=== PATIENT | male | born 1970 | race Caucasian/White ===

== ENCOUNTER 2016-06-26 11:36 | Inpatient (IN) | payer MEDICARE, MEDICAID ==
--- NOTE | 2016-06-26 12:04 | ED Physician Chart ---
Skin/Abscess/FB HPI - General Chief complaint: Skin Rash/Abscess Stated complaint: CYST PAIN Time Seen by Provider: 06/26/16 11:50 Limitations: language barrier, other (profound intellectual disability) - History of Present Illness MD complaint: abscess/boil Onset (ago): unknown Tetanus Up to Date: unsure Location: chest Severity: moderate - Related Data Home Medications Medication Instructions Recorded Confirmed Acetaminophen [Tylenol] 650 mg PO Q6HR PRN 03/13/16 06/26/16 Bupropion HCl 75 mg PO DAILY 03/13/16 06/26/16 Clonazepam [Clonazepam*] 1 mg PO TID 03/13/16 06/26/16 Desmopressin Acetate [Ddavp] 0.1 mg PO DAILY 03/13/16 06/26/16 Divalproex Sodium [Depakote] 500 mg PO TID 03/13/16 06/26/16 Ferrous Sulfate [Iron] 325 mg PO BID 03/13/16 06/26/16 Guaifenesin/D-Methorphan Hb/PE 2 tsp PO QID PRN 03/13/16 06/26/16 [Tussin Cf Cough & Cold Syrup] Levothyroxine [Synthroid] 0.05 mg PO QDAC 03/13/16 06/26/16 Megestrol Acetate [Megace] 40 mg PO BID 03/13/16 06/26/16 Melatonin 6 mg PO HS 03/13/16 06/26/16 Menthol/Zinc Oxide [Calmoseptine 71 gm TP PRN PRN 03/13/16 06/26/16 Ointment] Metoclopramide HCl 5 mg PO BID 03/13/16 06/26/16 Ondansetron [Zofran Odt] 4 mg PO Q6H PRN 03/13/16 06/26/16 QUEtiapine Fumarate [SEROquel] 25 mg PO TID 03/13/16 06/26/16 QUEtiapine Fumarate [SEROquel] 50 mg PO TID 03/13/16 06/26/16 Trazodone HCl 100 mg PO HS 03/13/16 06/26/16 Zolpidem Tartrate 5 mg PO HS 03/13/16 06/26/16 Allergies Allergy/AdvReac Type Severity Reaction Status Date / Time No Known Allergies Allergy Verified 06/26/16 12:03 Past Medical History - Past Medical History Source: Old Records Reviewed, Nursing Notes Reviewed Medical history: Reports: GERD, Seizures, Thyroid Disease Psychiatric history: Reports: Anxiety, Schizophrenia (anglemons syndrome, autism ) Family Medical History - Family Member Mother History Unknown: Yes Physical Exam - General Limitations: language barrier, other (mental disability) - Head Head exam: normal inspection - Eye Eye exam: Present: normal appearance - Chest Chest inspection: Present: abscess (midline presternal soft tissue abscess) - Neurological Exam Neurological exam: Present: alert (smiles, attentive to name. uncooperative in allowing shirt to be removed, swings arms to prevent any attempt at intervention.) - Expanded Psychiatric Exam Expanded psych exam: Present: uncooperative, other - Skin Skin exam: Present: warm, dry - Expanded Skin Exam Type of lesion: Present: abscess Distribution: chest (3x6cm midline soft tissue abscess ant chest wall below xiphiod process)
--- NOTE | 2016-06-26 13:56 | General Progress Note ---
Subjective - Review of Systems Service Date: 06/26/16 Subjective: [id number] Objective - Physical Exam Vitals and I&O: Vital Signs Temp 97.9 F 06/26/16 12:05 Pulse 98 06/26/16 12:05 Resp 18 06/26/16 12:05 BP 105/57 06/26/16 12:05 Pulse Ox 94 06/26/16 12:05 Active Medications: Current Medications Piperacillin Sod/Tazobactam (Sod 4.5 gm/ Sodium Chloride) 100 mls @ 100 mls/hr IV Q8HR [facility] Stop: 08/25/16 20:59 Lidocaine/Epinephrine (Epinephrine /Lidocaine 2%) 10 ml INJ X1 ONE Stop: 06/26/16 12:12 Lorazepam (Ativan) 1 mg IM NOW STA PRN Reason: Protocol Stop: 06/26/16 12:08 Last Admin: 06/26/16 12:18 Dose: 1 mg Miscellaneous (Vancomycin Iv Per Pharmacy) 1 ea MC PRN [facility] Stop: 08/25/16 13:44 - Procedures Procedures: Procedures Procedure Code Date COLONOSCOPY 45.23 07/22/10 DIAGNOSTIC COLONOSCOPY 17920 07/22/10 EGD DIAGNOSTIC BRUSH WASH 62177 04/17/09 ESOPHAGOGASTRODUODENOSCOPY [EGD] W/CLOSED BIOPSY 45.16 03/05/09 OTHER ENDOSCOPY OF SM INTEST 45.13 04/17/09 Assessment/Plan - Problem List Patient Problems: All 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 Failure to thrive (Acute) [id number] History of pneumonia (Acute) Z87.01 Inadequate oral intake (Acute) R63.8 Leukocytosis (Acute) D72.829 Thyroid disorder (Acute) UTI (urinary tract infection) (Acute)
[2016-06-26 14:29] LABS: HEMOGLOBIN 10.7 gm/dL (13.2-17.3); MEAN CORPUSCULAR HEMOGLOBIN 24.9 pg (26.0-30.0); MEAN CORPUSCULAR HGB CONC 31.9 pg (28.0-36.0); MEAN PLATELET VOLUME 7.5 fl; RED BLOOD COUNT 4.29 Mil/cmm (4.30-5.70); RED CELL DISTRIBUTION WIDTH 20.5 % (11.5-20.0)
[2016-06-26 14:31] LABS: HEMATOCRIT 33.4 % (39.0-49.0); PLATELET COUNT 437 Th/cmm (150-400)
[2016-06-26 14:39] LABS: ALB/GLOB RATIO 0.8 (1.0-1.8); ALKALINE PHOSPHATASE 43 U/L (34-104); ANION GAP 9.3 (7.0-16.0); BILIRUBIN,TOTAL 0.2 mg/dL (0.3-1.0); BUN - UREA NITROGEN 21 mg/dL (7-25); BUN/CREATININE RATIO 19.1; CALCIUM SERUM 8.9 mg/dL (8.6-10.3); CARBON DIOXIDE 30.4 mEq/L (21.0-31.0); CHLORIDE 97 mEq/L (98-107); CREATININE - SERUM 1.1 mg/dL (0.7-1.3); GLUCOSE 79 mg/dL (70-105); POTASSIUM SERUM 4.7 mEq/L (3.5-5.1); SGOT 11 U/L (13-39); SGPT/ALT 5 U/L (7-52); SODIUM SERUM 132 mEq/L (136-145)
--- NOTE | 2016-06-26 14:57 | History & Physical ---
CHIEF COMPLAINT: The patient is a poor historian, unable to give any history. The patient was sent from correction for chest wall abscess. HISTORY OF PRESENT ILLNESS: The patient is a 45-year-old male with a past medical history of Angelman syndrome, schizophrenia, anxiety, GERD, seizures, thyroid disorder, cellulitis of right big toe, treated with antibiotic in the past, brought in from nursing facility for a large chest wall abscess with redness. On initial evaluation, the patient's temperature was 97.9 degrees Fahrenheit and labs are pending. PAST MEDICAL HISTORY: As mentioned above, Angelman syndrome, schizophrenia, mental retardation, GERD, seizure disorder, hypothyroidism and anxiety disorder. FAMILY HISTORY: Unknown. REVIEW OF SYSTEMS: Unable to obtain, but the patient has large chest wall abscess in front of the sternum. SOCIAL HISTORY: The patient lives in a nursing facility. PHYSICAL EXAMINATION: VITAL SIGNS: Shows temperature is 97.9, pulse 98, respirations 18, blood pressure 105/57. GENERAL: The patient is comfortable. Not in acute distress. HEENT: Head is normocephalic, atraumatic. Oral cavity moist, pink tongue. Eyes: No pallor, no icterus. PERRLA, EOMI. NECK: Supple, no JVD, no carotid bruit. Trachea in midline. CHEST: Bilateral breath sounds. No crackles, no wheezing. SKIN: The patient has large abscess in the middle of her chest anteriorly with redness. HEART: S1, S2 within normal limits. Regular rhythm. ABDOMEN: Soft, nontender, nondistended. Bowel sounds present. EXTREMITIES: No cyanosis, no clubbing, no edema. NEUROLOGIC: Alert, but mentally retarded. LABORATORY DATA: Labs are pending, not done yet. IMPRESSION: 1. Chest wall abscess. 2. Angelman syndrome. 3. Schizophrenia. 4. Mental retardation. 5. History of MRSA infection in the past. RECOMMENDATIONS AND PLAN: We will ask for surgical consultation. We will ask for Psychiatric consultation. Antibiotics, vancomycin and Zosyn, were started. Continue other medications from nursing facility. Discussed with the nurse, RN, and ER and get all the lab work done. JOB# [id number] [facility]
[2016-06-26 15:11] LABS: ANISOCYTOSIS 1+; BAND NEUTROPHILE 1 % (0-10); EOSINOPHIL 2 % (0-5); MICROCYTOSIS 1+; NEUTROPHILS 71 % (40-80); PLATELET MORPHOLOGY PLATELET CLUMPS SEEN (NORMAL); TOTAL CELLS COUNTED 100
[2016-06-26 15:12] LABS: PLATELET ESTIMATE ADEQUATE (NORMAL)
[2016-06-26] MEDS ORDERED: [UNRECOGNIZED DRUG - OTHER] PO PRN (21:41)
[2016-06-26] MEDS ORDERED: Menthol/Zinc Oxide Oint 113gm Tube TP PRN (21:41)
[2016-06-26] MEDS ORDERED: GUAIFENESIN PO PRN (21:41)
[2016-06-26] MEDS ORDERED: PHENYLEPHRINE PO PRN (21:41)
[2016-06-26] MEDS ORDERED: DEXTROMETHORPHAN PO PRN (21:41)
[2016-06-27 05:45] LABS: HEMOGLOBIN 11.5 gm/dL (13.2-17.3); MEAN CORPUSCULAR HEMOGLOBIN 24.8 pg (26.0-30.0); MEAN CORPUSCULAR HGB CONC 31.8 pg (28.0-36.0); MEAN PLATELET VOLUME 7.4 fl; PLATELET COUNT 478 Th/cmm (150-400); RED BLOOD COUNT 4.62 Mil/cmm (4.30-5.70); RED CELL DISTRIBUTION WIDTH 20.5 % (11.5-20.0); WHITE BLOOD COUNT 18.2 Th/cmm (4.8-10.8)
[2016-06-27 06:14] LABS: ALB/GLOB RATIO 0.8 (1.0-1.8); ALKALINE PHOSPHATASE 47 U/L (34-104); ANION GAP 7.1 (7.0-16.0); BILIRUBIN,TOTAL 0.2 mg/dL (0.3-1.0); BUN - UREA NITROGEN 21 mg/dL (7-25); BUN/CREATININE RATIO 19.1; CARBON DIOXIDE 28.6 mEq/L (21.0-31.0); CHLORIDE 98 mEq/L (98-107); CREATININE - SERUM 1.1 mg/dL (0.7-1.3); GLUCOSE 76 mg/dL (70-105); POTASSIUM SERUM 4.7 mEq/L (3.5-5.1); SGOT 14 U/L (13-39); SGPT/ALT 6 U/L (7-52); SODIUM SERUM 129 mEq/L (136-145)
[2016-06-27] MEDS: Levothyroxine 0.05 Mg Tab PO SCH (07:30)
[2016-06-27 07:53] LABS: EOSINOPHIL 3 % (0-5); MYELOCYTE 1 %; NEUTROPHILS 76 % (40-80); PLATELET ESTIMATE ADEQUATE (NORMAL); PLATELET MORPHOLOGY GIANT PLATELETS SEEN (NORMAL); TOTAL CELLS COUNTED 100
[2016-06-27 07:54] LABS: ANISOCYTOSIS 1+; MICROCYTOSIS 1+
[2016-06-27] MEDS: Ferrous Sulfate 325 MG TAB PO SCH ×2 (08:58→16:02)
[2016-06-27] MEDS ORDERED: Guaifenesin DM 10 ML UDC PO PRN (11:59)
--- NOTE | 2016-06-27 12:58 | General Progress Note ---
Subjective - Review of Systems Service Date: 06/27/16 Events since last encounter: large abscess on chest - duration? from SNF, unable to ascertain duration of abscess Plan: I and D of abscess unlder sedation in AM Objective - Results Result Diagrams: 06/27/16 05:25 06/27/16 05:25 Recent Labs: Laboratory Last Values WBC 18.2 Th/cmm (4.8-10.8) H 06/27/16 05:25 RBC 4.62 Mil/cmm (4.30-5.70) 06/27/16 05:25 Hgb 11.5 gm/dL (13.2-17.3) L 06/27/16 05:25 Hct 36.0 % (39.0-49.0) L 06/27/16 05:25 MCV 78.0 fl (80-99) L 06/27/16 05:25 MCH 24.8 pg (26.0-30.0) L 06/27/16 05:25 MCHC Differential 31.8 pg (28.0-36.0) 06/27/16 05:25 RDW 20.5 % (11.5-20.0) H 06/27/16 05:25 Plt Count 478 Th/cmm (150-400) H 06/27/16 05:25 MPV 7.4 fl 06/27/16 05:25 Band Neutrophils % 1 % (0-10) 06/26/16 14:13 Neutrophils (Manual) 76 % (40-80) 06/27/16 05:25 Lymphocytes 14 % (20-50) L 06/27/16 05:25 Monocytes 6 % (2-10) 06/27/16 05:25 Eosinophils 3 % (0-5) 06/27/16 05:25 Myelocytes 1 % 06/27/16 05:25 Nucleated RBCs 1.0 % (0-0) H 06/26/16 14:13 Platelet Estimate ADEQUATE (NORMAL) 06/27/16 05:25 Platelet Morphology GIANT PLATELETS SEEN (NORMAL) 06/27/16 05:25 Anisocytosis 1+ 06/27/16 05:25 Microcytosis 1+ 06/27/16 05:25 RBC Morph Micro Appear ABNORMAL (NORMAL) 06/27/16 05:25 ESR 17 mm/hr (0-20) 06/27/16 05:25 Sodium 129 mEq/L (136-145) L 06/27/16 05:25 Potassium 4.7 mEq/L (3.5-5.1) 06/27/16 05:25 Chloride 98 mEq/L (98-107) 06/27/16 05:25 Carbon Dioxide 28.6 mEq/L (21.0-31.0) 06/27/16 05:25 Anion Gap 7.1 (7.0-16.0) 06/27/16 05:25 BUN 21 mg/dL (7-25) 06/27/16 05:25 Creatinine 1.1 mg/dL (0.7-1.3) 06/27/16 05:25 Est GFR ( Amer) > 60.0 ml/min (>90) 06/27/16 05:25 Est GFR (Non-Af Amer) > 60.0 ml/min 06/27/16 05:25 BUN/Creatinine Ratio 19.1 06/27/16 05:25 Glucose 76 mg/dL (70-105) 06/27/16 05:25 Calcium 9.0 mg/dL (8.6-10.3) 06/27/16 05:25 Total Bilirubin 0.2 mg/dL (0.3-1.0) L 06/27/16 05:25 AST 14 U/L (13-39) 06/27/16 05:25 ALT 6 U/L (7-52) L 06/27/16 05:25 Alkaline Phosphatase 47 U/L (34-104) 06/27/16 05:25 Total Protein 7.5 gm/dL (6.0-8.3) 06/27/16 05:25 Albumin 3.3 gm/dL (4.2-5.5) L 06/27/16 05:25 Globulin 4.2 gm/dL 06/27/16 05:25 Albumin/Globulin Ratio 0.8 (1.0-1.8) L 06/27/16 05:25 - Physical Exam Vitals and I&O: Vital Signs Temp 97.2 F 06/27/16 12:00 Pulse 96 06/27/16 12:00 Resp 18 06/27/16 12:00 BP 119/65 06/27/16 12:00 Pulse Ox 92 06/27/16 12:00 Intake & Output 06/26/16 06/27/16 06/27/16 18:59 06:59 18:59 Intake Total 100 100 100 Balance 100 100 100 Weight (lbs) 65.317 kg Intake: Intake, IV Amount 100 100 Piperacillin Sodium/ 100 100 Tazobact 4.5 gm In Sodium Chloride 0.9% 100 ml @ 100 mls/hr IV Q8HR [facility] Rx #:[id number] Oral 100 Other: # Voids 1 Stool Characteristics Soft Soft Active Medications: Current Medications Acetaminophen (Tylenol) 650 mg PO Q6HR PRN PRN Reason: Pain (Mild) Stop: 08/25/16 21:35 Calamine/Phenol (Calmoseptine) 0 appl TP BID PRN PRN Reason: SKIN REDNESS Stop: 08/25/16 21:40 Desmopressin Acetate (Ddavp) 0.1 mg PO DAILY [facility] Stop: 08/26/16 08:59 Last Admin: 06/27/16 08:57 Dose: 0.1 mg Divalproex Sodium (Depakote Dr) 500 mg PO TID [facility] PRN Reason: Protocol Stop: 08/26/16 08:59 Ferrous Sulfate (Iron) 325 mg PO BID [facility] Stop: 08/26/16 08:59 Last Admin: 06/27/16 08:58 Dose: 325 mg Guaifenesin/Dextromethorphan (Robitussin Dm) 10 ml PO QID PRN PRN Reason: Cough Stop: 08/26/16 11:58 Piperacillin Sod/Tazobactam (Sod 4.5 gm/ Sodium Chloride) 100 mls @ 100 mls/hr IV Q8HR [facility] Stop: 08/25/16 20:59 Last Admin: 06/27/16 12:00 Dose: 100 mls/hr Vancomycin HCl 1 gm/ Sodium (Chloride) 250 mls @ 165 mls/hr IV Q12H [facility] Stop: 08/25/16 18:59 Last Admin: 06/26/16 19:41 Dose: 165 mls/hr Levothyroxine Sodium (Synthroid) 0.05 mg PO QDAC [facility] Stop: 08/26/16 07:29 Last Admin: 06/27/16 07:30 Dose: 0.05 mg Lorazepam (Ativan) 1 mg IVP Q4HR PRN; Protocol PRN Reason: Agitation Stop: 08/25/16 21:49 Last Admin: 06/27/16 06:32 Dose: 1 mg Megestrol Acetate (Megace) 40 mg PO BID [facility] PRN Reason: Protocol Stop: 08/26/16 08:59 Last Admin: 06/27/16 08:58 Dose: 40 mg Metoclopramide HCl (Reglan) 5 mg PO BID [facility] Stop: 08/26/16 08:59 Last Admin: 06/27/16 08:57 Dose: 5 mg Miscellaneous (Vancomycin Iv Per Pharmacy) 1 ea MC PRN [facility] Stop: 08/25/16 13:44 Miscellaneous (Bupropion Hcl [Bupropion Hcl]) 75 mg PO DAILY [facility] Stop: 08/26/16 08:59 Miscellaneous (Clonazepam [Clonazepam*]) 1 mg PO TID [facility] Stop: 08/26/16 08:59 Miscellaneous (Trazodone Hcl [Trazodone Hcl]) 100 mg PO HS [facility] Stop: 08/26/16 20:59 Ondansetron HCl (Zofran) 4 mg IV Q6H PRN PRN Reason: Nausea / Vomiting Stop: 08/25/16 21:48 Quetiapine Fumarate (Seroquel) 25 mg PO TID [facility] PRN Reason: Protocol Stop: 08/26/16 08:59 Quetiapine Fumarate (Seroquel) 50 mg PO TID [facility] PRN Reason: Protocol Stop: 08/26/16 08:59 Zolpidem Tartrate (Ambien) 5 mg PO HS [facility] Stop: 08/26/16 20:59 - Procedures Procedures: Procedures Procedure Code Date COLONOSCOPY 45.23 07/22/10 DIAGNOSTIC COLONOSCOPY 38510 07/22/10 EGD DIAGNOSTIC BRUSH WASH 43308 04/17/09 ESOPHAGOGASTRODUODENOSCOPY [EGD] W/CLOSED BIOPSY 45.16 03/05/09 OTHER ENDOSCOPY OF SM INTEST 45.13 04/17/09 Assessment/Plan - Problem List Patient Problems: All 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 Failure to thrive (Acute) [id number] History of pneumonia (Acute) Z87.01 Inadequate oral intake (Acute) R63.8 Leukocytosis (Acute) D72.829 Thyroid disorder (Acute) UTI (urinary tract infection) (Acute)
--- NOTE | 2016-06-27 17:49 | Admit Criteria Form ---
Admit Criteria Forms - Admit Criteria Diagnosis: HYPONATREMIA; HYPERNATREMIA; HYPOKALEMIA; HYPERKALEMIA; HYPOCALCEMIA; HYPERCALCEMIA Clinical Indications for Inpatient Care (Place 'X' for any and all applicable criteria): Ongoing inpatient care may be indicated for ANY ONE of the following [G](1)(2)(3 )(5): [X]I. Hyponatremia with ANY ONE of the following: [X]a) Sodium less than 130 mEq/L (mmol/L) (new) (6)(22) [ ]b) Sodium less than 135 mEq/L (mmol/L) with ANY ONE of the following: [ ]i) Severe medical etiology requiring inpatient management (eg, heart failure, hypovolemia) [ ]ii) Altered mental status [ ]iii) Seizures [ ]II. Hypernatremia with ANY ONE of the following: [ ]a) Sodium greater than 155 mEq/L (mmol/L) [ ]b) Sodium greater than 150 mEq/L (mmol/L) with ANY ONE of the following: [ ] i) Altered mental status [ ]ii) Seizures [ ]iii) Severe medical etiology (eg, hypovolemia, diabetes insipidus) [ ]iv) Severe weakness [ ]v) Severe medical etiology (eg, hemolysis, infection, drug overdose) [ ]III. Hypokalemia with ANY ONE of the following: [ ]a) Potassium less than 2.5 mEq/L (mmol/L) despite outpatient and emergency treatment [ ]b) Potassium less than 3.0 mEq/L (mmol/L) with ANY ONE of the following: [ ]i) Weakness [ ]ii) Cardiac abnormality (eg, arrhythmia, conduction disturbance) [ ]iii) Cardiac ischemia [ ]iv) Ileus [ ]v) Ongoing medical cause requiring inpatient management. ( e.g., acute renal wasting, SIADH) [ ]vi) Other severe symptoms [ ] IV. Hyperkalemia with ANY ONE of the following: [ ]a) Potassium greater than 6.5 mEq/L (mmol/L) [ ]b) Potassium greater than 5 mEq/L (mmol/L) with ANY ONE of the following: [ ]i) Severe ECG findings [H] [ ]ii) Acute worsening of renal failure (creatinine greater than 2.5 mg/dL (221 micromoles/L) or significant elevation for age and size) [ ] V. Hypocalcemia with ANY ONE of the following: [ ]a) Calcium less than 7 mg/dL (1.75 mmol/L) despite outpatient and emergency treatment(19) [ ]b) Calcium less than 8 mg/dL (2 mmol/L) with significant symptoms or findings; examples include: [ ]i) Cardiac abnormality (eg, arrhythmia or conduction disturbance) [ ]ii) Altered mental status [ ]iii) Seizures [ ]iv) Breathing difficulty [ ]v) Muscle spasms [ ]. Hypercalcemia with ANY ONE of the following: [ ]a) Calcium greater than 14 mg/dL (3.5 mmol/L) [ ]b) Calcium greater than 12 mg/dL (3 mmol/L) with ANY ONE of the following: [ ]i) Significant dehydration or hypovolemia as indicated by ANY ONE of the following(2): [ ]1. Clinically significant dehydration as indicated by ANY ONE of the following: [ ]A. Acute loss of weight from baseline (5% of body weight in adults, 9% in pediatric patients) [ ]B. Hemodynamic instability [ ]C. Acute renal failure [ ]D. Serum sodium greater than 150 mEq/L (mmol/L) [ ]2) Dehydration that is persistent indicated by ALL of the following: [ ]A. Oral rehydration therapy not tolerated or insufficient to adequately correct dehydration [ ]B. Appropriate intravenous treatment (eg, fluids ) does not readily correct dehydration ie, after 12 to 24 hours of treatment) [ ]ii) Significant symptoms or findings; examples include: [ ]1) Altered mental status [ ]2) Cardiac abnormality (eg, arrhythmia, conduction disturbance) [ ]3) Cardiac abnormality (eg, arrhythmia, conduction disturbance) The original [facility] content created by [employer] has been revised. The portions of the content which have been revised are identified through the use of italic text or in bold, and [facility] has neither reviewed nor approved the modified material. All other unmodified content is copyright [facility] [employer] Please see references footnoted in the original [facility] edition 2016 Admit Criteria Met?: Yes
--- NOTE | 2016-06-27 18:09 | Infectious Disease Prog Note ---
Infectious Disease Subjective - Review of Systems Service Date: 06/27/16 Subjective: No new changes, no fever. large swelling persists in the anterior chest wall. He was noted to have cough. Infectious Disease Objective - Results Result Diagrams: 06/27/16 05:25 06/27/16 05:25 Recent Labs: Laboratory Last Values WBC 18.2 Th/cmm (4.8-10.8) H 06/27/16 05:25 RBC 4.62 Mil/cmm (4.30-5.70) 06/27/16 05:25 Hgb 11.5 gm/dL (13.2-17.3) L 06/27/16 05:25 Hct 36.0 % (39.0-49.0) L 06/27/16 05:25 MCV 78.0 fl (80-99) L 06/27/16 05:25 MCH 24.8 pg (26.0-30.0) L 06/27/16 05:25 MCHC Differential 31.8 pg (28.0-36.0) 06/27/16 05:25 RDW 20.5 % (11.5-20.0) H 06/27/16 05:25 Plt Count 478 Th/cmm (150-400) H 06/27/16 05:25 MPV 7.4 fl 06/27/16 05:25 Band Neutrophils % 1 % (0-10) 06/26/16 14:13 Neutrophils (Manual) 76 % (40-80) 06/27/16 05:25 Lymphocytes 14 % (20-50) L 06/27/16 05:25 Monocytes 6 % (2-10) 06/27/16 05:25 Eosinophils 3 % (0-5) 06/27/16 05:25 Myelocytes 1 % 06/27/16 05:25 Nucleated RBCs 1.0 % (0-0) H 06/26/16 14:13 Platelet Estimate ADEQUATE (NORMAL) 06/27/16 05:25 Platelet Morphology GIANT PLATELETS SEEN (NORMAL) 06/27/16 05:25 Anisocytosis 1+ 06/27/16 05:25 Microcytosis 1+ 06/27/16 05:25 RBC Morph Micro Appear ABNORMAL (NORMAL) 06/27/16 05:25 ESR 17 mm/hr (0-20) 06/27/16 05:25 Sodium 129 mEq/L (136-145) L 06/27/16 05:25 Potassium 4.7 mEq/L (3.5-5.1) 06/27/16 05:25 Chloride 98 mEq/L (98-107) 06/27/16 05:25 Carbon Dioxide 28.6 mEq/L (21.0-31.0) 06/27/16 05:25 Anion Gap 7.1 (7.0-16.0) 06/27/16 05:25 BUN 21 mg/dL (7-25) 06/27/16 05:25 Creatinine 1.1 mg/dL (0.7-1.3) 06/27/16 05:25 Est GFR ( Amer) > 60.0 ml/min (>90) 06/27/16 05:25 Est GFR (Non-Af Amer) > 60.0 ml/min 06/27/16 05:25 BUN/Creatinine Ratio 19.1 06/27/16 05:25 Glucose 76 mg/dL (70-105) 06/27/16 05:25 Calcium 9.0 mg/dL (8.6-10.3) 06/27/16 05:25 Total Bilirubin 0.2 mg/dL (0.3-1.0) L 06/27/16 05:25 AST 14 U/L (13-39) 06/27/16 05:25 ALT 6 U/L (7-52) L 06/27/16 05:25 Alkaline Phosphatase 47 U/L (34-104) 06/27/16 05:25 Total Protein 7.5 gm/dL (6.0-8.3) 06/27/16 05:25 Albumin 3.3 gm/dL (4.2-5.5) L 06/27/16 05:25 Globulin 4.2 gm/dL 06/27/16 05:25 Albumin/Globulin Ratio 0.8 (1.0-1.8) L 06/27/16 05:25 - Physical Exam Vitals and I&O: Vital Signs Temp 96.8 F 06/27/16 16:00 Pulse 103 06/27/16 16:00 Resp 18 06/27/16 16:00 BP 130/68 06/27/16 16:00 Pulse Ox 92 06/27/16 16:00 Intake & Output 06/26/16 06/27/16 06/27/16 18:59 06:59 18:59 Intake Total 100 100 100 Balance 100 100 100 Weight (lbs) 65.317 kg Intake: Intake, IV Amount 100 100 Piperacillin Sodium/ 100 100 Tazobact 4.5 gm In Sodium Chloride 0.9% 100 ml @ 100 mls/hr IV Q8HR [facility] Rx #:[id number] Oral 100 Other: # Voids 1 Stool Characteristics Soft Soft Active Medications: Current Medications Acetaminophen (Tylenol) 650 mg PO Q6HR PRN PRN Reason: Pain (Mild) Stop: 08/25/16 21:35 Calamine/Phenol (Calmoseptine) 0 appl TP BID PRN PRN Reason: SKIN REDNESS Stop: 08/25/16 21:40 Desmopressin Acetate (Ddavp) 0.1 mg PO DAILY [facility] Stop: 08/26/16 08:59 Last Admin: 06/27/16 08:57 Dose: 0.1 mg Divalproex Sodium (Depakote Dr) 500 mg PO TID [facility] PRN Reason: Protocol Stop: 08/26/16 08:59 Ferrous Sulfate (Iron) 325 mg PO BID [facility] Stop: 08/26/16 08:59 Last Admin: 06/27/16 16:02 Dose: 325 mg Guaifenesin/Dextromethorphan (Robitussin Dm) 10 ml PO QID PRN PRN Reason: Cough Stop: 08/26/16 11:58 Piperacillin Sod/Tazobactam (Sod 4.5 gm/ Sodium Chloride) 100 mls @ 100 mls/hr IV Q8HR [facility] Stop: 08/25/16 20:59 Last Admin: 06/27/16 12:00 Dose: 100 mls/hr Vancomycin HCl 1 gm/ Sodium (Chloride) 250 mls @ 165 mls/hr IV Q12H [facility] Stop: 08/25/16 18:59 Last Admin: 06/26/16 19:41 Dose: 165 mls/hr Levothyroxine Sodium (Synthroid) 0.05 mg PO QDAC [facility] Stop: 08/26/16 07:29 Last Admin: 06/27/16 07:30 Dose: 0.05 mg Lorazepam (Ativan) 1 mg IVP Q4HR PRN; Protocol PRN Reason: Agitation Stop: 08/25/16 21:49 Last Admin: 06/27/16 06:32 Dose: 1 mg Megestrol Acetate (Megace) 40 mg PO BID [facility] PRN Reason: Protocol Stop: 08/26/16 08:59 Last Admin: 06/27/16 16:03 Dose: 40 mg Metoclopramide HCl (Reglan) 5 mg PO BID [facility] Stop: 08/26/16 08:59 Last Admin: 06/27/16 16:02 Dose: 5 mg Miscellaneous (Vancomycin Iv Per Pharmacy) 1 ea MC PRN [facility] Stop: 08/25/16 13:44 Miscellaneous (Bupropion Hcl [Bupropion Hcl]) 75 mg PO DAILY [facility] Stop: 08/26/16 08:59 Miscellaneous (Clonazepam [Clonazepam*]) 1 mg PO TID [facility] Stop: 08/26/16 08:59 Miscellaneous (Trazodone Hcl [Trazodone Hcl]) 100 mg PO HS [facility] Stop: 08/26/16 20:59 Ondansetron HCl (Zofran) 4 mg IV Q6H PRN PRN Reason: Nausea / Vomiting Stop: 08/25/16 21:48 Quetiapine Fumarate (Seroquel) 25 mg PO TID [facility] PRN Reason: Protocol Stop: 08/26/16 08:59 Quetiapine Fumarate (Seroquel) 50 mg PO TID [facility] PRN Reason: Protocol Stop: 08/26/16 08:59 Zolpidem Tartrate (Ambien) 5 mg PO HS [facility] Stop: 08/26/16 20:59 General: no acute distress, cachectic HEENT: atraumatic, normocephalic, PERRLA, EOMI, moist mucous membrane Neck: supple, no thyromegaly, no lymphadenopathy Cardiovascular: S1S2, regular Lungs: clear to auscultation bilaterally, clear to percussion, other (anteriorly , there is large red to brown large swelling.) Abdomen: soft, no tender, no distended Extremities: no cyanosis, no clubbing, no edema Neurological: awake, alert, oriented Skin: intact - Procedures Procedures: Procedures Procedure Code Date COLONOSCOPY 45.23 07/22/10 DIAGNOSTIC COLONOSCOPY 34453 07/22/10 EGD DIAGNOSTIC BRUSH WASH 82631 04/17/09 ESOPHAGOGASTRODUODENOSCOPY [EGD] W/CLOSED BIOPSY 45.16 03/05/09 OTHER ENDOSCOPY OF SM INTEST 45.13 04/17/09 Infectious Disease Assmt/Plan - Problem List Patient Problems: All 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 Failure to thrive (Acute) [id number] History of pneumonia (Acute) Z87.01 Inadequate oral intake (Acute) R63.8 Leukocytosis (Acute) D72.829 Thyroid disorder (Acute) UTI (urinary tract infection) (Acute) - Assessment Assessment: 1. large chest wall abscess. 2. Angelman syndrome. 3. Schizophrenia. 4. Mental retardation. 5. Cough. - Plan Plan: 3 phase bone scan and continue vanco IV and Zosyn. Swallow eval.
[2016-06-27] MEDS ORDERED: Non-Formulary Item 1 EA (Melatonin [Melatonin] 6 MG) PO SCH (21:00)
[2016-06-27] MEDS: Guaifenesin DM 10 ML UDC PO PRN (21:09)
[2016-06-28] MEDS: Azithromycin 500 MG in Sodium Chloride 0.9% 250 ML IV SCH ×2 (00:15→17:33)
[2016-06-28] MEDS: Levothyroxine 0.05 Mg Tab PO SCH (06:44)
[2016-06-28 07:14] LABS: HEMATOCRIT 32.6 % (39.0-49.0); HEMOGLOBIN 10.5 gm/dL (13.2-17.3); MEAN CELL VOLUME 77.6 fl (80-99); MEAN CORPUSCULAR HEMOGLOBIN 25.1 pg (26.0-30.0); MEAN CORPUSCULAR HGB CONC 32.4 pg (28.0-36.0); MEAN PLATELET VOLUME 7.4 fl; PLATELET COUNT 452 Th/cmm (150-400); RED CELL DISTRIBUTION WIDTH 20.8 % (11.5-20.0)
[2016-06-28 07:31] LABS: ALB/GLOB RATIO 0.8 (1.0-1.8); ALKALINE PHOSPHATASE 42 U/L (34-104); ANION GAP 3.4 (7.0-16.0); BILIRUBIN,TOTAL 0.3 mg/dL (0.3-1.0); BUN - UREA NITROGEN 17 mg/dL (7-25); CALCIUM SERUM 8.6 mg/dL (8.6-10.3); CARBON DIOXIDE 27.3 mEq/L (21.0-31.0); CHLORIDE 100 mEq/L (98-107); GLUCOSE 95 mg/dL (70-105); POTASSIUM SERUM 3.7 mEq/L (3.5-5.1); SGOT 13 U/L (13-39); SGPT/ALT 6 U/L (7-52); SODIUM SERUM 127 mEq/L (136-145)
[2016-06-28 07:38] LABS: INR 0.99 (0.5-1.4); PROTHROMBIN TIME (TEST) 9.8 SECONDS (9.5-11.5)
[2016-06-28 08:02] LABS: WHITE BLOOD COUNT 22.9 Th/cmm (4.8-10.8)
[2016-06-28] MEDS ORDERED: Midazolam 1mg/ml 2 ml vial IV ONE (08:07)
[2016-06-28] MEDS ORDERED: Meperidine 25 mg/mL 1mL Syr IVP PRN (08:31)
[2016-06-28] MEDS ORDERED: Lactated Ringer 1,000 ML IV SCH (08:45)
[2016-06-28 09:32] LABS: ANISOCYTOSIS 1+; BAND NEUTROPHILE 3 % (0-10); EOSINOPHIL 1 % (0-5); MICROCYTOSIS 1+; NEUTROPHILS 72 % (40-80); PLATELET ESTIMATE INCREASED PLATELETS (NORMAL); PLATELET MORPHOLOGY NORMAL (NORMAL); POLYCHROMASIA 1+; TOTAL CELLS COUNTED 100
[2016-06-28] MEDS: Ferrous Sulfate 325 MG TAB PO SCH ×2 (09:33→17:36)
--- NOTE | 2016-06-28 10:00 | Consultation ---
REFERRING PHYSICIAN: Dr. Jermaine Rivas. REASON FOR CONSULTATION: Abscess, chest wall. Thank you for referring this patient to me. HISTORY OF PRESENT ILLNESS: This is a 45-year-old male who is schizophrenic with seizures and anxiety disorder. The patient unable to give any information; whatsoever. Abscess duration is not known. LABORATORY STUDIES: Include WBC of 18,000, platelet count is normal. Chemistry is essentially normal. PHYSICAL EXAMINATION: There is a large abscess in the chest region in 2 areas, one on top of the other. These have draining sinuses. RECOMMENDATIONS: Incision and drainage of the abscess and depending on the nature, will do wide excision if needed. JOB# [id number]
--- NOTE | 2016-06-28 10:05 | Operative Report ---
PREOPERATIVE DIAGNOSES: 1. Abscesses (2), anterior chest wall. 2. Schizophrenia. POSTOPERATIVE DIAGNOSES: 1. Abscesses (2), anterior chest wall. 2. Schizophrenia. OPERATION DONE: Wide excision of infected sebaceous cyst. SURGEON: Houston Hensley M.D. ANESTHESIA: MAC. ANESTHESIOLOGIST: Estella Alegria M.D. ESTIMATED BLOOD LOSS: 2 mL. DETAILS OF PROCEDURE: The patient was given IV sedation. The chest abscesses were prepped with Betadine and draped in appropriate manner. Then, 1% lidocaine was used to infiltrate the 2 areas. A probe was then placed. The 2 sinuses were interconnected. This was incised across distance about 1 inch. Sebaceous wall was found and this was completely excised. Bleeders were coagulated. Cultures were taken. The wound was packed with iodoform gauze. The patient tolerated the procedure well. [facility]# [id number]
--- NOTE | 2016-06-28 11:20 | Diagnostic Imaging Report ---
Portable chest x-ray History: Cough Allowing for portable technique the heart size is normal. No focal pulmonary parenchymal processes. No hilar or mediastinal abnormalities. Impression: No acute abnormalities.
--- NOTE | 2016-06-28 12:55 | Infectious Disease Prog Note ---
Infectious Disease Subjective - Review of Systems Service Date: 06/28/16 Subjective: No new changes, no fever. I and D wound of the anterior chest wall. Infectious Disease Objective - Results Result Diagrams: 06/28/16 06:53 06/28/16 06:53 Recent Labs: Laboratory Last Values WBC 22.9 Th/cmm (4.8-10.8) H* D 06/28/16 06:53 RBC 4.20 Mil/cmm (4.30-5.70) L 06/28/16 06:53 Hgb 10.5 gm/dL (13.2-17.3) L 06/28/16 06:53 Hct 32.6 % (39.0-49.0) L 06/28/16 06:53 MCV 77.6 fl (80-99) L 06/28/16 06:53 MCH 25.1 pg (26.0-30.0) L 06/28/16 06:53 MCHC Differential 32.4 pg (28.0-36.0) 06/28/16 06:53 RDW 20.8 % (11.5-20.0) H 06/28/16 06:53 Plt Count 452 Th/cmm (150-400) H 06/28/16 06:53 MPV 7.4 fl 06/28/16 06:53 Band Neutrophils % 3 % (0-10) 06/28/16 06:53 Neutrophils (Manual) 72 % (40-80) 06/28/16 06:53 Lymphocytes 11 % (20-50) L 06/28/16 06:53 Monocytes 13 % (2-10) H 06/28/16 06:53 Eosinophils 1 % (0-5) 06/28/16 06:53 Myelocytes 1 % 06/27/16 05:25 Nucleated RBCs 1.0 % (0-0) H 06/26/16 14:13 Platelet Estimate INCREASED PLATELETS (NORMAL) 06/28/16 06:53 Platelet Morphology NORMAL (NORMAL) 06/28/16 06:53 Polychromasia 1+ 06/28/16 06:53 Anisocytosis 1+ 06/28/16 06:53 Microcytosis 1+ 06/28/16 06:53 RBC Morph Micro Appear ABNORMAL (NORMAL) 06/28/16 06:53 ESR 17 mm/hr (0-20) 06/27/16 05:25 PT 9.8 SECONDS (9.5-11.5) 06/28/16 06:53 INR 0.99 (0.5-1.4) 06/28/16 06:53 PTT (Actin FS) 29.2 SECONDS (26.0-38.0) 06/28/16 06:53 Sodium 127 mEq/L (136-145) L 06/28/16 06:53 Potassium 3.7 mEq/L (3.5-5.1) 06/28/16 06:53 Chloride 100 mEq/L (98-107) 06/28/16 06:53 Carbon Dioxide 27.3 mEq/L (21.0-31.0) 06/28/16 06:53 Anion Gap 3.4 (7.0-16.0) L 06/28/16 06:53 BUN 17 mg/dL (7-25) 06/28/16 06:53 Creatinine 1.0 mg/dL (0.7-1.3) 06/28/16 06:53 Est GFR ( Amer) > 60.0 ml/min (>90) 06/28/16 06:53 Est GFR (Non-Af Amer) > 60.0 ml/min 06/28/16 06:53 BUN/Creatinine Ratio 17.0 06/28/16 06:53 Glucose 95 mg/dL (70-105) 06/28/16 06:53 Calcium 8.6 mg/dL (8.6-10.3) 06/28/16 06:53 Total Bilirubin 0.3 mg/dL (0.3-1.0) 06/28/16 06:53 AST 13 U/L (13-39) 06/28/16 06:53 ALT 6 U/L (7-52) L 06/28/16 06:53 Alkaline Phosphatase 42 U/L (34-104) 06/28/16 06:53 Total Protein 7.3 gm/dL (6.0-8.3) 06/28/16 06:53 Albumin 3.3 gm/dL (4.2-5.5) L 06/28/16 06:53 Globulin 4.0 gm/dL 06/28/16 06:53 Albumin/Globulin Ratio 0.8 (1.0-1.8) L 06/28/16 06:53 - Physical Exam Vitals and I&O: Vital Signs Temp 98.3 F 06/28/16 08:00 Pulse 74 06/28/16 09:41 Resp 16 06/28/16 09:41 BP 114/77 06/28/16 08:00 Pulse Ox 92 06/28/16 09:41 Intake & Output 06/27/16 06/28/16 06/28/16 18:59 06:59 18:59 Intake Total 1999 410 Output Total 1 Balance 1998 410 Intake: Intake, IV Amount 200 350 Piperacillin Sodium/ 200 100 Tazobact 4.5 gm In Sodium Chloride 0.9% 100 ml @ 100 mls/hr IV Q8HR [facility] Rx #:[id number] Vancomycin HCl 1 gm In 250 Sodium Chloride 0.9% 250 ml @ 165 mls/hr IV Q12H [facility] Rx#:[id number] Oral 1800 60 Output: Stool 1 Other: # Voids 3 5 # Bowel Movements 1 5 Stool Characteristics Soft Soft Liquid Brown Active Medications: Current Medications Acetaminophen (Tylenol) 650 mg PO Q6HR PRN PRN Reason: Pain (Mild) Stop: 08/25/16 21:35 Bupropion HCl (Wellbutrin) 75 mg PO DAILY [facility] Stop: 08/27/16 08:59 Last Admin: 06/28/16 09:31 Dose: 75 mg Calamine/Phenol (Calmoseptine) 0 appl TP BID PRN PRN Reason: SKIN REDNESS Stop: 08/25/16 21:40 Clonazepam (Klonopin) 1 mg PO TID [facility] Stop: 08/26/16 08:59 Last Admin: 06/28/16 09:34 Dose: 1 mg Desmopressin Acetate (Ddavp) 0.1 mg PO DAILY [facility] Stop: 08/26/16 08:59 Last Admin: 06/28/16 09:33 Dose: 0.1 mg Divalproex Sodium (Depakote Dr) 500 mg PO TID [facility] PRN Reason: Protocol Stop: 08/26/16 08:59 Last Admin: 06/28/16 09:33 Dose: 500 mg Ferrous Sulfate (Iron) 325 mg PO BID [facility] Stop: 08/26/16 08:59 Last Admin: 06/28/16 09:33 Dose: 325 mg Guaifenesin/Dextromethorphan (Robitussin Dm) 10 ml PO Q4HR PRN PRN Reason: Cough Stop: 08/26/16 18:13 Last Admin: 06/27/16 21:09 Dose: 10 ml Piperacillin Sod/Tazobactam (Sod 4.5 gm/ Sodium Chloride) 100 mls @ 100 mls/hr IV Q8HR [facility] Stop: 08/25/16 20:59 Last Admin: 06/28/16 05:00 Dose: 100 mls/hr Azithromycin 500 mg/ Sodium (Chloride) 250 mls @ 250 mls/hr IV Q24HR [facility] Stop: 08/26/16 18:14 Last Admin: 06/28/16 00:15 Dose: 250 mls/hr Lactated Ringer's (Lactated Ringer) 1,000 mls @ 0 mls/hr IV .Q0M [facility] PRN Reason: TKO Stop: 06/28/16 15:00 Vancomycin HCl 1.25 gm/ Sodium (Chloride) 250 mls @ 165 mls/hr IV Q12H [facility] Stop: 08/27/16 18:59 Levothyroxine Sodium (Synthroid) 0.05 mg PO QDAC [facility] Stop: 08/26/16 07:29 Last Admin: 06/28/16 06:44 Dose: Not Given Lorazepam (Ativan) 1 mg IVP Q4HR PRN; Protocol PRN Reason: Agitation Stop: 08/25/16 21:49 Last Admin: 06/28/16 03:00 Dose: 1 mg Megestrol Acetate (Megace) 40 mg PO BID [facility] PRN Reason: Protocol Stop: 08/26/16 08:59 Last Admin: 06/28/16 09:34 Dose: 40 mg Meperidine HCl (Demerol) 12.5 mg IVP UD PRN PRN Reason: POST-OP PAIN Stop: 06/28/16 15:00 Metoclopramide HCl (Reglan) 5 mg PO BID [facility] Stop: 08/26/16 08:59 Last Admin: 06/28/16 09:32 Dose: 5 mg Miscellaneous (Vancomycin Iv Per Pharmacy) 1 ea [facility] PRN [facility] Stop: 08/25/16 13:44 Ondansetron HCl (Zofran) 4 mg IV Q6H PRN PRN Reason: Nausea / Vomiting Stop: 08/25/16 21:48 Ondansetron HCl (Zofran) 4 mg IV UD PRN PRN Reason: Nausea / Vomiting Stop: 06/28/16 15:00 Quetiapine Fumarate (Seroquel) 25 mg PO TID [facility] PRN Reason: Protocol Stop: 08/26/16 08:59 Last Admin: 06/28/16 09:34 Dose: 25 mg Quetiapine Fumarate (Seroquel) 50 mg PO TID [facility] PRN Reason: Protocol Stop: 08/26/16 08:59 Last Admin: 06/28/16 09:33 Dose: 50 mg Trazodone HCl (Desyrel) 100 mg PO HS [facility] Stop: 08/26/16 20:59 Zolpidem Tartrate (Ambien) 5 mg PO HS [facility] Stop: 08/26/16 20:59 Last Admin: 06/27/16 21:42 Dose: 5 mg General: no acute distress, well developed, well nourished HEENT: atraumatic, normocephalic, PERRLA, EOMI Neck: supple, no thyromegaly, no lymphadenopathy Cardiovascular: S1S2, regular Lungs: clear to auscultation bilaterally, clear to percussion Abdomen: soft, no tender, no distended Extremities: no cyanosis, no clubbing, no edema Neurological: awake, alert - Procedures Procedures: Procedures Procedure Code Date COLONOSCOPY 45.23 07/22/10 DIAGNOSTIC COLONOSCOPY 40932 07/22/10 EGD DIAGNOSTIC BRUSH WASH 36608 04/17/09 ESOPHAGOGASTRODUODENOSCOPY [EGD] W/CLOSED BIOPSY 45.16 03/05/09 EXC TR-EXT B9+CHILANGO 0.5 CM< 49817 06/26/16 EXCISION OF CHEST WALL, OPEN APPROACH [id number] 06/26/16 OTHER ENDOSCOPY OF SM INTEST 45.13 04/17/09 Infectious Disease Assmt/Plan - Problem List Patient Problems: All 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 large chest wall abscess. 2. Angelman syndrome. 3. Schizophrenia. 4. Mental retardation. 5. Cough. 6. s/p I and D. - Plan Plan: 3 phase bone scan and continue vanco IV and Zosyn. Swallow eval. Antibiotic according to the culture report.
--- NOTE | 2016-06-28 23:45 | Progress Notes ---
SUBJECTIVE: The patient was seen in his room lying in his bed. The patient is a poor historian. The patient currently has bilateral restraints for safety. OBJECTIVE. HEENT: Head is atraumatic, normocephalic. Eyes: Pupils equally round and reactive bilaterally. Conjunctivae are clear. NECK: Supple. No JVD. CARDIOVASCULAR: No murmurs, S1 and S2 heard. PULMONARY: Clear to auscultation. ABDOMEN: Soft, nontender, no guarding. MUSCULOSKELETAL: The patient is currently bedbound. SKIN: Surgical site is intact. No drainage noted. Intact dressing. ASSESSMENT: 1. Chest wall abscess, status post excision of infected sebaceous cyst. 2. Schizophrenia. 3. Mental retardation. 4. Seizure. 5. Anemia. 6. Hypothyroidism. 7. Anxiety. PLAN: We will keep the patient in Med/Surg floor. We will continue IV antibiotics per ID doctor. JOB# [id number]
[2016-06-29] MEDS: Guaifenesin DM 10 ML UDC PO PRN ×2 (00:45→20:23)
[2016-06-29 06:17] LABS: HEMATOCRIT 33.2 % (39.0-49.0); HEMOGLOBIN 10.7 gm/dL (13.2-17.3); MEAN CELL VOLUME 77.9 fl (80-99); MEAN CORPUSCULAR HGB CONC 32.1 pg (28.0-36.0); MEAN PLATELET VOLUME 7.1 fl; PLATELET COUNT 457 Th/cmm (150-400); RED BLOOD COUNT 4.26 Mil/cmm (4.30-5.70); RED CELL DISTRIBUTION WIDTH 20.6 % (11.5-20.0); WHITE BLOOD COUNT 19.3 Th/cmm (4.8-10.8)
[2016-06-29 06:33] LABS: ALB/GLOB RATIO 0.8 (1.0-1.8); ALKALINE PHOSPHATASE 42 U/L (34-104); ANION GAP 11.1 (7.0-16.0); BILIRUBIN,TOTAL 0.2 mg/dL (0.3-1.0); BUN - UREA NITROGEN 14 mg/dL (7-25); BUN/CREATININE RATIO 15.6; CALCIUM SERUM 8.7 mg/dL (8.6-10.3); CARBON DIOXIDE 26.4 mEq/L (21.0-31.0); CHLORIDE 96 mEq/L (98-107); CREATININE - SERUM 0.9 mg/dL (0.7-1.3); GLUCOSE 80 mg/dL (70-105); POTASSIUM SERUM 4.5 mEq/L (3.5-5.1); SGOT 15 U/L (13-39); SGPT/ALT 7 U/L (7-52); SODIUM SERUM 129 mEq/L (136-145)
[2016-06-29] MEDS: Levothyroxine 0.05 Mg Tab PO SCH (06:37)
[2016-06-29 06:58] LABS: BAND NEUTROPHILE 1 % (0-10); BASOPHIL 1 % (0-3); EOSINOPHIL 7 % (0-5); NEUTROPHILS 54 % (40-80); TOTAL CELLS COUNTED 100
[2016-06-29 06:59] LABS: ANISOCYTOSIS 1+; MICROCYTOSIS 1+; PLATELET ESTIMATE ADEQUATE (NORMAL); PLATELET MORPHOLOGY NORMAL (NORMAL)
[2016-06-29] MEDS: Ferrous Sulfate 325 MG TAB PO SCH ×2 (08:53→16:57)
--- NOTE | 2016-06-29 11:06 | Pathology Report ---
[id number] Collection date: 06/28/2016 Surgeon: Dr. Quiana Conrad Specimen Description: Infected sebaceous cyst, chest wall. Gross Description: Received in formalin are multiple fragments of hyperkeratotic skin and membranous tissue consistent with cyst lining, aggregating to 2.2 cm in greatest dimension. Sectioning shows areas of attached crumbly material. Totally submitted in two cassettes labeled A1 and A2. Microscopic Description: The histologic sections show hyperkeratotic stratified squamous epithelium with associated chronic inflammation consisting of mostly lymphocytes. Collections of degenerated hyperkeratotic debris is also appreciated. There is no evidence for atypia. Diagnosis: Benign epidermal inclusion cyst with associated chronic inflammation, consistent with infected sebaceous cyst (chest wall). [facility]# [id number] [facility]ENTER[facility]
--- NOTE | 2016-06-29 12:39 | General Progress Note ---
Subjective - Review of Systems Events since last encounter: POD #1 survey rodman to change dressings daily and repack with iodoform gauze Objective - Results Result Diagrams: 06/29/16 05:45 06/29/16 05:45 Recent Labs: Laboratory Last Values WBC 19.3 Th/cmm (4.8-10.8) H 06/29/16 05:45 RBC 4.26 Mil/cmm (4.30-5.70) L 06/29/16 05:45 Hgb 10.7 gm/dL (13.2-17.3) L 06/29/16 05:45 Hct 33.2 % (39.0-49.0) L 06/29/16 05:45 MCV 77.9 fl (80-99) L 06/29/16 05:45 MCH 25.0 pg (26.0-30.0) L 06/29/16 05:45 MCHC Differential 32.1 pg (28.0-36.0) 06/29/16 05:45 RDW 20.6 % (11.5-20.0) H 06/29/16 05:45 Plt Count 457 Th/cmm (150-400) H 06/29/16 05:45 MPV 7.1 fl 06/29/16 05:45 Band Neutrophils % 1 % (0-10) 06/29/16 05:45 Neutrophils (Manual) 54 % (40-80) 06/29/16 05:45 Lymphocytes 26 % (20-50) 06/29/16 05:45 Monocytes 11 % (2-10) H 06/29/16 05:45 Eosinophils 7 % (0-5) H 06/29/16 05:45 Basophils 1 % (0-3) 06/29/16 05:45 Myelocytes 1 % 06/27/16 05:25 Nucleated RBCs 1.0 % (0-0) H 06/26/16 14:13 Platelet Estimate ADEQUATE (NORMAL) 06/29/16 05:45 Platelet Morphology NORMAL (NORMAL) 06/29/16 05:45 Polychromasia 1+ 06/28/16 06:53 Anisocytosis 1+ 06/29/16 05:45 Microcytosis 1+ 06/29/16 05:45 RBC Morph Micro Appear ABNORMAL (NORMAL) 06/29/16 05:45 ESR 17 mm/hr (0-20) 06/27/16 05:25 PT 9.8 SECONDS (9.5-11.5) 06/28/16 06:53 INR 0.99 (0.5-1.4) 06/28/16 06:53 PTT (Actin FS) 29.2 SECONDS (26.0-38.0) 06/28/16 06:53 Sodium 129 mEq/L (136-145) L 06/29/16 05:45 Potassium 4.5 mEq/L (3.5-5.1) 06/29/16 05:45 Chloride 96 mEq/L (98-107) L 06/29/16 05:45 Carbon Dioxide 26.4 mEq/L (21.0-31.0) 06/29/16 05:45 Anion Gap 11.1 (7.0-16.0) 06/29/16 05:45 BUN 14 mg/dL (7-25) 06/29/16 05:45 Creatinine 0.9 mg/dL (0.7-1.3) 06/29/16 05:45 Est GFR ( Amer) > 60.0 ml/min (>90) 06/29/16 05:45 Est GFR (Non-Af Amer) > 60.0 ml/min 06/29/16 05:45 BUN/Creatinine Ratio 15.6 06/29/16 05:45 Glucose 80 mg/dL (70-105) 06/29/16 05:45 Calcium 8.7 mg/dL (8.6-10.3) 06/29/16 05:45 Total Bilirubin 0.2 mg/dL (0.3-1.0) L 06/29/16 05:45 AST 15 U/L (13-39) 06/29/16 05:45 ALT 7 U/L (7-52) 06/29/16 05:45 Alkaline Phosphatase 42 U/L (34-104) 06/29/16 05:45 Total Protein 7.3 gm/dL (6.0-8.3) 06/29/16 05:45 Albumin 3.3 gm/dL (4.2-5.5) L 06/29/16 05:45 Globulin 4.0 gm/dL 06/29/16 05:45 Albumin/Globulin Ratio 0.8 (1.0-1.8) L 06/29/16 05:45 - Physical Exam Vitals and I&O: Vital Signs Temp 98.3 F 06/29/16 12:00 Pulse 81 06/29/16 12:00 Resp 17 06/29/16 12:00 BP 113/63 06/29/16 12:00 Pulse Ox 93 06/29/16 12:00 Intake & Output 06/28/16 06/29/16 06/29/16 18:59 06:59 18:59 Intake Total 820 100 Balance 820 100 Intake: Intake, IV Amount 100 100 Piperacillin Sodium/ 100 100 Tazobact 4.5 gm In Sodium Chloride 0.9% 100 ml @ 100 mls/hr IV Q8HR [facility] Rx #:[id number] Oral 720 Other: # Voids 3 # Bowel Movements 0 Stool Characteristics Soft Soft Liquid Brown Active Medications: Current Medications Acetaminophen (Tylenol) 650 mg PO Q6HR PRN PRN Reason: Pain (Mild) Stop: 08/25/16 21:35 Bupropion HCl (Wellbutrin) 75 mg PO DAILY [facility] Stop: 08/27/16 08:59 Last Admin: 06/29/16 08:54 Dose: 75 mg Calamine/Phenol (Calmoseptine) 0 appl TP BID PRN PRN Reason: SKIN REDNESS Stop: 08/25/16 21:40 Clonazepam (Klonopin) 1 mg PO TID [facility] Stop: 08/26/16 08:59 Last Admin: 06/29/16 08:54 Dose: 1 mg Desmopressin Acetate (Ddavp) 0.1 mg PO DAILY [facility] Stop: 08/26/16 08:59 Last Admin: 06/29/16 08:54 Dose: 0.1 mg Divalproex Sodium (Depakote Dr) 500 mg PO TID [facility] PRN Reason: Protocol Stop: 08/26/16 08:59 Last Admin: 06/29/16 08:54 Dose: 500 mg Ferrous Sulfate (Iron) 325 mg PO BID [facility] Stop: 08/26/16 08:59 Last Admin: 06/29/16 08:53 Dose: 325 mg Guaifenesin/Dextromethorphan (Robitussin Dm) 10 ml PO Q4HR PRN PRN Reason: Cough Stop: 08/26/16 18:13 Last Admin: 06/29/16 00:45 Dose: 10 ml Piperacillin Sod/Tazobactam (Sod 4.5 gm/ Sodium Chloride) 100 mls @ 100 mls/hr IV Q8HR [facility] Stop: 08/25/16 20:59 Last Admin: 06/29/16 05:31 Dose: 100 mls/hr Azithromycin 500 mg/ Sodium (Chloride) 250 mls @ 250 mls/hr IV Q24HR [facility] Stop: 08/26/16 18:14 Last Admin: 06/28/16 17:33 Dose: 250 mls/hr Vancomycin HCl 1.25 gm/ Sodium (Chloride) 250 mls @ 165 mls/hr IV Q12H [facility] Stop: 08/28/16 08:59 Last Admin: 06/29/16 09:22 Dose: 165 mls/hr Levothyroxine Sodium (Synthroid) 0.05 mg PO QDAC [facility] Stop: 08/26/16 07:29 Last Admin: 06/29/16 06:37 Dose: 0.05 mg Lorazepam (Ativan) 1 mg IVP Q4HR PRN; Protocol PRN Reason: Agitation Stop: 08/25/16 21:49 Last Admin: 06/28/16 03:00 Dose: 1 mg Megestrol Acetate (Megace) 40 mg PO BID [facility] PRN Reason: Protocol Stop: 08/26/16 08:59 Last Admin: 06/29/16 08:53 Dose: 40 mg Metoclopramide HCl (Reglan) 5 mg PO BID [facility] Stop: 08/26/16 08:59 Last Admin: 06/29/16 08:54 Dose: 5 mg Miscellaneous (Vancomycin Iv Per Pharmacy) 1 ea [facility] PRN [facility] Stop: 08/25/16 13:44 Ondansetron HCl (Zofran) 4 mg IV Q6H PRN PRN Reason: Nausea / Vomiting Stop: 08/25/16 21:48 Quetiapine Fumarate (Seroquel) 25 mg PO TID [facility] PRN Reason: Protocol Stop: 08/26/16 08:59 Last Admin: 06/29/16 08:53 Dose: 25 mg Quetiapine Fumarate (Seroquel) 50 mg PO TID [facility] PRN Reason: Protocol Stop: 08/26/16 08:59 Last Admin: 06/29/16 08:53 Dose: 50 mg Trazodone HCl (Desyrel) 100 mg PO HS [facility] Stop: 08/26/16 20:59 Last Admin: 06/28/16 21:14 Dose: 100 mg Zolpidem Tartrate (Ambien) 5 mg PO HS [facility] Stop: 08/26/16 20:59 Last Admin: 06/28/16 21:14 Dose: 5 mg - Procedures Procedures: Procedures Procedure Code Date COLONOSCOPY 45.23 07/22/10 DIAGNOSTIC COLONOSCOPY 07016 07/22/10 EGD DIAGNOSTIC BRUSH WASH 08933 04/17/09 ESOPHAGOGASTRODUODENOSCOPY [EGD] W/CLOSED BIOPSY 45.16 03/05/09 EXC TR-EXT B9+CHILANGO 0.5 CM< 66728 06/26/16 EXCISION OF CHEST WALL, OPEN APPROACH [id number] 06/26/16 OTHER ENDOSCOPY OF SM INTEST 45.13 04/17/09 Assessment/Plan - Problem List Patient Problems: All 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
--- NOTE | 2016-06-29 13:30 | Infectious Disease Prog Note ---
Infectious Disease Subjective - Review of Systems Service Date: 06/29/16 Subjective: No new changes, no fever. I and D wound of the anterior chest wall yesterday. Infectious Disease Objective - Results Result Diagrams: 06/29/16 05:45 06/29/16 05:45 Recent Labs: Laboratory Last Values WBC 19.3 Th/cmm (4.8-10.8) H 06/29/16 05:45 RBC 4.26 Mil/cmm (4.30-5.70) L 06/29/16 05:45 Hgb 10.7 gm/dL (13.2-17.3) L 06/29/16 05:45 Hct 33.2 % (39.0-49.0) L 06/29/16 05:45 MCV 77.9 fl (80-99) L 06/29/16 05:45 MCH 25.0 pg (26.0-30.0) L 06/29/16 05:45 MCHC Differential 32.1 pg (28.0-36.0) 06/29/16 05:45 RDW 20.6 % (11.5-20.0) H 06/29/16 05:45 Plt Count 457 Th/cmm (150-400) H 06/29/16 05:45 MPV 7.1 fl 06/29/16 05:45 Band Neutrophils % 1 % (0-10) 06/29/16 05:45 Neutrophils (Manual) 54 % (40-80) 06/29/16 05:45 Lymphocytes 26 % (20-50) 06/29/16 05:45 Monocytes 11 % (2-10) H 06/29/16 05:45 Eosinophils 7 % (0-5) H 06/29/16 05:45 Basophils 1 % (0-3) 06/29/16 05:45 Myelocytes 1 % 06/27/16 05:25 Nucleated RBCs 1.0 % (0-0) H 06/26/16 14:13 Platelet Estimate ADEQUATE (NORMAL) 06/29/16 05:45 Platelet Morphology NORMAL (NORMAL) 06/29/16 05:45 Polychromasia 1+ 06/28/16 06:53 Anisocytosis 1+ 06/29/16 05:45 Microcytosis 1+ 06/29/16 05:45 RBC Morph Micro Appear ABNORMAL (NORMAL) 06/29/16 05:45 ESR 17 mm/hr (0-20) 06/27/16 05:25 PT 9.8 SECONDS (9.5-11.5) 06/28/16 06:53 INR 0.99 (0.5-1.4) 06/28/16 06:53 PTT (Actin FS) 29.2 SECONDS (26.0-38.0) 06/28/16 06:53 Sodium 129 mEq/L (136-145) L 06/29/16 05:45 Potassium 4.5 mEq/L (3.5-5.1) 06/29/16 05:45 Chloride 96 mEq/L (98-107) L 06/29/16 05:45 Carbon Dioxide 26.4 mEq/L (21.0-31.0) 06/29/16 05:45 Anion Gap 11.1 (7.0-16.0) 06/29/16 05:45 BUN 14 mg/dL (7-25) 06/29/16 05:45 Creatinine 0.9 mg/dL (0.7-1.3) 06/29/16 05:45 Est GFR ( Amer) > 60.0 ml/min (>90) 06/29/16 05:45 Est GFR (Non-Af Amer) > 60.0 ml/min 06/29/16 05:45 BUN/Creatinine Ratio 15.6 06/29/16 05:45 Glucose 80 mg/dL (70-105) 06/29/16 05:45 Calcium 8.7 mg/dL (8.6-10.3) 06/29/16 05:45 Total Bilirubin 0.2 mg/dL (0.3-1.0) L 06/29/16 05:45 AST 15 U/L (13-39) 06/29/16 05:45 ALT 7 U/L (7-52) 06/29/16 05:45 Alkaline Phosphatase 42 U/L (34-104) 06/29/16 05:45 Total Protein 7.3 gm/dL (6.0-8.3) 06/29/16 05:45 Albumin 3.3 gm/dL (4.2-5.5) L 06/29/16 05:45 Globulin 4.0 gm/dL 06/29/16 05:45 Albumin/Globulin Ratio 0.8 (1.0-1.8) L 06/29/16 05:45 - Physical Exam Vitals and I&O: Vital Signs Temp 98.3 F 06/29/16 12:00 Pulse 81 06/29/16 12:00 Resp 17 06/29/16 12:00 BP 113/63 06/29/16 12:00 Pulse Ox 93 06/29/16 12:00 Intake & Output 06/28/16 06/29/16 06/29/16 18:59 06:59 18:59 Intake Total 820 100 Balance 820 100 Intake: Intake, IV Amount 100 100 Piperacillin Sodium/ 100 100 Tazobact 4.5 gm In Sodium Chloride 0.9% 100 ml @ 100 mls/hr IV Q8HR [facility] Rx #:[id number] Oral 720 Other: # Voids 3 # Bowel Movements 0 Stool Characteristics Soft Soft Liquid Brown Active Medications: Current Medications Acetaminophen (Tylenol) 650 mg PO Q6HR PRN PRN Reason: Pain (Mild) Stop: 08/25/16 21:35 Bupropion HCl (Wellbutrin) 75 mg PO DAILY [facility] Stop: 08/27/16 08:59 Last Admin: 06/29/16 08:54 Dose: 75 mg Calamine/Phenol (Calmoseptine) 0 appl TP BID PRN PRN Reason: SKIN REDNESS Stop: 08/25/16 21:40 Clonazepam (Klonopin) 1 mg PO TID [facility] Stop: 08/26/16 08:59 Last Admin: 06/29/16 08:54 Dose: 1 mg Desmopressin Acetate (Ddavp) 0.1 mg PO DAILY [facility] Stop: 08/26/16 08:59 Last Admin: 06/29/16 08:54 Dose: 0.1 mg Divalproex Sodium (Depakote Dr) 500 mg PO TID [facility] PRN Reason: Protocol Stop: 08/26/16 08:59 Last Admin: 06/29/16 08:54 Dose: 500 mg Ferrous Sulfate (Iron) 325 mg PO BID [facility] Stop: 08/26/16 08:59 Last Admin: 06/29/16 08:53 Dose: 325 mg Guaifenesin/Dextromethorphan (Robitussin Dm) 10 ml PO Q4HR PRN PRN Reason: Cough Stop: 08/26/16 18:13 Last Admin: 06/29/16 00:45 Dose: 10 ml Piperacillin Sod/Tazobactam (Sod 4.5 gm/ Sodium Chloride) 100 mls @ 100 mls/hr IV Q8HR [facility] Stop: 08/25/16 20:59 Last Admin: 06/29/16 05:31 Dose: 100 mls/hr Azithromycin 500 mg/ Sodium (Chloride) 250 mls @ 250 mls/hr IV Q24HR [facility] Stop: 08/26/16 18:14 Last Admin: 06/28/16 17:33 Dose: 250 mls/hr Vancomycin HCl 1.25 gm/ Sodium (Chloride) 250 mls @ 165 mls/hr IV Q12H [facility] Stop: 08/28/16 08:59 Last Admin: 06/29/16 09:22 Dose: 165 mls/hr Levothyroxine Sodium (Synthroid) 0.05 mg PO QDAC [facility] Stop: 08/26/16 07:29 Last Admin: 06/29/16 06:37 Dose: 0.05 mg Lorazepam (Ativan) 1 mg IVP Q4HR PRN; Protocol PRN Reason: Agitation Stop: 08/25/16 21:49 Last Admin: 06/28/16 03:00 Dose: 1 mg Megestrol Acetate (Megace) 40 mg PO BID [facility] PRN Reason: Protocol Stop: 08/26/16 08:59 Last Admin: 06/29/16 08:53 Dose: 40 mg Metoclopramide HCl (Reglan) 5 mg PO BID [facility] Stop: 08/26/16 08:59 Last Admin: 06/29/16 08:54 Dose: 5 mg Miscellaneous (Vancomycin Iv Per Pharmacy) 1 ea [facility] PRN [facility] Stop: 08/25/16 13:44 Ondansetron HCl (Zofran) 4 mg IV Q6H PRN PRN Reason: Nausea / Vomiting Stop: 08/25/16 21:48 Quetiapine Fumarate (Seroquel) 25 mg PO TID [facility] PRN Reason: Protocol Stop: 08/26/16 08:59 Last Admin: 06/29/16 08:53 Dose: 25 mg Quetiapine Fumarate (Seroquel) 50 mg PO TID [facility] PRN Reason: Protocol Stop: 08/26/16 08:59 Last Admin: 06/29/16 08:53 Dose: 50 mg Trazodone HCl (Desyrel) 100 mg PO HS [facility] Stop: 08/26/16 20:59 Last Admin: 06/28/16 21:14 Dose: 100 mg Zolpidem Tartrate (Ambien) 5 mg PO HS [facility] Stop: 08/26/16 20:59 Last Admin: 06/28/16 21:14 Dose: 5 mg General: no acute distress, cachectic HEENT: atraumatic, normocephalic, PERRLA, EOMI Neck: supple, no thyromegaly Cardiovascular: S1S2, regular Lungs: clear to auscultation bilaterally, clear to percussion Abdomen: soft, no tender, no distended Extremities: no cyanosis, no clubbing, no edema Neurological: awake, alert Skin: other (large chest wall wound with surrounding erythema.) - Procedures Procedures: Procedures Procedure Code Date COLONOSCOPY 45.23 07/22/10 DIAGNOSTIC COLONOSCOPY 34893 07/22/10 EGD DIAGNOSTIC BRUSH WASH 98052 04/17/09 ESOPHAGOGASTRODUODENOSCOPY [EGD] W/CLOSED BIOPSY 45.16 03/05/09 EXC TR-EXT B9+CHILANGO 0.5 CM< 00149 06/26/16 EXCISION OF CHEST WALL, OPEN APPROACH [id number] 06/26/16 OTHER ENDOSCOPY OF SM INTEST 45.13 04/17/09 Infectious Disease Assmt/Plan - Problem List Patient Problems: All 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 large chest wall infected sebaceous cyst. 2. Angelman syndrome. 3. Schizophrenia. 4. Mental retardation. 5. Cough. 6. s/p I and D and removal of two cysts. - Plan Plan: 3 phase bone scan and continue vanco IV and Zosyn. chnage zosyn to Augmentin po on discharge along with vanco IV. dc plan and dc to [facility].
[2016-06-29] MEDS: Azithromycin 500 MG in Sodium Chloride 0.9% 250 ML IV SCH (17:45)
[2016-06-30] MEDS: Levothyroxine 0.05 Mg Tab PO SCH (07:30)
[2016-06-30] MEDS: Ferrous Sulfate 325 MG TAB PO SCH ×2 (08:40→16:19)
[2016-06-30 09:54] LABS: ALB/GLOB RATIO 0.8 (1.0-1.8); ALKALINE PHOSPHATASE 53 U/L (34-104); ANION GAP 7.9 (7.0-16.0); BILIRUBIN,TOTAL 0.2 mg/dL (0.3-1.0); BUN - UREA NITROGEN 10 mg/dL (7-25); BUN/CREATININE RATIO 11.1; CALCIUM SERUM 9.5 mg/dL (8.6-10.3); CARBON DIOXIDE 26.5 mEq/L (21.0-31.0); CHLORIDE 99 mEq/L (98-107); CREATININE - SERUM 0.9 mg/dL (0.7-1.3); GLUCOSE 104 mg/dL (70-105); POTASSIUM SERUM 3.4 mEq/L (3.5-5.1); SGOT 16 U/L (13-39); SGPT/ALT 9 U/L (7-52); SODIUM SERUM 130 mEq/L (136-145)
[2016-06-30 10:15] LABS: HEMOGLOBIN 11.9 gm/dL (13.2-17.3); MEAN CELL VOLUME 78.6 fl (80-99); MEAN CORPUSCULAR HEMOGLOBIN 25.3 pg (26.0-30.0); MEAN CORPUSCULAR HGB CONC 32.1 pg (28.0-36.0); MEAN PLATELET VOLUME 7.2 fl; PLATELET COUNT 470 Th/cmm (150-400); RED BLOOD COUNT 4.73 Mil/cmm (4.30-5.70); RED CELL DISTRIBUTION WIDTH 21.2 % (11.5-20.0); WHITE BLOOD COUNT 17.5 Th/cmm (4.8-10.8)
[2016-06-30 10:24] LABS: HEMATOCRIT 37.2 % (39.0-49.0)
[2016-06-30 11:00] LABS: BAND NEUTROPHILE 1 % (0-10); EOSINOPHIL 4 % (0-5); NEUTROPHILS 70 % (40-80); TOTAL CELLS COUNTED 100
[2016-06-30 11:01] LABS: ANISOCYTOSIS 1+; MICROCYTOSIS 1+; PLATELET ESTIMATE INCREASED PLATELETS (NORMAL); PLATELET MORPHOLOGY NORMAL (NORMAL)
--- NOTE | 2016-06-30 11:43 | Infectious Disease Prog Note ---
Infectious Disease Subjective - Review of Systems Service Date: 06/30/16 Subjective: No new changes, no fever. I and D wound of the anterior chest wall yesterday. Infectious Disease Objective - Results Result Diagrams: 06/30/16 09:15 06/30/16 09:15 Recent Labs: Laboratory Last Values WBC 17.5 Th/cmm (4.8-10.8) H 06/30/16 09:15 RBC 4.73 Mil/cmm (4.30-5.70) 06/30/16 09:15 Hgb 11.9 gm/dL (13.2-17.3) L 06/30/16 09:15 Hct 37.2 % (39.0-49.0) L D 06/30/16 09:15 MCV 78.6 fl (80-99) L 06/30/16 09:15 MCH 25.3 pg (26.0-30.0) L 06/30/16 09:15 MCHC Differential 32.1 pg (28.0-36.0) 06/30/16 09:15 RDW 21.2 % (11.5-20.0) H 06/30/16 09:15 Plt Count 470 Th/cmm (150-400) H 06/30/16 09:15 MPV 7.2 fl 06/30/16 09:15 Band Neutrophils % 1 % (0-10) 06/30/16 09:15 Neutrophils (Manual) 70 % (40-80) 06/30/16 09:15 Lymphocytes 9 % (20-50) L 06/30/16 09:15 Monocytes 16 % (2-10) H 06/30/16 09:15 Eosinophils 4 % (0-5) 06/30/16 09:15 Basophils 1 % (0-3) 06/29/16 05:45 Myelocytes 1 % 06/27/16 05:25 Nucleated RBCs 1.0 % (0-0) H 06/26/16 14:13 Platelet Estimate INCREASED PLATELETS (NORMAL) 06/30/16 09:15 Platelet Morphology NORMAL (NORMAL) 06/30/16 09:15 Polychromasia 1+ 06/28/16 06:53 Anisocytosis 1+ 06/30/16 09:15 Microcytosis 1+ 06/30/16 09:15 RBC Morph Micro Appear ABNORMAL (NORMAL) 06/30/16 09:15 ESR 17 mm/hr (0-20) 06/27/16 05:25 PT 9.8 SECONDS (9.5-11.5) 06/28/16 06:53 INR 0.99 (0.5-1.4) 06/28/16 06:53 PTT (Actin FS) 29.2 SECONDS (26.0-38.0) 06/28/16 06:53 Sodium 130 mEq/L (136-145) L 06/30/16 09:15 Potassium 3.4 mEq/L (3.5-5.1) L 06/30/16 09:15 Chloride 99 mEq/L (98-107) 06/30/16 09:15 Carbon Dioxide 26.5 mEq/L (21.0-31.0) 06/30/16 09:15 Anion Gap 7.9 (7.0-16.0) 06/30/16 09:15 BUN 10 mg/dL (7-25) 06/30/16 09:15 Creatinine 0.9 mg/dL (0.7-1.3) 06/30/16 09:15 Est GFR ( Amer) > 60.0 ml/min (>90) 06/30/16 09:15 Est GFR (Non-Af Amer) > 60.0 ml/min 06/30/16 09:15 BUN/Creatinine Ratio 11.1 06/30/16 09:15 Glucose 104 mg/dL (70-105) 06/30/16 09:15 Calcium 9.5 mg/dL (8.6-10.3) 06/30/16 09:15 Total Bilirubin 0.2 mg/dL (0.3-1.0) L 06/30/16 09:15 AST 16 U/L (13-39) 06/30/16 09:15 ALT 9 U/L (7-52) 06/30/16 09:15 Alkaline Phosphatase 53 U/L (34-104) 06/30/16 09:15 Total Protein 8.0 gm/dL (6.0-8.3) 06/30/16 09:15 Albumin 3.5 gm/dL (4.2-5.5) L 06/30/16 09:15 Globulin 4.5 gm/dL 06/30/16 09:15 Albumin/Globulin Ratio 0.8 (1.0-1.8) L 06/30/16 09:15 Vancomycin Trough 14.6 ug/mL (10-20) 06/30/16 09:15 - Physical Exam Vitals and I&O: Vital Signs Temp 98.5 F 06/30/16 10:00 Pulse 76 06/30/16 10:00 Resp 18 06/30/16 10:00 BP 127/63 06/30/16 10:00 Pulse Ox 96 06/30/16 08:00 Intake & Output 06/29/16 06/30/16 06/30/16 18:59 06:59 18:59 Intake Total 1430 100 Balance 1430 100 Intake: Intake, IV Amount 350 100 Piperacillin Sodium/ 100 100 Tazobact 4.5 gm In Sodium Chloride 0.9% 100 ml @ 100 mls/hr IV Q8HR [facility] Rx #:[id number] Vancomycin HCl 1.25 gm In 250 Sodium Chloride 0.9% 250 ml @ 165 mls/hr IV Q12H [facility] Rx#:[id number] Oral 1080 Other: # Voids 5 # Bowel Movements 2 Stool Characteristics Soft Soft Soft Liquid Liquid Brown Brown Active Medications: Current Medications Acetaminophen (Tylenol) 650 mg PO Q6HR PRN PRN Reason: Pain (Mild) Stop: 08/25/16 21:35 Bupropion HCl (Wellbutrin) 75 mg PO DAILY [facility] Stop: 08/27/16 08:59 Last Admin: 06/30/16 08:38 Dose: 75 mg Calamine/Phenol (Calmoseptine) 0 appl TP BID PRN PRN Reason: SKIN REDNESS Stop: 08/25/16 21:40 Last Admin: 06/30/16 08:40 Dose: 1 appl Clonazepam (Klonopin) 1 mg PO TID [facility] Stop: 08/26/16 08:59 Last Admin: 06/30/16 08:39 Dose: 1 mg Desmopressin Acetate (Ddavp) 0.1 mg PO DAILY [facility] Stop: 08/26/16 08:59 Last Admin: 06/30/16 08:39 Dose: 0.1 mg Divalproex Sodium (Depakote Dr) 500 mg PO TID [facility] PRN Reason: Protocol Stop: 08/26/16 08:59 Last Admin: 06/30/16 08:38 Dose: 500 mg Ferrous Sulfate (Iron) 325 mg PO BID [facility] Stop: 08/26/16 08:59 Last Admin: 06/30/16 08:40 Dose: 325 mg Guaifenesin/Dextromethorphan (Robitussin Dm) 10 ml PO Q4HR PRN PRN Reason: Cough Stop: 08/26/16 18:13 Last Admin: 06/29/16 20:23 Dose: 10 ml Piperacillin Sod/Tazobactam (Sod 4.5 gm/ Sodium Chloride) 100 mls @ 100 mls/hr IV Q8HR [facility] Stop: 08/25/16 20:59 Last Admin: 06/30/16 05:10 Dose: 100 mls/hr Azithromycin 500 mg/ Sodium (Chloride) 250 mls @ 250 mls/hr IV Q24HR [facility] Stop: 08/26/16 18:14 Last Admin: 06/29/16 17:45 Dose: 250 mls/hr Vancomycin HCl 1.25 gm/ Sodium (Chloride) 250 mls @ 165 mls/hr IV Q12H [facility] Stop: 08/28/16 08:59 Last Admin: 06/29/16 22:35 Dose: 165 mls/hr Levothyroxine Sodium (Synthroid) 0.05 mg PO QDAC [facility] Stop: 08/26/16 07:29 Last Admin: 06/30/16 07:30 Dose: 0.05 mg Lorazepam (Ativan) 1 mg IVP Q4HR PRN; Protocol PRN Reason: Agitation Stop: 08/25/16 21:49 Last Admin: 06/28/16 03:00 Dose: 1 mg Megestrol Acetate (Megace) 40 mg PO BID [facility] PRN Reason: Protocol Stop: 08/26/16 08:59 Last Admin: 06/30/16 08:40 Dose: 40 mg Metoclopramide HCl (Reglan) 5 mg PO BID [facility] Stop: 08/26/16 08:59 Last Admin: 06/30/16 08:40 Dose: 5 mg Miscellaneous (Vancomycin Iv Per Pharmacy) 1 ea MC PRN [facility] Stop: 08/25/16 13:44 Ondansetron HCl (Zofran) 4 mg IV Q6H PRN PRN Reason: Nausea / Vomiting Stop: 08/25/16 21:48 Quetiapine Fumarate (Seroquel) 25 mg PO TID [facility] PRN Reason: Protocol Stop: 08/26/16 08:59 Last Admin: 06/30/16 08:38 Dose: 25 mg Quetiapine Fumarate (Seroquel) 50 mg PO TID [facility] PRN Reason: Protocol Stop: 08/26/16 08:59 Last Admin: 06/30/16 08:37 Dose: 50 mg Trazodone HCl (Desyrel) 100 mg PO [facility] Stop: 08/26/16 20:59 Last Admin: 06/29/16 20:24 Dose: 100 mg Zolpidem Tartrate (Ambien) 5 mg PO [facility] Stop: 08/26/16 20:59 Last Admin: 06/29/16 20:24 Dose: 5 mg General: no acute distress, well developed, well nourished HEENT: atraumatic, normocephalic, PERRLA, EOMI, moist mucous membrane Neck: supple Cardiovascular: S1S2, regular Lungs: clear to auscultation bilaterally, clear to percussion Abdomen: soft, no tender, no distended Extremities: no cyanosis, no clubbing, no edema Neurological: awake, alert, oriented Skin: other (Large surgical open wound on the chest.) - Procedures Procedures: Procedures Procedure Code Date COLONOSCOPY 45.23 07/22/10 DIAGNOSTIC COLONOSCOPY 44704 07/22/10 EGD DIAGNOSTIC BRUSH WASH 25405 04/17/09 ESOPHAGOGASTRODUODENOSCOPY [EGD] W/CLOSED BIOPSY 45.16 03/05/09 EXC TR-EXT B9+CHILANGO 0.5 CM< 17561 06/26/16 EXCISION OF CHEST WALL, OPEN APPROACH [id number] 06/26/16 OTHER ENDOSCOPY OF SM INTEST 45.13 04/17/09 Infectious Disease Assmt/Plan - Problem List Patient Problems: All 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 large chest wall infected sebaceous cyst. 2. Angelman syndrome. 3. Schizophrenia. 4. Mental retardation. 5. Cough. 6. s/p I and D and removal of two infected cysts. - Plan Plan: 3 phase bone scan and continue vanco IV and Zosyn. chnage zosyn to Augmentin po on discharge along with vanco IV. dc plan and dc to SNF.
[2016-06-30] MEDS: Guaifenesin DM 10 ML UDC PO PRN (21:29)
[2016-07-01] MEDS: Levothyroxine 0.05 Mg Tab PO SCH (06:37)
[2016-07-01 06:54] LABS: HEMATOCRIT 34.7 % (39.0-49.0); HEMOGLOBIN 11.2 gm/dL (13.2-17.3); MEAN CORPUSCULAR HEMOGLOBIN 25.3 pg (26.0-30.0); MEAN CORPUSCULAR HGB CONC 32.4 pg (28.0-36.0); MEAN PLATELET VOLUME 7.3 fl; PLATELET COUNT 430 Th/cmm (150-400); RED BLOOD COUNT 4.44 Mil/cmm (4.30-5.70); RED CELL DISTRIBUTION WIDTH 20.9 % (11.5-20.0); WHITE BLOOD COUNT 15.5 Th/cmm (4.8-10.8)
[2016-07-01 07:05] LABS: ALB/GLOB RATIO 0.8 (1.0-1.8); ALKALINE PHOSPHATASE 49 U/L (34-104); ANION GAP 7.5 (7.0-16.0); BILIRUBIN,TOTAL 0.2 mg/dL (0.3-1.0); BUN - UREA NITROGEN 14 mg/dL (7-25); CALCIUM SERUM 9.5 mg/dL (8.6-10.3); CARBON DIOXIDE 27.7 mEq/L (21.0-31.0); CHLORIDE 102 mEq/L (98-107); GLUCOSE 81 mg/dL (70-105); POTASSIUM SERUM 4.2 mEq/L (3.5-5.1); SGOT 15 U/L (13-39); SGPT/ALT 11 U/L (7-52); SODIUM SERUM 133 mEq/L (136-145)
[2016-07-01] MEDS: Ferrous Sulfate 325 MG TAB PO SCH ×2 (08:25→17:54)
[2016-07-01 08:51] LABS: ANISOCYTOSIS 1+; BAND NEUTROPHILE 2 % (0-10); EOSINOPHIL 8 % (0-5); MICROCYTOSIS 1+; NEUTROPHILS 54 % (40-80); PLATELET ESTIMATE ADEQUATE (NORMAL); PLATELET MORPHOLOGY NORMAL (NORMAL); TOTAL CELLS COUNTED 100
--- NOTE | 2016-07-01 13:29 | Infectious Disease Prog Note ---
Infectious Disease Subjective - Review of Systems Service Date: 07/01/16 Subjective: No new changes, no fever. I and D wound of the anterior chest wall. Infectious Disease Objective - Results Result Diagrams: 07/01/16 06:15 07/01/16 06:15 Recent Labs: Laboratory Last Values WBC 15.5 Th/cmm (4.8-10.8) H 07/01/16 06:15 RBC 4.44 Mil/cmm (4.30-5.70) 07/01/16 06:15 Hgb 11.2 gm/dL (13.2-17.3) L 07/01/16 06:15 Hct 34.7 % (39.0-49.0) L 07/01/16 06:15 MCV 78.0 fl (80-99) L 07/01/16 06:15 MCH 25.3 pg (26.0-30.0) L 07/01/16 06:15 MCHC Differential 32.4 pg (28.0-36.0) 07/01/16 06:15 RDW 20.9 % (11.5-20.0) H 07/01/16 06:15 Plt Count 430 Th/cmm (150-400) H 07/01/16 06:15 MPV 7.3 fl 07/01/16 06:15 Band Neutrophils % 2 % (0-10) 07/01/16 06:15 Neutrophils (Manual) 54 % (40-80) 07/01/16 06:15 Lymphocytes 21 % (20-50) 07/01/16 06:15 Monocytes 15 % (2-10) H 07/01/16 06:15 Eosinophils 8 % (0-5) H 07/01/16 06:15 Basophils 1 % (0-3) 06/29/16 05:45 Myelocytes 1 % 06/27/16 05:25 Nucleated RBCs 1.0 % (0-0) H 06/26/16 14:13 Platelet Estimate ADEQUATE (NORMAL) 07/01/16 06:15 Platelet Morphology NORMAL (NORMAL) 07/01/16 06:15 Polychromasia 1+ 06/28/16 06:53 Anisocytosis 1+ 07/01/16 06:15 Microcytosis 1+ 07/01/16 06:15 RBC Morph Micro Appear ABNORMAL (NORMAL) 07/01/16 06:15 ESR 17 mm/hr (0-20) 06/27/16 05:25 PT 9.8 SECONDS (9.5-11.5) 06/28/16 06:53 INR 0.99 (0.5-1.4) 06/28/16 06:53 PTT (Actin FS) 29.2 SECONDS (26.0-38.0) 06/28/16 06:53 Sodium 133 mEq/L (136-145) L 07/01/16 06:15 Potassium 4.2 mEq/L (3.5-5.1) 07/01/16 06:15 Chloride 102 mEq/L (98-107) 07/01/16 06:15 Carbon Dioxide 27.7 mEq/L (21.0-31.0) 07/01/16 06:15 Anion Gap 7.5 (7.0-16.0) 07/01/16 06:15 BUN 14 mg/dL (7-25) 07/01/16 06:15 Creatinine 1.0 mg/dL (0.7-1.3) 07/01/16 06:15 Est GFR ( Amer) > 60.0 ml/min (>90) 07/01/16 06:15 Est GFR (Non-Af Amer) > 60.0 ml/min 07/01/16 06:15 BUN/Creatinine Ratio 14.0 07/01/16 06:15 Glucose 81 mg/dL (70-105) 07/01/16 06:15 Calcium 9.5 mg/dL (8.6-10.3) 07/01/16 06:15 Total Bilirubin 0.2 mg/dL (0.3-1.0) L 07/01/16 06:15 AST 15 U/L (13-39) 07/01/16 06:15 ALT 11 U/L (7-52) 07/01/16 06:15 Alkaline Phosphatase 49 U/L (34-104) 07/01/16 06:15 Total Protein 7.7 gm/dL (6.0-8.3) 07/01/16 06:15 Albumin 3.4 gm/dL (4.2-5.5) L 07/01/16 06:15 Globulin 4.3 gm/dL 07/01/16 06:15 Albumin/Globulin Ratio 0.8 (1.0-1.8) L 07/01/16 06:15 Vancomycin Trough 14.6 ug/mL (10-20) 06/30/16 09:15 - Physical Exam Vitals and I&O: Vital Signs Temp 97.3 F 07/01/16 12:00 Pulse 71 07/01/16 12:00 Resp 18 07/01/16 12:00 BP 106/58 07/01/16 12:00 Pulse Ox 86 07/01/16 12:00 Intake & Output 06/30/16 07/01/16 07/01/16 18:59 06:59 18:59 Intake Total 1850 450 Balance 1850 450 Intake: Intake, IV Amount 350 450 Piperacillin Sodium/ 100 200 Tazobact 4.5 gm In Sodium Chloride 0.9% 100 ml @ 100 mls/hr IV Q8HR [facility] Rx #:[id number] Vancomycin HCl 1.25 gm In 250 250 Sodium Chloride 0.9% 250 ml @ 165 mls/hr IV Q12H [facility] Rx#:[id number] Oral 1500 Other: # Voids 2 # Bowel Movements 1 Stool Characteristics Soft Soft Soft Liquid Liquid Brown Brown Active Medications: Current Medications Acetaminophen (Tylenol) 650 mg PO Q6HR PRN PRN Reason: Pain (Mild) Stop: 08/25/16 21:35 Bupropion HCl (Wellbutrin Sr) 75 mg PO DAILY [facility] Stop: 08/30/16 08:59 Last Admin: 07/01/16 08:49 Dose: 75 mg Calamine/Phenol (Calmoseptine) 0 appl TP BID PRN PRN Reason: SKIN REDNESS Stop: 08/25/16 21:40 Last Admin: 06/30/16 08:40 Dose: 1 appl Clonazepam (Klonopin) 1 mg PO TID [facility] Stop: 08/26/16 08:59 Last Admin: 07/01/16 13:03 Dose: 1 mg Desmopressin Acetate (Ddavp) 0.1 mg PO DAILY [facility] Stop: 08/26/16 08:59 Last Admin: 07/01/16 08:28 Dose: 0.1 mg Divalproex Sodium (Depakote Dr) 500 mg PO TID [facility] PRN Reason: Protocol Stop: 08/26/16 08:59 Last Admin: 07/01/16 13:03 Dose: 500 mg Ferrous Sulfate (Iron) 325 mg PO BID [facility] Stop: 08/26/16 08:59 Last Admin: 07/01/16 08:25 Dose: 325 mg Guaifenesin/Dextromethorphan (Robitussin Dm) 10 ml PO Q4HR PRN PRN Reason: Cough Stop: 08/26/16 18:13 Last Admin: 06/30/16 21:29 Dose: 10 ml Piperacillin Sod/Tazobactam (Sod 4.5 gm/ Sodium Chloride) 100 mls @ 100 mls/hr IV Q8HR [facility] Stop: 08/25/16 20:59 Last Admin: 07/01/16 13:12 Dose: 100 mls/hr Azithromycin 500 mg/ Sodium (Chloride) 250 mls @ 250 mls/hr IV Q24HR [facility] Stop: 08/26/16 18:14 Last Admin: 06/29/16 17:45 Dose: 250 mls/hr Vancomycin HCl 1.25 gm/ Sodium (Chloride) 250 mls @ 165 mls/hr IV Q12H [facility] Stop: 08/28/16 08:59 Last Admin: 07/01/16 08:52 Dose: 165 mls/hr Levothyroxine Sodium (Synthroid) 0.05 mg PO QDAC [facility] Stop: 08/26/16 07:29 Last Admin: 07/01/16 06:37 Dose: 0.05 mg Lorazepam (Ativan) 1 mg IVP Q4HR PRN; Protocol PRN Reason: Agitation Stop: 08/25/16 21:49 Last Admin: 06/28/16 03:00 Dose: 1 mg Megestrol Acetate (Megace) 40 mg PO BID [facility] PRN Reason: Protocol Stop: 08/26/16 08:59 Last Admin: 07/01/16 08:28 Dose: 40 mg Metoclopramide HCl (Reglan) 5 mg PO BID [facility] Stop: 08/26/16 08:59 Last Admin: 07/01/16 08:26 Dose: 5 mg Miscellaneous (Vancomycin Iv Per Pharmacy) 1 ea MC PRN [facility] Stop: 08/25/16 13:44 Ondansetron HCl (Zofran) 4 mg IV Q6H PRN PRN Reason: Nausea / Vomiting Stop: 08/25/16 21:48 Quetiapine Fumarate (Seroquel) 25 mg PO TID [facility] PRN Reason: Protocol Stop: 08/26/16 08:59 Last Admin: 07/01/16 08:29 Dose: 25 mg Quetiapine Fumarate (Seroquel) 50 mg PO TID [facility] PRN Reason: Protocol Stop: 08/26/16 08:59 Last Admin: 07/01/16 08:28 Dose: 50 mg Trazodone HCl (Desyrel) 100 mg PO [facility] Stop: 08/26/16 20:59 Last Admin: 06/30/16 21:10 Dose: 100 mg Zolpidem Tartrate (Ambien) 5 mg PO [facility] Stop: 08/26/16 20:59 Last Admin: 06/30/16 21:10 Dose: 5 mg General: no acute distress, well developed, well nourished HEENT: atraumatic, normocephalic, PERRLA, EOMI Neck: supple, no thyromegaly Cardiovascular: S1S2, regular Lungs: clear to auscultation bilaterally, clear to percussion Abdomen: soft, no tender, no distended Extremities: no cyanosis, no clubbing, no edema Neurological: awake, alert, other (involuntary movement of both upper extremities.) Skin: other (large open wound of the anterioir chest.) - Procedures Procedures: Procedures Procedure Code Date COLONOSCOPY 45.23 07/22/10 DIAGNOSTIC COLONOSCOPY 74266 07/22/10 EGD DIAGNOSTIC BRUSH WASH 47675 04/17/09 ESOPHAGOGASTRODUODENOSCOPY [EGD] W/CLOSED BIOPSY 45.16 03/05/09 EXC TR-EXT B9+CHILANGO 0.5 CM< 13851 06/26/16 EXCISION OF CHEST WALL, OPEN APPROACH [id number] 06/26/16 OTHER ENDOSCOPY OF SM INTEST 45.13 04/17/09 Infectious Disease Assmt/Plan - Problem List Patient Problems: All 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 large chest wall infected sebaceous cyst. 2. Angelman syndrome. 3. Schizophrenia. 4. Mental retardation. 5. Cough. 6. s/p I and D and removal of two infected cysts. - Plan Plan: 3 phase bone scan and continue vanco IV and Zosyn. change zosyn to Augmentin po on discharge along with vanco IV. dc plan and dc to SNF or contracted facility.
--- NOTE | 2016-07-02 02:34 | Progress Notes ---
SUBJECTIVE: The patient was seen in his room lying in the bed. The patient is a poor historian, currently has bilateral soft wrist restraints for safety. The patient is pending for transfer to assisted facility for continuity of antibiotic therapy. OBJECTIVE: HEAD: Atraumatic, normocephalic. EYES: Bilateral conjunctivae are clear. Pupils equally round and reactive. NECK: No JVD and supple bilaterally. CARDIOVASCULAR: S1 and S2 heard without murmur. PULMONARY: Clear to auscultation. ABDOMEN: No guarding, soft, nontender, positive bowel sounds. MUSCULOSKELETAL: The patient is bedbound. SKIN: Surgical site is intact. Dressing is intact. No drainage noted. ASSESSMENT: 1. Chest wall abscess, status post excision of infected sebaceous cyst. 2. Mental retardation. 3. Schizophrenia. 4. Seizure. 5. Anemia. 6. Anxiety. 7. Hypothyroidism. PLAN: We will keep the patient in the Med/Surg Floor for the meantime and we will follow up with the insurance onto which assisted facility the patient will be discharged. JOB# [id number]
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
== END 2016-07-01 18:30 | DRG 580 ==
LOC: ER 11:36 → MSI 13:47
PROVIDERS: ADMIT Internal Medicine; ATTEND Internal Medicine
PROC: 0WB80ZZ Excision of Chest Wall, Open Approach (ICD-10-PCS; principal; 2016-06-28)
DX: L02.213 Cutaneous abscess of chest wall (principal); Q93.5 Other deletions of part of a chromosome; N39.0 Urinary tract infection, site not specified; F20.9 Schizophrenia, unspecified; F79 Unspecified intellectual disabilities; K21.9 Gastro-esophageal reflux disease without esophagitis; G40.909 Epilepsy, unspecified, not intractable, without status epilepticus; E03.9 Hypothyroidism, unspecified; F41.9 Anxiety disorder, unspecified; R62.51 Failure to thrive (child); L72.3 Sebaceous cyst
CPT/HCPCS: 36415-UA; 71010-TC; 80053-TC; 80202-TC; 85007-TC; 85027-TC; 85610-TC; 85652-TC; 87070-90; 87075-90; 87205-90; 88304-TC; 93005; 94760; A4217; J0456; J2001; J2060; J2250; J2543; J2704; J3370; J7040; V2790; X6444; Z7610

== ENCOUNTER 2016-12-30 22:37 | Inpatient (IN) | payer MEDICARE, MEDICAID ==
[2016-12-30 23:35] LABS: % BASOPHILS 2.5 % (0.0-2.0); % EOSINOPHILS 6.8 % (0.0-5.0); % LYMPHOCYTES 21.6 % (20.0-50.0); % MONOCYTES 14.6 % (2.0-10.0); % NEUTROPHILS 54.5 % (40.0-80.0); HEMATOCRIT 37.3 % (39.0-49.0); HEMOGLOBIN 12.4 gm/dL (13.2-17.3); MEAN CELL VOLUME 84.5 fl (80-99); MEAN CORPUSCULAR HEMOGLOBIN 27.9 pg (26.0-30.0); MEAN CORPUSCULAR HGB CONC 33.1 pg (28.0-36.0); MEAN PLATELET VOLUME 6.9 fl; NEUTROPHILE ABSOLUTE 8.7 Th/cmm (1.8-8.0); PLATELET COUNT 295 Th/cmm (150-400); RED BLOOD COUNT 4.42 Mil/cmm (4.30-5.70); RED CELL DISTRIBUTION WIDTH 18.9 % (11.5-20.0)
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
[2016-12-30 23:38] LABS: WHITE BLOOD COUNT 16.1 Th/cmm (4.8-10.8)
[2016-12-30 23:48] LABS: ANION GAP 6.9 (7.0-16.0); BUN - UREA NITROGEN 16 mg/dL (7-25); BUN/CREATININE RATIO 17.8; CALCIUM SERUM 9.1 mg/dL (8.6-10.3); CARBON DIOXIDE 31.7 mEq/L (21.0-31.0); CHLORIDE 100 mEq/L (98-107); CREATININE - SERUM 0.9 mg/dL (0.7-1.3); GLUCOSE 87 mg/dL (70-105); POTASSIUM SERUM 3.6 mEq/L (3.5-5.1); SODIUM SERUM 135 mEq/L (136-145)
[2016-12-31 02:37] VITALS: BP 99/62
[2016-12-31] MEDS ORDERED: Diphenoxylate/Atropine 2.5mg Tab PO PRN (09:23)
[2016-12-31] MEDS: Sodium Chloride 0.9% 1,000 ML IV SCH (11:26)
[2016-12-31] MEDS: Lactulose 10 Gm/15 mL 30mL UDC PO SCH (13:20)
[2016-12-31] MEDS: Menthol/Zinc Oxide Oint 113gm Tube TP SCH (16:29)
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
[2016-12-31] MEDS: Triamcinolone Acetonide 0.1% Cream 15 gm TP SCH (21:19)
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
[2017-01-01] MEDS: Sodium Chloride 0.9% 1,000 ML IV SCH ×2 (03:14→13:43)
[2017-01-01 06:06] LABS: % EOSINOPHILS 0.1 % (0.0-5.0); % LYMPHOCYTES 10.5 % (20.0-50.0); % MONOCYTES 3.3 % (2.0-10.0); % NEUTROPHILS 86.1 % (40.0-80.0); HEMATOCRIT 37.6 % (39.0-49.0); HEMOGLOBIN 12.4 gm/dL (13.2-17.3); MEAN CELL VOLUME 85.1 fl (80-99); MEAN CORPUSCULAR HEMOGLOBIN 28.1 pg (26.0-30.0); MEAN PLATELET VOLUME 7.4 fl; NEUTROPHILE ABSOLUTE 13.8 Th/cmm (1.8-8.0); PLATELET COUNT 273 Th/cmm (150-400); RED BLOOD COUNT 4.42 Mil/cmm (4.30-5.70); RED CELL DISTRIBUTION WIDTH 19.1 % (11.5-20.0)
[2017-01-01 06:35] LABS: ALB/GLOB RATIO 1.1 (1.0-1.8); ALKALINE PHOSPHATASE 41 U/L (34-104); ANION GAP 6.2 (7.0-16.0); BILIRUBIN,TOTAL 0.2 mg/dL (0.3-1.0); BUN - UREA NITROGEN 16 mg/dL (7-25); BUN/CREATININE RATIO 22.9; CALCIUM SERUM 8.8 mg/dL (8.6-10.3); CARBON DIOXIDE 29.9 mEq/L (21.0-31.0); CHLORIDE 102 mEq/L (98-107); CREATININE - SERUM 0.7 mg/dL (0.7-1.3); GLUCOSE 139 mg/dL (70-105); POTASSIUM SERUM 4.1 mEq/L (3.5-5.1); SGOT 12 U/L (13-39); SGPT/ALT 8 U/L (7-52); SODIUM SERUM 134 mEq/L (136-145)
[2017-01-01] MEDS: Levothyroxine 0.05 Mg Tab PO SCH (06:35)
[2017-01-01] MEDS: cefTRIAXone 1 GM in Sodium Chloride 0.9% 50 ML IV SCH (07:08)
[2017-01-01] MEDS: Lactulose 10 Gm/15 mL 30mL UDC PO SCH (09:04)
[2017-01-01] MEDS: Menthol/Zinc Oxide Oint 113gm Tube TP SCH (09:14)
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
[2017-01-01] MEDS: Triamcinolone Acetonide 0.1% Cream 15 gm TP SCH (23:17)
--- NOTE | 2017-01-01 23:44 | Admit Criteria Form ---
Admit Criteria Forms - Admit Criteria Diagnosis: SKIN AND WOUND CARE Clinical Indications for Inpatient Care (Place 'X' for any and all applicable criteria): Ongoing inpatient care may be indicated for skin complications with 1 or more of the following [ ]I. Hemodynamic Instability((2)(8)(9)(28)(42)(43)(44) [ ]II. Dehydration that is severe or persistent [ ]III. Severe pain requiring acute inpatient management [ ]IV. Inpatient treatment needed as indicated by 1 or more of the following: Pressure ulcer closure procedures [ ] i. Skin grafting(45) [ ]ii. Opthalmic surgical procedure (eg amniotic membrane grafting) [ ]iii. Serial ocular examinations [ ]iv. Wound debridement [ ]v. Dressing change under general anesthesia [ ]vi. Diverting colostomy [ ]vii. Intravenous immunosuppressant therapy [X ]V. Significant burn as indicated by 1 or more of the following [ ]i. Full thickness burn greater than 10% of body surface area [ ]ii. Any burn greater than 15% of body surface area [ ]iii. Serious burn of hand, foot, genitals, face or joint [X ]iv. Burn accompanied by other significant medical problems or injuries (eg altered mental [ ]v. status, arrhythmia, inability to maintain oral hydration, significant wound) [ ]vi. Serious chemical burn [ ]vii. High voltage (e.g. 1000 volts or more) electrical burn [ ]viii. Circumferential burn [ ] . Skin infection requiring inpatient care as indicated by ALL of the following: [ ]a) Infection suspected as indicated by 1 or more of the following: [ ] i. Excessive drainage [ ]ii. Pus [ ]iii. Increased redness [ ]iv. Foul Odor [ ]v. Fever [ ]b) Clinically significant infection as indicated by 1 or more of the following: [ ]i. Vital signs abnormality [ ]ii. Persistantly high temperatures greater than 103.1 degrees F (39.5degrees C)(Oral) [ ]iii. Unexplained metabolic acidosis (eg lactic acidosis) [ ]iv. Evidence of end organ dysfunction (eg rising creatinine, myocardial ischemia, liver function tests) [ ]v. Hypoxemia [ ]vi. Tachypnea [ ]vii. Altered mental status [ ]viii. Dehydration that is severe or persistent Extended stay beyond goal length of stay for primary condition may be needed until ALL of the following are present(1)(2)(13)(21)(27): [ ]a) Hemodynamic instability [ ]b) Volume status acceptable [ ]c) Mental status at baseline [ ]d) Tissue necrosis absent or treatment plan manageable at lower level of care [ ]e) Fever absent or temperature as expected for disease process and acceptable for next level of care [ ]f) Hypoxemia present [ ]g) Tachypnea present [ ]h) Fistulas, tunneling, or underlying deep tissue infection absent or treated [ ]i) Purulence and tissue breakdown absent or improved [ ]j) Ulcer surgical repair absent or healing without complications [ ]k) Wound infection absent or manageable at lower level of care [ ]l) Comorbidities absent or manageable at lower level of care The original [facility] [employer] content created by [facility] has been revised. The portions of the content which have been revised are identified through the use of italic text or in bold, and [facility] has neither reviewed nor approved the modified material. All other unmodified content is copyright [facility]. Please see references footnoted in the original [facility] [employer] edition 2017 Admit Criteria Met?: Yes
[2017-01-02] MEDS: cefTRIAXone 1 GM in Sodium Chloride 0.9% 50 ML IV SCH (06:19)
[2017-01-02] MEDS: Sodium Chloride 0.9% 1,000 ML IV SCH ×2 (06:21→07:06)
[2017-01-02] MEDS: Levothyroxine 0.05 Mg Tab PO SCH (08:16)
[2017-01-02] MEDS: Lactulose 10 Gm/15 mL 30mL UDC PO SCH (08:21)
[2017-01-02] MEDS: Menthol/Zinc Oxide Oint 113gm Tube TP SCH (08:21)
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
[2017-01-02] MEDS: Triamcinolone Acetonide 0.1% Cream 15 gm TP SCH (21:48)
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
[2017-01-03] MEDS: Sodium Chloride 0.9% 1,000 ML IV SCH (02:58)
--- NOTE | 2017-01-03 04:23 | Progress Notes ---
DATE: 01/02/2017 Case was discussed with staff of the patient, reviewed records. The patient is nonverbal. He is in bed. He is not acting out in anyway dangerous. He is compliant with the medication with no side effects, no sedation, no nausea, no extrapyramidal symptoms. He needs to follow up with the psychiatrist upon discharge. Thank you very much for allowing me to participate in the care of this most interesting gentleman. JOB# [id number]
[2017-01-03] MEDS: cefTRIAXone 1 GM in Sodium Chloride 0.9% 50 ML IV SCH (06:23)
[2017-01-03] MEDS: Levothyroxine 0.05 Mg Tab PO SCH (06:36)
[2017-01-03] MEDS: Lactulose 10 Gm/15 mL 30mL UDC PO SCH (10:29)
[2017-01-03] MEDS: Clobetasol Propionate 0.05% Cream 45 gm Tube TP PRN ×2 (10:44→21:16)
[2017-01-03] MEDS: Menthol/Zinc Oxide Oint 113gm Tube TP SCH (10:44)
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
[2017-01-03] MEDS: Triamcinolone Acetonide 0.1% Cream 15 gm TP SCH (21:16)
--- NOTE | 2017-01-04 01:49 | Progress Notes ---
DATE: 01/03/2017 Case was discussed with staff of the patient. The patient continues to do the same. He is still nonverbal. He would always be nonverbal. He is developmentally disabled. He is sleeping better, eating better. No side effects with the medication, no sedation, no nausea, no extrapyramidal symptoms. I would recommend to continue his medication. Thank you very much for allowing me to participate in the care of this patient. [facility]# [id number]
[2017-01-04 06:53] LABS: HEMATOCRIT 37.8 % (39.0-49.0); HEMOGLOBIN 12.6 gm/dL (13.2-17.3); MEAN CELL VOLUME 84.1 fl (80-99); MEAN CORPUSCULAR HEMOGLOBIN 28.2 pg (26.0-30.0); MEAN CORPUSCULAR HGB CONC 33.5 pg (28.0-36.0); MEAN PLATELET VOLUME 6.7 fl; RED BLOOD COUNT 4.49 Mil/cmm (4.30-5.70); RED CELL DISTRIBUTION WIDTH 18.6 % (11.5-20.0)
[2017-01-04 07:01] LABS: PLATELET COUNT 381 Th/cmm (150-400); WHITE BLOOD COUNT 25.1 Th/cmm (4.8-10.8)
[2017-01-04] MEDS: cefTRIAXone 1 GM in Sodium Chloride 0.9% 50 ML IV SCH (07:02)
[2017-01-04 07:18] LABS: ALB/GLOB RATIO 1.1 (1.0-1.8); ALKALINE PHOSPHATASE 44 U/L (34-104); ANION GAP 7.2 (7.0-16.0); BILIRUBIN,TOTAL 0.2 mg/dL (0.3-1.0); BUN - UREA NITROGEN 17 mg/dL (7-25); BUN/CREATININE RATIO 24.3; CALCIUM SERUM 9.1 mg/dL (8.6-10.3); CARBON DIOXIDE 30.7 mEq/L (21.0-31.0); CHLORIDE 95 mEq/L (98-107); CREATININE - SERUM 0.7 mg/dL (0.7-1.3); GLUCOSE 97 mg/dL (70-105); POTASSIUM SERUM 3.9 mEq/L (3.5-5.1); SGOT 26 U/L (13-39); SGPT/ALT 39 U/L (7-52); SODIUM SERUM 129 mEq/L (136-145)
[2017-01-04 08:40] LABS: BAND NEUTROPHILE 3 % (0-10); NEUTROPHILS 64 % (40-80); PLATELET ESTIMATE ADEQUATE (NORMAL); PLATELET MORPHOLOGY NORMAL (NORMAL); TOTAL CELLS COUNTED 100
[2017-01-04] MEDS: Levothyroxine 0.05 Mg Tab PO SCH (08:46)
[2017-01-04] MEDS: Menthol/Zinc Oxide Oint 113gm Tube TP SCH (08:48)
[2017-01-04] MEDS: Sodium Chloride 0.9% 1,000 ML IV SCH (08:49)
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
[2017-01-04] MEDS: Lactulose 10 Gm/15 mL 30mL UDC PO SCH (16:52)
[2017-01-04] MEDS: Triamcinolone Acetonide 0.1% Cream 15 gm TP SCH (21:10)
--- NOTE | 2017-01-05 00:49 | Progress Notes ---
DATE: 01/04/2017 Case was discussed with staff of the patient, reviewed records. The patient continues to do the same. He is nonverbal. He has cerebral palsy. He is unpredictable, impulsive, needing redirection. He is sleeping. He is fed by staff. No side effects with the medication, no sedation, no nausea, no extrapyramidal symptoms. Thank you very much for allowing me to participate in the care of this most interesting gentleman. JOB# [id number]
[2017-01-05 06:29] LABS: HEMATOCRIT 35.8 % (39.0-49.0); HEMOGLOBIN 12.2 gm/dL (13.2-17.3); MEAN CELL VOLUME 83.8 fl (80-99); MEAN CORPUSCULAR HEMOGLOBIN 28.6 pg (26.0-30.0); MEAN CORPUSCULAR HGB CONC 34.1 pg (28.0-36.0); MEAN PLATELET VOLUME 6.5 fl; PLATELET COUNT 345 Th/cmm (150-400); RED BLOOD COUNT 4.27 Mil/cmm (4.30-5.70); RED CELL DISTRIBUTION WIDTH 18.3 % (11.5-20.0)
[2017-01-05] MEDS: cefTRIAXone 1 GM in Sodium Chloride 0.9% 50 ML IV SCH (06:45)
[2017-01-05] MEDS: Sodium Chloride 0.9% 1,000 ML IV SCH (06:46)
[2017-01-05 07:08] LABS: WHITE BLOOD COUNT 19.3 Th/cmm (4.8-10.8)
[2017-01-05 07:15] LABS: BAND NEUTROPHILE 4 % (0-10); EOSINOPHIL 3 % (0-5); NEUTROPHILS 46 % (40-80); PLATELET ESTIMATE ADEQUATE (NORMAL); PLATELET MORPHOLOGY GIANT PLATELETS SEEN (NORMAL); TOTAL CELLS COUNTED 100
[2017-01-05] MEDS: Lactulose 10 Gm/15 mL 30mL UDC PO SCH (09:57)
[2017-01-05] MEDS: Menthol/Zinc Oxide Oint 113gm Tube TP SCH (09:57)
[2017-01-05] MEDS: Levothyroxine 0.05 Mg Tab PO SCH (12:45)
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
--- NOTE | 2017-01-06 02:11 | Progress Notes ---
DATE: 01/05/2017 Case was discussed with staff of the patient, reviewed records. The patient has been having episodes where he is agitated. He is sleeping. He has cerebral palsy, nonverbal, unable to express himself. He has been compliant with the medication with no side effects of the Depakote 500 mg 3 times a day and Prozac 20 mg daily with no side effects. He is also on Seroquel 50 mg 3 times a day, trazodone. No side effects with the medication, no sedation, no nausea, no extrapyramidal symptoms. Thank you very much for allowing me to participate in care of this most interesting gentleman. JOB# [id number]
--- NOTE | 2017-01-11 04:51 | Discharge Summary ---
DATE OF DISCHARGE: 01/05/2017 HOSPITAL COURSE: The patient was admitted on 12/30/2016 and discharged on 01/05/2017. The patient was admitted because he was ____ sunburn and also had a high white count, found to have leukocytosis, ____ reaction, history of mental delay and rule out sepsis. The patient was admitted, also given IV antibiotics, steroids. The patient slowly improved and the patient was in a stable condition. On 01/05, the patient was discharged back to the board and care where I will be following the patient and ____ the patient was continued on antibiotics. JOB# [id number]
== END 2017-01-05 17:30 | disposition home or self-care (01) | DRG 871 ==
LOC: ER 22:37 → MSI 23:35
PROVIDERS: ADMIT Internal Medicine; ATTEND Internal Medicine
DX: A41.9 Sepsis, unspecified organism (principal); R53.2 Functional quadriplegia; F72 Severe intellectual disabilities; L03.211 Cellulitis of face; N39.0 Urinary tract infection, site not specified; L55.0 Sunburn of first degree; E03.9 Hypothyroidism, unspecified; F32.9 Major depressive disorder, single episode, unspecified; G40.909 Epilepsy, unspecified, not intractable, without status epilepticus; F29 Unspecified psychosis not due to a substance or known physiological condition; G80.9 Cerebral palsy, unspecified; D72.829 Elevated white blood cell count, unspecified; E86.0 Dehydration
CPT/HCPCS: 36415-UA; 80048-TC; 80053-TC; 85007-TC; 85025-TC; 85027-TC; 87086-90; J0696; J1580; J2060; J2930; J3370; J7030; Z7610

== ENCOUNTER 2017-03-16 11:40 | Inpatient (IN) | payer MEDICARE, MEDICAID ==
--- NOTE | 2017-03-16 11:49 | ED Physician Chart ---
ED Chief Complaint/HPI - Patient Information Date Seen:: 03/16/17 Time Seen:: 11:40 Chief Complaint:: Cough History of Present Illness:: onset x one day of cough, congestion, and fever; no report of trauma, H/As, neck pain, C/P, SOB, Abd. Pain, A/N/V/D/C, chills, or urinary s/s Allergies:: Allergies Allergy/AdvReac Type Severity Reaction Status Date / Time No Known Allergies Allergy Verified 10/04/16 12:06 Historian:: Patient, EMS Review:: Nurse's Note Reviewed, EMS run form Reviewed ED Review of Systems - Review of Systems General/Constitutional: Fever, Chills, No weight loss, No weakness, No diaphoresis, No edema, No loss of appetite Skin: No skin lesions, No rash, No bruising Head: No headache, No light-headedness Eyes: No loss of vision, No pain, No diplopia ENT: No earache, Nasal drainage, No sore throat, No tinnitus Neck: No neck pain, No swelling, No thyromegaly, No stiffness, No mass noted Cardio Vascular: No chest pain, No palpitations, No PND, No orthopnea, No edema Pulmonary: No SOB, Cough, No sputum, No wheezing GI: No nausea, No vomiting, No diarrhea, No pain, No melena, No hematochezia, No constipation, No hematemesis G/U: No dysuria, No frequency, No hematuria, No nacturia Musculoskeletal: No bone or joint pain, No back pain, No muscle pain Endocrine: No polyuria, No polydipsia Psychiatric: No prior psych history, No depression, No anxiety, No suicidal ideation, No homicidal ideation, No auditory hallucination, No visual hallucination Hematopoietic: No bruising, No lymphadenopathy Allergic/Immuno: No urticaria, No angioedema Neurological: No syncope, No focal symptoms, No weakness, No paresthesia, No headache, No seizure, No dizziness, No confusion, No vertigo ED Past Medical History - Past Medical History Past Medical History: Dementia, Other (Autism) Family History: HTN Social History: Non Smoker, No Alcohol, No Drug Use, Single, Care Facility Surgical History: None Psychiatricy History: Dementia Medication: Reviewed Family Medical History - Family Member Mother History Unknown: Yes Ethnicity: Unknown Living Status: Unknown ED Physical Exam - Physical Examination General/Constitutional: Awake, Well-developed, well-nourished, Alert, No distress, GCS 15, Non-toxic appearing, Ambulatory Head: Atraumatic Eyes: Lids, conjuctiva normal, PERRL, EOMI Skin: Nl inspection, No rash, No skin lesions, No ecchymosis, Well hydrated, No lymphadenopathy ENMT: External ears, nose nl, Nasal exam nl, Lips, teeth, gums nl Neck: Nontender, Full ROM w/o pain, No JVD, No nuchal rigidity, No bruit, No mass, No stridor Respiratory: Nl effort/Exclusion Other Respiratory comments:: Lungs: + Rales and Rhonchi Cardio Vascular: RRR, No murmur, gallop, rubs, NL S1 S2 GI: No tenderness/rebounding/guarding, No organomegaly, No hernia, Normal BS's, Nondistended, No mass/bruits, No McBurney tenderness : No CVA tenderness Extremities: No tenderness or effusion, Full ROM, normal strength in all extremities, No edema, Normal digits & nails Neuro/Psych: Alert/oriented, DTR's symmetric, Normal sensory exam, Normal motor strength, Judgement/insight normal, Mood normal, Normal gait, No focal deficits Misc: Normal back, No paraspinal tenderness ED Labs/Radiology/EKG Results - Lab Results Comments:: WBC: 24.2 - Radiology Results Comments:: CXR: + Infiltrate - EKG Interpretations EKG Time:: 11:57 Rate & Rhythm: 88; NSR Comments:: non-specific st-t changes ED Septic Shock - . Is Septic Shock (SBP<90, OR Lactate>4 mmol\L) present?: No ED Reassessment (Disposition) - Reassessment Reassessment Condition:: Improved - Diagnosis Diagnosis:: PNA; Sepsis; Leukocytosis; Fever; Cough/Congestion - Aftercare/Follow up Instructions Aftercare/Follow-Up Instructions:: Counseled pt regarding lab results/diagnosis & need follow up, Counseled pt & family regarding lab results/diagnosis & need follow up - Patient Disposition Discharge/Transfer:: Acute Care w/in this hosp Accepting Physician:: Dr. Nina Time Called:: 1245 Time Responded:: 12:45 Admitted to:: Med/Surg Spoke to:: Dr. Nina Admitting Medical Physician:: Dr. Nina Condition at Disposition:: Stable, Improved
[2017-03-16 12:22] LABS: HEMATOCRIT 35.7 % (41.0-60); HEMOGLOBIN 12.1 gm/dL (12-16); MEAN CELL VOLUME 85.1 fl (80-99); MEAN CORPUSCULAR HEMOGLOBIN 28.8 pg (26.0-30.0); MEAN CORPUSCULAR HGB CONC 33.8 pg (28.0-36.0); MEAN PLATELET VOLUME 6.6 fl; NEUTROPHILE ABSOLUTE 18.2 Th/cmm (1.8-8.0); PLATELET COUNT 374 Th/cmm (150-400)
[2017-03-16 12:27] LABS: WHITE BLOOD COUNT 24.2 Th/cmm (4.8-10.8)
[2017-03-16 12:38] LABS: INR 0.94 (0.5-1.4); PROTHROMBIN TIME (TEST) 9.8 SECONDS (9.5-11.5)
[2017-03-16] MEDS ORDERED: Levofloxacin 500mg/100mL 500 MG/100 ML BAG IV ONE ×2 (12:39→13:00)
[2017-03-16 12:42] LABS: BAND NEUTROPHILE 3 % (0-10); NEUTROPHILS 68 % (40-80); TOTAL CELLS COUNTED 100
[2017-03-16 12:43] LABS: EOSINOPHIL 2 % (0-5)
[2017-03-16 12:45] LABS: ALB/GLOB RATIO 1.1 (1.0-1.8); ALKALINE PHOSPHATASE 43 U/L (34-104); ANION GAP 6.8 (7.0-16.0); BILIRUBIN,TOTAL 0.2 mg/dL (0.3-1.0); BUN - UREA NITROGEN 13 mg/dL (7-25); BUN/CREATININE RATIO 16.3; CARBON DIOXIDE 33.3 mEq/L (21.0-31.0); CHLORIDE 93 mEq/L (98-107); CHOLESTEROL 145 mg/dL (<200); CREATININE - SERUM 0.8 mg/dL (0.7-1.3); GLUCOSE 77 mg/dL (70-105); POTASSIUM SERUM 4.1 mEq/L (3.5-5.1); SGOT 13 U/L (13-39); SGPT/ALT 9 U/L (7-52); SODIUM SERUM 129 mEq/L (136-145); TRIGLYCERIDES 77 mg/dL (<150)
--- NOTE | 2017-03-16 12:54 | Diagnostic Imaging Report ---
Portable chest x-ray HISTORY: Pain The overall heart size is normal. There is accentuation of the interstitial lung markings particularly within the upper lobes of the lungs (right greater than left). Little change dating back to September 18, 2016. This stability suggests a benign etiology. A follow-up CT scan of the chest with provide additional detail if needed. No hilar or mediastinal abnormalities. No evidence of pleural fluid. IMPRESSION: 1. Accentuation of the interstitial lung lung markings in the upper lobes (right greater than left). Changes appear chronic. The stability is consistent with a benign etiology. If needed, a CT scan would provide additional detail of the pulmonary parenchyma. 2. No other acute abnormalities.
[2017-03-16] MEDS ORDERED: Diphenoxylate/Atropine 2.5mg Tab PO PRN (18:23)
[2017-03-16] MEDS ORDERED: Clobetasol Propionate 0.05% Cream 45 gm Tube TP PRN (18:23)
[2017-03-16] MEDS ORDERED: D5-0.45NS 1,000 ML IV SCH (20:00)
[2017-03-17 06:13] LABS: HEMATOCRIT 37.3 % (41.0-60); HEMOGLOBIN 12.3 gm/dL (12-16); MEAN CELL VOLUME 86.1 fl (80-99); MEAN CORPUSCULAR HEMOGLOBIN 28.4 pg (26.0-30.0); MEAN PLATELET VOLUME 7.2 fl; PLATELET COUNT 375 Th/cmm (150-400); RED BLOOD COUNT 4.33 Mil/cmm (4.30-5.70); RED CELL DISTRIBUTION WIDTH 16.1 % (11.5-20.0)
[2017-03-17 06:26] LABS: ANION GAP 9.3 (7.0-16.0); BUN - UREA NITROGEN 16 mg/dL (7-25); CALCIUM SERUM 9.3 mg/dL (8.6-10.3); CARBON DIOXIDE 29.8 mEq/L (21.0-31.0); CHLORIDE 94 mEq/L (98-107); CREATININE - SERUM 0.8 mg/dL (0.7-1.3); GLUCOSE 72 mg/dL (70-105); POTASSIUM SERUM 4.1 mEq/L (3.5-5.1); SODIUM SERUM 129 mEq/L (136-145)
[2017-03-17 07:11] LABS: WHITE BLOOD COUNT 16.2 Th/cmm (4.8-10.8)
[2017-03-17 07:14] LABS: BAND NEUTROPHILE 3 % (0-10); EOSINOPHIL 3 % (0-5); NEUTROPHILS 67 % (40-80); TOTAL CELLS COUNTED 100
[2017-03-17] MEDS: Levothyroxine 0.05 Mg Tab PO SCH (08:31)
[2017-03-17] MEDS: Lactulose 10 Gm/15 mL 30mL UDC PO SCH (08:33)
[2017-03-17] MEDS: Menthol/Zinc Oxide Oint 113gm Tube TP SCH (14:10)
[2017-03-17] MEDS: Levofloxacin 500mg/100mL 500 MG/100 ML BAG IV SCH (14:56)
[2017-03-18] MEDS: Levothyroxine 0.05 Mg Tab PO SCH (06:47)
[2017-03-18] MEDS: Lactulose 10 Gm/15 mL 30mL UDC PO SCH (08:23)
[2017-03-18] MEDS: Menthol/Zinc Oxide Oint 113gm Tube TP SCH (09:00)
[2017-03-18 10:42] LABS: HEMATOCRIT 38.5 % (41.0-60); HEMOGLOBIN 12.6 gm/dL (12-16); MEAN CELL VOLUME 86.1 fl (80-99); MEAN CORPUSCULAR HEMOGLOBIN 28.2 pg (26.0-30.0); MEAN CORPUSCULAR HGB CONC 32.7 pg (28.0-36.0); MEAN PLATELET VOLUME 6.8 fl; NEUTROPHILE ABSOLUTE 7.5 Th/cmm (1.8-8.0); PLATELET COUNT 443 Th/cmm (150-400); RED BLOOD COUNT 4.47 Mil/cmm (4.30-5.70)
[2017-03-18 10:44] LABS: WHITE BLOOD COUNT 11.9 Th/cmm (4.8-10.8)
[2017-03-18] MEDS ORDERED: Sodium Chloride 0.9% 1,000 ML IV SCH (10:51)
[2017-03-18 11:03] LABS: TOTAL CELLS COUNTED 100
[2017-03-18 11:05] LABS: NEUTROPHILS 63 % (40-80)
[2017-03-18 11:06] LABS: EOSINOPHIL 5 % (0-5)
[2017-03-18 11:09] LABS: ANION GAP 11.6 (7.0-16.0); BUN - UREA NITROGEN 17 mg/dL (7-25); BUN/CREATININE RATIO 21.3; CALCIUM SERUM 9.2 mg/dL (8.6-10.3); CARBON DIOXIDE 28.7 mEq/L (21.0-31.0); CHLORIDE 90 mEq/L (98-107); CREATININE - SERUM 0.8 mg/dL (0.7-1.3); GLUCOSE 89 mg/dL (70-105); POTASSIUM SERUM 4.3 mEq/L (3.5-5.1); SODIUM SERUM 126 mEq/L (136-145)
[2017-03-18] MEDS: Levofloxacin 500mg/100mL 500 MG/100 ML BAG IV SCH (13:00)
[2017-03-18] MEDS ORDERED: Probiotic Screen MC PRN (15:39)
--- NOTE | 2017-03-18 17:22 | Consultation ---
Consult Note - Consult Note Service Date: 03/18/17 Referring Physician: Melissa Nina Consult Note: PHYSICIAN Consultation Note: Date of Admission: 03/16/17 Purpose of Consultation: Chief Complaint: Patient XANDER JOSUE was admitted to location Medical/Surgical Unit I with PNA. History of Present Illness: 46 yeal male was admitted for cough, congestion and fever, diagnosed to have pneumona. He was started on antibiotics and ID Cosnult was called for antibiotic management. Past Medical History: Anglemen's syndrome, mental retardation, Chest wall abscess drained. Allergies Allergy/AdvReac Type Severity Reaction Status Date / Time No Known Allergies Allergy Verified 10/04/16 12:06 Vital Signs Temp 97.8 F 03/18/17 17:06 Pulse 62 03/18/17 17:06 Resp 17 03/18/17 17:06 BP 105/60 03/18/17 17:06 Pulse Ox 99 03/18/17 17:06 Intake & Output 03/17/17 03/18/17 03/18/17 18:59 06:59 18:59 Intake Total 300 30 Balance 300 30 Weight (lbs) 58.967 kg 63.049 kg Intake: Intake, IV Amount 100 Levofloxacin 500mg/100mL 100 500 mg In 100 ml @ 100 mls/hr IV Q24HR [facility] Rx#: [id number] Oral 200 30 Other: # Voids 1 Stool Characteristics Soft Formed Laboratory Results - last 24 hr 03/18/17 03/18/17 10:30 10:30 WBC 11.9 H D RBC 4.47 Hgb 12.6 Hct 38.5 L MCV 86.1 MCH 28.2 MCHC Differential 32.7 RDW 16.0 Plt Count 443 H MPV 6.8 Neutrophils (Manual) 63 Lymphocytes 18 L Monocytes 14 H Eosinophils 5 Sodium 126 L Potassium 4.3 Chloride 90 L Carbon Dioxide 28.7 Anion Gap 11.6 BUN 17 Creatinine 0.8 Est GFR ( Amer) > 60.0 Est GFR (Non-Af Amer) > 60.0 BUN/Creatinine Ratio 21.3 Glucose 89 Calcium 9.2 Home Medication Medication Instructions Recorded Type Acetaminophen [Tylenol] 650 mg PO Q6H PRN tab 01/05/17 Rx Clobetasol Prop 0.05% Cream 1 appl TP BID PRN appl 01/05/17 Rx [Temovate 0.05% Cream*] Clotrimazole 1% Cream [Lotrimin 1% 1 appl TP DAILY PRN appl 01/05/17 Rx Cream] Desmopressin [Ddavp] 0.1 mg PO DAILY tab 01/05/17 Rx Diphenhydramine HCL [Benadryl] 25 mg PO Q6H PRN cap 01/05/17 Rx Diphenoxylate/Atropine [Lomotil] 1 tab PO Q6H PRN tab 01/05/[address] [Depakote DR] 500 mg PO TID tcp 01/05/17 Rx FLUoxetine HCL [Prozac*] 20 mg PO DAILY cap 01/05/17 Rx Lacosamide [Vimpat] 50 mg PO BID tab 01/05/17 Rx Lactulose [Cephulac] 10 gm PO DAILY udc 01/05/17 Rx Levetiracetam [Keppra] 1,500 mg PO BID tab 01/05/17 Rx Levothyroxine [Synthroid] 0.05 mg PO QDAC tab 01/05/17 Rx Menthol/Zinc Oxide [Calmoseptine] 1 appl TP DAILY appl 01/05/17 Rx Metoclopramide [Reglan] 5 mg PO BID tab 01/05/17 Rx Ondansetron [Zofran Odt] 4 mg PO Q4H PRN odt 01/05/17 Rx QUEtiapine Fumarate [SEROquel] 50 mg PO TID tab 01/05/17 Rx Triamcinolone Acet 0.1% Cream 1 appl TP HS appl 01/05/17 Rx [Kenalog 0.1%] buPROPion SR [Wellbutrin Sr] [address] 01/05/17 Rx clonazePAM [klonoPIN] 1 mg PO TID tab 01/05/17 Rx traZODone HCl [Desyrel*] 100 mg PO HS tab 01/05/17 Rx Current Medications Generic Name Dose Route Start Last Admin Trade Name Freq PRN Reason Stop Dose Admin Acetaminophen 650 mg 03/16/17 18:23 Tylenol PO 05/15/17 18:22 Q6H PRN Pain (Mild) Bupropion HCl 75 mg 03/17/17 09:00 03/18/17 08:26 Wellbutrin Sr PO 05/16/17 08:59 75 mg DAILY PRAVEENA Administration Protocol Calamine/Phenol 1 appl 03/17/17 09:00 03/18/17 09:00 Calmoseptine TP 05/16/17 08:59 1 appl DAILY PRAVEENA Administration Clobetasol Propionate 1 appl 03/16/17 18:23 03/17/17 14:11 Temovate 0.05% Cream TP 05/15/17 18:22 1 appl BID PRN Administration Rash Clonazepam 1 mg 03/16/17 21:00 03/18/17 14:31 Klonopin PO 05/15/17 20:59 1 mg TID PRAVEENA Administration Protocol Clotrimazole 1 appl 03/16/17 18:23 03/17/17 14:11 Lotrimin 1% Cream TP 05/15/17 18:22 1 appl DAILY PRN Administration Rash Desmopressin Acetate 0.1 mg 03/17/17 09:00 03/18/17 08:32 Ddavp PO 05/16/17 08:59 0.1 mg DAILY PRAVEENA Administration Diphenhydramine HCl 25 mg 03/16/17 18:23 Benadryl PO 05/15/17 18:22 Q6H PRN Allergy Symptoms Diphenoxylate HCl/Atropine 1 tab 03/16/17 18:23 Lomotil PO 05/15/17 18:22 Q6H PRN Diarrhea Divalproex Sodium 500 mg 03/16/17 21:00 03/18/17 14:[address] PO 05/15/17 20:59 500 mg TID PRAVEENA Administration Protocol Fluoxetine HCl 20 mg 03/17/17 09:00 03/18/17 09:00 Prozac PO 05/16/17 08:59 20 mg DAILY PRAVEENA Administration Protocol Levofloxacin 500 mg in 100 mls @ 100 mls/hr 03/17/17 13:00 03/18/17 13:00 Levaquin Pb IV 05/16/17 12:59 100 mls/hr Q24HR PRAVEENA Administration Sodium Chloride 1,000 mls @ 80 mls/hr 03/18/17 10:51 03/18/17 10:30 Nacl 0.9% IV 05/17/17 10:50 Not Given .[id number] PRAVEENA Influenza Virus Vaccine 0.5 ml 03/19/17 09:00 Fluarix IM 03/19/17 09:01 .ONCE ONE Lacosamide 50 mg 03/17/17 09:00 03/18/17 08:28 Vimpat PO 05/16/17 08:59 50 mg BID PRAVEENA Administration Lactobacillus Rhamnosus 1 each 03/19/17 09:00 Culturelle PO 05/18/17 08:59 DAILY PRAVEENA Lactulose 10 gm 03/17/17 09:00 03/18/17 08:23 Cephulac PO 05/16/17 08:59 10 gm DAILY PRAVEENA Administration Levetiracetam 1,500 mg 03/17/17 09:00 03/18/17 08:25 Keppra PO 05/16/17 08:59 1,500 mg BID PRAVEENA Administration Levothyroxine Sodium 0.05 mg 03/17/17 07:30 03/18/17 06:47 Synthroid PO 05/16/17 07:29 0.05 mg QDAC PRAVEENA Administration Metoclopramide HCl 5 mg 03/17/17 09:00 03/18/17 08:29 Reglan PO 05/16/17 08:59 5 mg BID PRAVEENA Administration Miscellaneous 1 ea 03/18/17 15:39 Probiotic Screen MC 05/17/17 15:38 PRN PRN PROTOCOL Mupirocin 1 appl 03/18/17 17:00 Bactroban Oint TP 03/25/17 16:59 BID PRAVEENA Ondansetron HCl 4 mg 03/16/17 18:23 Zofran Odt PO 05/15/17 18:22 Q4H PRN Nausea / Vomiting Quetiapine Fumarate 50 mg 03/16/17 21:00 03/18/17 14:32 Seroquel PO 05/15/17 20:59 50 mg TID PRAVEENA Administration Protocol Trazodone HCl 100 mg 03/16/17 21:00 03/17/17 21:42 Desyrel PO 05/15/17 20:59 100 mg HS PRAVEENA Administration Protocol Review of Systems: A 12 point ROS was reviewed with the pertinent positive and negatives noted in the HPI. Family History: Not available. Social History Smoking Status Smoker, status unknown Drug Use No Alcohol Use No Physical Exam: General: comfortable. No Acute Distress HEENT: Head: normocephalic, atraumatic on inspection.Oral cavity moist, pink tongue. Eyes: EOMI Bilaterally, PERRLA Bilaterally. Neck: Supple, no JVD. Cardio: +S1/S2 Auscultated, RRR, no murmurs/rubs/gallops noted Respiratory: Clear to Auscultate Bilaterally Abdominal: Soft, Nondistended, Nontender to palpation x 4 quadrants Genital/Urinary: WNL. Extremities: No Edema noted in the lower extremities Neurological: Alert and awake. Cranial Nerves II-XII intact bilaterally, Gait Steady, No Focal Deficits noted. Assessment: 1. Sepsis improved. 2. Pneumonia treated. 3. Angleman's syndrome. Plan: change antibiotics to po levaquin and clinda po for [address] Nina for involving mein taking care of this apatient. Signed, Jermaine Rivas M.D. [id number]
--- NOTE | 2017-03-18 21:16 | History & Physical ---
ADMIT DATE: 03/18/2017 CHIEF COMPLAINT: Cough. HISTORY OF PRESENT ILLNESS: This is a 46-year-old male with a 1-day history of cough, congestion, and fever. For further management, the patient is now admitted. PAST MEDICAL HISTORY: Dementia and autism. SOCIAL HISTORY: The patient is a detention resident. PAST SURGICAL HISTORY: Unknown. MEDICATIONS: Please see medication reconciliation. REVIEW OF SYSTEMS: Unable to obtain due to the patient's mental status. PHYSICAL EXAMINATION: GENERAL: The patient is well developed, well nourished, in no acute distress. VITAL SIGNS: Temperature 97.4, heart rate 80, blood pressure 120/65, respirations ____, O2 99%. HEENT: Head: Normocephalic, atraumatic. NECK: Supple. No mass. LUNGS: Clear bilaterally. HEART: Regular rhythm. ABDOMEN: Soft, nontender. LABORATORY RESULTS: WBC 11.9, H and H 12.6 and 38.5, platelet of 443. Sodium 126, potassium 4.3, chloride 90, BUN 17, creatinine 0.8. DIAGNOSTICS: The patient had a chest x-ray done and the impression is accentuation of the interstitial lung markings in the upper lobe ____ consistent with benign etiology. No other acute abnormalities. ASSESSMENT: Mild protein-calorie malnutrition, acute febrile illness, leukocytosis, pneumonia, hyponatremia. PLAN: The patient to be admitted to the med-surg unit. We will give the patient inhalation treatments, IV antibiotics, IV fluids for hydration. We will continue to follow this patient. [facility]# [id number]
[2017-03-19] MEDS: Levothyroxine 0.05 Mg Tab PO SCH (06:40)
[2017-03-19] MEDS ORDERED: Influenza Vaccine 0.5 mL Syr IM ONE (09:00)
[2017-03-19] MEDS ORDERED: Lactobacillus Rhamnosus 10 Billion CFU Capsule PO SCH (09:00)
[2017-03-19] MEDS: Lactulose 10 Gm/15 mL 30mL UDC PO SCH (09:52)
[2017-03-19] MEDS: Menthol/Zinc Oxide Oint 113gm Tube TP SCH (09:55)
--- NOTE | 2017-03-20 05:59 | Progress Notes ---
DATE: 03/19/2017 SUBJECTIVE: The patient was seen in his room, lying on the bed. The patient is a poor historian due to medical condition, otherwise the patient appears to be comfortable in no acute distress. OBJECTIVE: VITAL SIGNS: Temperature of 96.8, blood pressure 109/63, heart rate 78, respirations of 18, saturation of 98. HEENT: Head is atraumatic and normocephalic. Eyes, bilateral conjunctivae are clear. Bilateral pupils are equally round and reactive. NECK: Supple. No JVD. CARDIOVASCULAR: S1 and S2, without murmur. PULMONARY: Fine scattered rhonchi noted. GASTROINTESTINAL: Soft and nontender without guarding. Positive bowel sounds. MUSCULOSKELETAL: No clubbing, no cyanosis noted. ASSESSMENT: 1. Angelman syndrome. 2. Pneumonia. 3. Sepsis. 4. Hypothyroidism. 5. Seizure. PLAN: We will continue IV antibiotics and we will follow up with the ID doctor for antibiotic management. Treatment plans were discussed with the patient's nurse. Treatment plans were discussed with Dr. Nina. JOB# [id number]
--- NOTE | 2017-03-22 16:45 | Discharge Summary ---
DATE OF DISCHARGE: 03/19/2017 The patient came in with history of cough. The patient known to have history of multiple medical problems ____ malnutrition. The patient was found to have pneumonia and hyponatremia. The patient's hyponatremia was treated. The patient felt better. The patient was in stable condition on 03/19/2017, needed IV antibiotic per ID doctor. The patient was transferred to ____ where I will be following the patient for IV antibiotics ____. Condition at the time of discharge is stable. JOB# [id number]
== END 2017-03-19 10:50 | DRG 871 ==
LOC: ER 11:40 → MSI 13:10
PROVIDERS: ADMIT Internal Medicine; ATTEND Internal Medicine
DX: A41.9 Sepsis, unspecified organism (principal); J18.9 Pneumonia, unspecified organism; E44.1 Mild protein-calorie malnutrition; E87.1 Hypo-osmolality and hyponatremia; F03.90 Unspecified dementia, unspecified severity, without behavioral disturbance, psychotic disturbance, mood disturbance, and anxiety; E21.3 Hyperparathyroidism, unspecified; Z82.49 Family history of ischemic heart disease and other diseases of the circulatory system; Q93.5 Other deletions of part of a chromosome; Z68.21 Body mass index [BMI] 21.0-21.9, adult; Z79.899 Other long term (current) drug therapy
CPT/HCPCS: 36415-UA; 71010-TC; 80048-TC; 80053-TC; 80061-TC; 82550-TC; 83605; 83880-TC; 84484-TC; 85007-TC; 85027-TC; 85610-TC; 85730-TC; 93005; 94760; J1956; J7030; Z7610

== ENCOUNTER 2017-03-23 12:25 | Inpatient (IN) | payer MEDICARE, MEDICAID ==
[2017-03-23] MEDS ORDERED: Sodium Chloride 0.9% 1,000 ML IV ONE (12:55)
--- NOTE | 2017-03-23 13:02 | ED Physician Chart ---
ED Chief Complaint/HPI - Patient Information Date Seen:: 03/23/17 Time Seen:: 12:40 Chief Complaint:: N/V History of Present Illness:: onset x one day of report of AMS, ALOC, and N/V x 3; no report of trauma, H/As, neck pain, C/P, SOB, Abd. Pain, A/D/C, fever, chills, or urinary s/s Allergies:: Allergies Allergy/AdvReac Type Severity Reaction Status Date / Time No Known Allergies Allergy Verified 10/04/16 12:06 Vitals:: Vital Signs - 8 hr 03/23/17 12:36 Temp 99.3 F HR 109 RR 17 BP 111/79 O2 Sat % 92 Historian:: Patient, EMS Review:: Nurse's Note Reviewed, Old Chart Reviewed, EMS run form Reviewed, Transfer documents Reviewed ED Review of Systems - Review of Systems General/Constitutional: No fever, No chills, No weight loss, No weakness, No diaphoresis, No edema, No loss of appetite Skin: No skin lesions, No rash, No bruising Head: No headache, No light-headedness Eyes: No loss of vision, No pain, No diplopia ENT: No earache, No nasal drainage, No sore throat, No tinnitus Neck: No neck pain, No swelling, No thyromegaly, No stiffness, No mass noted Cardio Vascular: No chest pain, No palpitations, No PND, No orthopnea, No edema Pulmonary: No SOB, No cough, No sputum, No wheezing GI: Nausea, Vomiting, Diarrhea, No pain, No melena, No hematochezia, No constipation, No hematemesis G/U: No dysuria, No frequency, No hematuria Musculoskeletal: No bone or joint pain, No back pain, No muscle pain Endocrine: No polyuria, No polydipsia Psychiatric: Prior psych history, Depression, No anxiety, No suicidal ideation, No homicidal ideation, No auditory hallucination, No visual hallucination Hematopoietic: No bruising, No lymphadenopathy Allergic/Immuno: No urticaria, No angioedema Neurological: No syncope, No focal symptoms, No weakness, No paresthesia, No headache, No seizure, No dizziness, Confusion, No vertigo ED Past Medical History - Past Medical History Obtainable: Yes Past Medical History: HTN, PUD/GERD, Seizures, Thyroid disorder Family History: Diabetes Melitus, HTN Social History: Non Smoker, No Alcohol, No Drug Use, Single, Care Facility Surgical History: None Psychiatricy History: Depression Medication: Reviewed Family Medical History - Family Member Mother History Unknown: Yes Ethnicity: Unknown Living Status: Unknown ED Physical Exam - Physical Examination General/Constitutional: Awake, Well-developed, well-nourished, Alert, No distress, GCS 15, Non-toxic appearing, Ambulatory Head: Atraumatic Eyes: Lids, conjuctiva normal, PERRL, EOMI Skin: Nl inspection, No rash, No skin lesions, No ecchymosis, Well hydrated, No lymphadenopathy ENMT: External ears, nose nl, TM canals nl, Nasal exam nl, Lips, teeth, gums nl , Oropharynx nl, Tonsils nl Neck: Nontender, Full ROM w/o pain, No JVD, No nuchal rigidity, No bruit, No mass, No stridor Respiratory: Nl effort/Exclusion Other Respiratory comments:: Lungs: + Rales and Rhonchi Cardio Vascular: RRR, No murmur, gallop, rubs, NL S1 S2, Carotid/Femoral/Distal pulses equal bilaterally GI: No tenderness/rebounding/guarding, No organomegaly, No hernia, Normal BS's, Nondistended, No mass/bruits, No McBurney tenderness : No CVA tenderness Extremities: No tenderness or effusion, Full ROM, normal strength in all extremities, No edema, Normal digits & nails Neuro/Psych: Alert/oriented, DTR's symmetric, Normal sensory exam, Normal motor strength, Judgement/insight normal, Mood normal, Normal gait, No focal deficits Misc: Normal back, No paraspinal tenderness ED Labs/Radiology/EKG Results - Radiology Results Comments:: CXR: + RML Infiltrate ED Septic Shock - . Is Septic Shock (SBP<90, OR Lactate>4 mmol\L) present?: No - <6hrs of presentation: Vital Signs: Vital Signs - 8 hr 03/23/17 12:36 Temp 99.3 F HR 109 RR 17 BP 111/79 O2 Sat % 92 ED Reassessment (Disposition) - Reassessment Reassessment Condition:: Improved - Diagnosis Diagnosis:: Dx: PNA; Sepsis; Dehydration; Nausea/Vomiting; Gastritis - Aftercare/Follow up Instructions Aftercare/Follow-Up Instructions:: Counseled pt regarding lab results/diagnosis & need follow up, Counseled pt & family regarding lab results/diagnosis & need follow up - Patient Disposition Discharge/Transfer:: Acute Care w/in this hosp Accepting Physician:: Dr. Nina Time Called:: 1330 Time Responded:: 13:30 Admitted to:: Telemetry Spoke to:: Dr. Nina Admitting Medical Physician:: Dr. Nina Condition at Disposition:: Stable, Improved
[2017-03-23] MEDS ORDERED: Levofloxacin 500mg/100mL 500 MG/100 ML BAG IV ONE ×2 (13:31→13:51)
[2017-03-23 13:38] LABS: URINE COLOR YELLOW
[2017-03-23] MEDS ORDERED: Haloperidol Lactate 5 mg/mL 1mL Vial IVP ONE (13:38)
[2017-03-23 13:40] LABS: URINE BILIRUBIN SMALL (NEGATIVE); URINE GLUCOSE (UA) NEGATIVE (NEGATIVE); URINE KETONE 15 mg/dL (NEGATIVE)
[2017-03-23 13:41] LABS: URINE BLOOD MODERATE (NEGATIVE); URINE PH 5.5 (4.6 - 8.0); URINE PROTEIN NEGATIVE (NEGATIVE); URINE UROBILINOGEN 0.2 E.U./dL (0.2 - 1.0)
[2017-03-23] MEDS ORDERED: Haloperidol Lactate 5 mg/mL 1mL Vial ONE (13:41)
[2017-03-23 13:53] LABS: % BASOPHILS 2.6 % (0.0-2.0); % LYMPHOCYTES 15.2 % (20.0-50.0); % MONOCYTES 6.9 % (2.0-10.0); % NEUTROPHILS 75.3 % (40.0-80.0); HEMOGLOBIN 14.1 gm/dL (12-16); MEAN CELL VOLUME 84.6 fl (80-99); MEAN CORPUSCULAR HEMOGLOBIN 27.7 pg (26.0-30.0); MEAN CORPUSCULAR HGB CONC 32.7 pg (28.0-36.0); MEAN PLATELET VOLUME 6.9 fl; NEUTROPHILE ABSOLUTE 13.6 Th/cmm (1.8-8.0); RED CELL DISTRIBUTION WIDTH 16.1 % (11.5-20.0)
--- NOTE | 2017-03-23 13:54 | Diagnostic Imaging Report ---
CHEST X-RAY: AP view INDICATION: pain COMPARISON: 03/16/2017 FINDINGS: Increased interstitial lung markings likely due to chronic lung changes are noted. No focal consolidation or effusions. Heart size normal. Osseous structures are intact. IMPRESSION: Interstitial lung markings likely due to chronic lung changes. No focal consolidation identified.
[2017-03-23 14:06] LABS: ALB/GLOB RATIO 1.1 (1.0-1.8); ANION GAP 18.2 (7.0-16.0); BILIRUBIN,TOTAL 0.4 mg/dL (0.3-1.0); BUN/CREATININE RATIO 33.2; CALCIUM SERUM 10.2 mg/dL (8.6-10.3); CARBON DIOXIDE 23.6 mEq/L (21.0-31.0); CREATININE - SERUM 1.9 mg/dL (0.7-1.3); POTASSIUM SERUM 4.8 mEq/L (3.5-5.1)
[2017-03-23 14:07] LABS: AMYLASE SERUM 40 U/L (29-103); LIPASE 41 U/L (11-82)
[2017-03-23 14:22] LABS: INR 1.21 (0.5-1.4); PROTHROMBIN TIME (TEST) 12.7 SECONDS (9.5-11.5)
[2017-03-23 15:00] LABS: CREATINE KINASE MB 3.1 ng/mL (0.6-6.3)
[2017-03-23 15:11] LABS: HEMATOCRIT 43.2 % (41.0-60); WHITE BLOOD COUNT 18.2 Th/cmm (4.8-10.8)
[2017-03-23 15:12] LABS: PLATELET COUNT 574 Th/cmm (150-400)
[2017-03-23] MEDS ORDERED: Pneumococcal Vaccine 0.5 mL Vial IM ONE (20:09)
--- NOTE | 2017-03-23 20:47 | History & Physical ---
ADMIT DATE: 03/23/2017 HISTORY OF PRESENT ILLNESS: The patient is well known to me. The patient is known to have some mental challenge. The patient is altered. The patient apparently has been having nausea, vomiting, and not eating for the last several days. He was admitted. The patient was initially admitted a week ago for pneumonia and was transferred to post[facility] for further review. Unfortunately, they were not able to establish IV and the patient was brought back here because of his nausea, vomiting, and dehydration. PHYSICAL EXAMINATION: HEENT: Head is normocephalic. Pupils equal, reactive to light. NECK: Supple, nontender. LUNGS: Clear. The patient has bilateral rales CARDIOVASCULAR SYSTEM: S1, S2 heard. PSYCHIATRIC: The patient is very agitated. DIAGNOSTICS: Chest x-ray showed right middle lobe pneumonia. DIAGNOSES: 1. Persistent pneumonia. 2. Sepsis. 3. Dehydration. 4. Nausea, vomiting. 5. Gastritis. 6. Mental challenge and history of mental delay was made. PLAN: The patient is being admitted. I will give him IV antibiotics and IV fluids. I will have Dr. Jermaine Rivas to see the patient and I will follow the patient. JOB# [id number]
[2017-03-23] MEDS: Sodium Chloride 0.9% 1,000 ML IV SCH (21:00)
[2017-03-23] MEDS ORDERED: Piperacillin Sodium/Tazobact 3.375 gm Vial IV ONE (21:41)
[2017-03-23] MEDS ORDERED: Diphenoxylate/Atropine 2.5mg Tab PO PRN (22:36)
--- NOTE | 2017-03-23 23:51 | Consultation ---
Consult Note - Consult Note Service Date: 03/23/17 Referring Physician: Melissa Nina Consult Note: PHYSICIAN Consultation Note: Date of Admission: 03/23/17 Purpose of Consultation: Pnneumonia and leukocytosis. Chief Complaint: Patient XANDER JOSUE was admitted to location Medical/Surgical Unit I with SEPSIS, VOMITING, PNA. History of Present Illness: Patient is 46 year old male discharged on 03/19/2017 to SNF, however,he was brought to the ER for vomiting, and found to have leukocytosis, 18,000. NA was also on lower side, so he was admitted for further care. He was started on vanco IV and zosyn. ID consult was called for antibiotic management. Past Medical History: Angleman's syndrome. Allergies Allergy/AdvReac Type Severity Reaction Status Date / Time No Known Allergies Allergy Verified 10/04/16 12:06 Vital Signs Temp 99.0 F 03/23/17 20:09 Pulse 96 03/23/17 20:09 Resp 18 03/23/17 20:09 BP 103/69 03/23/17 20:09 Pulse Ox 92 03/23/17 20:09 Intake & Output 03/23/17 03/23/17 03/24/17 06:59 18:59 06:59 Weight (lbs) 63.503 kg Home Medication Medication Instructions Recorded Type Metoclopramide [Reglan] 5 mg PO BID tab 01/05/17 Rx Acetaminophen [Tylenol] 650 mg PO Q6H PRN tab 03/19/17 Rx Desmopressin [Ddavp] 0.1 mg PO DAILY tab 03/19/17 Rx Diphenoxylate/Atropine [Lomotil] 1 tab PO Q6H PRN tab 03/19/17 Rx Divalproex [Darrin RICK] 500 mg PO TID tcp 03/19/17 Rx FLUoxetine HCL [Prozac*] 20 mg PO DAILY cap 03/19/17 Rx Lacosamide [Vimpat] 50 mg PO BID tab 03/19/17 Rx Lactulose [Cephulac] 10 gm PO DAILY udc 03/19/17 Rx Levetiracetam [Keppra] 1,500 mg PO BID tab 03/19/17 Rx Levothyroxine [Synthroid] 0.05 mg PO QDAC tab 03/19/17 Rx Ondansetron [Zofran Odt] 4 mg PO Q4H PRN odt 03/19/17 Rx Azithromycin [Zithromax*] 500 mg PO DAILY 03/23/17 History Clindamycin HCl [Cleocin HCl] 150 mg PO TID 03/23/17 History Diphenhydramine HCL [Benadryl] 25 mg PO Q6H PRN 03/23/17 History Lactobacillus Acidophilus 1 each PO DAILY 03/23/17 History [Acidophilus] Levofloxacin [Levaquin] 500 mg PO DAILY 03/23/17 History Current Medications Generic Name Dose Route Start Last Admin Trade Name Freq PRN Reason Stop Dose Admin Acetaminophen 650 mg 03/23/17 22:36 Tylenol PO 05/22/17 22:35 Q6H PRN Pain (Mild) Azithromycin 500 mg 03/24/17 09:00 Zithromax PO 05/23/17 08:59 DAILY PRAVEENA Desmopressin Acetate 0.1 mg 03/24/17 09:00 Ddavp PO 05/23/17 08:59 DAILY PRAVEENA Diphenhydramine HCl 25 mg 03/23/17 22:36 Benadryl PO 05/22/17 22:35 Q6H PRN Itching Diphenoxylate HCl/Atropine 1 tab 03/23/17 22:36 Lomotil PO 05/22/17 22:35 Q6H PRN Diarrhea Divalproex Sodium 500 mg 03/24/17 09:[address] PO 05/23/17 08:59 TID PRAVEENA Protocol Fluoxetine HCl 20 mg 03/24/17 09:00 Prozac PO 05/23/17 08:59 DAILY PRAVEENA Protocol Piperacillin Sod/Tazobactam 50 mls @ 100 mls/hr 03/23/17 21:00 03/23/17 22:13 Sod 3.375 gm/ Sodium Chloride IV 05/22/17 20:59 100 mls/hr Q8HR PRAVEENA Administration Vancomycin HCl 1 gm/ Sodium 250 mls @ 165 mls/hr 03/23/17 20:00 03/23/17 22: 59 Chloride IV 05/22/17 19:59 165 mls/hr Q24H PRAVEENA Administration Sodium Chloride 1,000 mls @ 150 mls/hr 03/23/17 20:00 03/23/17 21:00 Nacl 0.9% IV 05/22/17 19:59 150 mls/hr .Q6H40M PRAVEENA Administration Lacosamide 50 mg 03/24/17 09:00 Vimpat PO 05/23/17 08:59 BID PRAVEENA Lactulose 10 gm 03/24/17 09:00 Cephulac PO 05/23/17 08:59 DAILY PRAVEENA Levetiracetam 1,500 mg 03/24/17 09:00 Keppra PO 05/23/17 08:59 BID PRAVEENA Levothyroxine Sodium 0.05 mg 03/24/17 07:30 Synthroid PO 05/23/17 07:29 QDAC PRAVEENA Lorazepam 1 mg 03/23/17 13:37 03/23/17 13:45 Ativan IVP 05/22/17 13:36 1 mg Q4HR PRN Administration Agitation Protocol Metoclopramide HCl 5 mg 03/24/17 09:00 Reglan PO 05/23/17 08:59 BID PRAVEENA Miscellaneous 1 ea 03/23/17 18:30 Vancomycin Iv Per Pharmacy MC 05/22/17 18:29 PRN PRN PROTOCOL Miscellaneous 1 each 03/24/17 09:00 Lactobacillus Acidophilus [Acidophilus] PO 05/23/17 08:59 DAILY [facility] Ondansetron HCl 4 mg 03/23/17 22:36 Zofran Odt PO 05/22/17 22:35 Q4H PRN Nausea / Vomiting Review of Systems: A 12 point ROS was reviewed with the pertinent positive and negatives noted in the HPI. Social History Smoking Status Never smoker Drug Use No Alcohol Use No Family Medical History Family Medical History Start: 03/23/17 14: 45 Freq: ONCE Status: Active Document 03/23/17 20:06 PTSAI (Rec: 03/23/17 20:06 [id number]) Family Medical History Mother History Unknown Yes Physical Exam: General: Comfortable, not in distress. HEENT: Head : normocephalic, atraumatic. Oral cavity moist pink tongue, eyes no pallor no icterus, PERRLA, EOMI. Neck: Supple, no JVD, no carotid bruit. Cardio: S1 and S2 WNL. Respiratory: Vesicular breath sounds, no crackles, no wheezing. Abdominal: Soft NT ND BS present. Genital/Urinary: Deferred. Extremities: NCCE. Neurological: Alert and awake. Assessment: 1. Leukocytosis, aspiration versus reactive. 2. RML pneumonia. 3. Angleman's syndrome. Plan: Continue vanco IV and Zosyn. sepsis w/u. Katerina, Jermaine Rivas M.D. 03/[id number]
[2017-03-24] MEDS ORDERED: Piperacillin Sodium/Tazobact 3.375 gm Vial IV ONE (04:48)
[2017-03-24 06:40] LABS: HEMOGLOBIN 12.3 gm/dL (12-16); MEAN CELL VOLUME 85.6 fl (80-99); MEAN CORPUSCULAR HEMOGLOBIN 28.1 pg (26.0-30.0); MEAN CORPUSCULAR HGB CONC 32.8 pg (28.0-36.0); MEAN PLATELET VOLUME 6.5 fl; NEUTROPHILE ABSOLUTE 8.9 Th/cmm (1.8-8.0); PLATELET COUNT 461 Th/cmm (150-400); RED BLOOD COUNT 4.37 Mil/cmm (4.30-5.70)
[2017-03-24 06:47] LABS: HEMATOCRIT 37.4 % (41.0-60)
[2017-03-24 06:59] LABS: ANION GAP 13.2 (7.0-16.0); BUN - UREA NITROGEN 48 mg/dL (7-25); BUN/CREATININE RATIO 36.9; CALCIUM SERUM 9.3 mg/dL (8.6-10.3); CHLORIDE 115 mEq/L (98-107); CREATININE - SERUM 1.3 mg/dL (0.7-1.3); GLUCOSE 90 mg/dL (70-105); MAGNESIUM 2.7 mg/dL (1.9-2.7); POTASSIUM SERUM 4.2 mEq/L (3.5-5.1); SODIUM SERUM 149 mEq/L (136-145)
[2017-03-24 08:06] LABS: TOTAL CELLS COUNTED 100
[2017-03-24 08:07] LABS: BAND NEUTROPHILE 2 % (0-10); NEUTROPHILS 60 % (40-80)
[2017-03-24] MEDS: Lactulose 10 Gm/15 mL 30mL UDC PO SCH (09:55)
[2017-03-24] MEDS: Lactobacillus Rhamnosus 10 Billion CFU Capsule PO SCH (09:55)
[2017-03-24] MEDS: Levothyroxine 0.05 Mg Tab PO SCH (10:03)
[2017-03-24 10:45] LABS: URINE BACTERIA FEW /hpf (NONE SEEN); URINE EPITHELIAL CELLS FEW /lpf (FEW); URINE FINE GRANULAR CAST 0-2 /lpf (NONE SEEN); URINE WBC 0-2 /hpf (0-5)
[2017-03-24 10:46] LABS: URINE AMORPHOUS SEDIMENT FEW URATES (NONE SEEN)
--- NOTE | 2017-03-24 11:12 | General Progress Note ---
Subjective - Review of Systems Events since last encounter: patient awake comfortable iv antibiotics Objective - Results Result Diagrams: 03/24/17 06:17 03/24/17 06:17 Recent Labs: Laboratory Last Values WBC 16.0 Th/cmm (4.8-10.8) H 03/24/17 06:17 RBC 4.37 Mil/cmm (4.30-5.70) 03/24/17 06:17 Hgb 12.3 gm/dL (12-16) 03/24/17 06:17 Hct 37.4 % (41.0-60) L D 03/24/17 06:17 MCV 85.6 fl (80-99) 03/24/17 06:17 MCH 28.1 pg (26.0-30.0) 03/24/17 06:17 MCHC Differential 32.8 pg (28.0-36.0) 03/24/17 06:17 RDW 16.0 % (11.5-20.0) 03/24/17 06:17 Plt Count 461 Th/cmm (150-400) H 03/24/17 06:17 MPV 6.5 fl 03/24/17 06:17 Neutrophils % [employer] 03/24/17 06:17 Band Neutrophils % 2 % (0-10) 03/24/17 06:17 Lymphocytes % [employer] 03/24/17 06:17 Monocytes % HYDR[employer] 03/24/17 06:17 Eosinophils % HYDR[employer]IC [employer] 03/24/17 06:17 Basophils % HY[employer] 03/24/17 06:17 Neutrophils (Manual) 60 % (40-80) 03/24/17 06:17 Lymphocytes 24 % (20-50) 03/24/17 06:17 Monocytes 14 % (2-10) H 03/24/17 06:17 PT 12.7 SECONDS (9.5-11.5) H 03/23/17 13:30 INR 1.21 (0.5-1.4) 03/23/17 13:30 PTT (Actin FS) 23.9 SECONDS (26.0-38.0) L 03/23/17 13:30 Sodium 149 mEq/L (136-145) H 03/24/17 06:17 Potassium 4.2 mEq/L (3.5-5.1) 03/24/17 06:17 Chloride 115 mEq/L (98-107) H 03/24/17 06:17 Carbon Dioxide 25.0 mEq/L (21.0-31.0) 03/24/17 06:17 Anion Gap 13.2 (7.0-16.0) 03/24/17 06:17 BUN 48 mg/dL (7-25) H 03/24/17 06:17 Creatinine 1.3 mg/dL (0.7-1.3) 03/24/17 06:17 Est GFR ( Amer) > 60.0 ml/min (>90) 03/24/17 06:17 Est GFR (Non-Af Amer) > 60.0 ml/min 03/24/17 06:17 BUN/Creatinine Ratio 36.9 03/24/17 06:17 Glucose 90 mg/dL (70-105) 03/24/17 06:17 Whole Bld Lactic Acid 1.99 mmol/L (0.60-1.99) 03/23/17 13:30 Calcium 9.3 mg/dL (8.6-10.3) 03/24/17 06:17 Magnesium 2.7 mg/dL (1.9-2.7) 03/24/17 06:17 Total Bilirubin 0.4 mg/dL (0.3-1.0) 03/23/17 13:30 AST 39 U/L (13-39) 03/23/17 13:30 ALT 28 U/L (7-52) 03/23/17 13:30 Alkaline Phosphatase 51 U/L (34-104) 03/23/17 13:30 Ammonia 85 umol/L (16-53) H 03/23/17 13:30 Creatine Kinase 275 U/L (30-223) H 03/23/17 13:30 CK-MB (CK-2) 3.1 ng/mL (0.6-6.3) 03/23/17 13:30 Troponin I 0.04 ng/mL (0.01-0.05) 03/23/17 13:30 Total Protein 8.5 gm/dL (6.0-8.3) H 03/23/17 13:30 Albumin 4.4 gm/dL (4.2-5.5) 03/23/17 13:30 Globulin 4.1 gm/dL 03/23/17 13:30 Albumin/Globulin Ratio 1.1 (1.0-1.8) 03/23/17 13:30 Amylase 40 U/L (29-103) 03/23/17 13:30 Lipase 41 U/L (11-82) 03/23/17 13:30 Urine Source MIDSTREAM 03/23/17 12:50 Urine Color YELLOW 03/23/17 12:50 Urine Clarity CLOUDY (CLEAR) 03/23/17 12:50 Urine pH 5.5 (4.6 - 8.0) 03/23/17 12:50 Ur Specific [place] > 1.030 (1.005-1.030) H 03/23/17 12:50 Urine Protein NEGATIVE mg/dL (NEGATIVE) 03/23/17 12:50 Urine Glucose (UA) NEGATIVE mg/dL (NEGATIVE) 03/23/17 12:50 Urine Ketones 15 mg/dL (NEGATIVE) H 03/23/17 12:50 Urine Blood MODERATE (NEGATIVE) H 03/23/17 12:50 Urine Nitrate NEGATIVE (NEGATIVE) 03/23/17 12:50 Urine Bilirubin SMALL (NEGATIVE) H 03/23/17 12:50 Urine Urobilinogen 0.2 E.U./dL (0.2 - 1.0) 03/23/17 12:50 Ur Leukocyte Esterase NEGATIVE (NEGATIVE) 03/23/17 12:50 Urine RBC 5-10 /hpf (0-5) H 03/23/17 12:50 Urine WBC 0-2 /hpf (0-5) 03/23/17 12:50 Ur Epithelial Cells FEW /lpf (FEW) 03/23/17 12:50 Amorphous Sediment FEW URATES (NONE SEEN) 03/23/17 12:50 Urine Bacteria FEW /hpf (NONE SEEN) 03/23/17 12:50 Fine Granular Casts 0-2 /lpf (NONE SEEN) H 03/23/17 12:50 Urine Mucus FEW /lpf (FEW) 03/23/17 12:50 - Physical Exam Vitals and I&O: Vital Signs Temp 98.6 F 03/24/17 04:00 Pulse 78 03/24/17 04:00 Resp 18 03/24/17 08:11 BP 102/74 03/24/17 04:00 Pulse Ox 95 03/24/17 04:00 Intake & Output 03/23/17 03/24/17 03/24/17 18:59 06:59 18:59 Intake Total 1300 Balance 1300 Weight (lbs) 63.503 kg 63.503 kg Intake: Intake, IV Amount 1100 Piperacillin Sodium/ 100 Tazobact 3.375 gm In Sodium Chloride 0.9% 50 ml @ 100 mls/hr IV Q8HR [facility] Rx#:[id number] Sodium Chloride 0.9% 1, 1000 000 ml @ 150 mls/hr IV . Q6H40M [facility] Rx#:[id number] Oral 200 Other: # Voids 2 # Bowel Movements 1 Active Medications: Current Medications Acetaminophen (Tylenol) 650 mg PO Q6H PRN PRN Reason: Pain (Mild) Stop: 05/22/17 22:35 Azithromycin (Zithromax) 500 mg PO DAILY [facility] Stop: 05/23/17 08:59 Last Admin: 03/24/17 09:52 Dose: 500 mg Desmopressin Acetate (Ddavp) 0.1 mg PO DAILY [facility] Stop: 05/23/17 08:59 Last Admin: 03/24/17 09:54 Dose: 0.1 mg Diphenhydramine HCl (Benadryl) 25 mg PO Q6H PRN PRN Reason: Itching Stop: 05/22/17 22:35 Last Admin: 03/24/17 05:11 Dose: 25 mg Diphenoxylate HCl/Atropine (Lomotil) 1 tab PO Q6H PRN PRN Reason: Diarrhea Stop: 05/22/17 22:35 Divalproex Sodium (Depakote Dr) 500 mg PO TID [facility] PRN Reason: Protocol Stop: 05/23/17 08:59 Fluoxetine HCl (Prozac) 20 mg PO DAILY [facility] PRN Reason: Protocol Stop: 05/23/17 08:59 Piperacillin Sod/Tazobactam (Sod 3.375 gm/ Sodium Chloride) 50 mls @ 100 mls/ hr IV Q8HR [facility] Stop: 05/22/17 20:59 Last Infusion: 03/24/17 05:54 Dose: Infused Sodium Chloride (Nacl 0.9%) 1,000 mls @ 150 mls/hr IV .Q6H40M [facility] Stop: 05/22/17 19:59 Last Infusion: 03/24/17 05:54 Dose: Infused Vancomycin HCl 1 gm/ Sodium (Chloride) 250 mls @ 165 mls/hr IV Q12H [facility] Stop: 05/23/17 08:59 Lacosamide (Vimpat) 50 mg PO BID [facility] Stop: 05/23/17 08:59 Last Admin: 03/24/17 09:52 Dose: 50 mg Lactobacillus Rhamnosus (Culturelle) 1 each PO DAILY [facility] Stop: 05/23/17 08:59 Last Admin: 03/24/17 09:55 Dose: 1 each Lactulose (Cephulac) 10 gm PO DAILY [facility] Stop: 05/23/17 08:59 Last Admin: 03/24/17 09:55 Dose: 10 gm Levetiracetam (Keppra) 1,500 mg PO BID [facility] Stop: 05/23/17 08:59 Last Admin: 03/24/17 09:52 Dose: 1,500 mg Levothyroxine Sodium (Synthroid) 0.05 mg PO QDAC [facility] Stop: 05/23/17 07:29 Last Admin: 03/24/17 10:03 Dose: 0.05 mg Lorazepam (Ativan) 1 mg IVP Q4HR PRN; Protocol PRN Reason: Agitation Stop: 05/22/17 13:36 Last Admin: 03/23/17 13:45 Dose: 1 mg Metoclopramide HCl (Reglan) 5 mg PO BID [facility] Stop: 05/23/17 08:59 Last Admin: 03/24/17 09:51 Dose: 5 mg Miscellaneous (Vancomycin Iv Per Pharmacy) 1 ea [facility] PRN PRN PRN Reason: PROTOCOL Stop: 05/22/17 18:29 Ondansetron HCl (Zofran Odt) 4 mg PO Q4H PRN PRN Reason: Nausea / Vomiting Stop: 05/22/17 22:35 General: No acute distress HEENT: Atraumatic Neck: Supple, Thyromegaly Cardiovascular: Regular rate, Normal S1 Lungs: Other (rhonchi) - Procedures Procedures: Procedures Procedure Code Date COLONOSCOPY 45.23 07/22/10 DIAGNOSTIC COLONOSCOPY 28595 07/22/10 EGD DIAGNOSTIC BRUSH WASH 45333 04/17/09 ESOPHAGOGASTRODUODENOSCOPY [EGD] W/CLOSED BIOPSY 45.16 03/05/09 EXC TR-EXT B9+CHILANGO 0.5 CM< 25159 06/26/16 EXCISION OF CHEST WALL, OPEN APPROACH [id number] 06/26/16 OTHER ENDOSCOPY OF SM INTEST 45.13 04/17/09 Assessment/Plan - Problem List Patient Problems: All Active Problems VOMITING WITH PERIPHERAL TREMORS (Acute) 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
[2017-03-24] MEDS: Sodium Chloride 0.9% 1,000 ML IV SCH (11:31)
--- NOTE | 2017-03-24 15:01 | Consultation ---
DATE OF CONSULTATION: 03/23/2017 RENAL CONSULTATION NOTE HISTORY OF PRESENT ILLNESS: A 46-year-old patient who is admitted through the emergency room, coming from an extended care facility with a previous history of few days of nausea and vomiting. Denies any fever, but the patient being unable to take adequate nutrition and not taking any fluids. In view of this, the patient was subsequently transferred to the hospital for evaluation. On coming from the correction, his blood pressure is 132/82, temperature is 97, pulse rate of 90, and respiratory rate of 16. PAST MEDICAL HISTORY: Hypertension, peptic ulcer disease, gastroesophageal reflux, and thyroid disorder. On ER evaluation ____ sepsis, dehydration, and pneumonia. Given IV fluids at the present time 150 mL of normal saline current, initially 100 mL. Antibiotic given, vancomycin and Zosyn and a dose of Levaquin was received from the emergency room. Labs studies are reviewed and showed white blood cell count 18,200, hemoglobin 14, and hematocrit 32. Glucose 100, sodium 147, potassium 4.8, chloride 110, CO2 23, BUN 63, and creatinine 1.9. Delta anion gap of 18.2, albumin is 4.1, and ammonia is 85. PHYSICAL EXAMINATION: VITAL SIGNS: Blood pressure current is 111/79, pulse rate 109, respiratory rate of 17, and temperature 99.3. GENERAL: He is lethargic. Difficult to examine ____. CHEST: Clear to auscultation. HEART: Regular sinus. ABDOMEN: Soft. EXTREMITIES: There is no edema dependent in presacral and extremities. IMPRESSION: 1. Dehydration. 2. Leukocytosis, ruling out sepsis. Pancultures were obtained, urine and blood. 3. Acidosis of unclear etiology. It is delta acidosis in this patient. It could happen in the phase of septicemia. PLAN: At this time, volume expansion. Encourage p.o. fluid intake in this patient. IV antibiotics given and continue vancomycin and Zosyn. We will follow this patient with ammonia blood levels and he has unclear etiology of ammonia elevation to 85 at this point. JOB# [id number]
--- NOTE | 2017-03-24 19:19 | General Progress Note ---
Subjective - Review of Systems Service Date: 03/24/17 Objective - Results Result Diagrams: 03/24/17 06:17 03/24/17 06:17 Recent Labs: Laboratory Last Values WBC 16.0 Th/cmm (4.8-10.8) H 03/24/17 06:17 RBC 4.37 Mil/cmm (4.30-5.70) 03/24/17 06:17 Hgb 12.3 gm/dL (12-16) 03/24/17 06:17 Hct 37.4 % (41.0-60) L D 03/24/17 06:17 MCV 85.6 fl (80-99) 03/24/17 06:17 MCH 28.1 pg (26.0-30.0) 03/24/17 06:17 MCHC Differential 32.8 pg (28.0-36.0) 03/24/17 06:17 RDW 16.0 % (11.5-20.0) 03/24/17 06:17 Plt Count 461 Th/cmm (150-400) H 03/24/17 06:17 MPV 6.5 fl 03/24/17 06:17 Neutrophils % EXECUTIVE COACH 03/24/17 06:17 Band Neutrophils % 2 % (0-10) 03/24/17 06:17 Lymphocytes % EXECUTIVE COACH 03/24/17 06:17 Monocytes % EXECUTIVE COACH 03/24/17 06:17 Eosinophils % EXECUTIVE COACH 03/24/17 06:17 Basophils % EXECUTIVE COACH 03/24/17 06:17 Neutrophils (Manual) 60 % (40-80) 03/24/17 06:17 Lymphocytes 24 % (20-50) 03/24/17 06:17 Monocytes 14 % (2-10) H 03/24/17 06:17 PT 12.7 SECONDS (9.5-11.5) H 03/23/17 13:30 INR 1.21 (0.5-1.4) 03/23/17 13:30 PTT (Actin FS) 23.9 SECONDS (26.0-38.0) L 03/23/17 13:30 Sodium 149 mEq/L (136-145) H 03/24/17 06:17 Potassium 4.2 mEq/L (3.5-5.1) 03/24/17 06:17 Chloride 115 mEq/L (98-107) H 03/24/17 06:17 Carbon Dioxide 25.0 mEq/L (21.0-31.0) 03/24/17 06:17 Anion Gap 13.2 (7.0-16.0) 03/24/17 06:17 BUN 48 mg/dL (7-25) H 03/24/17 06:17 Creatinine 1.3 mg/dL (0.7-1.3) 03/24/17 06:17 Est GFR ( Amer) > 60.0 ml/min (>90) 03/24/17 06:17 Est GFR (Non-Af Amer) > 60.0 ml/min 03/24/17 06:17 BUN/Creatinine Ratio 36.9 03/24/17 06:17 Glucose 90 mg/dL (70-105) 03/24/17 06:17 Whole Bld Lactic Acid 1.99 mmol/L (0.60-1.99) 03/23/17 13:30 Calcium 9.3 mg/dL (8.6-10.3) 03/24/17 06:17 Magnesium 2.7 mg/dL (1.9-2.7) 03/24/17 06:17 Total Bilirubin 0.4 mg/dL (0.3-1.0) 03/23/17 13:30 AST 39 U/L (13-39) 03/23/17 13:30 ALT 28 U/L (7-52) 03/23/17 13:30 Alkaline Phosphatase 51 U/L (34-104) 03/23/17 13:30 Ammonia 85 umol/L (16-53) H 03/23/17 13:30 Creatine Kinase 275 U/L (30-223) H 03/23/17 13:30 CK-MB (CK-2) 3.1 ng/mL (0.6-6.3) 03/23/17 13:30 Troponin I 0.04 ng/mL (0.01-0.05) 03/23/17 13:30 Total Protein 8.5 gm/dL (6.0-8.3) H 03/23/17 13:30 Albumin 4.4 gm/dL (4.2-5.5) 03/23/17 13:30 Globulin 4.1 gm/dL 03/23/17 13:30 Albumin/Globulin Ratio 1.1 (1.0-1.8) 03/23/17 13:30 Amylase 40 U/L (29-103) 03/23/17 13:30 Lipase 41 U/L (11-82) 03/23/17 13:30 Urine Source MIDSTREAM 03/23/17 12:50 Urine Color YELLOW 03/23/17 12:50 Urine Clarity CLOUDY (CLEAR) 03/23/17 12:50 Urine pH 5.5 (4.6 - 8.0) 03/23/17 12:50 Ur Specific [place] > 1.030 (1.005-1.030) H 03/23/17 12:50 Urine Protein NEGATIVE mg/dL (NEGATIVE) 03/23/17 12:50 Urine Glucose (UA) NEGATIVE mg/dL (NEGATIVE) 03/23/17 12:50 Urine Ketones 15 mg/dL (NEGATIVE) H 03/23/17 12:50 Urine Blood MODERATE (NEGATIVE) H 03/23/17 12:50 Urine Nitrate NEGATIVE (NEGATIVE) 03/23/17 12:50 Urine Bilirubin SMALL (NEGATIVE) H 03/23/17 12:50 Urine Urobilinogen 0.2 E.U./dL (0.2 - 1.0) 03/23/17 12:50 Ur Leukocyte Esterase NEGATIVE (NEGATIVE) 03/23/17 12:50 Urine RBC 5-10 /hpf (0-5) H 03/23/17 12:50 Urine WBC 0-2 /hpf (0-5) 03/23/17 12:50 Ur Epithelial Cells FEW /lpf (FEW) 03/23/17 12:50 Amorphous Sediment FEW URATES (NONE SEEN) 03/23/17 12:50 Urine Bacteria FEW /hpf (NONE SEEN) 03/23/17 12:50 Fine Granular Casts 0-2 /lpf (NONE SEEN) H 03/23/17 12:50 Urine Mucus FEW /lpf (FEW) 03/23/17 12:50 - Physical Exam Vitals and I&O: Vital Signs Temp 99.4 F 03/24/17 16:00 Pulse 90 03/24/17 16:00 Resp 18 03/24/17 16:00 BP 112/46 03/24/17 16:00 Pulse Ox 90 03/24/17 16:00 Intake & Output 03/24/17 03/24/17 03/25/17 06:59 18:59 06:59 Intake Total 1300 300 Balance 1300 300 Weight (lbs) 63.503 kg Intake: Intake, IV Amount 1100 300 Piperacillin Sodium/ 100 50 Tazobact 3.375 gm In Sodium Chloride 0.9% 50 ml @ 100 mls/hr IV Q8HR [facility] Rx#:[id number] Sodium Chloride 0.9% 1, 1000 000 ml @ 150 mls/hr IV . Q6H40M [facility] Rx#:[id number] Vancomycin HCl 1 gm In 250 Sodium Chloride 0.9% 250 ml @ 165 mls/hr IV Q12H [facility] Rx#:[id number] Oral 200 Other: # Voids 2 # Bowel Movements 1 Active Medications: Current Medications Acetaminophen (Tylenol) 650 mg PO Q6H PRN PRN Reason: Pain (Mild) Stop: 05/22/17 22:35 Last Admin: 03/24/17 12:44 Dose: 650 mg Azithromycin (Zithromax) 500 mg PO DAILY [facility] Stop: 05/23/17 08:59 Last Admin: 03/24/17 09:52 Dose: 500 mg Desmopressin Acetate (Ddavp) 0.1 mg PO DAILY [facility] Stop: 05/23/17 08:59 Last Admin: 03/24/17 09:54 Dose: 0.1 mg Diphenhydramine HCl (Benadryl) 25 mg PO Q6H PRN PRN Reason: Itching Stop: 05/22/17 22:35 Last Admin: 03/24/17 05:11 Dose: 25 mg Diphenoxylate HCl/Atropine (Lomotil) 1 tab PO Q6H PRN PRN Reason: Diarrhea Stop: 05/22/17 22:35 Divalproex Sodium (Depakote Dr) 500 mg PO TID [facility] PRN Reason: Protocol Stop: 05/23/17 08:59 Fluoxetine HCl (Prozac) 20 mg PO DAILY [facility] PRN Reason: Protocol Stop: 05/23/17 08:59 Piperacillin Sod/Tazobactam (Sod 3.375 gm/ Sodium Chloride) 50 mls @ 100 mls/ hr IV Q8HR [facility] Stop: 05/22/17 20:59 Last Infusion: 03/24/17 16:00 Dose: Infused Sodium Chloride (Nacl 0.9%) 1,000 mls @ 150 mls/hr IV .Q6H40M [facility] Stop: 05/22/17 19:59 Last Admin: 03/24/17 11:31 Dose: 150 mls/hr Vancomycin HCl 1 gm/ Sodium (Chloride) 250 mls @ 165 mls/hr IV Q12H [facility] Stop: 05/23/17 08:59 Last Infusion: 03/24/17 13:30 Dose: Infused Lacosamide (Vimpat) 50 mg PO BID [facility] Stop: 05/23/17 08:59 Last Admin: 03/24/17 17:09 Dose: 50 mg Lactobacillus Rhamnosus (Culturelle) 1 each PO DAILY [facility] Stop: 05/23/17 08:59 Last Admin: 03/24/17 09:55 Dose: 1 each Lactulose (Cephulac) 10 gm PO DAILY [facility] Stop: 05/23/17 08:59 Last Admin: 03/24/17 09:55 Dose: 10 gm Levetiracetam (Keppra) 1,500 mg PO BID [facility] Stop: 05/23/17 08:59 Last Admin: 03/24/17 17:08 Dose: 1,500 mg Levothyroxine Sodium (Synthroid) 0.05 mg PO QDAC [facility] Stop: 05/23/17 07:29 Last Admin: 03/24/17 10:03 Dose: 0.05 mg Lorazepam (Ativan) 1 mg IVP Q4HR PRN; Protocol PRN Reason: Agitation Stop: 05/22/17 13:36 Last Admin: 03/23/17 13:45 Dose: 1 mg Metoclopramide HCl (Reglan) 5 mg PO BID [facility] Stop: 05/23/17 08:59 Last Admin: 03/24/17 17:09 Dose: 5 mg Miscellaneous (Vancomycin Iv Per Pharmacy) 1 ea [facility] PRN PRN PRN Reason: PROTOCOL Stop: 05/22/17 18:29 Ondansetron HCl (Zofran Odt) 4 mg PO Q4H PRN PRN Reason: Nausea / Vomiting Stop: 05/22/17 22:35 General: No acute distress HEENT: Atraumatic Neck: Supple, Thyromegaly Cardiovascular: Regular rate, Normal S1 Lungs: Other (rhonchi) - Procedures Procedures: Procedures Procedure Code Date COLONOSCOPY 45.23 07/22/10 DIAGNOSTIC COLONOSCOPY 62508 07/22/10 EGD DIAGNOSTIC BRUSH WASH 47985 04/17/09 ESOPHAGOGASTRODUODENOSCOPY [EGD] W/CLOSED BIOPSY 45.16 03/05/09 EXC TR-EXT B9+CHILANGO 0.5 CM< 26914 06/26/16 EXCISION OF CHEST WALL, OPEN APPROACH [id number] 06/26/16 OTHER ENDOSCOPY OF SM INTEST 45.13 04/17/09 Assessment/Plan - Problem List Patient Problems: All Active Problems VOMITING WITH PERIPHERAL TREMORS (Acute) 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 Failure to thrive (Acute) [id number] History of pneumonia (Acute) Z87.01 Inadequate oral intake (Acute) R63.8 Leukocytosis (Acute) D72.829 Thyroid disorder (Acute) UTI (urinary tract infection) (Acute) Nutritional Asmnt/Malnutr-PDOC - Dietary Evaluation Malnutrition Findings (Please click <Entered> for more info): Nutritional Asmnt/Malnutrition Start: 03/24/17 14: 28 Text: Status: Active Freq: Document 03/24/17 14:28 LCHENG (Rec: 03/24/17 14:54 [email or web address]) Nutritional Asmnt/Malnutrition Patient General Information Nutritional Screening High Risk Diagnosis sepsis, vomiting, PNA, dehydration, gastritis Pertinent Medical Hx/Surgical Hx HTN, PUD/GERD, seizures, thyroid disorder, DM, depression Subjective Information Pt seen lying in bed, alert and very confused. Spoke to nurse, pt consumed 60% of breakfast this morning, prefer drinking than eating. Pt likes jello, pudding. Not able to perform physical exam at this time, pt appeared thin. Current Diet Order/ Nutrition Support pureed Pertinent Medications culturelly, reglan, vancomycin , peperacillin, Nacl IV Pertinent Labs 03/24 Na 149H, K 4.2, Cl 115H, BUN 48H, Cr 1.3, Glu 90, Ammonia 85H Nutritional Hx/Data Height 1.7 m Height (Calculated Centimeters) 170.2 Current Weight (lbs) 63.503 kg Weight (Calculated Kilograms) 63.5 Weight (Calculated Grams) 25794.9 [place] Body Weight 148 % [place] Body Weight 95 Body Mass Index (BMI) 21.9 Weight Status Approriate GI Symptoms GI Symptoms None Last BM 03/24 Difficult in: None Food Allergies No Skin Integrity/Comment: intact, dryness, small redness on bilateral knee Estimated Nutritional Goals BEE in Kcals: Using Current wt Calories/Kcals/Kg 30-35 Kcals Calculated 8240-4856 Protein: Using Current wt Protein g/k.2-1.5 Protein Calculated 76-95 Fluid: ml [id number] Nutritional Problem 1. Problem Problem increased nutrition needs ( calorie and protein) Etiology increased metabolic demand for sepsis Signs/Symptoms: dx of sepsis Malnutrition Alert Protein-Calorie Malnutrition N/A Is there a minimum of two criteria No selected? Query Text:Check all the applicable criteria. A minimum of two criteria are recommended for diagnosis of either severe or non-severe malnutrition. Intervention/Recommendation Comments 1. continue with current diet as ordered. 2. pt likes jello and pudding, notified gas usage meter clerk and updated diet profile 3. monitor PO intake, wt weekly, labs 4. F/U as high risk in 2-3 days, 03/26-03/27 Expected Outcomes/Goals Expected Outcomes/Goals 1. PO intake >50% to meet 100% of nutritional needs 2. wt stablity, labs to improve, no sign and symptoms of dehydration
[2017-03-24] MEDS: Sodium Chloride 0.45% 1,000 ML IV SCH (22:51)
--- NOTE | 2017-03-25 01:20 | Infectious Disease Prog Note ---
Infectious Disease Subjective - Review of Systems Service Date: 03/24/17 Subjective: No change. Infectious Disease Objective - Results Result Diagrams: 03/24/17 06:17 03/24/17 06:17 Recent Labs: Laboratory Last Values WBC 16.0 Th/cmm (4.8-10.8) H 03/24/17 06:17 RBC 4.37 Mil/cmm (4.30-5.70) 03/24/17 06:17 Hgb 12.3 gm/dL (12-16) 03/24/17 06:17 Hct 37.4 % (41.0-60) L D 03/24/17 06:17 MCV 85.6 fl (80-99) 03/24/17 06:17 MCH 28.1 pg (26.0-30.0) 03/24/17 06:17 MCHC Differential 32.8 pg (28.0-36.0) 03/24/17 06:17 RDW 16.0 % (11.5-20.0) 03/24/17 06:17 Plt Count 461 Th/cmm (150-400) H 03/24/17 06:17 MPV 6.5 fl 03/24/17 06:17 Neutrophils % CABLE DISPATCHER 03/24/17 06:17 Band Neutrophils % 2 % (0-10) 03/24/17 06:17 Lymphocytes % CABLE DISPATCHER 03/24/17 06:17 Monocytes % CABLE DISPATCHER 03/24/17 06:17 Eosinophils % CABLE DISPATCHER 03/24/17 06:17 Basophils % CABLE DISPATCHER 03/24/17 06:17 Neutrophils (Manual) 60 % (40-80) 03/24/17 06:17 Lymphocytes 24 % (20-50) 03/24/17 06:17 Monocytes 14 % (2-10) H 03/24/17 06:17 PT 12.7 SECONDS (9.5-11.5) H 03/23/17 13:30 INR 1.21 (0.5-1.4) 03/23/17 13:30 PTT (Actin FS) 23.9 SECONDS (26.0-38.0) L 03/23/17 13:30 Sodium 149 mEq/L (136-145) H 03/24/17 06:17 Potassium 4.2 mEq/L (3.5-5.1) 03/24/17 06:17 Chloride 115 mEq/L (98-107) H 03/24/17 06:17 Carbon Dioxide 25.0 mEq/L (21.0-31.0) 03/24/17 06:17 Anion Gap 13.2 (7.0-16.0) 03/24/17 06:17 BUN 48 mg/dL (7-25) H 03/24/17 06:17 Creatinine 1.3 mg/dL (0.7-1.3) 03/24/17 06:17 Est GFR ( Amer) > 60.0 ml/min (>90) 03/24/17 06:17 Est GFR (Non-Af Amer) > 60.0 ml/min 03/24/17 06:17 BUN/Creatinine Ratio 36.9 03/24/17 06:17 Glucose 90 mg/dL (70-105) 03/24/17 06:17 Whole Bld Lactic Acid 1.99 mmol/L (0.60-1.99) 03/23/17 13:30 Calcium 9.3 mg/dL (8.6-10.3) 03/24/17 06:17 Magnesium 2.7 mg/dL (1.9-2.7) 03/24/17 06:17 Total Bilirubin 0.4 mg/dL (0.3-1.0) 03/23/17 13:30 AST 39 U/L (13-39) 03/23/17 13:30 ALT 28 U/L (7-52) 03/23/17 13:30 Alkaline Phosphatase 51 U/L (34-104) 03/23/17 13:30 Ammonia 85 umol/L (16-53) H 03/23/17 13:30 Creatine Kinase 275 U/L (30-223) H 03/23/17 13:30 CK-MB (CK-2) 3.1 ng/mL (0.6-6.3) 03/23/17 13:30 Troponin I 0.04 ng/mL (0.01-0.05) 03/23/17 13:30 Total Protein 8.5 gm/dL (6.0-8.3) H 03/23/17 13:30 Albumin 4.4 gm/dL (4.2-5.5) 03/23/17 13:30 Globulin 4.1 gm/dL 03/23/17 13:30 Albumin/Globulin Ratio 1.1 (1.0-1.8) 03/23/17 13:30 Amylase 40 U/L (29-103) 03/23/17 13:30 Lipase 41 U/L (11-82) 03/23/17 13:30 Urine Source MIDSTREAM 03/23/17 12:50 Urine Color YELLOW 03/23/17 12:50 Urine Clarity CLOUDY (CLEAR) 03/23/17 12:50 Urine pH 5.5 (4.6 - 8.0) 03/23/17 12:50 Ur Specific [place] > 1.030 (1.005-1.030) H 03/23/17 12:50 Urine Protein NEGATIVE mg/dL (NEGATIVE) 03/23/17 12:50 Urine Glucose (UA) NEGATIVE mg/dL (NEGATIVE) 03/23/17 12:50 Urine Ketones 15 mg/dL (NEGATIVE) H 03/23/17 12:50 Urine Blood MODERATE (NEGATIVE) H 03/23/17 12:50 Urine Nitrate NEGATIVE (NEGATIVE) 03/23/17 12:50 Urine Bilirubin SMALL (NEGATIVE) H 03/23/17 12:50 Urine Urobilinogen 0.2 E.U./dL (0.2 - 1.0) 03/23/17 12:50 Ur Leukocyte Esterase NEGATIVE (NEGATIVE) 03/23/17 12:50 Urine RBC 5-10 /hpf (0-5) H 03/23/17 12:50 Urine WBC 0-2 /hpf (0-5) 03/23/17 12:50 Ur Epithelial Cells FEW /lpf (FEW) 03/23/17 12:50 Amorphous Sediment FEW URATES (NONE SEEN) 03/23/17 12:50 Urine Bacteria FEW /hpf (NONE SEEN) 03/23/17 12:50 Fine Granular Casts 0-2 /lpf (NONE SEEN) H 03/23/17 12:50 Urine Mucus FEW /lpf (FEW) 03/23/17 12:50 - Physical Exam Vitals and I&O: Vital Signs Temp 97.5 F 03/25/17 00:00 Pulse 99 03/25/17 00:00 Resp 18 03/25/17 00:00 BP 120/53 03/25/17 00:00 Pulse Ox 96 03/25/17 00:00 Intake & Output 03/24/17 03/24/17 03/25/17 06:59 18:59 06:59 Intake Total 1300 300 Balance 1300 300 Weight (lbs) 63.503 kg Intake: Intake, IV Amount 1100 300 Piperacillin Sodium/ 100 50 Tazobact 3.375 gm In Sodium Chloride 0.9% 50 ml @ 100 mls/hr IV Q8HR [facility] Rx#:[id number] Sodium Chloride 0.9% 1, 1000 000 ml @ 150 mls/hr IV . Q6H40M [facility] Rx#:[id number] Vancomycin HCl 1 gm In 250 Sodium Chloride 0.9% 250 ml @ 165 mls/hr IV Q12H [facility] Rx#:[id number] Oral 200 Other: # Voids 2 # Bowel Movements 1 Active Medications: Current Medications Acetaminophen (Tylenol) 650 mg PO Q6H PRN PRN Reason: Pain (Mild) Stop: 05/22/17 22:35 Last Admin: 03/24/17 12:44 Dose: 650 mg Azithromycin (Zithromax) 500 mg PO DAILY [facility] Stop: 05/23/17 08:59 Last Admin: 03/24/17 09:52 Dose: 500 mg Desmopressin Acetate (Ddavp) 0.1 mg PO DAILY [facility] Stop: 05/23/17 08:59 Last Admin: 03/24/17 09:54 Dose: 0.1 mg Diphenhydramine HCl (Benadryl) 25 mg PO Q6H PRN PRN Reason: Itching Stop: 05/22/17 22:35 Last Admin: 03/24/17 05:11 Dose: 25 mg Diphenoxylate HCl/Atropine (Lomotil) 1 tab PO Q6H PRN PRN Reason: Diarrhea Stop: 05/22/17 22:35 Divalproex Sodium (Depakote Dr) 500 mg PO TID [facility] PRN Reason: Protocol Stop: 05/23/17 08:59 Fluoxetine HCl (Prozac) 20 mg PO DAILY [facility] PRN Reason: Protocol Stop: 05/23/17 08:59 Piperacillin Sod/Tazobactam (Sod 3.375 gm/ Sodium Chloride) 50 mls @ 100 mls/ hr IV Q8HR [facility] Stop: 05/22/17 20:59 Last Admin: 03/24/17 20:17 Dose: 100 mls/hr Vancomycin HCl 1 gm/ Sodium (Chloride) 250 mls @ 165 mls/hr IV Q12H [facility] Stop: 05/23/17 08:59 Last Admin: 03/24/17 22:00 Dose: 165 mls/hr Sodium Chloride (Nacl 0.45%) 1,000 mls @ 150 mls/hr IV .Q6H40M [facility] Stop: 05/23/17 19:29 Last Admin: 03/24/17 22:51 Dose: 150 mls/hr Lacosamide (Vimpat) 50 mg PO BID [facility] Stop: 05/23/17 08:59 Last Admin: 03/24/17 17:09 Dose: 50 mg Lactobacillus Rhamnosus (Culturelle) 1 each PO DAILY [facility] Stop: 05/23/17 08:59 Last Admin: 03/24/17 09:55 Dose: 1 each Lactulose (Cephulac) 10 gm PO DAILY [facility] Stop: 05/23/17 08:59 Last Admin: 03/24/17 09:55 Dose: 10 gm Levetiracetam (Keppra) 1,500 mg PO BID [facility] Stop: 05/23/17 08:59 Last Admin: 03/24/17 17:08 Dose: 1,500 mg Levothyroxine Sodium (Synthroid) 0.05 mg PO QDAC [facility] Stop: 05/23/17 07:29 Last Admin: 03/24/17 10:03 Dose: 0.05 mg Lorazepam (Ativan) 1 mg IVP Q4HR PRN; Protocol PRN Reason: Agitation Stop: 05/22/17 13:36 Last Admin: 03/23/17 13:45 Dose: 1 mg Metoclopramide HCl (Reglan) 5 mg PO BID [facility] Stop: 05/23/17 08:59 Last Admin: 03/24/17 17:09 Dose: 5 mg Miscellaneous (Vancomycin Iv Per Pharmacy) 1 ea [facility] PRN PRN PRN Reason: PROTOCOL Stop: 05/22/17 18:29 Ondansetron HCl (Zofran Odt) 4 mg PO Q4H PRN PRN Reason: Nausea / Vomiting Stop: 05/22/17 22:35 General: no acute distress, cachectic HEENT: atraumatic, normocephalic, PERRLA, EOMI, moist mucous membrane Neck: supple, no thyromegaly, no lymphadenopathy Cardiovascular: S1S2, regular Lungs: clear to auscultation bilaterally, clear to percussion Abdomen: soft, no tender, no distended, no mass Extremities: no cyanosis, no clubbing, no edema Neurological: awake, alert Skin: intact - Procedures Procedures: Procedures Procedure Code Date COLONOSCOPY 45.23 07/22/10 DIAGNOSTIC COLONOSCOPY 52421 07/22/10 EGD DIAGNOSTIC BRUSH WASH 19441 04/17/09 ESOPHAGOGASTRODUODENOSCOPY [EGD] W/CLOSED BIOPSY 45.16 03/05/09 EXC TR-EXT B9+CHILANGO 0.5 CM< 34249 06/26/16 EXCISION OF CHEST WALL, OPEN APPROACH 1UN38MB 06/26/16 OTHER ENDOSCOPY OF SM INTEST 45.13 04/17/09 Infectious Disease Assmt/Plan - Problem List Patient Problems: All Active Problems VOMITING WITH PERIPHERAL TREMORS (Acute) 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 Leukocytosis, aspiration versus reactive. 2. RML pneumonia. 3. Angleman's syndrome. Plan: Continue vanco IV and Zosyn. sepsis w/u. Nutritional Asmnt/Malnutr-PDOC - Dietary Evaluation Malnutrition Findings (Please click <Entered> for more info): Nutritional Asmnt/Malnutrition Start: 03/24/17 14: 28 Text: Status: Active Freq: Document 03/24/17 14:28 LCHENG (Rec: 03/24/17 14:54 [facility] [email or web address]) Nutritional Asmnt/Malnutrition Patient General Information Nutritional Screening High Risk Diagnosis sepsis, vomiting, PNA, dehydration, gastritis Pertinent Medical Hx/Surgical Hx HTN, PUD/GERD, seizures, thyroid disorder, DM, depression Subjective Information Pt seen lying in bed, alert and very confused. Spoke to nurse, pt consumed 60% of breakfast this morning, prefer drinking than eating. Pt likes jello, pudding. Not able to perform physical exam at this time, pt appeared thin. Current Diet Order/ Nutrition Support pureed Pertinent Medications culturelly, reglan, vancomycin , peperacillin, Nacl IV Pertinent Labs 03/24 Na 149H, K 4.2, Cl 115H, BUN 48H, Cr 1.3, Glu 90, Ammonia 85H Nutritional Hx/Data Height 1.7 m Height (Calculated Centimeters) 170.2 Current Weight (lbs) 63.503 kg Weight (Calculated Kilograms) 63.5 Weight (Calculated Grams) 50502.9 [place] Body Weight 148 % [place] Body Weight 95 Body Mass Index (BMI) 21.9 Weight Status Approriate GI Symptoms GI Symptoms None Last BM 03/24 Difficult in: None Food Allergies No Skin Integrity/Comment: intact, dryness, small redness on bilateral knee Estimated Nutritional Goals BEE in Kcals: Using Current wt Calories/Kcals/Kg 30-35 Kcals Calculated 7536-4853 Protein: Using Current wt Protein g/k.2-1.5 Protein Calculated 76-95 Fluid: ml 1615-9072 Nutritional Problem 1. Problem Problem increased nutrition needs ( calorie and protein) Etiology increased metabolic demand for sepsis Signs/Symptoms: dx of sepsis Malnutrition Alert Protein-Calorie Malnutrition N/A Is there a minimum of two criteria No selected? Query Text:Check all the applicable criteria. A minimum of two criteria are recommended for diagnosis of either severe or non-severe malnutrition. Intervention/Recommendation Comments 1. continue with current diet as ordered. 2. pt likes jello and pudding, notified chief dietitian and updated diet profile 3. monitor PO intake, wt weekly, labs 4. F/U as high risk in 2-3 days, 03/26-03/27 Expected Outcomes/Goals Expected Outcomes/Goals 1. PO intake >50% to meet 100% of nutritional needs 2. wt stablity, labs to improve, no sign and symptoms of dehydration
[2017-03-25 06:26] LABS: BUN - UREA NITROGEN 32 mg/dL (7-25); CALCIUM SERUM 8.7 mg/dL (8.6-10.3); CARBON DIOXIDE 27.4 mEq/L (21.0-31.0); CHLORIDE 112 mEq/L (98-107); GLUCOSE 83 mg/dL (70-105); POTASSIUM SERUM 3.4 mEq/L (3.5-5.1); SODIUM SERUM 144 mEq/L (136-145)
[2017-03-25] MEDS: Lactulose 10 Gm/15 mL 30mL UDC PO SCH (10:31)
[2017-03-25] MEDS: Lactobacillus Rhamnosus 10 Billion CFU Capsule PO SCH (10:33)
[2017-03-25] MEDS: Levothyroxine 0.05 Mg Tab PO SCH (10:40)
--- NOTE | 2017-03-25 11:32 | Internal Medicine Prog Note ---
Internal Medicine Subjective - Subjective Service Date: 03/25/17 Patient seen and examined:: with staff Patient is:: awake, confused Per staff patient has:: tolerating meds Internal Medicine Objective - Results Result Diagrams: 03/24/17 06:17 03/25/17 04:47 Recent Labs: Laboratory Last Values WBC 16.0 Th/cmm (4.8-10.8) H 03/24/17 06:17 RBC 4.37 Mil/cmm (4.30-5.70) 03/24/17 06:17 Hgb 12.3 gm/dL (12-16) 03/24/17 06:17 Hct 37.4 % (41.0-60) L D 03/24/17 06:17 MCV 85.6 fl (80-99) 03/24/17 06:17 MCH 28.1 pg (26.0-30.0) 03/24/17 06:17 MCHC Differential 32.8 pg (28.0-36.0) 03/24/17 06:17 RDW 16.0 % (11.5-20.0) 03/24/17 06:17 Plt Count 461 Th/cmm (150-400) H 03/24/17 06:17 MPV 6.5 fl 03/24/17 06:17 Neutrophils % [employer] 03/24/17 06:17 Band Neutrophils % 2 % (0-10) 03/24/17 06:17 Lymphocytes % [employer] 03/24/17 06:17 Monocytes % [employer] 03/24/17 06:17 Eosinophils % [employer] 03/24/17 06:17 Basophils % [employer] 03/24/17 06:17 Neutrophils (Manual) 60 % (40-80) 03/24/17 06:17 Lymphocytes 24 % (20-50) 03/24/17 06:17 Monocytes 14 % (2-10) H 03/24/17 06:17 PT 12.7 SECONDS (9.5-11.5) H 03/23/17 13:30 INR 1.21 (0.5-1.4) 03/23/17 13:30 PTT (Actin FS) 23.9 SECONDS (26.0-38.0) L 03/23/17 13:30 Sodium 144 mEq/L (136-145) 03/25/17 04:47 Potassium 3.4 mEq/L (3.5-5.1) L 03/25/17 04:47 Chloride 112 mEq/L (98-107) H 03/25/17 04:47 Carbon Dioxide 27.4 mEq/L (21.0-31.0) 03/25/17 04:47 Anion Gap 8.0 (7.0-16.0) 03/25/17 04:47 BUN 32 mg/dL (7-25) H 03/25/17 04:47 Creatinine 1.0 mg/dL (0.7-1.3) 03/25/17 04:47 Est GFR ( Amer) > 60.0 ml/min (>90) 03/25/17 04:47 Est GFR (Non-Af Amer) > 60.0 ml/min 03/25/17 04:47 BUN/Creatinine Ratio 32.0 03/25/17 04:47 Glucose 83 mg/dL (70-105) 03/25/17 04:47 Whole Bld Lactic Acid 1.99 mmol/L (0.60-1.99) 03/23/17 13:30 Calcium 8.7 mg/dL (8.6-10.3) 03/25/17 04:47 Magnesium 2.7 mg/dL (1.9-2.7) 03/24/17 06:17 Total Bilirubin 0.4 mg/dL (0.3-1.0) 03/23/17 13:30 AST 39 U/L (13-39) 03/23/17 13:30 ALT 28 U/L (7-52) 03/23/17 13:30 Alkaline Phosphatase 51 U/L (34-104) 03/23/17 13:30 Ammonia 85 umol/L (16-53) H 03/23/17 13:30 Creatine Kinase 275 U/L (30-223) H 03/23/17 13:30 CK-MB (CK-2) 3.1 ng/mL (0.6-6.3) 03/23/17 13:30 Troponin I 0.04 ng/mL (0.01-0.05) 03/23/17 13:30 Total Protein 8.5 gm/dL (6.0-8.3) H 03/23/17 13:30 Albumin 4.4 gm/dL (4.2-5.5) 03/23/17 13:30 Globulin 4.1 gm/dL 03/23/17 13:30 Albumin/Globulin Ratio 1.1 (1.0-1.8) 03/23/17 13:30 Amylase 40 U/L (29-103) 03/23/17 13:30 Lipase 41 U/L (11-82) 03/23/17 13:30 Urine Source MIDSTREAM 03/23/17 12:50 Urine Color YELLOW 03/23/17 12:50 Urine Clarity CLOUDY (CLEAR) 03/23/17 12:50 Urine pH 5.5 (4.6 - 8.0) 03/23/17 12:50 Ur Specific [place] > 1.030 (1.005-1.030) H 03/23/17 12:50 Urine Protein NEGATIVE mg/dL (NEGATIVE) 03/23/17 12:50 Urine Glucose (UA) NEGATIVE mg/dL (NEGATIVE) 03/23/17 12:50 Urine Ketones 15 mg/dL (NEGATIVE) H 03/23/17 12:50 Urine Blood MODERATE (NEGATIVE) H 03/23/17 12:50 Urine Nitrate NEGATIVE (NEGATIVE) 03/23/17 12:50 Urine Bilirubin SMALL (NEGATIVE) H 03/23/17 12:50 Urine Urobilinogen 0.2 E.U./dL (0.2 - 1.0) 03/23/17 12:50 Ur Leukocyte Esterase NEGATIVE (NEGATIVE) 03/23/17 12:50 Urine RBC 5-10 /hpf (0-5) H 03/23/17 12:50 Urine WBC 0-2 /hpf (0-5) 03/23/17 12:50 Ur Epithelial Cells FEW /lpf (FEW) 03/23/17 12:50 Amorphous Sediment FEW URATES (NONE SEEN) 03/23/17 12:50 Urine Bacteria FEW /hpf (NONE SEEN) 03/23/17 12:50 Fine Granular Casts 0-2 /lpf (NONE SEEN) H 03/23/17 12:50 Urine Mucus FEW /lpf (FEW) 03/23/17 12:50 - Physical Exam Vitals and I&O: Vital Signs Temp 96.6 F 03/25/17 04:00 Pulse 58 03/25/17 04:00 Resp 19 03/25/17 04:00 BP 94/48 03/25/17 04:00 Pulse Ox 97 03/25/17 04:00 Intake & Output 03/24/17 03/25/17 03/25/17 18:59 06:59 18:59 Intake Total 300 350 Balance 300 350 Weight (lbs) 140 lb 12.8 oz Intake: Intake, IV Amount 300 350 Piperacillin Sodium/ 50 100 Tazobact 3.375 gm In Sodium Chloride 0.9% 50 ml @ 100 mls/hr IV Q8HR [facility] Rx#:[id number] Vancomycin HCl 1 gm In 250 250 Sodium Chloride 0.9% 250 ml @ 165 mls/hr IV Q12H [facility] Rx#:[id number] Other: # Voids 2 # Bowel Movements 0 Active Medications: Current Medications Acetaminophen (Tylenol) 650 mg PO Q6H PRN PRN Reason: Pain (Mild) Stop: 05/22/17 22:35 Last Admin: 03/24/17 12:44 Dose: 650 mg Azithromycin (Zithromax) 500 mg PO DAILY [facility] Stop: 05/23/17 08:59 Last Admin: 03/25/17 10:32 Dose: 500 mg Desmopressin Acetate (Ddavp) 0.1 mg PO DAILY [facility] Stop: 05/23/17 08:59 Last Admin: 03/25/17 10:39 Dose: 0.1 mg Diphenhydramine HCl (Benadryl) 25 mg PO Q6H PRN PRN Reason: Itching Stop: 05/22/17 22:35 Last Admin: 03/25/17 01:52 Dose: 25 mg Diphenoxylate HCl/Atropine (Lomotil) 1 tab PO Q6H PRN PRN Reason: Diarrhea Stop: 05/22/17 22:35 Divalproex Sodium (Depakote Dr) 500 mg PO TID [facility] PRN Reason: Protocol Stop: 05/23/17 08:59 Fluoxetine HCl (Prozac) 20 mg PO DAILY [facility] PRN Reason: Protocol Stop: 05/23/17 08:59 Piperacillin Sod/Tazobactam (Sod 3.375 gm/ Sodium Chloride) 50 mls @ 100 mls/ hr IV Q8HR [facility] Stop: 05/22/17 20:59 Last Infusion: 03/25/17 05:05 Dose: Infused Vancomycin HCl 1 gm/ Sodium (Chloride) 250 mls @ 165 mls/hr IV Q12H [facility] Stop: 05/23/17 08:59 Last Admin: 03/25/17 10:29 Dose: 165 mls/hr Sodium Chloride (Nacl 0.45%) 1,000 mls @ 150 mls/hr IV .Q6H40M [facility] Stop: 05/23/17 19:29 Last Admin: 03/24/17 22:51 Dose: 150 mls/hr Lacosamide (Vimpat) 50 mg PO BID [facility] Stop: 05/23/17 08:59 Last Admin: 03/25/17 10:31 Dose: 50 mg Lactobacillus Rhamnosus (Culturelle) 1 each PO DAILY [facility] Stop: 05/23/17 08:59 Last Admin: 03/25/17 10:33 Dose: 1 each Lactulose (Cephulac) 10 gm PO DAILY [facility] Stop: 05/23/17 08:59 Last Admin: 03/25/17 10:31 Dose: 10 gm Levetiracetam (Keppra) 1,500 mg PO BID [facility] Stop: 05/23/17 08:59 Last Admin: 03/25/17 10:31 Dose: 1,500 mg Levothyroxine Sodium (Synthroid) 0.05 mg PO QDAC [facility] Stop: 05/23/17 07:29 Last Admin: 03/25/17 10:40 Dose: 0.05 mg Lorazepam (Ativan) 1 mg IVP Q4HR PRN; Protocol PRN Reason: Agitation Stop: 05/22/17 13:36 Last Admin: 03/23/17 13:45 Dose: 1 mg Metoclopramide HCl (Reglan) 5 mg PO BID [facility] Stop: 05/23/17 08:59 Last Admin: 03/25/17 10:33 Dose: 5 mg Miscellaneous (Vancomycin Iv Per Pharmacy) 1 ea [facility] PRN PRN PRN Reason: PROTOCOL Stop: 05/22/17 18:29 Ondansetron HCl (Zofran Odt) 4 mg PO Q4H PRN PRN Reason: Nausea / Vomiting Stop: 05/22/17 22:35 General: weak, alert HEENT: NC/AT, PERRLA Neck: Supple Lungs: CTAB Cardiovascular: RRR, Normal S1, Normal S2, without murmur Abdomen: soft, non-tender, non-distended Extremities: excoriation Neurological: alert - Procedures Procedures: Procedures Procedure Code Date COLONOSCOPY 45.23 07/22/10 DIAGNOSTIC COLONOSCOPY 93502 07/22/10 EGD DIAGNOSTIC BRUSH WASH 00576 04/17/09 ESOPHAGOGASTRODUODENOSCOPY [EGD] W/CLOSED BIOPSY 45.16 03/05/09 EXC TR-EXT B9+CHILANGO 0.5 CM< 52110 06/26/16 EXCISION OF CHEST WALL, OPEN APPROACH [id number] 06/26/16 OTHER ENDOSCOPY OF SM INTEST 45.13 04/17/09 Internal Medicine Assmt/Plan - Assessment Assessment: VOMITING WITH PERIPHERAL TREMORS (Acute) 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 Failure to thrive (Acute) [id number] History of pneumonia (Acute) Z87.01 Inadequate oral intake (Acute) R63.8 Leukocytosis (Acute) D72.829 Thyroid disorder (Acute) UTI (urinary tract infection) (Acute) - Plan Plan: continue ivabx f/u labs monitor for fever continue current plan of care Nutritional Asmnt/Malnutr-PDOC - Dietary Evaluation Malnutrition Findings (Please click <Entered> for more info): Nutritional Asmnt/Malnutrition Start: 03/24/17 14: 28 Text: Status: Active Freq: Document 03/24/17 14:28 LCREINIERG (Rec: 03/24/17 14:54 [email or web address]) Nutritional Asmnt/Malnutrition Patient General Information Nutritional Screening High Risk Diagnosis sepsis, vomiting, PNA, dehydration, gastritis Pertinent Medical Hx/Surgical Hx HTN, PUD/GERD, seizures, thyroid disorder, DM, depression Subjective Information Pt seen lying in bed, alert and very confused. Spoke to nurse, pt consumed 60% of breakfast this morning, prefer drinking than eating. Pt likes jello, pudding. Not able to perform physical exam at this time, pt appeared thin. Current Diet Order/ Nutrition Support pureed Pertinent Medications culturelly, reglan, vancomycin , peperacillin, Nacl IV Pertinent Labs 03/24 Na 149H, K 4.2, Cl 115H, BUN 48H, Cr 1.3, Glu 90, Ammonia 85H Nutritional Hx/Data Height 5 ft 7 in Height (Calculated Centimeters) 170.2 Current Weight (lbs) 140 lb Weight (Calculated Kilograms) 63.5 Weight (Calculated Grams) 67111.9 [place] Body Weight 148 % [place] Body Weight 95 Body Mass Index (BMI) 21.9 Weight Status Approriate GI Symptoms GI Symptoms None Last BM 03/24 Difficult in: None Food Allergies No Skin Integrity/Comment: intact, dryness, small redness on bilateral knee Estimated Nutritional Goals BEE in Kcals: Using Current wt Calories/Kcals/Kg 30-35 Kcals Calculated 9980-7307 Protein: Using Current wt Protein g/k.2-1.5 Protein Calculated 76-95 Fluid: ml 0757-4386 Nutritional Problem 1. Problem Problem increased nutrition needs ( calorie and protein) Etiology increased metabolic demand for sepsis Signs/Symptoms: dx of sepsis Malnutrition Alert Protein-Calorie Malnutrition N/A Is there a minimum of two criteria No selected? Query Text:Check all the applicable criteria. A minimum of two criteria are recommended for diagnosis of either severe or non-severe malnutrition. Intervention/Recommendation Comments 1. continue with current diet as ordered. 2. pt likes jello and pudding, notified public health dietitian and updated diet profile 3. monitor PO intake, wt weekly, labs 4. F/U as high risk in 2-3 days, 03/26-03/27 Expected Outcomes/Goals Expected Outcomes/Goals 1. PO intake >50% to meet 100% of nutritional needs 2. wt stablity, labs to improve, no sign and symptoms of dehydration
--- NOTE | 2017-03-25 11:44 | Infectious Disease Prog Note ---
Infectious Disease Subjective - Review of Systems Service Date: 03/25/17 Subjective: No change. Infectious Disease Objective - Results Result Diagrams: 03/24/17 06:17 03/25/17 04:47 Recent Labs: Laboratory Last Values WBC 16.0 Th/cmm (4.8-10.8) H 03/24/17 06:17 RBC 4.37 Mil/cmm (4.30-5.70) 03/24/17 06:17 Hgb 12.3 gm/dL (12-16) 03/24/17 06:17 Hct 37.4 % (41.0-60) L D 03/24/17 06:17 MCV 85.6 fl (80-99) 03/24/17 06:17 MCH 28.1 pg (26.0-30.0) 03/24/17 06:17 MCHC Differential 32.8 pg (28.0-36.0) 03/24/17 06:17 RDW 16.0 % (11.5-20.0) 03/24/17 06:17 Plt Count 461 Th/cmm (150-400) H 03/24/17 06:17 MPV 6.5 fl 03/24/17 06:17 Neutrophils % CORD CUTTER 03/24/17 06:17 Band Neutrophils % 2 % (0-10) 03/24/17 06:17 Lymphocytes % CORD CUTTER 03/24/17 06:17 Monocytes % CORD CUTTER 03/24/17 06:17 Eosinophils % CORD CUTTER 03/24/17 06:17 Basophils % CORD CUTTER 03/24/17 06:17 Neutrophils (Manual) 60 % (40-80) 03/24/17 06:17 Lymphocytes 24 % (20-50) 03/24/17 06:17 Monocytes 14 % (2-10) H 03/24/17 06:17 PT 12.7 SECONDS (9.5-11.5) H 03/23/17 13:30 INR 1.21 (0.5-1.4) 03/23/17 13:30 PTT (Actin FS) 23.9 SECONDS (26.0-38.0) L 03/23/17 13:30 Sodium 144 mEq/L (136-145) 03/25/17 04:47 Potassium 3.4 mEq/L (3.5-5.1) L 03/25/17 04:47 Chloride 112 mEq/L (98-107) H 03/25/17 04:47 Carbon Dioxide 27.4 mEq/L (21.0-31.0) 03/25/17 04:47 Anion Gap 8.0 (7.0-16.0) 03/25/17 04:47 BUN 32 mg/dL (7-25) H 03/25/17 04:47 Creatinine 1.0 mg/dL (0.7-1.3) 03/25/17 04:47 Est GFR ( Amer) > 60.0 ml/min (>90) 03/25/17 04:47 Est GFR (Non-Af Amer) > 60.0 ml/min 03/25/17 04:47 BUN/Creatinine Ratio 32.0 03/25/17 04:47 Glucose 83 mg/dL (70-105) 03/25/17 04:47 Whole Bld Lactic Acid 1.99 mmol/L (0.60-1.99) 03/23/17 13:30 Calcium 8.7 mg/dL (8.6-10.3) 03/25/17 04:47 Magnesium 2.7 mg/dL (1.9-2.7) 03/24/17 06:17 Total Bilirubin 0.4 mg/dL (0.3-1.0) 03/23/17 13:30 AST 39 U/L (13-39) 03/23/17 13:30 ALT 28 U/L (7-52) 03/23/17 13:30 Alkaline Phosphatase 51 U/L (34-104) 03/23/17 13:30 Ammonia 85 umol/L (16-53) H 03/23/17 13:30 Creatine Kinase 275 U/L (30-223) H 03/23/17 13:30 CK-MB (CK-2) 3.1 ng/mL (0.6-6.3) 03/23/17 13:30 Troponin I 0.04 ng/mL (0.01-0.05) 03/23/17 13:30 Total Protein 8.5 gm/dL (6.0-8.3) H 03/23/17 13:30 Albumin 4.4 gm/dL (4.2-5.5) 03/23/17 13:30 Globulin 4.1 gm/dL 03/23/17 13:30 Albumin/Globulin Ratio 1.1 (1.0-1.8) 03/23/17 13:30 Amylase 40 U/L (29-103) 03/23/17 13:30 Lipase 41 U/L (11-82) 03/23/17 13:30 Urine Source MIDSTREAM 03/23/17 12:50 Urine Color YELLOW 03/23/17 12:50 Urine Clarity CLOUDY (CLEAR) 03/23/17 12:50 Urine pH 5.5 (4.6 - 8.0) 03/23/17 12:50 Ur Specific [place] > 1.030 (1.005-1.030) H 03/23/17 12:50 Urine Protein NEGATIVE mg/dL (NEGATIVE) 03/23/17 12:50 Urine Glucose (UA) NEGATIVE mg/dL (NEGATIVE) 03/23/17 12:50 Urine Ketones 15 mg/dL (NEGATIVE) H 03/23/17 12:50 Urine Blood MODERATE (NEGATIVE) H 03/23/17 12:50 Urine Nitrate NEGATIVE (NEGATIVE) 03/23/17 12:50 Urine Bilirubin SMALL (NEGATIVE) H 03/23/17 12:50 Urine Urobilinogen 0.2 E.U./dL (0.2 - 1.0) 03/23/17 12:50 Ur Leukocyte Esterase NEGATIVE (NEGATIVE) 03/23/17 12:50 Urine RBC 5-10 /hpf (0-5) H 03/23/17 12:50 Urine WBC 0-2 /hpf (0-5) 03/23/17 12:50 Ur Epithelial Cells FEW /lpf (FEW) 03/23/17 12:50 Amorphous Sediment FEW URATES (NONE SEEN) 03/23/17 12:50 Urine Bacteria FEW /hpf (NONE SEEN) 03/23/17 12:50 Fine Granular Casts 0-2 /lpf (NONE SEEN) H 03/23/17 12:50 Urine Mucus FEW /lpf (FEW) 03/23/17 12:50 - Physical Exam Vitals and I&O: Vital Signs Temp 96.6 F 03/25/17 04:00 Pulse 58 03/25/17 04:00 Resp 19 03/25/17 04:00 BP 94/48 03/25/17 04:00 Pulse Ox 97 03/25/17 04:00 Intake & Output 03/24/17 03/25/17 03/25/17 18:59 06:59 18:59 Intake Total 300 350 Balance 300 350 Weight (lbs) 63.866 kg Intake: Intake, IV Amount 300 350 Piperacillin Sodium/ 50 100 Tazobact 3.375 gm In Sodium Chloride 0.9% 50 ml @ 100 mls/hr IV Q8HR [facility] Rx#:[id number] Vancomycin HCl 1 gm In 250 250 Sodium Chloride 0.9% 250 ml @ 165 mls/hr IV Q12H [facility] Rx#:[id number] Other: # Voids 2 # Bowel Movements 0 Active Medications: Current Medications Acetaminophen (Tylenol) 650 mg PO Q6H PRN PRN Reason: Pain (Mild) Stop: 05/22/17 22:35 Last Admin: 03/24/17 12:44 Dose: 650 mg Azithromycin (Zithromax) 500 mg PO DAILY [facility] Stop: 05/23/17 08:59 Last Admin: 03/25/17 10:32 Dose: 500 mg Desmopressin Acetate (Ddavp) 0.1 mg PO DAILY [facility] Stop: 05/23/17 08:59 Last Admin: 03/25/17 10:39 Dose: 0.1 mg Diphenhydramine HCl (Benadryl) 25 mg PO Q6H PRN PRN Reason: Itching Stop: 05/22/17 22:35 Last Admin: 03/25/17 01:52 Dose: 25 mg Diphenoxylate HCl/Atropine (Lomotil) 1 tab PO Q6H PRN PRN Reason: Diarrhea Stop: 05/22/17 22:35 Divalproex Sodium (Depakote Dr) 500 mg PO TID [facility] PRN Reason: Protocol Stop: 05/23/17 08:59 Fluoxetine HCl (Prozac) 20 mg PO DAILY [facility] PRN Reason: Protocol Stop: 05/23/17 08:59 Piperacillin Sod/Tazobactam (Sod 3.375 gm/ Sodium Chloride) 50 mls @ 100 mls/ hr IV Q8HR [facility] Stop: 05/22/17 20:59 Last Infusion: 03/25/17 05:05 Dose: Infused Vancomycin HCl 1 gm/ Sodium (Chloride) 250 mls @ 165 mls/hr IV Q12H [facility] Stop: 05/23/17 08:59 Last Admin: 03/25/17 10:29 Dose: 165 mls/hr Sodium Chloride (Nacl 0.45%) 1,000 mls @ 150 mls/hr IV .Q6H40M [facility] Stop: 05/23/17 19:29 Last Admin: 03/24/17 22:51 Dose: 150 mls/hr Lacosamide (Vimpat) 50 mg PO BID [facility] Stop: 05/23/17 08:59 Last Admin: 03/25/17 10:31 Dose: 50 mg Lactobacillus Rhamnosus (Culturelle) 1 each PO DAILY [facility] Stop: 05/23/17 08:59 Last Admin: 03/25/17 10:33 Dose: 1 each Lactulose (Cephulac) 10 gm PO DAILY [facility] Stop: 05/23/17 08:59 Last Admin: 03/25/17 10:31 Dose: 10 gm Levetiracetam (Keppra) 1,500 mg PO BID [facility] Stop: 05/23/17 08:59 Last Admin: 03/25/17 10:31 Dose: 1,500 mg Levothyroxine Sodium (Synthroid) 0.05 mg PO QDAC [facility] Stop: 05/23/17 07:29 Last Admin: 03/25/17 10:40 Dose: 0.05 mg Lorazepam (Ativan) 1 mg IVP Q4HR PRN; Protocol PRN Reason: Agitation Stop: 05/22/17 13:36 Last Admin: 03/23/17 13:45 Dose: 1 mg Metoclopramide HCl (Reglan) 5 mg PO BID [facility] Stop: 05/23/17 08:59 Last Admin: 03/25/17 10:33 Dose: 5 mg Miscellaneous (Vancomycin Iv Per Pharmacy) 1 ea [facility] PRN PRN PRN Reason: PROTOCOL Stop: 05/22/17 18:29 Ondansetron HCl (Zofran Odt) 4 mg PO Q4H PRN PRN Reason: Nausea / Vomiting Stop: 05/22/17 22:35 General: no acute distress, well developed, well nourished HEENT: atraumatic, normocephalic, PERRLA, EOMI, moist mucous membrane Neck: supple, no thyromegaly, no lymphadenopathy, no rigid, no lines, no tracheostomy Cardiovascular: S1S2, regular Lungs: clear to auscultation bilaterally Abdomen: soft, no hepatomegaly, no bowel sounds Extremities: no cyanosis, no clubbing, no edema Neurological: awake, alert Skin: intact - Procedures Procedures: Procedures Procedure Code Date COLONOSCOPY 45.23 07/22/10 DIAGNOSTIC COLONOSCOPY 14477 07/22/10 EGD DIAGNOSTIC BRUSH WASH 40598 04/17/09 ESOPHAGOGASTRODUODENOSCOPY [EGD] W/CLOSED BIOPSY 45.16 03/05/09 EXC TR-EXT B9+CHILANGO 0.5 CM< 56792 06/26/16 EXCISION OF CHEST WALL, OPEN APPROACH [id number] 06/26/16 OTHER ENDOSCOPY OF SM INTEST 45.13 04/17/09 Infectious Disease Assmt/Plan - Problem List Patient Problems: All Active Problems VOMITING WITH PERIPHERAL TREMORS (Acute) 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 Leukocytosis, aspiration versus reactive. 2. RML pneumonia. 3. Angleman's syndrome. Plan: Continue vanco IV and Zosyn. sepsis w/u. Nutritional Asmnt/Malnutr-PDOC - Dietary Evaluation Malnutrition Findings (Please click <Entered> for more info): Nutritional Asmnt/Malnutrition Start: 03/24/17 14: 28 Text: Status: Active Freq: Document 03/24/17 14:28 LCHENG (Rec: 03/24/17 14:54 [email or web address]) Nutritional Asmnt/Malnutrition Patient General Information Nutritional Screening High Risk Diagnosis sepsis, vomiting, PNA, dehydration, gastritis Pertinent Medical Hx/Surgical Hx HTN, PUD/GERD, seizures, thyroid disorder, DM, depression Subjective Information Pt seen lying in bed, alert and very confused. Spoke to nurse, pt consumed 60% of breakfast this morning, prefer drinking than eating. Pt likes jello, pudding. Not able to perform physical exam at this time, pt appeared thin. Current Diet Order/ Nutrition Support pureed Pertinent Medications culturelly, reglan, vancomycin , peperacillin, Nacl IV Pertinent Labs 03/24 Na 149H, K 4.2, Cl 115H, BUN 48H, Cr 1.3, Glu 90, Ammonia 85H Nutritional Hx/Data Height 1.7 m Height (Calculated Centimeters) 170.2 Current Weight (lbs) 63.503 kg Weight (Calculated Kilograms) 63.5 Weight (Calculated Grams) 52219.9 [place] Body Weight 148 % [place] Body Weight 95 Body Mass Index (BMI) 21.9 Weight Status Approriate GI Symptoms GI Symptoms None Last BM 03/24 Difficult in: None Food Allergies No Skin Integrity/Comment: intact, dryness, small redness on bilateral knee Estimated Nutritional Goals BEE in Kcals: Using Current wt Calories/Kcals/Kg 30-35 Kcals Calculated 0215-4129 Protein: Using Current wt Protein g/k.2-1.5 Protein Calculated 76-95 Fluid: ml 3680-4342 Nutritional Problem 1. Problem Problem increased nutrition needs ( calorie and protein) Etiology increased metabolic demand for sepsis Signs/Symptoms: dx of sepsis Malnutrition Alert Protein-Calorie Malnutrition N/A Is there a minimum of two criteria No selected? Query Text:Check all the applicable criteria. A minimum of two criteria are recommended for diagnosis of either severe or non-severe malnutrition. Intervention/Recommendation Comments 1. continue with current diet as ordered. 2. pt likes jello and pudding, notified credit card clerk and updated diet profile 3. monitor PO intake, wt weekly, labs 4. F/U as high risk in 2-3 days, 03/26-03/27 Expected Outcomes/Goals Expected Outcomes/Goals 1. PO intake >50% to meet 100% of nutritional needs 2. wt stablity, labs to improve, no sign and symptoms of dehydration
[2017-03-25] MEDS: Sodium Chloride 0.45% 1,000 ML IV SCH (14:55)
[2017-03-25] MEDS ORDERED: Potassium Chloride 20 mEq ER Tab PO SCH (17:38)
--- NOTE | 2017-03-25 18:52 | General Progress Note ---
Subjective - Review of Systems Service Date: 03/25/17 (awake and confuse) Objective - Results Result Diagrams: 03/24/17 06:17 03/25/17 04:47 Recent Labs: Laboratory Last Values WBC 16.0 Th/cmm (4.8-10.8) H 03/24/17 06:17 RBC 4.37 Mil/cmm (4.30-5.70) 03/24/17 06:17 Hgb 12.3 gm/dL (12-16) 03/24/17 06:17 Hct 37.4 % (41.0-60) L D 03/24/17 06:17 MCV 85.6 fl (80-99) 03/24/17 06:17 MCH 28.1 pg (26.0-30.0) 03/24/17 06:17 MCHC Differential 32.8 pg (28.0-36.0) 03/24/17 06:17 RDW 16.0 % (11.5-20.0) 03/24/17 06:17 Plt Count 461 Th/cmm (150-400) H 03/24/17 06:17 MPV 6.5 fl 03/24/17 06:17 Neutrophils % FREIGHT REPRESENTATIVE 03/24/17 06:17 Band Neutrophils % 2 % (0-10) 03/24/17 06:17 Lymphocytes % FREIGHT REPRESENTATIVE 03/24/17 06:17 Monocytes % FREIGHT REPRESENTATIVE 03/24/17 06:17 Eosinophils % FREIGHT REPRESENTATIVE 03/24/17 06:17 Basophils % FREIGHT REPRESENTATIVE 03/24/17 06:17 Neutrophils (Manual) 60 % (40-80) 03/24/17 06:17 Lymphocytes 24 % (20-50) 03/24/17 06:17 Monocytes 14 % (2-10) H 03/24/17 06:17 PT 12.7 SECONDS (9.5-11.5) H 03/23/17 13:30 INR 1.21 (0.5-1.4) 03/23/17 13:30 PTT (Actin FS) 23.9 SECONDS (26.0-38.0) L 03/23/17 13:30 Sodium 144 mEq/L (136-145) 03/25/17 04:47 Potassium 3.4 mEq/L (3.5-5.1) L 03/25/17 04:47 Chloride 112 mEq/L (98-107) H 03/25/17 04:47 Carbon Dioxide 27.4 mEq/L (21.0-31.0) 03/25/17 04:47 Anion Gap 8.0 (7.0-16.0) 03/25/17 04:47 BUN 32 mg/dL (7-25) H 03/25/17 04:47 Creatinine 1.0 mg/dL (0.7-1.3) 03/25/17 04:47 Est GFR ( Amer) > 60.0 ml/min (>90) 03/25/17 04:47 Est GFR (Non-Af Amer) > 60.0 ml/min 03/25/17 04:47 BUN/Creatinine Ratio 32.0 03/25/17 04:47 Glucose 83 mg/dL (70-105) 03/25/17 04:47 Whole Bld Lactic Acid 1.99 mmol/L (0.60-1.99) 03/23/17 13:30 Calcium 8.7 mg/dL (8.6-10.3) 03/25/17 04:47 Magnesium 2.7 mg/dL (1.9-2.7) 03/24/17 06:17 Total Bilirubin 0.4 mg/dL (0.3-1.0) 03/23/17 13:30 AST 39 U/L (13-39) 03/23/17 13:30 ALT 28 U/L (7-52) 03/23/17 13:30 Alkaline Phosphatase 51 U/L (34-104) 03/23/17 13:30 Ammonia 85 umol/L (16-53) H 03/23/17 13:30 Creatine Kinase 275 U/L (30-223) H 03/23/17 13:30 CK-MB (CK-2) 3.1 ng/mL (0.6-6.3) 03/23/17 13:30 Troponin I 0.04 ng/mL (0.01-0.05) 03/23/17 13:30 Total Protein 8.5 gm/dL (6.0-8.3) H 03/23/17 13:30 Albumin 4.4 gm/dL (4.2-5.5) 03/23/17 13:30 Globulin 4.1 gm/dL 03/23/17 13:30 Albumin/Globulin Ratio 1.1 (1.0-1.8) 03/23/17 13:30 Amylase 40 U/L (29-103) 03/23/17 13:30 Lipase 41 U/L (11-82) 03/23/17 13:30 Urine Source MIDSTREAM 03/23/17 12:50 Urine Color YELLOW 03/23/17 12:50 Urine Clarity CLOUDY (CLEAR) 03/23/17 12:50 Urine pH 5.5 (4.6 - 8.0) 03/23/17 12:50 Ur Specific [place] > 1.030 (1.005-1.030) H 03/23/17 12:50 Urine Protein NEGATIVE mg/dL (NEGATIVE) 03/23/17 12:50 Urine Glucose (UA) NEGATIVE mg/dL (NEGATIVE) 03/23/17 12:50 Urine Ketones 15 mg/dL (NEGATIVE) H 03/23/17 12:50 Urine Blood MODERATE (NEGATIVE) H 03/23/17 12:50 Urine Nitrate NEGATIVE (NEGATIVE) 03/23/17 12:50 Urine Bilirubin SMALL (NEGATIVE) H 03/23/17 12:50 Urine Urobilinogen 0.2 E.U./dL (0.2 - 1.0) 03/23/17 12:50 Ur Leukocyte Esterase NEGATIVE (NEGATIVE) 03/23/17 12:50 Urine RBC 5-10 /hpf (0-5) H 03/23/17 12:50 Urine WBC 0-2 /hpf (0-5) 03/23/17 12:50 Ur Epithelial Cells FEW /lpf (FEW) 03/23/17 12:50 Amorphous Sediment FEW URATES (NONE SEEN) 03/23/17 12:50 Urine Bacteria FEW /hpf (NONE SEEN) 03/23/17 12:50 Fine Granular Casts 0-2 /lpf (NONE SEEN) H 03/23/17 12:50 Urine Mucus FEW /lpf (FEW) 03/23/17 12:50 - Physical Exam Vitals and I&O: Vital Signs Temp 97.2 F 03/25/17 16:02 Pulse 97 03/25/17 16:02 Resp 18 03/25/17 16:02 BP 123/75 03/25/17 16:02 Pulse Ox 100 03/25/17 12:00 Intake & Output 03/24/17 03/25/17 03/25/17 18:59 06:59 18:59 Intake Total 300 1350 250 Balance 300 1350 250 Weight (lbs) 63.866 kg Intake: Intake, IV Amount 300 1350 250 Piperacillin Sodium/ 50 100 Tazobact 3.375 gm In Sodium Chloride 0.9% 50 ml @ 100 mls/hr IV Q8HR [facility] Rx#:[id number] Sodium Chloride 0.45% 1, 1000 000 ml @ 150 mls/hr IV . Q6H40M [facility] Rx#:[id number] Vancomycin HCl 1 gm In 250 250 250 Sodium Chloride 0.9% 250 ml @ 165 mls/hr IV Q12H [facility] Rx#:[id number] Other: # Voids 2 # Bowel Movements 0 Stool Characteristics Soft Brown Active Medications: Current Medications Acetaminophen (Tylenol) 650 mg PO Q6H PRN PRN Reason: Pain (Mild) Stop: 05/22/17 22:35 Last Admin: 03/24/17 12:44 Dose: 650 mg Azithromycin (Zithromax) 500 mg PO DAILY [facility] Stop: 05/23/17 08:59 Last Admin: 03/25/17 10:32 Dose: 500 mg Desmopressin Acetate (Ddavp) 0.1 mg PO DAILY [facility] Stop: 05/23/17 08:59 Last Admin: 03/25/17 10:39 Dose: 0.1 mg Diphenhydramine HCl (Benadryl) 25 mg PO Q6H PRN PRN Reason: Itching Stop: 05/22/17 22:35 Last Admin: 03/25/17 01:52 Dose: 25 mg Diphenoxylate HCl/Atropine (Lomotil) 1 tab PO Q6H PRN PRN Reason: Diarrhea Stop: 05/22/17 22:35 Divalproex Sodium (Depakote Dr) 500 mg PO TID [facility] PRN Reason: Protocol Stop: 05/23/17 08:59 Fluoxetine HCl (Prozac) 20 mg PO DAILY [facility] PRN Reason: Protocol Stop: 05/23/17 08:59 Piperacillin Sod/Tazobactam (Sod 3.375 gm/ Sodium Chloride) 50 mls @ 100 mls/ hr IV Q8HR [facility] Stop: 05/22/17 20:59 Last Admin: 03/25/17 14:51 Dose: 50 mls/hr Vancomycin HCl 1 gm/ Sodium (Chloride) 250 mls @ 165 mls/hr IV Q12H [facility] Stop: 05/23/17 08:59 Last Infusion: 03/25/17 14:44 Dose: Infused Sodium Chloride (Nacl 0.45%) 1,000 mls @ 80 mls/hr IV .[id number] [facility] Stop: 05/24/17 17:47 Lacosamide (Vimpat) 50 mg PO BID [facility] Stop: 05/23/17 08:59 Last Admin: 03/25/17 16:41 Dose: 50 mg Lactobacillus Rhamnosus (Culturelle) 1 each PO DAILY [facility] Stop: 05/23/17 08:59 Last Admin: 03/25/17 10:33 Dose: 1 each Lactulose (Cephulac) 10 gm PO DAILY [facility] Stop: 05/23/17 08:59 Last Admin: 03/25/17 10:31 Dose: 10 gm Levetiracetam (Keppra) 1,500 mg PO BID [facility] Stop: 05/23/17 08:59 Last Admin: 03/25/17 16:41 Dose: 1,500 mg Levothyroxine Sodium (Synthroid) 0.05 mg PO QDAC [facility] Stop: 05/23/17 07:29 Last Admin: 03/25/17 10:40 Dose: 0.05 mg Lorazepam (Ativan) 1 mg IVP Q4HR PRN; Protocol PRN Reason: Agitation Stop: 05/22/17 13:36 Last Admin: 03/23/17 13:45 Dose: 1 mg Metoclopramide HCl (Reglan) 5 mg PO BID [facility] Stop: 05/23/17 08:59 Last Admin: 03/25/17 16:43 Dose: 5 mg Miscellaneous (Vancomycin Iv Per Pharmacy) 1 ea [facility] PRN PRN PRN Reason: PROTOCOL Stop: 05/22/17 18:29 Ondansetron HCl (Zofran Odt) 4 mg PO Q4H PRN PRN Reason: Nausea / Vomiting Stop: 05/22/17 22:35 General: No acute distress HEENT: Atraumatic Neck: Supple, Thyromegaly Cardiovascular: Regular rate, Normal S1 Lungs: Other (rhonchi) - Procedures Procedures: Procedures Procedure Code Date COLONOSCOPY 45.23 07/22/10 DIAGNOSTIC COLONOSCOPY 95998 07/22/10 EGD DIAGNOSTIC BRUSH WASH 81719 04/17/09 ESOPHAGOGASTRODUODENOSCOPY [EGD] W/CLOSED BIOPSY 45.16 03/05/09 EXC TR-EXT B9+CHILANGO 0.5 CM< 69128 06/26/16 EXCISION OF CHEST WALL, OPEN APPROACH [id number] 06/26/16 OTHER ENDOSCOPY OF SM INTEST 45.13 04/17/09 Assessment/Plan - Problem List Patient Problems: All Active Problems VOMITING WITH PERIPHERAL TREMORS (Acute) 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 Failure to thrive (Acute) [id number] History of pneumonia (Acute) Z87.01 Inadequate oral intake (Acute) R63.8 Leukocytosis (Acute) D72.829 Thyroid disorder (Acute) UTI (urinary tract infection) (Acute) - Plan Plan: agree with gradually decreasing iv give po kcl 40 meq recheck chem tomorrow Nutritional Asmnt/Malnutr-PDOC - Dietary Evaluation Malnutrition Findings (Please click <Entered> for more info): Nutritional Asmnt/Malnutrition Start: 03/24/17 14: 28 Text: Status: Active Freq: Document 03/24/17 14:28 LCHENG (Rec: 03/24/17 14:54 LCHENG [email or web address]) Nutritional Asmnt/Malnutrition Patient General Information Nutritional Screening High Risk Diagnosis sepsis, vomiting, PNA, dehydration, gastritis Pertinent Medical Hx/Surgical Hx HTN, PUD/GERD, seizures, thyroid disorder, DM, depression Subjective Information Pt seen lying in bed, alert and very confused. Spoke to nurse, pt consumed 60% of breakfast this morning, prefer drinking than eating. Pt likes jello, pudding. Not able to perform physical exam at this time, pt appeared thin. Current Diet Order/ Nutrition Support pureed Pertinent Medications culturelly, reglan, vancomycin , peperacillin, Nacl IV Pertinent Labs 03/24 Na 149H, K 4.2, Cl 115H, BUN 48H, Cr 1.3, Glu 90, Ammonia 85H Nutritional Hx/Data Height 1.7 m Height (Calculated Centimeters) 170.2 Current Weight (lbs) 63.503 kg Weight (Calculated Kilograms) 63.5 Weight (Calculated Grams) 05238.9 [place] Body Weight 148 % [place] Body Weight 95 Body Mass Index (BMI) 21.9 Weight Status Approriate GI Symptoms GI Symptoms None Last BM 03/24 Difficult in: None Food Allergies No Skin Integrity/Comment: intact, dryness, small redness on bilateral knee Estimated Nutritional Goals BEE in Kcals: Using Current wt Calories/Kcals/Kg 30-35 Kcals Calculated 0031-5563 Protein: Using Current wt Protein g/k.2-1.5 Protein Calculated 76-95 Fluid: ml 9845-0099 Nutritional Problem 1. Problem Problem increased nutrition needs ( calorie and protein) Etiology increased metabolic demand for sepsis Signs/Symptoms: dx of sepsis Malnutrition Alert Protein-Calorie Malnutrition N/A Is there a minimum of two criteria No selected? Query Text:Check all the applicable criteria. A minimum of two criteria are recommended for diagnosis of either severe or non-severe malnutrition. Intervention/Recommendation Comments 1. continue with current diet as ordered. 2. pt likes jello and pudding, notified dietary server and updated diet profile 3. monitor PO intake, wt weekly, labs 4. F/U as high risk in 2-3 days, 03/26-03/27 Expected Outcomes/Goals Expected Outcomes/Goals 1. PO intake >50% to meet 100% of nutritional needs 2. wt stablity, labs to improve, no sign and symptoms of dehydration
[2017-03-26 06:27] LABS: % BASOPHILS 0.8 % (0.0-2.0); % EOSINOPHILS 1.9 % (0.0-5.0); % MONOCYTES 13.1 % (2.0-10.0); % NEUTROPHILS 55.2 % (40.0-80.0); HEMATOCRIT 38.2 % (41.0-60); HEMOGLOBIN 12.4 gm/dL (12-16); MEAN CELL VOLUME 86.8 fl (80-99); MEAN CORPUSCULAR HEMOGLOBIN 28.2 pg (26.0-30.0); MEAN CORPUSCULAR HGB CONC 32.5 pg (28.0-36.0); NEUTROPHILE ABSOLUTE 8.5 Th/cmm (1.8-8.0); PLATELET COUNT 387 Th/cmm (150-400); RED CELL DISTRIBUTION WIDTH 16.3 % (11.5-20.0)
[2017-03-26 06:40] LABS: ANION GAP 7.6 (7.0-16.0); BUN - UREA NITROGEN 28 mg/dL (7-25); BUN/CREATININE RATIO 25.5; CALCIUM SERUM 9.1 mg/dL (8.6-10.3); CARBON DIOXIDE 29.5 mEq/L (21.0-31.0); CHLORIDE 112 mEq/L (98-107); CREATININE - SERUM 1.1 mg/dL (0.7-1.3); GLUCOSE 90 mg/dL (70-105); POTASSIUM SERUM 4.1 mEq/L (3.5-5.1); SODIUM SERUM 145 mEq/L (136-145)
[2017-03-26 06:49] LABS: WHITE BLOOD COUNT 15.3 Th/cmm (4.8-10.8)
[2017-03-26] MEDS: Levothyroxine 0.05 Mg Tab PO SCH (07:03)
[2017-03-26] MEDS: Lactulose 10 Gm/15 mL 30mL UDC PO SCH (09:18)
[2017-03-26] MEDS: Lactobacillus Rhamnosus 10 Billion CFU Capsule PO SCH (09:34)
--- NOTE | 2017-03-26 14:52 | General Progress Note ---
Subjective - Review of Systems Service Date: 03/26/17 Subjective: awake, essential tremors Objective - Results Result Diagrams: 03/26/17 05:55 03/26/17 05:55 Recent Labs: Laboratory Last Values WBC 15.3 Th/cmm (4.8-10.8) H 03/26/17 05:55 RBC 4.40 Mil/cmm (4.30-5.70) 03/26/17 05:55 Hgb 12.4 gm/dL (12-16) 03/26/17 05:55 Hct 38.2 % (41.0-60) L 03/26/17 05:55 MCV 86.8 fl (80-99) 03/26/17 05:55 MCH 28.2 pg (26.0-30.0) 03/26/17 05:55 MCHC Differential 32.5 pg (28.0-36.0) 03/26/17 05:55 RDW 16.3 % (11.5-20.0) 03/26/17 05:55 Plt Count 387 Th/cmm (150-400) 03/26/17 05:55 MPV 7.0 fl 03/26/17 05:55 Neutrophils % 55.2 % (40.0-80.0) 03/26/17 05:55 Band Neutrophils % 2 % (0-10) 03/24/17 06:17 Lymphocytes % 29.0 % (20.0-50.0) 03/26/17 05:55 Monocytes % 13.1 % (2.0-10.0) H 03/26/17 05:55 Eosinophils % 1.9 % (0.0-5.0) 03/26/17 05:55 Basophils % 0.8 % (0.0-2.0) 03/26/17 05:55 Neutrophils (Manual) 60 % (40-80) 03/24/17 06:17 Lymphocytes 24 % (20-50) 03/24/17 06:17 Monocytes 14 % (2-10) H 03/24/17 06:17 PT 12.7 SECONDS (9.5-11.5) H 03/23/17 13:30 INR 1.21 (0.5-1.4) 03/23/17 13:30 PTT (Actin FS) 23.9 SECONDS (26.0-38.0) L 03/23/17 13:30 Sodium 145 mEq/L (136-145) 03/26/17 05:55 Potassium 4.1 mEq/L (3.5-5.1) 03/26/17 05:55 Chloride 112 mEq/L (98-107) H 03/26/17 05:55 Carbon Dioxide 29.5 mEq/L (21.0-31.0) 03/26/17 05:55 Anion Gap 7.6 (7.0-16.0) 03/26/17 05:55 BUN 28 mg/dL (7-25) H 03/26/17 05:55 Creatinine 1.1 mg/dL (0.7-1.3) 03/26/17 05:55 Est GFR ( Amer) > 60.0 ml/min (>90) 03/26/17 05:55 Est GFR (Non-Af Amer) > 60.0 ml/min 03/26/17 05:55 BUN/Creatinine Ratio 25.5 03/26/17 05:55 Glucose 90 mg/dL (70-105) 03/26/17 05:55 Whole Bld Lactic Acid 1.99 mmol/L (0.60-1.99) 03/23/17 13:30 Calcium 9.1 mg/dL (8.6-10.3) 03/26/17 05:55 Magnesium 2.7 mg/dL (1.9-2.7) 03/24/17 06:17 Total Bilirubin 0.4 mg/dL (0.3-1.0) 03/23/17 13:30 AST 39 U/L (13-39) 03/23/17 13:30 ALT 28 U/L (7-52) 03/23/17 13:30 Alkaline Phosphatase 51 U/L (34-104) 03/23/17 13:30 Ammonia 85 umol/L (16-53) H 03/23/17 13:30 Creatine Kinase 275 U/L (30-223) H 03/23/17 13:30 CK-MB (CK-2) 3.1 ng/mL (0.6-6.3) 03/23/17 13:30 Troponin I 0.04 ng/mL (0.01-0.05) 03/23/17 13:30 Total Protein 8.5 gm/dL (6.0-8.3) H 03/23/17 13:30 Albumin 4.4 gm/dL (4.2-5.5) 03/23/17 13:30 Globulin 4.1 gm/dL 03/23/17 13:30 Albumin/Globulin Ratio 1.1 (1.0-1.8) 03/23/17 13:30 Amylase 40 U/L (29-103) 03/23/17 13:30 Lipase 41 U/L (11-82) 03/23/17 13:30 Urine Source MIDSTREAM 03/23/17 12:50 Urine Color YELLOW 03/23/17 12:50 Urine Clarity CLOUDY (CLEAR) 03/23/17 12:50 Urine pH 5.5 (4.6 - 8.0) 03/23/17 12:50 Ur Specific [place] > 1.030 (1.005-1.030) H 03/23/17 12:50 Urine Protein NEGATIVE mg/dL (NEGATIVE) 03/23/17 12:50 Urine Glucose (UA) NEGATIVE mg/dL (NEGATIVE) 03/23/17 12:50 Urine Ketones 15 mg/dL (NEGATIVE) H 03/23/17 12:50 Urine Blood MODERATE (NEGATIVE) H 03/23/17 12:50 Urine Nitrate NEGATIVE (NEGATIVE) 03/23/17 12:50 Urine Bilirubin SMALL (NEGATIVE) H 03/23/17 12:50 Urine Urobilinogen 0.2 E.U./dL (0.2 - 1.0) 03/23/17 12:50 Ur Leukocyte Esterase NEGATIVE (NEGATIVE) 03/23/17 12:50 Urine RBC 5-10 /hpf (0-5) H 03/23/17 12:50 Urine WBC 0-2 /hpf (0-5) 03/23/17 12:50 Ur Epithelial Cells FEW /lpf (FEW) 03/23/17 12:50 Amorphous Sediment FEW URATES (NONE SEEN) 03/23/17 12:50 Urine Bacteria FEW /hpf (NONE SEEN) 03/23/17 12:50 Fine Granular Casts 0-2 /lpf (NONE SEEN) H 03/23/17 12:50 Urine Mucus FEW /lpf (FEW) 03/23/17 12:50 Vancomycin Trough 16.3 ug/mL (10-20) 03/25/17 19:57 - Physical Exam Vitals and I&O: Vital Signs Temp 97.9 F 03/26/17 12:00 Pulse 72 03/26/17 12:00 Resp 18 03/26/17 12:00 BP 141/60 03/26/17 12:00 Pulse Ox 93 03/26/17 12:00 Intake & Output 03/25/17 03/26/17 03/26/17 18:59 06:59 18:59 Intake Total 300 100 800 Balance 300 100 800 Weight (lbs) 63.957 kg 64.864 kg Intake: Intake, IV Amount 300 100 250 Piperacillin Sodium/ 50 100 Tazobact 3.375 gm In Sodium Chloride 0.9% 50 ml @ 100 mls/hr IV Q8HR [facility] Rx#:[id number] Vancomycin HCl 1 gm In 250 250 Sodium Chloride 0.9% 250 ml @ 165 mls/hr IV Q12H [facility] Rx#:[id number] Oral 550 Other: # Voids 2 # Bowel Movements 2 Stool Characteristics Soft Soft Soft Brown Brown Brown Active Medications: Current Medications Acetaminophen (Tylenol) 650 mg PO Q6H PRN PRN Reason: Pain (Mild) Stop: 05/22/17 22:35 Last Admin: 03/24/17 12:44 Dose: 650 mg Azithromycin (Zithromax) 500 mg PO DAILY [facility] Stop: 05/23/17 08:59 Last Admin: 03/26/17 09:16 Dose: 500 mg Desmopressin Acetate (Ddavp) 0.1 mg PO DAILY [facility] Stop: 05/23/17 08:59 Last Admin: 03/26/17 09:17 Dose: 0.1 mg Diphenhydramine HCl (Benadryl) 25 mg PO Q6H PRN PRN Reason: Itching Stop: 05/22/17 22:35 Last Admin: 03/25/17 01:52 Dose: 25 mg Diphenoxylate HCl/Atropine (Lomotil) 1 tab PO Q6H PRN PRN Reason: Diarrhea Stop: 05/22/17 22:35 Divalproex Sodium (Depakote Dr) 500 mg PO TID [facility] PRN Reason: Protocol Stop: 05/23/17 08:59 Last Admin: 03/26/17 14:11 Dose: 500 mg Fluoxetine HCl (Prozac) 20 mg PO DAILY PRAVEENA PRN Reason: Protocol Stop: 05/23/17 08:59 Last Admin: 03/26/17 14:12 Dose: 20 mg Piperacillin Sod/Tazobactam (Sod 3.375 gm/ Sodium Chloride) 50 mls @ 100 mls/ hr IV Q8HR PRAVEENA Stop: 05/22/17 20:59 Last Admin: 03/26/17 12:42 Dose: 50 mls/hr Vancomycin HCl 1 gm/ Sodium (Chloride) 250 mls @ 165 mls/hr IV Q12H PRAVEENA Stop: 05/23/17 08:59 Last Admin: 03/26/17 09:16 Dose: 165 mls/hr Sodium Chloride (Nacl 0.45%) 1,000 mls @ 80 mls/hr IV .[id number] [facility] Stop: 05/24/17 17:47 Lacosamide (Vimpat) 50 mg PO BID PRAVEENA Stop: 05/23/17 08:59 Last Admin: 03/26/17 09:17 Dose: 50 mg Lactobacillus Rhamnosus (Culturelle) 1 each PO DAILY PRAVEENA Stop: 05/23/17 08:59 Last Admin: 03/26/17 09:34 Dose: 1 each Lactulose (Cephulac) 10 gm PO DAILY PRAVEENA Stop: 05/23/17 08:59 Last Admin: 03/26/17 09:18 Dose: 10 gm Levetiracetam (Keppra) 1,500 mg PO BID PRAVEENA Stop: 05/23/17 08:59 Last Admin: 03/26/17 09:17 Dose: 1,500 mg Levothyroxine Sodium (Synthroid) 0.05 mg PO QDAC PRAVEENA Stop: 05/23/17 07:29 Last Admin: 03/26/17 07:03 Dose: 0.05 mg Lorazepam (Ativan) 1 mg IVP Q4HR PRN; Protocol PRN Reason: Agitation Stop: 05/22/17 13:36 Last Admin: 03/25/17 23:47 Dose: 1 mg Metoclopramide HCl (Reglan) 5 mg PO BID [facility] Stop: 05/23/17 08:59 Last Admin: 03/26/17 09:16 Dose: 5 mg Miscellaneous (Vancomycin Iv Per Pharmacy) 1 ea MC PRN PRN PRN Reason: PROTOCOL Stop: 05/22/17 18:29 Ondansetron HCl (Zofran Odt) 4 mg PO Q4H PRN PRN Reason: Nausea / Vomiting Stop: 05/22/17 22:35 General: Alert (decreased BS), No acute distress HEENT: Atraumatic Neck: Supple, Thyromegaly Cardiovascular: Regular rate, Normal S1 Lungs: Other (rhonchi) Abdomen: Bowel sounds, Soft Extremities: no Edema Neurological: Sensation intact Skin: no Rash Psych/Mental Status: Mood NL - Procedures Procedures: Procedures Procedure Code Date COLONOSCOPY 45.23 07/22/10 DIAGNOSTIC COLONOSCOPY 21625 07/22/10 EGD DIAGNOSTIC BRUSH WASH 73070 04/17/09 ESOPHAGOGASTRODUODENOSCOPY [EGD] W/CLOSED BIOPSY 45.16 03/05/09 EXC TR-EXT B9+CHILANGO 0.5 CM< 26398 06/26/16 EXCISION OF CHEST WALL, OPEN APPROACH [id number] 06/26/16 OTHER ENDOSCOPY OF SM INTEST 45.13 04/17/09 Assessment/Plan - Problem List Patient Problems: All Active Problems VOMITING WITH PERIPHERAL TREMORS (Acute) 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 Failure to thrive (Acute) [id number] History of pneumonia (Acute) Z87.01 Inadequate oral intake (Acute) R63.8 Leukocytosis (Acute) D72.829 Thyroid disorder (Acute) UTI (urinary tract infection) (Acute) - Assessment Assessment: BETH prerenal azotemia Dehydration Sepsis 2nd RML HAP Gastritis Intellectual disability Functional quadriplegia - Plan Plan: Lab - Result Diagrams 03/26/17 05:55 03/26/17 05:55 Current Medications Acetaminophen (Tylenol) 650 mg PO Q6H PRN PRN Reason: Pain (Mild) Stop: 05/22/17 22:35 Last Admin: 03/24/17 12:44 Dose: 650 mg Azithromycin (Zithromax) 500 mg PO DAILY [facility] Stop: 05/23/17 08:59 Last Admin: 03/26/17 09:16 Dose: 500 mg Desmopressin Acetate (Ddavp) 0.1 mg PO DAILY PRAVEENA Stop: 05/23/17 08:59 Last Admin: 03/26/17 09:17 Dose: 0.1 mg Diphenhydramine HCl (Benadryl) 25 mg PO Q6H PRN PRN Reason: Itching Stop: 05/22/17 22:35 Last Admin: 03/25/17 01:52 Dose: 25 mg Diphenoxylate HCl/Atropine (Lomotil) 1 tab PO Q6H PRN PRN Reason: Diarrhea Stop: 05/22/17 22:35 Divalproex Sodium (Depakote Dr) 500 mg PO TID PRAVEENA PRN Reason: Protocol Stop: 05/23/17 08:59 Last Admin: 03/26/17 14:11 Dose: 500 mg Fluoxetine HCl (Prozac) 20 mg PO DAILY PRAVEENA PRN Reason: Protocol Stop: 05/23/17 08:59 Last Admin: 03/26/17 14:12 Dose: 20 mg Piperacillin Sod/Tazobactam (Sod 3.375 gm/ Sodium Chloride) 50 mls @ 100 mls/ hr IV Q8HR [facility] Stop: 05/22/17 20:59 Last Admin: 03/26/17 12:42 Dose: 50 mls/hr Vancomycin HCl 1 gm/ Sodium (Chloride) 250 mls @ 165 mls/hr IV Q12H [facility] Stop: 05/23/17 08:59 Last Admin: 03/26/17 09:16 Dose: 165 mls/hr Sodium Chloride (Nacl 0.45%) 1,000 mls @ 80 mls/hr IV .[id number] [facility] Stop: 05/24/17 17:47 Lacosamide (Vimpat) 50 mg PO BID [facility] Stop: 05/23/17 08:59 Last Admin: 03/26/17 09:17 Dose: 50 mg Lactobacillus Rhamnosus (Culturelle) 1 each PO DAILY PRAVEENA Stop: 05/23/17 08:59 Last Admin: 03/26/17 09:34 Dose: 1 each Lactulose (Cephulac) 10 gm PO DAILY [facility] Stop: 05/23/17 08:59 Last Admin: 03/26/17 09:18 Dose: 10 gm Levetiracetam (Keppra) 1,500 mg PO BID [facility] Stop: 05/23/17 08:59 Last Admin: 03/26/17 09:17 Dose: 1,500 mg Levothyroxine Sodium (Synthroid) 0.05 mg PO QDAC [facility] Stop: 05/23/17 07:29 Last Admin: 03/26/17 07:03 Dose: 0.05 mg Lorazepam (Ativan) 1 mg IVP Q4HR PRN; Protocol PRN Reason: Agitation Stop: 05/22/17 13:36 Last Admin: 03/25/17 23:47 Dose: 1 mg Metoclopramide HCl (Reglan) 5 mg PO BID PRAVEENA Stop: 05/23/17 08:59 Last Admin: 03/26/17 09:16 Dose: 5 mg Miscellaneous (Vancomycin Iv Per Pharmacy) 1 ea MC PRN PRN PRN Reason: PROTOCOL Stop: 05/22/17 18:29 Ondansetron HCl (Zofran Odt) 4 mg PO Q4H PRN PRN Reason: Nausea / Vomiting Stop: 05/22/17 22:35 Lab - Result Diagrams 03/26/17 05:55 03/26/17 05:55 Kidney fnc improving w/ hydration WBC still elevated @ 15.3 continue ABx Nutritional Asmnt/Malnutr-PDOC - Dietary Evaluation Malnutrition Findings (Please click <Entered> for more info): Nutritional Asmnt/Malnutrition Start: 03/24/17 14: 28 Text: Status: Active Freq: Document 03/24/17 14:28 LCHENG (Rec: 03/24/17 14:54 [email or web address]) Nutritional Asmnt/Malnutrition Patient General Information Nutritional Screening High Risk Diagnosis sepsis, vomiting, PNA, dehydration, gastritis Pertinent Medical Hx/Surgical Hx HTN, PUD/GERD, seizures, thyroid disorder, DM, depression Subjective Information Pt seen lying in bed, alert and very confused. Spoke to nurse, pt consumed 60% of breakfast this morning, prefer drinking than eating. Pt likes jello, pudding. Not able to perform physical exam at this time, pt appeared thin. Current Diet Order/ Nutrition Support pureed Pertinent Medications culturelly, reglan, vancomycin , peperacillin, Nacl IV Pertinent Labs 03/24 Na 149H, K 4.2, Cl 115H, BUN 48H, Cr 1.3, Glu 90, Ammonia 85H Nutritional Hx/Data Height 1.7 m Height (Calculated Centimeters) 170.2 Current Weight (lbs) 63.503 kg Weight (Calculated Kilograms) 63.5 Weight (Calculated Grams) 46533.9 [place] Body Weight 148 % [place] Body Weight 95 Body Mass Index (BMI) 21.9 Weight Status Approriate GI Symptoms GI Symptoms None Last BM 03/24 Difficult in: None Food Allergies No Skin Integrity/Comment: intact, dryness, small redness on bilateral knee Estimated Nutritional Goals BEE in Kcals: Using Current wt Calories/Kcals/Kg 30-35 Kcals Calculated 4790-5240 Protein: Using Current wt Protein g/k.2-1.5 Protein Calculated 76-95 Fluid: ml 3547-4553 Nutritional Problem 1. Problem Problem increased nutrition needs ( calorie and protein) Etiology increased metabolic demand for sepsis Signs/Symptoms: dx of sepsis Malnutrition Alert Protein-Calorie Malnutrition N/A Is there a minimum of two criteria No selected? Query Text:Check all the applicable criteria. A minimum of two criteria are recommended for diagnosis of either severe or non-severe malnutrition. Intervention/Recommendation Comments 1. continue with current diet as ordered. 2. pt likes jello and pudding, notified pediatric dietician and updated diet profile 3. monitor PO intake, wt weekly, labs 4. F/U as high risk in 2-3 days, 03/26-03/27 Expected Outcomes/Goals Expected Outcomes/Goals 1. PO intake >50% to meet 100% of nutritional needs 2. wt stablity, labs to improve, no sign and symptoms of dehydration
[2017-03-26] MEDS: Sodium Chloride 0.45% 1,000 ML IV SCH (14:58)
[2017-03-27] MEDS: Sodium Chloride 0.45% 1,000 ML IV SCH ×2 (05:13→22:53)
[2017-03-27 06:18] LABS: % BASOPHILS 0.4 % (0.0-2.0); % EOSINOPHILS 4.6 % (0.0-5.0); % LYMPHOCYTES 29.1 % (20.0-50.0); % MONOCYTES 7.7 % (2.0-10.0); % NEUTROPHILS 58.2 % (40.0-80.0); HEMATOCRIT 38.8 % (41.0-60); HEMOGLOBIN 12.7 gm/dL (12-16); MEAN CELL VOLUME 86.2 fl (80-99); MEAN CORPUSCULAR HEMOGLOBIN 28.3 pg (26.0-30.0); MEAN CORPUSCULAR HGB CONC 32.8 pg (28.0-36.0); MEAN PLATELET VOLUME 6.8 fl; NEUTROPHILE ABSOLUTE 8.3 Th/cmm (1.8-8.0); PLATELET COUNT 370 Th/cmm (150-400)
--- NOTE | 2017-03-27 06:33 | Progress Notes ---
DATE: 03/26/2017 SUBJECTIVE: The patient was seen in his room, lying in the bed. The patient is a poor historian due to medical condition, otherwise the patient appears to be comfortable in no acute distress. OBJECTIVE: VITAL SIGNS: Temperature 99.3, heart rate of 84, blood pressure 113/53, respiration of 19, 95% on room air. HEENT: Head is atraumatic and normocephalic. Eyes: Bilateral conjunctivae are clear. Bilateral pupils are equally round and reactive. NECK: Supple. No JVD. CARDIOVASCULAR: S1 and S2, without murmur. PULMONARY: Clear to auscultation. GASTROINTESTINAL: Soft and nontender without guarding. Positive bowel sounds. MUSCULOSKELETAL: No clubbing, no cyanosis noted. ASSESSMENT: 1. Pneumonia. 2. Dehydration. 3. Gastritis. 4. Angelman syndrome. 5. Urinary tract infection. PLAN: We will continue current patient's antibiotics. We will follow up with the environmental property assessor to monitor kidney functions. We will follow up with ID doctor for antibiotic management. We will continue 1:1 monitoring as needed. Treatment plan were discussed with the patient's nurse. Treatment plans were discussed with Dr. Nina. JOB# [id number]
[2017-03-27 06:37] LABS: ANION GAP 9.2 (7.0-16.0); BUN - UREA NITROGEN 26 mg/dL (7-25); BUN/CREATININE RATIO 28.9; CALCIUM SERUM 9.2 mg/dL (8.6-10.3); CARBON DIOXIDE 26.2 mEq/L (21.0-31.0); CHLORIDE 111 mEq/L (98-107); CREATININE - SERUM 0.9 mg/dL (0.7-1.3); GLUCOSE 91 mg/dL (70-105); POTASSIUM SERUM 4.4 mEq/L (3.5-5.1); SODIUM SERUM 142 mEq/L (136-145); WHITE BLOOD COUNT 14.4 Th/cmm (4.8-10.8)
[2017-03-27] MEDS: Levothyroxine 0.05 Mg Tab PO SCH (06:44)
--- NOTE | 2017-03-27 08:11 | General Progress Note ---
Subjective - Review of Systems Events since last encounter: no change no distress Objective - Results Result Diagrams: 03/27/17 06:06 03/27/17 06:06 Recent Labs: Laboratory Last Values WBC 14.4 Th/cmm (4.8-10.8) H 03/27/17 06:06 RBC 4.50 Mil/cmm (4.30-5.70) 03/27/17 06:06 Hgb 12.7 gm/dL (12-16) 03/27/17 06:06 Hct 38.8 % (41.0-60) L 03/27/17 06:06 MCV 86.2 fl (80-99) 03/27/17 06:06 MCH 28.3 pg (26.0-30.0) 03/27/17 06:06 MCHC Differential 32.8 pg (28.0-36.0) 03/27/17 06:06 RDW 16.0 % (11.5-20.0) 03/27/17 06:06 Plt Count 370 Th/cmm (150-400) 03/27/17 06:06 MPV 6.8 fl 03/27/17 06:06 Neutrophils % 58.2 % (40.0-80.0) 03/27/17 06:06 Band Neutrophils % 2 % (0-10) 03/24/17 06:17 Lymphocytes % 29.1 % (20.0-50.0) 03/27/17 06:06 Monocytes % 7.7 % (2.0-10.0) 03/27/17 06:06 Eosinophils % 4.6 % (0.0-5.0) 03/27/17 06:06 Basophils % 0.4 % (0.0-2.0) 03/27/17 06:06 Neutrophils (Manual) 60 % (40-80) 03/24/17 06:17 Lymphocytes 24 % (20-50) 03/24/17 06:17 Monocytes 14 % (2-10) H 03/24/17 06:17 PT 12.7 SECONDS (9.5-11.5) H 03/23/17 13:30 INR 1.21 (0.5-1.4) 03/23/17 13:30 PTT (Actin FS) 23.9 SECONDS (26.0-38.0) L 03/23/17 13:30 Sodium 142 mEq/L (136-145) 03/27/17 06:06 Potassium 4.4 mEq/L (3.5-5.1) 03/27/17 06:06 Chloride 111 mEq/L (98-107) H 03/27/17 06:06 Carbon Dioxide 26.2 mEq/L (21.0-31.0) 03/27/17 06:06 Anion Gap 9.2 (7.0-16.0) 03/27/17 06:06 BUN 26 mg/dL (7-25) H 03/27/17 06:06 Creatinine 0.9 mg/dL (0.7-1.3) 03/27/17 06:06 Est GFR ( Amer) > 60.0 ml/min (>90) 03/27/17 06:06 Est GFR (Non-Af Amer) > 60.0 ml/min 03/27/17 06:06 BUN/Creatinine Ratio 28.9 03/27/17 06:06 Glucose 91 mg/dL (70-105) 03/27/17 06:06 Whole Bld Lactic Acid 1.99 mmol/L (0.60-1.99) 03/23/17 13:30 Calcium 9.2 mg/dL (8.6-10.3) 03/27/17 06:06 Magnesium 2.7 mg/dL (1.9-2.7) 03/24/17 06:17 Total Bilirubin 0.4 mg/dL (0.3-1.0) 03/23/17 13:30 AST 39 U/L (13-39) 03/23/17 13:30 ALT 28 U/L (7-52) 03/23/17 13:30 Alkaline Phosphatase 51 U/L (34-104) 03/23/17 13:30 Ammonia 85 umol/L (16-53) H 03/23/17 13:30 Creatine Kinase 275 U/L (30-223) H 03/23/17 13:30 CK-MB (CK-2) 3.1 ng/mL (0.6-6.3) 03/23/17 13:30 Troponin I 0.04 ng/mL (0.01-0.05) 03/23/17 13:30 Total Protein 8.5 gm/dL (6.0-8.3) H 03/23/17 13:30 Albumin 4.4 gm/dL (4.2-5.5) 03/23/17 13:30 Globulin 4.1 gm/dL 03/23/17 13:30 Albumin/Globulin Ratio 1.1 (1.0-1.8) 03/23/17 13:30 Amylase 40 U/L (29-103) 03/23/17 13:30 Lipase 41 U/L (11-82) 03/23/17 13:30 Urine Source MIDSTREAM 03/23/17 12:50 Urine Color YELLOW 03/23/17 12:50 Urine Clarity CLOUDY (CLEAR) 03/23/17 12:50 Urine pH 5.5 (4.6 - 8.0) 03/23/17 12:50 Ur Specific [place] > 1.030 (1.005-1.030) H 03/23/17 12:50 Urine Protein NEGATIVE mg/dL (NEGATIVE) 03/23/17 12:50 Urine Glucose (UA) NEGATIVE mg/dL (NEGATIVE) 03/23/17 12:50 Urine Ketones 15 mg/dL (NEGATIVE) H 03/23/17 12:50 Urine Blood MODERATE (NEGATIVE) H 03/23/17 12:50 Urine Nitrate NEGATIVE (NEGATIVE) 03/23/17 12:50 Urine Bilirubin SMALL (NEGATIVE) H 03/23/17 12:50 Urine Urobilinogen 0.2 E.U./dL (0.2 - 1.0) 03/23/17 12:50 Ur Leukocyte Esterase NEGATIVE (NEGATIVE) 03/23/17 12:50 Urine RBC 5-10 /hpf (0-5) H 03/23/17 12:50 Urine WBC 0-2 /hpf (0-5) 03/23/17 12:50 Ur Epithelial Cells FEW /lpf (FEW) 03/23/17 12:50 Amorphous Sediment FEW URATES (NONE SEEN) 03/23/17 12:50 Urine Bacteria FEW /hpf (NONE SEEN) 03/23/17 12:50 Fine Granular Casts 0-2 /lpf (NONE SEEN) H 03/23/17 12:50 Urine Mucus FEW /lpf (FEW) 03/23/17 12:50 Vancomycin Trough 16.3 ug/mL (10-20) 03/25/17 19:57 - Physical Exam Vitals and I&O: Vital Signs Temp 98.0 F 03/27/17 04:00 Pulse 79 03/27/17 04:00 Resp 20 03/27/17 04:00 BP 127/56 03/27/17 04:00 Pulse Ox 96 03/27/17 04:00 Intake & Output 03/26/17 03/27/17 03/27/17 18:59 06:59 18:59 Intake Total 1580 1574.667 Balance 1580 1574.667 Weight (lbs) 64.864 kg 64.864 kg Intake: Intake, IV Amount 550 1424.667 Piperacillin Sodium/ 50 100 Tazobact 3.375 gm In Sodium Chloride 0.9% 50 ml @ 100 mls/hr IV Q8HR [facility] Rx#:[id number] Sodium Chloride 0.45% 1, 1074.667 000 ml @ 80 mls/hr IV . [id number] [facility] Rx#:[id number] Vancomycin HCl 1 gm In 500 250 Sodium Chloride 0.9% 250 ml @ 165 mls/hr IV Q12H [facility] Rx#:[id number] Oral 1030 150 Other: # Voids 3 2 # Bowel Movements 2 1 Stool Characteristics Soft Soft Brown Brown Active Medications: Current Medications Acetaminophen (Tylenol) 650 mg PO Q6H PRN PRN Reason: Pain (Mild) Stop: 05/22/17 22:35 Last Admin: 03/24/17 12:44 Dose: 650 mg Azithromycin (Zithromax) 500 mg PO DAILY [facility] Stop: 05/23/17 08:59 Last Admin: 03/26/17 09:16 Dose: 500 mg Desmopressin Acetate (Ddavp) 0.1 mg PO DAILY [facility] Stop: 05/23/17 08:59 Last Admin: 03/26/17 09:17 Dose: 0.1 mg Diphenhydramine HCl (Benadryl) 25 mg PO Q6H PRN PRN Reason: Itching Stop: 05/22/17 22:35 Last Admin: 03/25/17 01:52 Dose: 25 mg Diphenoxylate HCl/Atropine (Lomotil) 1 tab PO Q6H PRN PRN Reason: Diarrhea Stop: 05/22/17 22:35 Divalproex Sodium (Depakote Dr) 500 mg PO TID [facility] PRN Reason: Protocol Stop: 05/23/17 08:59 Last Admin: 03/26/17 21:22 Dose: 500 mg Fluoxetine HCl (Prozac) 20 mg PO DAILY [facility] PRN Reason: Protocol Stop: 05/23/17 08:59 Last Admin: 03/26/17 14:12 Dose: 20 mg Piperacillin Sod/Tazobactam (Sod 3.375 gm/ Sodium Chloride) 50 mls @ 100 mls/ hr IV Q8HR [facility] Stop: 05/22/17 20:59 Last Infusion: 03/27/17 06:10 Dose: Infused Vancomycin HCl 1 gm/ Sodium (Chloride) 250 mls @ 165 mls/hr IV Q12H [facility] Stop: 05/23/17 08:59 Last Infusion: 03/27/17 06:10 Dose: Infused Sodium Chloride (Nacl 0.45%) 1,000 mls @ 80 mls/hr IV .[id number] [facility] Stop: 05/24/17 17:47 Last Infusion: 03/27/17 06:09 Dose: 80 mls/hr Lacosamide (Vimpat) 50 mg PO BID [facility] Stop: 05/23/17 08:59 Last Admin: 03/26/17 16:06 Dose: 50 mg Lactobacillus Rhamnosus (Culturelle) 1 each PO DAILY [facility] Stop: 05/23/17 08:59 Last Admin: 03/26/17 09:34 Dose: 1 each Lactulose (Cephulac) 10 gm PO DAILY [facility] Stop: 05/23/17 08:59 Last Admin: 03/26/17 09:18 Dose: 10 gm Levetiracetam (Keppra) 1,500 mg PO BID [facility] Stop: 05/23/17 08:59 Last Admin: 03/26/17 16:06 Dose: 1,500 mg Levothyroxine Sodium (Synthroid) 0.05 mg PO QDAC [facility] Stop: 05/23/17 07:29 Last Admin: 03/27/17 06:44 Dose: 0.05 mg Lorazepam (Ativan) 1 mg IVP Q4HR PRN; Protocol PRN Reason: Agitation Stop: 05/22/17 13:36 Last Admin: 03/25/17 23:47 Dose: 1 mg Metoclopramide HCl (Reglan) 5 mg PO BID [facility] Stop: 05/23/17 08:59 Last Admin: 03/26/17 16:07 Dose: 5 mg Miscellaneous (Vancomycin Iv Per Pharmacy) 1 ea [facility] PRN PRN PRN Reason: PROTOCOL Stop: 05/22/17 18:29 Ondansetron HCl (Zofran Odt) 4 mg PO Q4H PRN PRN Reason: Nausea / Vomiting Stop: 05/22/17 22:35 General: Alert (decreased BS), No acute distress HEENT: Atraumatic Neck: Supple, Thyromegaly Cardiovascular: Regular rate, Normal S1 Lungs: Other (rhonchi) Abdomen: Bowel sounds, Soft Extremities: no Edema Neurological: Sensation intact Skin: no Rash Psych/Mental Status: Mood NL - Procedures Procedures: Procedures Procedure Code Date COLONOSCOPY 45.23 07/22/10 DIAGNOSTIC COLONOSCOPY 76705 07/22/10 EGD DIAGNOSTIC BRUSH WASH 28790 04/17/09 ESOPHAGOGASTRODUODENOSCOPY [EGD] W/CLOSED BIOPSY 45.16 03/05/09 EXC TR-EXT B9+CHILANGO 0.5 CM< 88487 06/26/16 EXCISION OF CHEST WALL, OPEN APPROACH [id number] 06/26/16 OTHER ENDOSCOPY OF SM INTEST 45.13 04/17/09 Assessment/Plan - Problem List Patient Problems: All Active Problems VOMITING WITH PERIPHERAL TREMORS (Acute) 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 Failure to thrive (Acute) [id number] History of pneumonia (Acute) Z87.01 Inadequate oral intake (Acute) R63.8 Leukocytosis (Acute) D72.829 Thyroid disorder (Acute) UTI (urinary tract infection) (Acute) - Plan Plan: [facility] Nutritional Asmnt/Malnutr-PDOC - Dietary Evaluation Malnutrition Findings (Please click <Entered> for more info): Nutritional Asmnt/Malnutrition Start: 03/24/17 14: 28 Text: Status: Active Freq: Document 03/24/17 14:28 SHAYNA (Rec: 03/24/17 14:54 [email or web address]) Nutritional Asmnt/Malnutrition Patient General Information Nutritional Screening High Risk Diagnosis sepsis, vomiting, PNA, dehydration, gastritis Pertinent Medical Hx/Surgical Hx HTN, PUD/GERD, seizures, thyroid disorder, DM, depression Subjective Information Pt seen lying in bed, alert and very confused. Spoke to nurse, pt consumed 60% of breakfast this morning, prefer drinking than eating. Pt likes jello, pudding. Not able to perform physical exam at this time, pt appeared thin. Current Diet Order/ Nutrition Support pureed Pertinent Medications culturelly, reglan, vancomycin , peperacillin, Nacl IV Pertinent Labs 03/24 Na 149H, K 4.2, Cl 115H, BUN 48H, Cr 1.3, Glu 90, Ammonia 85H Nutritional Hx/Data Height 1.7 m Height (Calculated Centimeters) 170.2 Current Weight (lbs) 63.503 kg Weight (Calculated Kilograms) 63.5 Weight (Calculated Grams) 47340.9 [place] Body Weight 148 % [place] Body Weight 95 Body Mass Index (BMI) 21.9 Weight Status Approriate GI Symptoms GI Symptoms None Last BM 03/24 Difficult in: None Food Allergies No Skin Integrity/Comment: intact, dryness, small redness on bilateral knee Estimated Nutritional Goals BEE in Kcals: Using Current wt Calories/Kcals/Kg 30-35 Kcals Calculated 7608-4316 Protein: Using Current wt Protein g/k.2-1.5 Protein Calculated 76-95 Fluid: ml 2433-1809 Nutritional Problem 1. Problem Problem increased nutrition needs ( calorie and protein) Etiology increased metabolic demand for sepsis Signs/Symptoms: dx of sepsis Malnutrition Alert Protein-Calorie Malnutrition N/A Is there a minimum of two criteria No selected? Query Text:Check all the applicable criteria. A minimum of two criteria are recommended for diagnosis of either severe or non-severe malnutrition. Intervention/Recommendation Comments 1. continue with current diet as ordered. 2. pt likes jello and pudding, notified diet attendant and updated diet profile 3. monitor PO intake, wt weekly, labs 4. F/U as high risk in 2-3 days, 03/26-03/27 Expected Outcomes/Goals Expected Outcomes/Goals 1. PO intake >50% to meet 100% of nutritional needs 2. wt stablity, labs to improve, no sign and symptoms of dehydration
[2017-03-27] MEDS: Lactobacillus Rhamnosus 10 Billion CFU Capsule PO SCH (09:15)
[2017-03-27] MEDS: Lactulose 10 Gm/15 mL 30mL UDC PO SCH (09:31)
--- NOTE | 2017-03-27 15:22 | Infectious Disease Prog Note ---
Infectious Disease Subjective - Review of Systems Service Date: 03/27/17 Subjective: No change. Infectious Disease Objective - Results Result Diagrams: 03/27/17 06:06 03/27/17 06:06 Recent Labs: Laboratory Last Values WBC 14.4 Th/cmm (4.8-10.8) H 03/27/17 06:06 RBC 4.50 Mil/cmm (4.30-5.70) 03/27/17 06:06 Hgb 12.7 gm/dL (12-16) 03/27/17 06:06 Hct 38.8 % (41.0-60) L 03/27/17 06:06 MCV 86.2 fl (80-99) 03/27/17 06:06 MCH 28.3 pg (26.0-30.0) 03/27/17 06:06 MCHC Differential 32.8 pg (28.0-36.0) 03/27/17 06:06 RDW 16.0 % (11.5-20.0) 03/27/17 06:06 Plt Count 370 Th/cmm (150-400) 03/27/17 06:06 MPV 6.8 fl 03/27/17 06:06 Neutrophils % 58.2 % (40.0-80.0) 03/27/17 06:06 Band Neutrophils % 2 % (0-10) 03/24/17 06:17 Lymphocytes % 29.1 % (20.0-50.0) 03/27/17 06:06 Monocytes % 7.7 % (2.0-10.0) 03/27/17 06:06 Eosinophils % 4.6 % (0.0-5.0) 03/27/17 06:06 Basophils % 0.4 % (0.0-2.0) 03/27/17 06:06 Neutrophils (Manual) 60 % (40-80) 03/24/17 06:17 Lymphocytes 24 % (20-50) 03/24/17 06:17 Monocytes 14 % (2-10) H 03/24/17 06:17 PT 12.7 SECONDS (9.5-11.5) H 03/23/17 13:30 INR 1.21 (0.5-1.4) 03/23/17 13:30 PTT (Actin FS) 23.9 SECONDS (26.0-38.0) L 03/23/17 13:30 Sodium 142 mEq/L (136-145) 03/27/17 06:06 Potassium 4.4 mEq/L (3.5-5.1) 03/27/17 06:06 Chloride 111 mEq/L (98-107) H 03/27/17 06:06 Carbon Dioxide 26.2 mEq/L (21.0-31.0) 03/27/17 06:06 Anion Gap 9.2 (7.0-16.0) 03/27/17 06:06 BUN 26 mg/dL (7-25) H 03/27/17 06:06 Creatinine 0.9 mg/dL (0.7-1.3) 03/27/17 06:06 Est GFR ( Amer) > 60.0 ml/min (>90) 03/27/17 06:06 Est GFR (Non-Af Amer) > 60.0 ml/min 03/27/17 06:06 BUN/Creatinine Ratio 28.9 03/27/17 06:06 Glucose 91 mg/dL (70-105) 03/27/17 06:06 POC Glucose 137 MG/DL (70 - 105) H 03/27/17 08:33 Whole Bld Lactic Acid 1.99 mmol/L (0.60-1.99) 03/23/17 13:30 Calcium 9.2 mg/dL (8.6-10.3) 03/27/17 06:06 Magnesium 2.7 mg/dL (1.9-2.7) 03/24/17 06:17 Total Bilirubin 0.4 mg/dL (0.3-1.0) 03/23/17 13:30 AST 39 U/L (13-39) 03/23/17 13:30 ALT 28 U/L (7-52) 03/23/17 13:30 Alkaline Phosphatase 51 U/L (34-104) 03/23/17 13:30 Ammonia 85 umol/L (16-53) H 03/23/17 13:30 Creatine Kinase 275 U/L (30-223) H 03/23/17 13:30 CK-MB (CK-2) 3.1 ng/mL (0.6-6.3) 03/23/17 13:30 Troponin I 0.04 ng/mL (0.01-0.05) 03/23/17 13:30 Total Protein 8.5 gm/dL (6.0-8.3) H 03/23/17 13:30 Albumin 4.4 gm/dL (4.2-5.5) 03/23/17 13:30 Globulin 4.1 gm/dL 03/23/17 13:30 Albumin/Globulin Ratio 1.1 (1.0-1.8) 03/23/17 13:30 Amylase 40 U/L (29-103) 03/23/17 13:30 Lipase 41 U/L (11-82) 03/23/17 13:30 Urine Source MIDSTREAM 03/23/17 12:50 Urine Color YELLOW 03/23/17 12:50 Urine Clarity CLOUDY (CLEAR) 03/23/17 12:50 Urine pH 5.5 (4.6 - 8.0) 03/23/17 12:50 Ur Specific [place] > 1.030 (1.005-1.030) H 03/23/17 12:50 Urine Protein NEGATIVE mg/dL (NEGATIVE) 03/23/17 12:50 Urine Glucose (UA) NEGATIVE mg/dL (NEGATIVE) 03/23/17 12:50 Urine Ketones 15 mg/dL (NEGATIVE) H 03/23/17 12:50 Urine Blood MODERATE (NEGATIVE) H 03/23/17 12:50 Urine Nitrate NEGATIVE (NEGATIVE) 03/23/17 12:50 Urine Bilirubin SMALL (NEGATIVE) H 03/23/17 12:50 Urine Urobilinogen 0.2 E.U./dL (0.2 - 1.0) 03/23/17 12:50 Ur Leukocyte Esterase NEGATIVE (NEGATIVE) 03/23/17 12:50 Urine RBC 5-10 /hpf (0-5) H 03/23/17 12:50 Urine WBC 0-2 /hpf (0-5) 03/23/17 12:50 Ur Epithelial Cells FEW /lpf (FEW) 03/23/17 12:50 Amorphous Sediment FEW URATES (NONE SEEN) 03/23/17 12:50 Urine Bacteria FEW /hpf (NONE SEEN) 03/23/17 12:50 Fine Granular Casts 0-2 /lpf (NONE SEEN) H 03/23/17 12:50 Urine Mucus FEW /lpf (FEW) 03/23/17 12:50 Vancomycin Trough 16.3 ug/mL (10-20) 03/25/17 19:57 - Physical Exam Vitals and I&O: Vital Signs Temp 97.9 F 03/27/17 12:00 Pulse 83 03/27/17 12:00 Resp 20 03/27/17 12:00 BP 119/67 03/27/17 12:00 Pulse Ox 100 03/27/17 12:00 Intake & Output 03/26/17 03/27/17 03/27/17 18:59 06:59 18:59 Intake Total 1580 1574.667 Balance 1580 1574.667 Weight (lbs) 64.864 kg 64.864 kg Intake: Intake, IV Amount 550 1424.667 Piperacillin Sodium/ 50 100 Tazobact 3.375 gm In Sodium Chloride 0.9% 50 ml @ 100 mls/hr IV Q8HR [facility] Rx#:[id number] Sodium Chloride 0.45% 1, 1074.667 000 ml @ 80 mls/hr IV . [id number] [facility] Rx#:[id number] Vancomycin HCl 1 gm In 500 250 Sodium Chloride 0.9% 250 ml @ 165 mls/hr IV Q12H [facility] Rx#:[id number] Oral 1030 150 Other: # Voids 3 2 # Bowel Movements 2 1 Stool Characteristics Soft Soft Soft Brown Brown Brown Active Medications: Current Medications Acetaminophen (Tylenol) 650 mg PO Q6H PRN PRN Reason: Pain (Mild) Stop: 05/22/17 22:35 Last Admin: 03/24/17 12:44 Dose: 650 mg Azithromycin (Zithromax) 500 mg PO DAILY [facility] Stop: 05/23/17 08:59 Last Admin: 03/27/17 09:16 Dose: 500 mg Desmopressin Acetate (Ddavp) 0.1 mg PO DAILY [facility] Stop: 05/23/17 08:59 Last Admin: 03/27/17 09:15 Dose: 0.1 mg Diphenhydramine HCl (Benadryl) 25 mg PO Q6H PRN PRN Reason: Itching Stop: 05/22/17 22:35 Last Admin: 03/25/17 01:52 Dose: 25 mg Diphenoxylate HCl/Atropine (Lomotil) 1 tab PO Q6H PRN PRN Reason: Diarrhea Stop: 05/22/17 22:35 Divalproex Sodium (Depakote Dr) 500 mg PO TID [facility] PRN Reason: Protocol Stop: 05/23/17 08:59 Last Admin: 03/27/17 13:01 Dose: 500 mg Fluoxetine HCl (Prozac) 20 mg PO DAILY [facility] PRN Reason: Protocol Stop: 05/23/17 08:59 Last Admin: 03/27/17 09:16 Dose: 20 mg Piperacillin Sod/Tazobactam (Sod 3.375 gm/ Sodium Chloride) 50 mls @ 100 mls/ hr IV Q8HR [facility] Stop: 05/22/17 20:59 Last Admin: 03/27/17 12:44 Dose: 100 mls/hr Vancomycin HCl 1 gm/ Sodium (Chloride) 250 mls @ 165 mls/hr IV Q12H [facility] Stop: 05/23/17 08:59 Last Admin: 03/27/17 09:16 Dose: 165 mls/hr Sodium Chloride (Nacl 0.45%) 1,000 mls @ 80 mls/hr IV .[id number] [facility] Stop: 05/24/17 17:47 Last Infusion: 03/27/17 06:09 Dose: 80 mls/hr Lacosamide (Vimpat) 50 mg PO BID [facility] Stop: 05/23/17 08:59 Last Admin: 03/27/17 09:15 Dose: 50 mg Lactobacillus Rhamnosus (Culturelle) 1 each PO DAILY [facility] Stop: 05/23/17 08:59 Last Admin: 03/27/17 09:15 Dose: 1 each Lactulose (Cephulac) 10 gm PO DAILY [facility] Stop: 05/23/17 08:59 Last Admin: 03/27/17 09:31 Dose: 10 gm Levetiracetam (Keppra) 1,500 mg PO BID [facility] Stop: 05/23/17 08:59 Last Admin: 03/27/17 09:15 Dose: 1,500 mg Levothyroxine Sodium (Synthroid) 0.05 mg PO QDAC [facility] Stop: 05/23/17 07:29 Last Admin: 03/27/17 06:44 Dose: 0.05 mg Lorazepam (Ativan) 1 mg IVP Q4HR PRN; Protocol PRN Reason: Agitation Stop: 05/22/17 13:36 Last Admin: 03/25/17 23:47 Dose: 1 mg Metoclopramide HCl (Reglan) 5 mg PO BID [facility] Stop: 05/23/17 08:59 Last Admin: 03/27/17 09:15 Dose: 5 mg Miscellaneous (Vancomycin Iv Per Pharmacy) 1 ea [facility] PRN PRN PRN Reason: PROTOCOL Stop: 05/22/17 18:29 Ondansetron HCl (Zofran Odt) 4 mg PO Q4H PRN PRN Reason: Nausea / Vomiting Stop: 05/22/17 22:35 General: no acute distress, well developed, well nourished HEENT: atraumatic, normocephalic Neck: supple, no thyromegaly Cardiovascular: S1S2, regular Lungs: clear to auscultation bilaterally, clear to percussion Abdomen: soft, no tender, no distended Extremities: no cyanosis, no clubbing Neurological: awake Skin: no intact, no rash - Procedures Procedures: Procedures Procedure Code Date COLONOSCOPY 45.23 07/22/10 DIAGNOSTIC COLONOSCOPY 75801 07/22/10 EGD DIAGNOSTIC BRUSH WASH 90724 04/17/09 ESOPHAGOGASTRODUODENOSCOPY [EGD] W/CLOSED BIOPSY 45.16 03/05/09 EXC TR-EXT B9+CHILANGO 0.5 CM< 20648 06/26/16 EXCISION OF CHEST WALL, OPEN APPROACH [id number] 06/26/16 OTHER ENDOSCOPY OF SM INTEST 45.13 04/17/09 Infectious Disease Assmt/Plan - Problem List Patient Problems: All Active Problems VOMITING WITH PERIPHERAL TREMORS (Acute) 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 Leukocytosis, aspiration versus reactive. 2. RML pneumonia. 3. Angleman's syndrome. Plan: Continue Zosyn. DC vanco. sepsis w/u. Nutritional Asmnt/Malnutr-PDOC - Dietary Evaluation Malnutrition Findings (Please click <Entered> for more info): Nutritional Asmnt/Malnutrition Start: 03/24/17 14: 28 Text: Status: Active Freq: Document 03/24/17 14:28 SHAYNA (Rec: 03/24/17 14:54 [email or web address]) Nutritional Asmnt/Malnutrition Patient General Information Nutritional Screening High Risk Diagnosis sepsis, vomiting, PNA, dehydration, gastritis Pertinent Medical Hx/Surgical Hx HTN, PUD/GERD, seizures, thyroid disorder, DM, depression Subjective Information Pt seen lying in bed, alert and very confused. Spoke to nurse, pt consumed 60% of breakfast this morning, prefer drinking than eating. Pt likes jello, pudding. Not able to perform physical exam at this time, pt appeared thin. Current Diet Order/ Nutrition Support pureed Pertinent Medications culturelly, reglan, vancomycin , peperacillin, Nacl IV Pertinent Labs 03/24 Na 149H, K 4.2, Cl 115H, BUN 48H, Cr 1.3, Glu 90, Ammonia 85H Nutritional Hx/Data Height 1.7 m Height (Calculated Centimeters) 170.2 Current Weight (lbs) 63.503 kg Weight (Calculated Kilograms) 63.5 Weight (Calculated Grams) 34132.9 [place] Body Weight 148 % [place] Body Weight 95 Body Mass Index (BMI) 21.9 Weight Status Approriate GI Symptoms GI Symptoms None Last BM 03/24 Difficult in: None Food Allergies No Skin Integrity/Comment: intact, dryness, small redness on bilateral knee Estimated Nutritional Goals BEE in Kcals: Using Current wt Calories/Kcals/Kg 30-35 Kcals Calculated 2836-8125 Protein: Using Current wt Protein g/k.2-1.5 Protein Calculated 76-95 Fluid: ml 4027-8612 Nutritional Problem 1. Problem Problem increased nutrition needs ( calorie and protein) Etiology increased metabolic demand for sepsis Signs/Symptoms: dx of sepsis Malnutrition Alert Protein-Calorie Malnutrition N/A Is there a minimum of two criteria No selected? Query Text:Check all the applicable criteria. A minimum of two criteria are recommended for diagnosis of either severe or non-severe malnutrition. Intervention/Recommendation Comments 1. continue with current diet as ordered. 2. pt likes jello and pudding, notified drum stock clerk and updated diet profile 3. monitor PO intake, wt weekly, labs 4. F/U as high risk in 2-3 days, 11/ Expected Outcomes/Goals Expected Outcomes/Goals 1. PO intake >50% to meet 100% of nutritional needs 2. wt stablity, labs to improve, no sign and symptoms of dehydration
[2017-03-28 05:57] LABS: % BASOPHILS 0.3 % (0.0-2.0); % EOSINOPHILS 4.9 % (0.0-5.0); % LYMPHOCYTES 25.4 % (20.0-50.0); % MONOCYTES 8.7 % (2.0-10.0); % NEUTROPHILS 60.7 % (40.0-80.0); HEMATOCRIT 37.6 % (41.0-60); HEMOGLOBIN 12.3 gm/dL (12-16); MEAN CELL VOLUME 86.7 fl (80-99); MEAN CORPUSCULAR HEMOGLOBIN 28.3 pg (26.0-30.0); MEAN CORPUSCULAR HGB CONC 32.6 pg (28.0-36.0); NEUTROPHILE ABSOLUTE 7.8 Th/cmm (1.8-8.0); PLATELET COUNT 355 Th/cmm (150-400); RED BLOOD COUNT 4.33 Mil/cmm (4.30-5.70); RED CELL DISTRIBUTION WIDTH 16.1 % (11.5-20.0); WHITE BLOOD COUNT 12.7 Th/cmm (4.8-10.8)
[2017-03-28 06:13] LABS: ANION GAP 5.9 (7.0-16.0); BUN - UREA NITROGEN 23 mg/dL (7-25); BUN/CREATININE RATIO 28.8; CHLORIDE 106 mEq/L (98-107); CREATININE - SERUM 0.8 mg/dL (0.7-1.3); GLUCOSE 85 mg/dL (70-105); POTASSIUM SERUM 3.9 mEq/L (3.5-5.1); SODIUM SERUM 137 mEq/L (136-145)
[2017-03-28] MEDS: Levothyroxine 0.05 Mg Tab PO SCH (07:38)
[2017-03-28] MEDS: Lactobacillus Rhamnosus 10 Billion CFU Capsule PO SCH (09:20)
[2017-03-28] MEDS: Lactulose 10 Gm/15 mL 30mL UDC PO SCH (09:20)
--- NOTE | 2017-03-28 12:39 | Infectious Disease Prog Note ---
Infectious Disease Subjective - Review of Systems Service Date: 03/28/17 Subjective: No change. Infectious Disease Objective - Results Result Diagrams: 03/28/17 05:23 03/28/17 05:23 Recent Labs: Laboratory Last Values WBC 12.7 Th/cmm (4.8-10.8) H 03/28/17 05:23 RBC 4.33 Mil/cmm (4.30-5.70) 03/28/17 05:23 Hgb 12.3 gm/dL (12-16) 03/28/17 05:23 Hct 37.6 % (41.0-60) L 03/28/17 05:23 MCV 86.7 fl (80-99) 03/28/17 05:23 MCH 28.3 pg (26.0-30.0) 03/28/17 05:23 MCHC Differential 32.6 pg (28.0-36.0) 03/28/17 05:23 RDW 16.1 % (11.5-20.0) 03/28/17 05:23 Plt Count 355 Th/cmm (150-400) 03/28/17 05:23 MPV 7.0 fl 03/28/17 05:23 Neutrophils % 60.7 % (40.0-80.0) 03/28/17 05:23 Band Neutrophils % 2 % (0-10) 03/24/17 06:17 Lymphocytes % 25.4 % (20.0-50.0) 03/28/17 05:23 Monocytes % 8.7 % (2.0-10.0) 03/28/17 05:23 Eosinophils % 4.9 % (0.0-5.0) 03/28/17 05:23 Basophils % 0.3 % (0.0-2.0) 03/28/17 05:23 Neutrophils (Manual) 60 % (40-80) 03/24/17 06:17 Lymphocytes 24 % (20-50) 03/24/17 06:17 Monocytes 14 % (2-10) H 03/24/17 06:17 PT 12.7 SECONDS (9.5-11.5) H 03/23/17 13:30 INR 1.21 (0.5-1.4) 03/23/17 13:30 PTT (Actin FS) 23.9 SECONDS (26.0-38.0) L 03/23/17 13:30 Sodium 137 mEq/L (136-145) 03/28/17 05:23 Potassium 3.9 mEq/L (3.5-5.1) 03/28/17 05:23 Chloride 106 mEq/L (98-107) 03/28/17 05:23 Carbon Dioxide 29.0 mEq/L (21.0-31.0) 03/28/17 05:23 Anion Gap 5.9 (7.0-16.0) L 03/28/17 05:23 BUN 23 mg/dL (7-25) 03/28/17 05:23 Creatinine 0.8 mg/dL (0.7-1.3) 03/28/17 05:23 Est GFR ( Amer) > 60.0 ml/min (>90) 03/28/17 05:23 Est GFR (Non-Af Amer) > 60.0 ml/min 03/28/17 05:23 BUN/Creatinine Ratio 28.8 03/28/17 05:23 Glucose 85 mg/dL (70-105) 03/28/17 05:23 POC Glucose 137 MG/DL (70 - 105) H 03/27/17 08:33 Whole Bld Lactic Acid 1.99 mmol/L (0.60-1.99) 03/23/17 13:30 Calcium 9.0 mg/dL (8.6-10.3) 03/28/17 05:23 Magnesium 2.7 mg/dL (1.9-2.7) 03/24/17 06:17 Total Bilirubin 0.4 mg/dL (0.3-1.0) 03/23/17 13:30 AST 39 U/L (13-39) 03/23/17 13:30 ALT 28 U/L (7-52) 03/23/17 13:30 Alkaline Phosphatase 51 U/L (34-104) 03/23/17 13:30 Ammonia 85 umol/L (16-53) H 03/23/17 13:30 Creatine Kinase 275 U/L (30-223) H 03/23/17 13:30 CK-MB (CK-2) 3.1 ng/mL (0.6-6.3) 03/23/17 13:30 Troponin I 0.04 ng/mL (0.01-0.05) 03/23/17 13:30 Total Protein 8.5 gm/dL (6.0-8.3) H 03/23/17 13:30 Albumin 4.4 gm/dL (4.2-5.5) 03/23/17 13:30 Globulin 4.1 gm/dL 03/23/17 13:30 Albumin/Globulin Ratio 1.1 (1.0-1.8) 03/23/17 13:30 Amylase 40 U/L (29-103) 03/23/17 13:30 Lipase 41 U/L (11-82) 03/23/17 13:30 Urine Source MIDSTREAM 03/23/17 12:50 Urine Color YELLOW 03/23/17 12:50 Urine Clarity CLOUDY (CLEAR) 03/23/17 12:50 Urine pH 5.5 (4.6 - 8.0) 03/23/17 12:50 Ur Specific [place] > 1.030 (1.005-1.030) H 03/23/17 12:50 Urine Protein NEGATIVE mg/dL (NEGATIVE) 03/23/17 12:50 Urine Glucose (UA) NEGATIVE mg/dL (NEGATIVE) 03/23/17 12:50 Urine Ketones 15 mg/dL (NEGATIVE) H 03/23/17 12:50 Urine Blood MODERATE (NEGATIVE) H 03/23/17 12:50 Urine Nitrate NEGATIVE (NEGATIVE) 03/23/17 12:50 Urine Bilirubin SMALL (NEGATIVE) H 03/23/17 12:50 Urine Urobilinogen 0.2 E.U./dL (0.2 - 1.0) 03/23/17 12:50 Ur Leukocyte Esterase NEGATIVE (NEGATIVE) 03/23/17 12:50 Urine RBC 5-10 /hpf (0-5) H 03/23/17 12:50 Urine WBC 0-2 /hpf (0-5) 03/23/17 12:50 Ur Epithelial Cells FEW /lpf (FEW) 03/23/17 12:50 Amorphous Sediment FEW URATES (NONE SEEN) 03/23/17 12:50 Urine Bacteria FEW /hpf (NONE SEEN) 03/23/17 12:50 Fine Granular Casts 0-2 /lpf (NONE SEEN) H 03/23/17 12:50 Urine Mucus FEW /lpf (FEW) 03/23/17 12:50 Vancomycin Trough 16.3 ug/mL (10-20) 03/25/17 19:57 - Physical Exam Vitals and I&O: Vital Signs Temp 98.1 F 03/28/17 11:54 Pulse 64 03/28/17 11:54 Resp 18 03/28/17 11:54 BP 115/67 03/28/17 11:54 Pulse Ox 95 03/28/17 11:54 Intake & Output 03/27/17 03/28/17 03/28/17 18:59 06:59 18:59 Intake Total 1525.333 150 Balance 1525.333 150 Weight (lbs) 64.864 kg Intake: Intake, IV Amount 925.333 150 Piperacillin Sodium/ 150 Tazobact 3.375 gm In Sodium Chloride 0.9% 50 ml @ 100 mls/hr IV Q8HR [facility] Rx#:[id number] Sodium Chloride 0.45% 1, 925.333 000 ml @ 80 mls/hr IV . [id number] [facility] Rx#:[id number] Oral 600 Other: # Voids 4 # Bowel Movements 3 Stool Characteristics Soft Soft Brown Brown Active Medications: Current Medications Acetaminophen (Tylenol) 650 mg PO Q6H PRN PRN Reason: Pain (Mild) Stop: 05/22/17 22:35 Last Admin: 03/24/17 12:44 Dose: 650 mg Desmopressin Acetate (Ddavp) 0.1 mg PO DAILY [facility] Stop: 05/23/17 08:59 Last Admin: 03/28/17 09:19 Dose: 0.1 mg Diphenhydramine HCl (Benadryl) 25 mg PO Q6H PRN PRN Reason: Itching Stop: 05/22/17 22:35 Last Admin: 03/25/17 01:52 Dose: 25 mg Diphenoxylate HCl/Atropine (Lomotil) 1 tab PO Q6H PRN PRN Reason: Diarrhea Stop: 05/22/17 22:35 Divalproex Sodium (Depakote Dr) 500 mg PO TID [facility] PRN Reason: Protocol Stop: 05/23/17 08:59 Last Admin: 03/28/17 09:19 Dose: 500 mg Fluoxetine HCl (Prozac) 20 mg PO DAILY [facility] PRN Reason: Protocol Stop: 05/23/17 08:59 Last Admin: 03/28/17 09:17 Dose: 20 mg Piperacillin Sod/Tazobactam (Sod 3.375 gm/ Sodium Chloride) 50 mls @ 100 mls/ hr IV Q8HR [facility] Stop: 05/22/17 20:59 Last Admin: 03/28/17 12:36 Dose: 100 mls/hr Sodium Chloride (Nacl 0.45%) 1,000 mls @ 80 mls/hr IV .[id number] [facility] Stop: 05/24/17 17:47 Last Admin: 03/27/17 22:53 Dose: 80 mls/hr Lacosamide (Vimpat) 50 mg PO BID [facility] Stop: 05/23/17 08:59 Last Admin: 03/28/17 09:18 Dose: 50 mg Lactobacillus Rhamnosus (Culturelle) 1 each PO DAILY [facility] Stop: 05/23/17 08:59 Last Admin: 03/28/17 09:20 Dose: 1 each Lactulose (Cephulac) 10 gm PO DAILY [facility] Stop: 05/23/17 08:59 Last Admin: 03/28/17 09:20 Dose: 10 gm Levetiracetam (Keppra) 1,500 mg PO BID [facility] Stop: 05/23/17 08:59 Last Admin: 03/28/17 09:18 Dose: 1,500 mg Levothyroxine Sodium (Synthroid) 0.05 mg PO QDAC [facility] Stop: 05/23/17 07:29 Last Admin: 03/28/17 07:38 Dose: 0.05 mg Lorazepam (Ativan) 1 mg IVP Q4HR PRN; Protocol PRN Reason: Agitation Stop: 05/22/17 13:36 Last Admin: 03/27/17 23:06 Dose: 1 mg Metoclopramide HCl (Reglan) 5 mg PO BID [facility] Stop: 05/23/17 08:59 Last Admin: 03/28/17 09:20 Dose: 5 mg Ondansetron HCl (Zofran Odt) 4 mg PO Q4H PRN PRN Reason: Nausea / Vomiting Stop: 05/22/17 22:35 General: no acute distress, well developed, well nourished HEENT: atraumatic, normocephalic, PERRLA, EOMI Neck: supple, no thyromegaly Cardiovascular: S1S2, regular Lungs: clear to auscultation bilaterally, clear to percussion Abdomen: soft, no tender, no distended Extremities: no cyanosis, no clubbing, no edema Neurological: awake, alert, oriented Skin: intact - Procedures Procedures: Procedures Procedure Code Date COLONOSCOPY 45.23 07/22/10 DIAGNOSTIC COLONOSCOPY 16948 07/22/10 EGD DIAGNOSTIC BRUSH WASH 20194 04/17/09 ESOPHAGOGASTRODUODENOSCOPY [EGD] W/CLOSED BIOPSY 45.16 03/05/09 EXC TR-EXT B9+CHILANGO 0.5 CM< 83930 06/26/16 EXCISION OF CHEST WALL, OPEN APPROACH [id number] 06/26/16 OTHER ENDOSCOPY OF SM INTEST 45.13 04/17/09 Infectious Disease Assmt/Plan - Problem List Patient Problems: All Active Problems VOMITING WITH PERIPHERAL TREMORS (Acute) 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 Leukocytosis, aspiration versus reactive. 2. RML pneumonia. 3. Angleman's syndrome. Plan: Continue Zosyn. may dc on augmentin po for 7 days. sepsis w/u. Nutritional Asmnt/Malnutr-PDOC - Dietary Evaluation Malnutrition Findings (Please click <Entered> for more info): Nutritional Asmnt/Malnutrition Start: 03/24/17 14: 28 Text: Status: Active Freq: Document 03/24/17 14:28 LCHENG (Rec: 03/24/17 14:54 HENG [email or web address]) Nutritional Asmnt/Malnutrition Patient General Information Nutritional Screening High Risk Diagnosis sepsis, vomiting, PNA, dehydration, gastritis Pertinent Medical Hx/Surgical Hx HTN, PUD/GERD, seizures, thyroid disorder, DM, depression Subjective Information Pt seen lying in bed, alert and very confused. Spoke to nurse, pt consumed 60% of breakfast this morning, prefer drinking than eating. Pt likes jello, pudding. Not able to perform physical exam at this time, pt appeared thin. Current Diet Order/ Nutrition Support pureed Pertinent Medications culturelly, reglan, vancomycin , peperacillin, Nacl IV Pertinent Labs 03/24 Na 149H, K 4.2, Cl 115H, BUN 48H, Cr 1.3, Glu 90, Ammonia 85H Nutritional Hx/Data Height 1.7 m Height (Calculated Centimeters) 170.2 Current Weight (lbs) 63.503 kg Weight (Calculated Kilograms) 63.5 Weight (Calculated Grams) 64412.9 [place] Body Weight 148 % [place] Body Weight 95 Body Mass Index (BMI) 21.9 Weight Status Approriate GI Symptoms GI Symptoms None Last BM 03/24 Difficult in: None Food Allergies No Skin Integrity/Comment: intact, dryness, small redness on bilateral knee Estimated Nutritional Goals BEE in Kcals: Using Current wt Calories/Kcals/Kg 30-35 Kcals Calculated 9950-7613 Protein: Using Current wt Protein g/k.2-1.5 Protein Calculated 76-95 Fluid: ml 4248-0308 Nutritional Problem 1. Problem Problem increased nutrition needs ( calorie and protein) Etiology increased metabolic demand for sepsis Signs/Symptoms: dx of sepsis Malnutrition Alert Protein-Calorie Malnutrition N/A Is there a minimum of two criteria No selected? Query Text:Check all the applicable criteria. A minimum of two criteria are recommended for diagnosis of either severe or non-severe malnutrition. Intervention/Recommendation Comments 1. continue with current diet as ordered. 2. pt likes jello and pudding, notified diet counselor and updated diet profile 3. monitor PO intake, wt weekly, labs 4. F/U as high risk in 2-3 days, 03/26-03/27 Expected Outcomes/Goals Expected Outcomes/Goals 1. PO intake >50% to meet 100% of nutritional needs 2. wt stablity, labs to improve, no sign and symptoms of dehydration
--- NOTE | 2017-03-28 14:54 | General Progress Note ---
Subjective - Review of Systems Events since last encounter: no change no fever Objective - Results Result Diagrams: 03/28/17 05:23 03/28/17 05:23 Recent Labs: Laboratory Last Values WBC 12.7 Th/cmm (4.8-10.8) H 03/28/17 05:23 RBC 4.33 Mil/cmm (4.30-5.70) 03/28/17 05:23 Hgb 12.3 gm/dL (12-16) 03/28/17 05:23 Hct 37.6 % (41.0-60) L 03/28/17 05:23 MCV 86.7 fl (80-99) 03/28/17 05:23 MCH 28.3 pg (26.0-30.0) 03/28/17 05:23 MCHC Differential 32.6 pg (28.0-36.0) 03/28/17 05:23 RDW 16.1 % (11.5-20.0) 03/28/17 05:23 Plt Count 355 Th/cmm (150-400) 03/28/17 05:23 MPV 7.0 fl 03/28/17 05:23 Neutrophils % 60.7 % (40.0-80.0) 03/28/17 05:23 Band Neutrophils % 2 % (0-10) 03/24/17 06:17 Lymphocytes % 25.4 % (20.0-50.0) 03/28/17 05:23 Monocytes % 8.7 % (2.0-10.0) 03/28/17 05:23 Eosinophils % 4.9 % (0.0-5.0) 03/28/17 05:23 Basophils % 0.3 % (0.0-2.0) 03/28/17 05:23 Neutrophils (Manual) 60 % (40-80) 03/24/17 06:17 Lymphocytes 24 % (20-50) 03/24/17 06:17 Monocytes 14 % (2-10) H 03/24/17 06:17 PT 12.7 SECONDS (9.5-11.5) H 03/23/17 13:30 INR 1.21 (0.5-1.4) 03/23/17 13:30 PTT (Actin FS) 23.9 SECONDS (26.0-38.0) L 03/23/17 13:30 Sodium 137 mEq/L (136-145) 03/28/17 05:23 Potassium 3.9 mEq/L (3.5-5.1) 03/28/17 05:23 Chloride 106 mEq/L (98-107) 03/28/17 05:23 Carbon Dioxide 29.0 mEq/L (21.0-31.0) 03/28/17 05:23 Anion Gap 5.9 (7.0-16.0) L 03/28/17 05:23 BUN 23 mg/dL (7-25) 03/28/17 05:23 Creatinine 0.8 mg/dL (0.7-1.3) 03/28/17 05:23 Est GFR ( Amer) > 60.0 ml/min (>90) 03/28/17 05:23 Est GFR (Non-Af Amer) > 60.0 ml/min 03/28/17 05:23 BUN/Creatinine Ratio 28.8 03/28/17 05:23 Glucose 85 mg/dL (70-105) 03/28/17 05:23 POC Glucose 137 MG/DL (70 - 105) H 03/27/17 08:33 Whole Bld Lactic Acid 1.99 mmol/L (0.60-1.99) 03/23/17 13:30 Calcium 9.0 mg/dL (8.6-10.3) 03/28/17 05:23 Magnesium 2.7 mg/dL (1.9-2.7) 03/24/17 06:17 Total Bilirubin 0.4 mg/dL (0.3-1.0) 03/23/17 13:30 AST 39 U/L (13-39) 03/23/17 13:30 ALT 28 U/L (7-52) 03/23/17 13:30 Alkaline Phosphatase 51 U/L (34-104) 03/23/17 13:30 Ammonia 85 umol/L (16-53) H 03/23/17 13:30 Creatine Kinase 275 U/L (30-223) H 03/23/17 13:30 CK-MB (CK-2) 3.1 ng/mL (0.6-6.3) 03/23/17 13:30 Troponin I 0.04 ng/mL (0.01-0.05) 03/23/17 13:30 Total Protein 8.5 gm/dL (6.0-8.3) H 03/23/17 13:30 Albumin 4.4 gm/dL (4.2-5.5) 03/23/17 13:30 Globulin 4.1 gm/dL 03/23/17 13:30 Albumin/Globulin Ratio 1.1 (1.0-1.8) 03/23/17 13:30 Amylase 40 U/L (29-103) 03/23/17 13:30 Lipase 41 U/L (11-82) 03/23/17 13:30 Urine Source MIDSTREAM 03/23/17 12:50 Urine Color YELLOW 03/23/17 12:50 Urine Clarity CLOUDY (CLEAR) 03/23/17 12:50 Urine pH 5.5 (4.6 - 8.0) 03/23/17 12:50 Ur Specific [place] > 1.030 (1.005-1.030) H 03/23/17 12:50 Urine Protein NEGATIVE mg/dL (NEGATIVE) 03/23/17 12:50 Urine Glucose (UA) NEGATIVE mg/dL (NEGATIVE) 03/23/17 12:50 Urine Ketones 15 mg/dL (NEGATIVE) H 03/23/17 12:50 Urine Blood MODERATE (NEGATIVE) H 03/23/17 12:50 Urine Nitrate NEGATIVE (NEGATIVE) 03/23/17 12:50 Urine Bilirubin SMALL (NEGATIVE) H 03/23/17 12:50 Urine Urobilinogen 0.2 E.U./dL (0.2 - 1.0) 03/23/17 12:50 Ur Leukocyte Esterase NEGATIVE (NEGATIVE) 03/23/17 12:50 Urine RBC 5-10 /hpf (0-5) H 03/23/17 12:50 Urine WBC 0-2 /hpf (0-5) 03/23/17 12:50 Ur Epithelial Cells FEW /lpf (FEW) 03/23/17 12:50 Amorphous Sediment FEW URATES (NONE SEEN) 03/23/17 12:50 Urine Bacteria FEW /hpf (NONE SEEN) 03/23/17 12:50 Fine Granular Casts 0-2 /lpf (NONE SEEN) H 03/23/17 12:50 Urine Mucus FEW /lpf (FEW) 03/23/17 12:50 Vancomycin Trough 16.3 ug/mL (-) 03/25/17 19:57 - Physical Exam Vitals and I&O: Vital Signs Temp 96.8 F 03/28/17 14:27 Pulse 94 03/28/17 14:27 Resp 18 03/28/17 14:27 BP 144/71 03/28/17 14:27 Pulse Ox 95 03/28/17 14:27 Intake & Output 03/27/17 03/28/17 03/28/17 18:59 06:59 18:59 Intake Total 1525.333 150 Balance 1525.333 150 Weight (lbs) 64.864 kg Intake: Intake, IV Amount 925.333 150 Piperacillin Sodium/ 150 Tazobact 3.375 gm In Sodium Chloride 0.9% 50 ml @ 100 mls/hr IV Q8HR [facility] Rx#:[id number] Sodium Chloride 0.45% 1, 925.333 000 ml @ 80 mls/hr IV . [id number] [facility] Rx#:[id number] Oral 600 Other: # Voids 4 # Bowel Movements 3 Stool Characteristics Soft Soft Brown Brown Active Medications: Current Medications Acetaminophen (Tylenol) 650 mg PO Q6H PRN PRN Reason: Pain (Mild) Stop: 05/22/17 22:35 Last Admin: 03/24/17 12:44 Dose: 650 mg Desmopressin Acetate (Ddavp) 0.1 mg PO DAILY [facility] Stop: 05/23/17 08:59 Last Admin: 03/28/17 09:19 Dose: 0.1 mg Diphenhydramine HCl (Benadryl) 25 mg PO Q6H PRN PRN Reason: Itching Stop: 05/22/17 22:35 Last Admin: 03/25/17 01:52 Dose: 25 mg Diphenoxylate HCl/Atropine (Lomotil) 1 tab PO Q6H PRN PRN Reason: Diarrhea Stop: 05/22/17 22:35 Divalproex Sodium (Depakote Dr) 500 mg PO TID [facility] PRN Reason: Protocol Stop: 05/23/17 08:59 Last Admin: 03/28/17 09:19 Dose: 500 mg Fluoxetine HCl (Prozac) 20 mg PO DAILY [facility] PRN Reason: Protocol Stop: 05/23/17 08:59 Last Admin: 03/28/17 09:17 Dose: 20 mg Piperacillin Sod/Tazobactam (Sod 3.375 gm/ Sodium Chloride) 50 mls @ 100 mls/ hr IV Q8HR [facility] Stop: 05/22/17 20:59 Last Admin: 03/28/17 12:36 Dose: 100 mls/hr Sodium Chloride (Nacl 0.45%) 1,000 mls @ 80 mls/hr IV .[id number] [facility] Stop: 05/24/17 17:47 Last Admin: 03/27/17 22:53 Dose: 80 mls/hr Lacosamide (Vimpat) 50 mg PO BID [facility] Stop: 05/23/17 08:59 Last Admin: 03/28/17 09:18 Dose: 50 mg Lactobacillus Rhamnosus (Culturelle) 1 each PO DAILY [facility] Stop: 05/23/17 08:59 Last Admin: 03/28/17 09:20 Dose: 1 each Lactulose (Cephulac) 10 gm PO DAILY [facility] Stop: 05/23/17 08:59 Last Admin: 03/28/17 09:20 Dose: 10 gm Levetiracetam (Keppra) 1,500 mg PO BID [facility] Stop: 05/23/17 08:59 Last Admin: 03/28/17 09:18 Dose: 1,500 mg Levothyroxine Sodium (Synthroid) 0.05 mg PO QDAC [facility] Stop: 05/23/17 07:29 Last Admin: 03/28/17 07:38 Dose: 0.05 mg Lorazepam (Ativan) 1 mg IVP Q4HR PRN; Protocol PRN Reason: Agitation Stop: 05/22/17 13:36 Last Admin: 03/27/17 23:06 Dose: 1 mg Metoclopramide HCl (Reglan) 5 mg PO BID [facility] Stop: 05/23/17 08:59 Last Admin: 03/28/17 09:20 Dose: 5 mg Ondansetron HCl (Zofran Odt) 4 mg PO Q4H PRN PRN Reason: Nausea / Vomiting Stop: 05/22/17 22:35 General: Alert (decreased BS), No acute distress HEENT: Atraumatic Neck: Supple, Thyromegaly Cardiovascular: Regular rate, Normal S1 Lungs: Other (rhonchi) Abdomen: Bowel sounds, Soft Extremities: no Edema Neurological: Sensation intact Skin: no Rash Psych/Mental Status: Mood NL - Procedures Procedures: Procedures Procedure Code Date COLONOSCOPY 45.23 07/22/10 DIAGNOSTIC COLONOSCOPY 81654 07/22/10 EGD DIAGNOSTIC BRUSH WASH 00049 04/17/09 ESOPHAGOGASTRODUODENOSCOPY [EGD] W/CLOSED BIOPSY 45.16 03/05/09 EXC TR-EXT B9+CHILANGO 0.5 CM< 70084 06/26/16 EXCISION OF CHEST WALL, OPEN APPROACH [id number] 06/26/16 OTHER ENDOSCOPY OF SM INTEST 45.13 04/17/09 Assessment/Plan - Problem List Patient Problems: All Active Problems VOMITING WITH PERIPHERAL TREMORS (Acute) 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 Failure to thrive (Acute) [id number] History of pneumonia (Acute) Z87.01 Inadequate oral intake (Acute) R63.8 Leukocytosis (Acute) D72.829 Thyroid disorder (Acute) UTI (urinary tract infection) (Acute) - Plan Plan: [facility] Nutritional Asmnt/Malnutr-PDOC - Dietary Evaluation Malnutrition Findings (Please click <Entered> for more info): Nutritional Asmnt/Malnutrition Start: 03/24/17 14: 28 Text: Status: Active Freq: Document 03/24/17 14:28 SHAYNA (Rec: 03/24/17 14:54 LCTAYLOR [email or web address]) Nutritional Asmnt/Malnutrition Patient General Information Nutritional Screening High Risk Diagnosis sepsis, vomiting, PNA, dehydration, gastritis Pertinent Medical Hx/Surgical Hx HTN, PUD/GERD, seizures, thyroid disorder, DM, depression Subjective Information Pt seen lying in bed, alert and very confused. Spoke to nurse, pt consumed 60% of breakfast this morning, prefer drinking than eating. Pt likes jello, pudding. Not able to perform physical exam at this time, pt appeared thin. Current Diet Order/ Nutrition Support pureed Pertinent Medications culturelly, reglan, vancomycin , peperacillin, Nacl IV Pertinent Labs 03/24 Na 149H, K 4.2, Cl 115H, BUN 48H, Cr 1.3, Glu 90, Ammonia 85H Nutritional Hx/Data Height 1.7 m Height (Calculated Centimeters) 170.2 Current Weight (lbs) 63.503 kg Weight (Calculated Kilograms) 63.5 Weight (Calculated Grams) 95050.9 [place] Body Weight 148 % [place] Body Weight 95 Body Mass Index (BMI) 21.9 Weight Status Approriate GI Symptoms GI Symptoms None Last BM 03/24 Difficult in: None Food Allergies No Skin Integrity/Comment: intact, dryness, small redness on bilateral knee Estimated Nutritional Goals BEE in Kcals: Using Current wt Calories/Kcals/Kg 30-35 Kcals Calculated 7407-6049 Protein: Using Current wt Protein g/k.2-1.5 Protein Calculated 76-95 Fluid: ml 8520-9090 Nutritional Problem 1. Problem Problem increased nutrition needs ( calorie and protein) Etiology increased metabolic demand for sepsis Signs/Symptoms: dx of sepsis Malnutrition Alert Protein-Calorie Malnutrition N/A Is there a minimum of two criteria No selected? Query Text:Check all the applicable criteria. A minimum of two criteria are recommended for diagnosis of either severe or non-severe malnutrition. Intervention/Recommendation Comments 1. continue with current diet as ordered. 2. pt likes jello and pudding, notified dietetic tech and updated diet profile 3. monitor PO intake, wt weekly, labs 4. F/U as high risk in 2-3 days, 03/26-03/27 Expected Outcomes/Goals Expected Outcomes/Goals 1. PO intake >50% to meet 100% of nutritional needs 2. wt stablity, labs to improve, no sign and symptoms of dehydration
--- NOTE | 2017-03-31 21:02 | Discharge Summary ---
DATE OF DISCHARGE: 03/28/2017 This patient was in the intermediate. The patient mentally challenged, was altered, came to the ER and was admitted for persistent altered level of consciousness, persistent pneumonia, sepsis, dehydration, prerenal azotemia and the patient was admitted, IV fluids was given, septic protocol was given. Dr. Jermaine Rivas saw the patient, the patient improved. The patient was in stable condition on 03/28/2017, the patient was discharged back to and [facility] where I will follow the patient. MEDICATIONS: See the reconciliation. ACTIVITY: As tolerated. DIET: Regular. JOB# [id number]
== END 2017-03-28 15:11 | disposition home or self-care (01) | DRG 871 ==
LOC: ER 12:25 → MSI 14:30
PROVIDERS: ADMIT Internal Medicine; ATTEND Internal Medicine
DX: A41.9 Sepsis, unspecified organism (principal); J18.1 Lobar pneumonia, unspecified organism; N17.9 Acute kidney failure, unspecified; R53.2 Functional quadriplegia; Q93.5 Other deletions of part of a chromosome; E86.0 Dehydration; N39.0 Urinary tract infection, site not specified; R56.9 Unspecified convulsions; K29.70 Gastritis, unspecified, without bleeding; I10 Essential (primary) hypertension; K21.9 Gastro-esophageal reflux disease without esophagitis; F32.9 Major depressive disorder, single episode, unspecified; K27.9 Peptic ulcer, site unspecified, unspecified as acute or chronic, without hemorrhage or perforation; R62.7 Adult failure to thrive; F79 Unspecified intellectual disabilities; Z83.3 Family history of diabetes mellitus; Z82.49 Family history of ischemic heart disease and other diseases of the circulatory system; Z79.899 Other long term (current) drug therapy
CPT/HCPCS: 36415-UA; 71010-TC; 80048-TC; 80053-TC; 80202-TC; 81001-TC; 82140-TC; 82150-TC; 82550-TC; 82553; 82948-90; 83605; 83690-TC; 83735-TC; 84484-TC; 85007-TC; 85025-TC; 85027-TC; 85610-TC; 85730-TC; 87086-90; 96375; J1200; J1630; J1956; J2060; J2543; J3370; J7030; Z7610

== ENCOUNTER 2017-04-02 12:18 | Inpatient (IN) | payer MEDICARE, MEDICAID ==
--- NOTE | 2017-04-02 12:46 | ED Physician Chart ---
ED Chief Complaint/HPI - Patient Information Date Seen:: 04/02/17 Time Seen:: 12:30 Chief Complaint:: Fever History of Present Illness:: onset x one day of fever, cough, and congestion withv N/V x 3; no report of H/As , neck pain, C/P, SOB, Abd. Pain, A/D/C, chills, or urinary s/s Allergies:: Allergies Allergy/AdvReac Type Severity Reaction Status Date / Time No Known Allergies Allergy Verified 10/04/16 12:06 Vitals:: Vital Signs - 8 hr 04/02/17 12:26 Temp 97.9 F HR 92 RR 16 BP 116/82 O2 Sat % 98 Historian:: EMS Review:: Old Chart Reviewed, EMS run form Reviewed, Transfer documents Reviewed ED Review of Systems - Review of Systems General/Constitutional: Fever, No chills, No weight loss, No weakness, No diaphoresis, No edema, No loss of appetite Skin: No skin lesions, No rash, No bruising Head: No headache, No light-headedness Eyes: No loss of vision, No pain, No diplopia ENT: No earache, No nasal drainage, No sore throat, No tinnitus Neck: No neck pain, No swelling, No thyromegaly, No stiffness, No mass noted Cardio Vascular: No chest pain, No palpitations, No PND, No orthopnea, No edema Pulmonary: No SOB, Cough, No sputum, No wheezing GI: No nausea, No vomiting, No diarrhea, No pain, No melena, No hematochezia, No constipation, No hematemesis G/U: No dysuria, No frequency, No hematuria, No nacturia Musculoskeletal: No bone or joint pain, No back pain, No muscle pain Endocrine: No polyuria, No polydipsia Psychiatric: No prior psych history, No depression, No anxiety, No suicidal ideation, No homicidal ideation, No auditory hallucination, No visual hallucination Hematopoietic: No bruising, No lymphadenopathy Allergic/Immuno: No urticaria, No angioedema Neurological: No syncope, No focal symptoms, No weakness, No paresthesia, No headache, No seizure, No dizziness, No confusion, No vertigo ED Past Medical History - Past Medical History Obtainable: Yes Past Medical History: Dementia Family History: HTN Social History: Non Smoker, No Alcohol, No Drug Use, Single, Care Facility Surgical History: None Psychiatricy History: Dementia Medication: Reviewed Family Medical History - Family Member Mother History Unknown: Yes Ethnicity: Unknown Living Status: Unknown ED Physical Exam - Physical Examination General/Constitutional: Awake, Well-developed, well-nourished, Alert, No distress, GCS 15, Non-toxic appearing, Ambulatory Head: Atraumatic Eyes: Lids, conjuctiva normal, PERRL, EOMI Skin: Nl inspection, No rash, No skin lesions, No ecchymosis, Well hydrated, No lymphadenopathy ENMT: External ears, nose nl, TM canals nl, Nasal exam nl, Lips, teeth, gums nl , Oropharynx nl, Tonsils nl Neck: Nontender, Full ROM w/o pain, No JVD, No nuchal rigidity, No bruit, No mass, No stridor Respiratory: Nl effort/Exclusion Other Respiratory comments:: Lungs: + Rales and Rhonchi Cardio Vascular: RRR, No murmur, gallop, rubs, NL S1 S2, Carotid/Femoral/Distal pulses equal bilaterally GI: No tenderness/rebounding/guarding, No organomegaly, No hernia, Normal BS's, Nondistended, No mass/bruits, No McBurney tenderness : No CVA tenderness Extremities: No tenderness or effusion, Full ROM, normal strength in all extremities, No edema, Normal digits & nails Neuro/Psych: Alert/oriented, DTR's symmetric, Normal sensory exam, Normal motor strength, Judgement/insight normal, Mood normal, Normal gait, No focal deficits Misc: Normal back, No paraspinal tenderness ED Labs/Radiology/EKG Results - Lab Results Comments:: U/A: + Pyuria - Radiology Results Comments:: CXR: + Infiltrate - EKG Interpretations EKG Time:: 12:56 Rate & Rhythm: 94; NSR Comments:: non-specific st-t changes ED Septic Shock - . Is Septic Shock (SBP<90, OR Lactate>4 mmol\L) present?: No - <6hrs of presentation: Vital Signs: Vital Signs - 8 hr 04/02/17 12:26 Temp 97.9 F HR 92 RR 16 BP 116/82 O2 Sat % 98 ED Reassessment (Disposition) - Reassessment Reassessment Condition:: Improved - Diagnosis Diagnosis:: Dx: PNA; Fever; Cough/Congestion; Sepsis; UTI; Urospesis - Aftercare/Follow up Instructions Aftercare/Follow-Up Instructions:: Counseled pt regarding lab results/diagnosis & need follow up, Counseled pt & family regarding lab results/diagnosis & need follow up - Patient Disposition Discharge/Transfer:: Acute Care w/in this hosp Accepting Physician:: Dr. Nina Time Called:: 1500 Time Responded:: 15:00 Admitted to:: Med/Surg Spoke to:: Dr. Nina Admitting Medical Physician:: Dr. Nina Condition at Disposition:: Stable, Improved
[2017-04-02 13:06] LABS: % BASOPHILS 0.8 % (0.0-2.0); % EOSINOPHILS 4.2 % (0.0-5.0); % LYMPHOCYTES 19.3 % (20.0-50.0); % MONOCYTES 13.6 % (2.0-10.0); % NEUTROPHILS 62.1 % (40.0-80.0); HEMOGLOBIN 13.7 gm/dL (12-16); MEAN CELL VOLUME 86.8 fl (80-99); MEAN CORPUSCULAR HEMOGLOBIN 28.4 pg (26.0-30.0); MEAN CORPUSCULAR HGB CONC 32.7 pg (28.0-36.0); MEAN PLATELET VOLUME 7.8 fl; NEUTROPHILE ABSOLUTE 6.2 Th/cmm (1.8-8.0); PLATELET COUNT 421 Th/cmm (150-400); RED BLOOD COUNT 4.81 Mil/cmm (4.30-5.70); RED CELL DISTRIBUTION WIDTH 16.8 % (11.5-20.0)
[2017-04-02 13:08] LABS: HEMATOCRIT 41.8 % (41.0-60); WHITE BLOOD COUNT 9.9 Th/cmm (4.8-10.8)
[2017-04-02 13:20] LABS: INR 0.95 (0.5-1.4); PROTHROMBIN TIME (TEST) 9.9 SECONDS (9.5-11.5)
[2017-04-02 13:23] LABS: ALKALINE PHOSPHATASE 54 U/L (34-104); ANION GAP 8.1 (7.0-16.0); BILIRUBIN,TOTAL 0.2 mg/dL (0.3-1.0); BUN - UREA NITROGEN 17 mg/dL (7-25); BUN/CREATININE RATIO 21.3; CALCIUM SERUM 9.7 mg/dL (8.6-10.3); CARBON DIOXIDE 32.6 mEq/L (21.0-31.0); CHLORIDE 99 mEq/L (98-107); CREATININE - SERUM 0.8 mg/dL (0.7-1.3); GLUCOSE 145 mg/dL (70-105); POTASSIUM SERUM 3.7 mEq/L (3.5-5.1); SGOT 22 U/L (13-39); SGPT/ALT 14 U/L (7-52); SODIUM SERUM 136 mEq/L (136-145)
[2017-04-02] MEDS ORDERED: Levofloxacin 500mg/100mL 500 MG/100 ML BAG IV ONE ×2 (13:23→14:04)
[2017-04-02 13:33] LABS: TROP I 0.01 ng/mL (0.01-0.05)
[2017-04-02 13:40] LABS: URINE BILIRUBIN NEGATIVE (NEGATIVE); URINE BLOOD LARGE (NEGATIVE); URINE GLUCOSE (UA) NEGATIVE (NEGATIVE); URINE KETONE TRACE mg/dL (NEGATIVE); URINE PROTEIN NEGATIVE (NEGATIVE); URINE UROBILINOGEN 0.2 E.U./dL (0.2 - 1.0)
[2017-04-02 13:48] LABS: URINE COLOR YELLOW
[2017-04-02 13:48] LABS: CREATINE KINASE MB 7.6 ng/mL (0.6-6.3)
[2017-04-02 13:49] LABS: URINE BACTERIA 2+ /hpf (NONE SEEN); URINE EPITHELIAL CELLS FEW /lpf (FEW); URINE RBC >100 /hpf (0-5)
[2017-04-02] MEDS ORDERED: Diphenoxylate/Atropine 2.5mg Tab PO PRN (17:41)
[2017-04-03 06:13] LABS: % BASOPHILS 0.2 % (0.0-2.0); % EOSINOPHILS 1.9 % (0.0-5.0); % LYMPHOCYTES 29.6 % (20.0-50.0); % MONOCYTES 13.5 % (2.0-10.0); % NEUTROPHILS 54.8 % (40.0-80.0); HEMATOCRIT 38.3 % (41.0-60); HEMOGLOBIN 12.3 gm/dL (12-16); MEAN CELL VOLUME 86.4 fl (80-99); MEAN CORPUSCULAR HEMOGLOBIN 27.7 pg (26.0-30.0); MEAN CORPUSCULAR HGB CONC 32.1 pg (28.0-36.0); MEAN PLATELET VOLUME 7.9 fl; NEUTROPHILE ABSOLUTE 4.3 Th/cmm (1.8-8.0); PLATELET COUNT 431 Th/cmm (150-400); RED BLOOD COUNT 4.43 Mil/cmm (4.30-5.70); RED CELL DISTRIBUTION WIDTH 16.3 % (11.5-20.0)
[2017-04-03 06:19] LABS: WHITE BLOOD COUNT 7.7 Th/cmm (4.8-10.8)
[2017-04-03 06:33] LABS: ANION GAP 8.6 (7.0-16.0); BUN - UREA NITROGEN 19 mg/dL (7-25); BUN/CREATININE RATIO 21.1; CALCIUM SERUM 9.6 mg/dL (8.6-10.3); CARBON DIOXIDE 34.3 mEq/L (21.0-31.0); CHLORIDE 101 mEq/L (98-107); CREATININE - SERUM 0.9 mg/dL (0.7-1.3); POTASSIUM SERUM 4.9 mEq/L (3.5-5.1); SODIUM SERUM 139 mEq/L (136-145)
[2017-04-03 06:41] LABS: GLUCOSE 85 mg/dL (70-105)
[2017-04-03] MEDS: Levothyroxine 0.05 Mg Tab PO SCH (06:46)
--- NOTE | 2017-04-03 08:54 | Diagnostic Imaging Report ---
CHEST X-RAY: AP view INDICATION: pain COMPARISON: 03/28/2017 FINDINGS: Mild chronic lung changes are seen with mild right apical pleural thickening. There is no focal consolidation or pleural effusions The heart is normal in size. The osseous structures demonstrate no acute abnormalities. There is mild spinal scoliosis. IMPRESSION: No focal airspace consolidation identified. Mild chronic interstitial lung changes are noted. Please correlate with patient's current findings.
[2017-04-03] MEDS ORDERED: MOMETASONE FUROATE 0.1% TP SCH (09:00)
[2017-04-03] MEDS ORDERED: Menthol/Zinc Oxide Oint 113gm Tube TP SCH (09:00)
[2017-04-03] MEDS ORDERED: Non-Formulary Item 1 EA (Lactobacillus Acidophilus [Acidophilus] 1 EACH) PO SCH (09:00)
[2017-04-03] MEDS ORDERED: BUPROPION HCL 75 MG PO SCH (09:00)
[2017-04-03] MEDS: Lactobacillus Rhamnosus 10 Billion CFU Capsule PO SCH (09:45)
[2017-04-03] MEDS: Lactulose 10 Gm/15 mL 30mL UDC PO SCH (09:48)
[2017-04-03] MEDS: Menthol/Zinc Oxide Oint 113gm Tube TP SCH ×2 (09:49→16:50)
[2017-04-03] MEDS: MOMETASONE FUROATE 0.1% TP SCH (09:50)
--- NOTE | 2017-04-03 10:59 | History and Physical ---
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 GI: Report: No Pertinent Hx, GI Bleed Psych: Report: Depression Musculoskeletal: Report: Weakness Rheumatologic: Report: No pertinent Hx Renal/: Report: No Pertinent Hx Endocrine: Report: Hypothyroidism - Past Surgical History Past Surgical History: No pertinent Hx Family Medical History - Family Member Mother History Unknown: Yes Ethnicity: Unknown Living Status: Unknown Hx Family Cancer: (ANUSHKA) Hx Family Coronary Artery Disease: (ANUSHKA) Hx Family Congestive Heart Failure: (ANUSHKA) Hx Family Hypertension: (ANUSHKA) Hx Family Stroke: (ANUSHKA) Hx Family Diabetes: (ANUSHKA) Hx Family Seizures: (ANUSHKA) Hx Family Dementia: (ANUSHKA) Hx Family AIDS: (ANUSHKA) Hx Family COPD: (ANUSHKA) Hx Family Hepatitis: (ANUSHKA) Hx Family Psychiatric Problems: (ANUSHKA) Hx Family Tuberculosis: (ANUSHKA) Other Medical History: per chart from [facility] and report from EMT who brought the patient in; PMH is 1) Angelman's Syndrome 2) Severe MRCP 3) OCD. No family Hx is obtainable. Social History Smoke: No Alcohol: None Drugs: None Lives: Senior Care Domestic Violence: Negative - Medications Home Medications: Home Medication Medication Instructions Recorded Type Metoclopramide [Reglan] 5 mg PO BID tab 01/05/17 Rx Acetaminophen [Tylenol] 650 mg PO Q6H PRN tab 03/19/17 Rx Desmopressin [Ddavp] 0.1 mg PO DAILY tab 03/19/17 Rx Diphenoxylate/Atropine [Lomotil] 1 tab PO Q6H PRN tab 03/19/[address] [Depakote DR] 500 mg PO TID tcp 03/19/17 Rx FLUoxetine HCL [Prozac*] 20 mg PO DAILY cap 03/19/17 Rx Lacosamide [Vimpat] 50 mg PO BID tab 03/19/17 Rx Lactulose [Cephulac] 10 gm PO DAILY udc 03/19/17 Rx Levetiracetam [Keppra] 1,500 mg PO BID tab 03/19/17 Rx Levothyroxine [Synthroid] 0.05 mg PO QDAC tab 03/19/17 Rx Ondansetron [Zofran Odt] 4 mg PO Q4H PRN odt 03/19/17 Rx Diphenhydramine HCL [Benadryl] 25 mg PO Q6H PRN 03/23/17 History Lactobacillus Acidophilus 1 each PO DAILY 03/23/17 History [Acidophilus] Amoxicillin/Potassium Clav 1 each PO BID 7 Days #14 tablet 03/28/17 Rx [Augmentin 875-125 Tablet] Bupropion HCl 75 mg PO DAILY 04/02/17 History Clonazepam [Clonazepam*] 1 mg PO TID 04/02/17 History Clotrimazole 1% Cream [Lotrimin 1% 1 appl TP BID 04/02/17 History Cream] Menthol/Zinc Oxide [Calmoseptine 113 gm TP BID 04/02/17 History Ointment] Mometasone Furoate 0.1% Cream 1 appl TP DAILY 04/02/17 History [Elocon 1%] QUEtiapine Fumarate [SEROquel] 25 mg PO TID 04/02/17 History Trazodone HCl 100 mg PO HS 04/02/17 History - Allergies Allergies/Adverse Reactions: Allergies Allergy/AdvReac Type Severity Reaction Status Date / Time No Known Allergies Allergy Verified 10/04/16 12:06 Review of Systems - Review of Systems Constitutional: Report: Weakness Eyes: Report: No Significant Cardiovascular: Report: Orthopnea Gastrointestinal: Report: No Significant Neurological: Report: Weakness, Confusion Physical Exam - Physical Exam Neck: Report: Within normal limits Cardiovascular Systems: Report: +s1/s2 noted Respiratory: Report: Breath Sounds are within normal limits, Wheezing, Crackles Abdomen: Report: Non-tender to palpation Back: Report: Inspection of back is within normal limits. Extremities: Report: Non-tender to palpation. Skin: Report: Color of skin is within normal limits Neuro/Psych: Report: Weakness or sensory loss noted. - Lab Results All Lab Results last 24 hours: Laboratory Results - last 24 hr 04/03/17 04/03/17 05:52 05:52 WBC 7.7 D RBC 4.43 Hgb 12.3 Hct 38.3 L MCV 86.4 MCH 27.7 MCHC Differential 32.1 RDW 16.3 Plt Count 431 H MPV 7.9 Neutrophils % 54.8 Lymphocytes % 29.6 Monocytes % 13.5 H Eosinophils % 1.9 Basophils % 0.2 Sodium 139 Potassium 4.9 Chloride 101 Carbon Dioxide 34.3 H Anion Gap 8.6 BUN 19 Creatinine 0.9 Est GFR ( Amer) > 60.0 Est GFR (Non-Af Amer) > 60.0 BUN/Creatinine Ratio 21.1 Glucose 85 D Calcium 9.6 - Assessment Assessment: pnumonia dementia h/o mental challenge - Plan Plan: iv antibiotics
[2017-04-03] MEDS ORDERED: Levofloxacin 500mg/100mL 500 MG/100 ML BAG IV SCH (14:00)
--- NOTE | 2017-04-03 16:57 | Consultation ---
Consult Note - Consult Note Service Date: 04/03/17 Referring Physician: Melissa Nina Consult Note: PHYSICIAN Consultation Note: Date of Admission: 04/02/17 Purpose of Consultation: UTi pneumonia. Chief Complaint: Patient XANDER JOSUE was admitted to [facility] with PNA,UTI, SEPSIS. History of Present Illness: 46 year old male admitted to the hospital for cough and congestion for 2 days. He is unable to give any appropriate history, On initial evaluation, he was afebrile and WBC Count was 9.900. ua showed hematuria and mild bacteriuria. Levaquin was started and ID consult was called for antibiotic management. Past Medical History: Angleman's syndrome. Allergies Allergy/AdvReac Type Severity Reaction Status Date / Time No Known Allergies Allergy Verified 10/04/16 12:06 Vital Signs Temp 98.1 F 04/03/17 12:00 Pulse 81 04/03/17 12:00 Resp 18 04/03/17 13:00 BP 104/62 04/03/17 12:00 Pulse Ox 92 04/03/17 12:00 Intake & Output 04/02/17 04/03/17 04/03/17 18:59 06:59 18:59 Intake Total 200 Balance 200 Weight (lbs) 64.864 kg 64.864 kg Intake: Oral 200 Other: # Voids 1 # Bowel Movements 0 Stool Characteristics Soft Laboratory Results - last 24 hr 04/03/17 04/03/17 05:52 05:52 WBC 7.7 D RBC 4.43 Hgb 12.3 Hct 38.3 L MCV 86.4 MCH 27.7 MCHC Differential 32.1 RDW 16.3 Plt Count 431 H MPV 7.9 Neutrophils % 54.8 Lymphocytes % 29.6 Monocytes % 13.5 H Eosinophils % 1.9 Basophils % 0.2 Sodium 139 Potassium 4.9 Chloride 101 Carbon Dioxide 34.3 H Anion Gap 8.6 BUN 19 Creatinine 0.9 Est GFR ( Amer) > 60.0 Est GFR (Non-Af Amer) > 60.0 BUN/Creatinine Ratio 21.1 Glucose 85 D Calcium 9.6 Home Medication Medication Instructions Recorded Type Metoclopramide [Reglan] 5 mg PO BID tab 01/05/17 Rx Acetaminophen [Tylenol] 650 mg PO Q6H PRN tab 03/19/17 Rx Desmopressin [Ddavp] 0.1 mg PO DAILY tab 03/19/17 Rx Diphenoxylate/Atropine [Lomotil] 1 tab PO Q6H PRN tab 03/19/17 Rx Divalproex [Darrin RICK] 500 mg PO TID tcp 03/19/17 Rx FLUoxetine HCL [Prozac*] 20 mg PO DAILY cap 03/19/17 Rx Lacosamide [Vimpat] 50 mg PO BID tab 03/19/17 Rx Lactulose [Cephulac] 10 gm PO DAILY udc 03/19/17 Rx Levetiracetam [Keppra] 1,500 mg PO BID tab 03/19/17 Rx Levothyroxine [Synthroid] 0.05 mg PO QDAC tab 03/19/17 Rx Ondansetron [Zofran Odt] 4 mg PO Q4H PRN odt 03/19/17 Rx Diphenhydramine HCL [Benadryl] 25 mg PO Q6H PRN 03/23/17 History Lactobacillus Acidophilus 1 each PO DAILY 03/23/17 History [Acidophilus] Amoxicillin/Potassium Clav 1 each PO BID 7 Days #14 tablet 03/28/17 Rx [Augmentin 875-125 Tablet] Bupropion HCl 75 mg PO DAILY 04/02/17 History Clonazepam [Clonazepam*] 1 mg PO TID 04/02/17 History Clotrimazole 1% Cream [Lotrimin 1% 1 appl TP BID 04/02/17 History Cream] Menthol/Zinc Oxide [Calmoseptine 113 gm TP BID 04/02/17 History Ointment] Mometasone Furoate 0.1% Cream 1 appl TP DAILY 04/02/17 History [Elocon 1%] QUEtiapine Fumarate [SEROquel] 25 mg PO TID 04/02/17 History Trazodone HCl 100 mg PO HS 04/02/17 History Current Medications Generic Name Dose Route Start Last Admin Trade Name Freq PRN Reason Stop Dose Admin Acetaminophen 650 mg 04/02/17 17:41 04/03/17 01:03 Tylenol PO 06/01/17 17:40 650 mg Q6H PRN Administration Pain (Mild) Bupropion HCl 75 mg 04/03/17 09:00 04/03/17 09:45 Wellbutrin Sr PO 06/02/17 08:59 75 mg DAILY PRAVEENA Administration Calamine/Phenol 113 appl 04/03/17 09:00 04/03/17 16:50 Calmoseptine TP 06/02/17 08:59 113 appl BID PRAVEENA Administration Clonazepam 1 mg 04/02/17 21:00 04/03/17 13:35 Klonopin PO 06/01/17 20:59 1 mg TID PRAVEENA Administration Clotrimazole 1 appl 04/03/17 09:00 04/03/17 16:50 Lotrimin 1% Cream TP 06/02/17 08:59 1 appl BID PRAVEENA Administration Desmopressin Acetate 0.1 mg 04/03/17 09:00 04/03/17 09:45 Ddavp PO 06/02/17 08:59 0.1 mg DAILY PRAVEENA Administration Diphenhydramine HCl 25 mg 04/02/17 17:41 04/03/17 01:03 Benadryl PO 06/01/17 17:40 25 mg Q6H PRN Administration Itching Diphenoxylate HCl/Atropine 1 tab 04/02/17 17:41 Lomotil PO 06/01/17 17:40 Q6H PRN Diarrhea Divalproex Sodium 500 mg 04/02/17 21:00 04/03/17 13:[address] PO 06/01/17 20:59 500 mg TID PRAVEENA Administration Protocol Fluoxetine HCl 20 mg 04/03/17 09:00 04/03/17 09:48 Prozac PO 06/02/17 08:59 Not Given DAILY PRAVEENA Protocol Levofloxacin 500 mg in 100 mls @ 100 mls/hr 04/03/17 14:00 04/03/17 14:55 Levaquin Pb IV 06/02/17 13:59 100 mls/hr Q24HR PRAVEENA Administration Lacosamide 50 mg 04/03/17 09:00 04/03/17 16:50 Vimpat PO 06/02/17 08:59 50 mg BID PRAVEENA Administration Lactobacillus Rhamnosus 1 each 04/03/17 09:00 04/03/17 09:45 Culturelle PO 06/02/17 08:59 1 each DAILY PRAVEENA Administration Lactulose 10 gm 04/03/17 09:00 04/03/17 09:48 Cephulac PO 06/02/17 08:59 10 gm DAILY PRAVEENA Administration Levetiracetam 1,500 mg 04/03/17 09:00 04/03/17 16:49 Keppra PO 06/02/17 08:59 1,500 mg BID PRAVEENA Administration Levothyroxine Sodium 0.05 mg 04/03/17 07:30 04/03/17 06:46 Synthroid PO 06/02/17 07:29 0.05 mg QDAC PRAVEENA Administration Metoclopramide HCl 5 mg 04/03/17 09:00 04/03/17 16:49 Reglan PO 06/02/17 08:59 5 mg BID PRAVEENA Administration Mometasone Furoate 1 appl 04/03/17 09:00 04/03/17 09:50 Elocon 1% TP 06/02/17 08:59 1 appl DAILY PRAVEENA Administration Ondansetron HCl 4 mg 04/03/17 03:16 Zofran Odt PO 06/02/17 03:15 Q4H PRN Nausea / Vomiting Quetiapine Fumarate 25 mg 04/03/17 09:00 04/03/17 13:35 Seroquel PO 06/02/17 08:59 25 mg TID PRAVEENA Administration Protocol Trazodone HCl 100 mg 04/03/17 21:00 Desyrel PO 06/02/17 20:59 HS PRAVEENA Review of Systems: A 12 point ROS was reviewed with the pertinent positive and negatives noted in the HPI. Social History Smoking Status Never smoker Drug Use No Alcohol Use No Family Medical History Family Medical History Start: 03/23/17 14: 45 Freq: ONCE Status: Active Document 03/23/17 20:06 PTSAI (Rec: 03/23/17 20:06 PTSAI [id number]) Family Medical History Mother History Unknown Yes Physical Exam: General: Comfortable, not in distress. HEENT: Head : normocephalic, atraumatic. Oral cavity moist pink tongue, eyes no pallor no icterus, PERRLA, EOMI. Neck: Supple, no JVD, no carotid bruit. Cardio: S1 and S2 WNL. Respiratory: Vesicular breath sounds, no crackles, no wheezing. Abdominal: Soft NT ND BS present. Genital/Urinary: Deferred. Extremities: NCCE. Neurological: Alert and awake. Assessment: 1. Cough bronchitis. 2. pneumonia treated in last admission, cxr negative. 3. Angleman's syndrome. Plan: Continue Levaquin, if no fever and WBc count is WNL. september dc levfelicityuin. sepsis w/u. Signed, Jermaine Rivas M.D. [id number]
[2017-04-04] MEDS: Levothyroxine 0.05 Mg Tab PO SCH (06:47)
[2017-04-04 08:24] LABS: HEMATOCRIT 37.6 % (41.0-60); HEMOGLOBIN 12.3 gm/dL (12-16); MEAN CELL VOLUME 86.9 fl (80-99); MEAN CORPUSCULAR HEMOGLOBIN 28.3 pg (26.0-30.0); MEAN CORPUSCULAR HGB CONC 32.6 pg (28.0-36.0); MEAN PLATELET VOLUME 7.5 fl; NEUTROPHILE ABSOLUTE 4.8 Th/cmm (1.8-8.0); PLATELET COUNT 418 Th/cmm (150-400); RED BLOOD COUNT 4.33 Mil/cmm (4.30-5.70); RED CELL DISTRIBUTION WIDTH 16.2 % (11.5-20.0)
[2017-04-04 08:27] LABS: WHITE BLOOD COUNT 10.8 Th/cmm (4.8-10.8)
[2017-04-04 08:52] LABS: ANION GAP 9.7 (7.0-16.0); BUN - UREA NITROGEN 24 mg/dL (7-25); CALCIUM SERUM 9.5 mg/dL (8.6-10.3); CARBON DIOXIDE 28.8 mEq/L (21.0-31.0); CHLORIDE 103 mEq/L (98-107); CREATININE - SERUM 0.8 mg/dL (0.7-1.3); GLUCOSE 84 mg/dL (70-105); POTASSIUM SERUM 4.5 mEq/L (3.5-5.1); SODIUM SERUM 137 mEq/L (136-145)
[2017-04-04] MEDS: Lactobacillus Rhamnosus 10 Billion CFU Capsule PO SCH (10:02)
[2017-04-04] MEDS: Lactulose 10 Gm/15 mL 30mL UDC PO SCH (10:04)
[2017-04-04] MEDS: Menthol/Zinc Oxide Oint 113gm Tube TP SCH ×2 (10:05→17:45)
[2017-04-04] MEDS: MOMETASONE FUROATE 0.1% TP SCH (10:36)
--- NOTE | 2017-04-04 12:26 | Infectious Disease Prog Note ---
Infectious Disease Subjective - Review of Systems Service Date: 04/04/17 Subjective: there is no fever. Infectious Disease Objective - Results Result Diagrams: 04/04/17 08:10 04/04/17 08:10 Recent Labs: Laboratory Last Values WBC 10.8 Th/cmm (4.8-10.8) D 04/04/17 08:10 RBC 4.33 Mil/cmm (4.30-5.70) 04/04/17 08:10 Hgb 12.3 gm/dL (12-16) 04/04/17 08:10 Hct 37.6 % (41.0-60) L 04/04/17 08:10 MCV 86.9 fl (80-99) 04/04/17 08:10 MCH 28.3 pg (26.0-30.0) 04/04/17 08:10 MCHC Differential 32.6 pg (28.0-36.0) 04/04/17 08:10 RDW 16.2 % (11.5-20.0) 04/04/17 08:10 Plt Count 418 Th/cmm (150-400) H 04/04/17 08:10 MPV 7.5 fl 04/04/17 08:10 Neutrophils % 54.8 % (40.0-80.0) 04/03/17 05:52 Lymphocytes % 29.6 % (20.0-50.0) 04/03/17 05:52 Monocytes % 13.5 % (2.0-10.0) H 04/03/17 05:52 Eosinophils % 1.9 % (0.0-5.0) 04/03/17 05:52 Basophils % 0.2 % (0.0-2.0) 04/03/17 05:52 PT 9.9 SECONDS (9.5-11.5) 04/02/17 12:57 INR 0.95 (0.5-1.4) 04/02/17 12:57 PTT (Actin FS) 27.6 SECONDS (26.0-38.0) 04/02/17 12:57 Sodium 137 mEq/L (136-145) 04/04/17 08:10 Potassium 4.5 mEq/L (3.5-5.1) 04/04/17 08:10 Chloride 103 mEq/L (98-107) 04/04/17 08:10 Carbon Dioxide 28.8 mEq/L (21.0-31.0) 04/04/17 08:10 Anion Gap 9.7 (7.0-16.0) 04/04/17 08:10 BUN 24 mg/dL (7-25) 04/04/17 08:10 Creatinine 0.8 mg/dL (0.7-1.3) 04/04/17 08:10 Est GFR ( Amer) > 60.0 ml/min (>90) 04/04/17 08:10 Est GFR (Non-Af Amer) > 60.0 ml/min 04/04/17 08:10 BUN/Creatinine Ratio 30.0 04/04/17 08:10 Glucose 84 mg/dL (70-105) 04/04/17 08:10 Whole Bld Lactic Acid 1.93 mmol/L (0.60-1.99) 04/02/17 12:57 Calcium 9.5 mg/dL (8.6-10.3) 04/04/17 08:10 Total Bilirubin 0.2 mg/dL (0.3-1.0) L 04/02/17 12:57 AST 22 U/L (13-39) 04/02/17 12:57 ALT 14 U/L (7-52) 04/02/17 12:57 Alkaline Phosphatase 54 U/L (34-104) 04/02/17 12:57 Creatine Kinase 244 U/L (30-223) H 04/02/17 12:57 CK-MB (CK-2) 7.6 ng/mL (0.6-6.3) H 04/02/17 12:57 Troponin I 0.01 ng/mL (0.01-0.05) 04/02/17 12:57 Total Protein 7.1 gm/dL (6.0-8.3) 04/02/17 12:57 Albumin 3.6 gm/dL (4.2-5.5) L 04/02/17 12:57 Globulin 3.5 gm/dL 04/02/17 12:57 Albumin/Globulin Ratio 1.0 (1.0-1.8) 04/02/17 12:57 Urine Source MIDSTREAM 04/02/17 13:37 Urine Color YELLOW 04/02/17 13:37 Urine Clarity HAZY (CLEAR) 04/02/17 13:37 Urine pH 6.0 (4.6 - 8.0) 04/02/17 13:37 Ur Specific Kathleen 1.025 (1.005-1.030) 04/02/17 13:37 Urine Protein NEGATIVE mg/dL (NEGATIVE) 04/02/17 13:37 Urine Glucose (UA) NEGATIVE mg/dL (NEGATIVE) 04/02/17 13:37 Urine Ketones TRACE mg/dL (NEGATIVE) 04/02/17 13:37 Urine Blood LARGE (NEGATIVE) H 04/02/17 13:37 Urine Nitrate NEGATIVE (NEGATIVE) 04/02/17 13:37 Urine Bilirubin NEGATIVE (NEGATIVE) 04/02/17 13:37 Urine Urobilinogen 0.2 E.U./dL (0.2 - 1.0) 04/02/17 13:37 Ur Leukocyte Esterase NEGATIVE (NEGATIVE) 04/02/17 13:37 Urine RBC >100 /hpf (0-5) H 04/02/17 13:37 Urine WBC 2-5 /hpf (0-5) H 04/02/17 13:37 Ur Epithelial Cells FEW /lpf (FEW) 04/02/17 13:37 Urine Bacteria 2+ /hpf (NONE SEEN) H 04/02/17 13:37 - Physical Exam Vitals and I&O: Vital Signs Temp 96.8 F 04/04/17 08:00 Pulse 76 04/04/17 08:00 Resp 17 04/04/17 10:28 BP 104/66 04/04/17 08:00 Pulse Ox 95 04/04/17 08:00 Intake & Output 04/03/17 04/04/17 04/04/17 18:59 06:59 18:59 Intake Total 480 300 Output Total 3 Balance 480 297 Weight (lbs) 64.864 kg 62.823 kg Intake: Intake, IV Amount 100 Levofloxacin 500mg/100mL 100 500 mg In 100 ml @ 100 mls/hr IV Q24HR [facility] Rx#: [id number] Oral 480 200 Output: Stool 3 Other: # Voids 4 # Bowel Movements 0 Active Medications: Current Medications Acetaminophen (Tylenol) 650 mg PO Q6H PRN PRN Reason: Pain (Mild) Stop: 06/01/17 17:40 Last Admin: 04/03/17 01:03 Dose: 650 mg Bupropion HCl (Wellbutrin Sr) 75 mg PO DAILY [facility] Stop: 06/02/17 08:59 Last Admin: 04/04/17 10:03 Dose: 75 mg Calamine/Phenol (Calmoseptine) 113 appl TP BID [facility] Stop: 06/02/17 08:59 Last Admin: 04/04/17 10:05 Dose: 113 appl Clonazepam (Klonopin) 1 mg PO TID PRAVEENA Stop: 06/01/17 20:59 Last Admin: 04/04/17 10:03 Dose: 1 mg Clotrimazole (Lotrimin 1% Cream) 1 appl TP BID [facility] Stop: 06/02/17 08:59 Last Admin: 04/03/17 16:50 Dose: 1 appl Desmopressin Acetate (Ddavp) 0.1 mg PO DAILY [facility] Stop: 06/02/17 08:59 Last Admin: 04/04/17 10:03 Dose: 0.1 mg Diphenhydramine HCl (Benadryl) 25 mg PO Q6H PRN PRN Reason: Itching Stop: 06/01/17 17:40 Last Admin: 04/03/17 01:03 Dose: 25 mg Diphenoxylate HCl/Atropine (Lomotil) 1 tab PO Q6H PRN PRN Reason: Diarrhea Stop: 06/01/17 17:40 Divalproex Sodium (Depakote Dr) 500 mg PO TID [facility] PRN Reason: Protocol Stop: 06/01/17 20:59 Last Admin: 04/04/17 10:04 Dose: 500 mg Fluoxetine HCl (Prozac) 20 mg PO DAILY [facility] PRN Reason: Protocol Stop: 06/02/17 08:59 Last Admin: 04/04/17 10:09 Dose: 20 mg Levofloxacin (Levaquin Pb) 500 mg in 100 mls @ 100 mls/hr IV Q24HR [facility] Stop: 06/02/17 13:59 Last Infusion: 04/03/17 20:07 Dose: Infused Lacosamide (Vimpat) 50 mg PO BID [facility] Stop: 06/02/17 08:59 Last Admin: 04/04/17 10:03 Dose: 50 mg Lactobacillus Rhamnosus (Culturelle) 1 each PO DAILY [facility] Stop: 06/02/17 08:59 Last Admin: 04/04/17 10:02 Dose: 1 each Lactulose (Cephulac) 10 gm PO DAILY PRAVEENA Stop: 06/02/17 08:59 Last Admin: 04/04/17 10:04 Dose: 10 gm Levetiracetam (Keppra) 1,500 mg PO BID PRAVEENA Stop: 06/02/17 08:59 Last Admin: 04/04/17 10:02 Dose: 1,500 mg Levothyroxine Sodium (Synthroid) 0.05 mg PO QDAC PRAVEENA Stop: 06/02/17 07:29 Last Admin: 04/04/17 06:47 Dose: 0.05 mg Metoclopramide HCl (Reglan) 5 mg PO BID PRAVEENA Stop: 06/02/17 08:59 Last Admin: 04/04/17 10:03 Dose: 5 mg Mometasone Furoate (Elocon 1%) 1 appl TP DAILY [facility] Stop: 06/02/17 08:59 Last Admin: 04/04/17 10:36 Dose: 1 appl Ondansetron HCl (Zofran Odt) 4 mg PO Q4H PRN PRN Reason: Nausea / Vomiting Stop: 06/02/17 03:15 Quetiapine Fumarate (Seroquel) 25 mg PO TID PRAVEENA PRN Reason: Protocol Stop: 06/02/17 08:59 Last Admin: 04/04/17 10:02 Dose: 25 mg Trazodone HCl (Desyrel) 100 mg PO HS [facility] Stop: 06/02/17 20:59 Last Admin: 04/03/17 21:28 Dose: 100 mg General: no acute distress, well developed, well nourished HEENT: atraumatic, normocephalic, PERRLA, EOMI, moist mucous membrane Neck: supple, no thyromegaly Cardiovascular: S1S2, regular Lungs: clear to auscultation bilaterally, clear to percussion Abdomen: soft, no tender, no distended Extremities: no cyanosis, no clubbing, no edema Neurological: awake, alert Skin: intact - Procedures Procedures: Procedures Procedure Code Date COLONOSCOPY 45.23 07/22/10 DIAGNOSTIC COLONOSCOPY 91885 07/22/10 EGD DIAGNOSTIC BRUSH WASH 64513 04/17/09 ESOPHAGOGASTRODUODENOSCOPY [EGD] W/CLOSED BIOPSY 45.16 03/05/09 EXC TR-EXT B9+CHILANGO 0.5 CM< 31870 06/26/16 EXCISION OF CHEST WALL, OPEN APPROACH [id number] 06/26/16 OTHER ENDOSCOPY OF SM INTEST 45.13 04/17/09 Infectious Disease Assmt/Plan - Problem List Patient Problems: All 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 Failure to thrive (Acute) [id number] History of pneumonia (Acute) Z87.01 Inadequate oral intake (Acute) R63.8 Leukocytosis (Acute) D72.829 Thyroid disorder (Acute) UTI (urinary tract infection) (Acute) VOMITING WITH PERIPHERAL TREMORS (Acute) - Assessment Assessment: 1. Cough bronchitis. 2. pneumonia treated in last admission, cxr negative. 3. Angleman's syndrome. - Plan Plan: Dc antibiotics.
--- NOTE | 2017-04-04 14:51 | General Progress Note ---
Subjective - Review of Systems Events since last encounter: no change no fever Objective - Results Result Diagrams: 04/04/17 08:10 04/04/17 08:10 Recent Labs: Laboratory Last Values WBC 10.8 Th/cmm (4.8-10.8) D 04/04/17 08:10 RBC 4.33 Mil/cmm (4.30-5.70) 04/04/17 08:10 Hgb 12.3 gm/dL (12-16) 04/04/17 08:10 Hct 37.6 % (41.0-60) L 04/04/17 08:10 MCV 86.9 fl (80-99) 04/04/17 08:10 MCH 28.3 pg (26.0-30.0) 04/04/17 08:10 MCHC Differential 32.6 pg (28.0-36.0) 04/04/17 08:10 RDW 16.2 % (11.5-20.0) 04/04/17 08:10 Plt Count 418 Th/cmm (150-400) H 04/04/17 08:10 MPV 7.5 fl 04/04/17 08:10 Neutrophils % 54.8 % (40.0-80.0) 04/03/17 05:52 Lymphocytes % 29.6 % (20.0-50.0) 04/03/17 05:52 Monocytes % 13.5 % (2.0-10.0) H 04/03/17 05:52 Eosinophils % 1.9 % (0.0-5.0) 04/03/17 05:52 Basophils % 0.2 % (0.0-2.0) 04/03/17 05:52 PT 9.9 SECONDS (9.5-11.5) 04/02/17 12:57 INR 0.95 (0.5-1.4) 04/02/17 12:57 PTT (Actin FS) 27.6 SECONDS (26.0-38.0) 04/02/17 12:57 Sodium 137 mEq/L (136-145) 04/04/17 08:10 Potassium 4.5 mEq/L (3.5-5.1) 04/04/17 08:10 Chloride 103 mEq/L (98-107) 04/04/17 08:10 Carbon Dioxide 28.8 mEq/L (21.0-31.0) 04/04/17 08:10 Anion Gap 9.7 (7.0-16.0) 04/04/17 08:10 BUN 24 mg/dL (7-25) 04/04/17 08:10 Creatinine 0.8 mg/dL (0.7-1.3) 04/04/17 08:10 Est GFR ( Amer) > 60.0 ml/min (>90) 04/04/17 08:10 Est GFR (Non-Af Amer) > 60.0 ml/min 04/04/17 08:10 BUN/Creatinine Ratio 30.0 04/04/17 08:10 Glucose 84 mg/dL (70-105) 04/04/17 08:10 Whole Bld Lactic Acid 1.93 mmol/L (0.60-1.99) 04/02/17 12:57 Calcium 9.5 mg/dL (8.6-10.3) 04/04/17 08:10 Total Bilirubin 0.2 mg/dL (0.3-1.0) L 04/02/17 12:57 AST 22 U/L (13-39) 04/02/17 12:57 ALT 14 U/L (7-52) 04/02/17 12:57 Alkaline Phosphatase 54 U/L (34-104) 04/02/17 12:57 Creatine Kinase 244 U/L (30-223) H 04/02/17 12:57 CK-MB (CK-2) 7.6 ng/mL (0.6-6.3) H 04/02/17 12:57 Troponin I 0.01 ng/mL (0.01-0.05) 04/02/17 12:57 Total Protein 7.1 gm/dL (6.0-8.3) 04/02/17 12:57 Albumin 3.6 gm/dL (4.2-5.5) L 04/02/17 12:57 Globulin 3.5 gm/dL 04/02/17 12:57 Albumin/Globulin Ratio 1.0 (1.0-1.8) 04/02/17 12:57 Urine Source MIDSTREAM 04/02/17 13:37 Urine Color YELLOW 04/02/17 13:37 Urine Clarity HAZY (CLEAR) 04/02/17 13:37 Urine pH 6.0 (4.6 - 8.0) 04/02/17 13:37 Ur Specific [place] 1.025 (1.005-1.030) 04/02/17 13:37 Urine Protein NEGATIVE mg/dL (NEGATIVE) 04/02/17 13:37 Urine Glucose (UA) NEGATIVE mg/dL (NEGATIVE) 04/02/17 13:37 Urine Ketones TRACE mg/dL (NEGATIVE) 04/02/17 13:37 Urine Blood LARGE (NEGATIVE) H 04/02/17 13:37 Urine Nitrate NEGATIVE (NEGATIVE) 04/02/17 13:37 Urine Bilirubin NEGATIVE (NEGATIVE) 04/02/17 13:37 Urine Urobilinogen 0.2 E.U./dL (0.2 - 1.0) 04/02/17 13:37 Ur Leukocyte Esterase NEGATIVE (NEGATIVE) 04/02/17 13:37 Urine RBC >100 /hpf (0-5) H 04/02/17 13:37 Urine WBC 2-5 /hpf (0-5) H 04/02/17 13:37 Ur Epithelial Cells FEW /lpf (FEW) 04/02/17 13:37 Urine Bacteria 2+ /hpf (NONE SEEN) H 04/02/17 13:37 - Physical Exam Vitals and I&O: Vital Signs Temp 96.8 F 04/04/17 08:00 Pulse 76 04/04/17 08:00 Resp 17 04/04/17 10:28 BP 104/66 04/04/17 08:00 Pulse Ox 95 04/04/17 08:00 Intake & Output 04/03/17 04/04/17 04/04/17 18:59 06:59 18:59 Intake Total 480 300 Output Total 3 Balance 480 297 Weight (lbs) 64.864 kg 62.823 kg Intake: Intake, IV Amount 100 Levofloxacin 500mg/100mL 100 500 mg In 100 ml @ 100 mls/hr IV Q24HR [facility] Rx#: [id number] Oral 480 200 Output: Stool 3 Other: # Voids 4 # Bowel Movements 0 Active Medications: Current Medications Acetaminophen (Tylenol) 650 mg PO Q6H PRN PRN Reason: Pain (Mild) Stop: 06/01/17 17:40 Last Admin: 04/03/17 01:03 Dose: 650 mg Bupropion HCl (Wellbutrin Sr) 75 mg PO DAILY [facility] Stop: 06/02/17 08:59 Last Admin: 04/04/17 10:03 Dose: 75 mg Calamine/Phenol (Calmoseptine) 113 appl TP BID [facility] Stop: 06/02/17 08:59 Last Admin: 04/04/17 10:05 Dose: 113 appl Clonazepam (Klonopin) 1 mg PO TID [facility] Stop: 06/01/17 20:59 Last Admin: 04/04/17 14:41 Dose: 1 mg Clotrimazole (Lotrimin 1% Cream) 1 appl TP BID [facility] Stop: 06/02/17 08:59 Last Admin: 04/03/17 16:50 Dose: 1 appl Desmopressin Acetate (Ddavp) 0.1 mg PO DAILY [facility] Stop: 06/02/17 08:59 Last Admin: 04/04/17 10:03 Dose: 0.1 mg Diphenhydramine HCl (Benadryl) 25 mg PO Q6H PRN PRN Reason: Itching Stop: 06/01/17 17:40 Last Admin: 04/03/17 01:03 Dose: 25 mg Diphenoxylate HCl/Atropine (Lomotil) 1 tab PO Q6H PRN PRN Reason: Diarrhea Stop: 06/01/17 17:40 Divalproex Sodium (Depakote Dr) 500 mg PO TID [facility] PRN Reason: Protocol Stop: 06/01/17 20:59 Last Admin: 04/04/17 14:41 Dose: 500 mg Fluoxetine HCl (Prozac) 20 mg PO DAILY [facility] PRN Reason: Protocol Stop: 06/02/17 08:59 Last Admin: 04/04/17 10:09 Dose: 20 mg Lacosamide (Vimpat) 50 mg PO BID [facility] Stop: 06/02/17 08:59 Last Admin: 04/04/17 10:03 Dose: 50 mg Lactobacillus Rhamnosus (Culturelle) 1 each PO DAILY [facility] Stop: 06/02/17 08:59 Last Admin: 04/04/17 10:02 Dose: 1 each Lactulose (Cephulac) 10 gm PO DAILY [facility] Stop: 06/02/17 08:59 Last Admin: 04/04/17 10:04 Dose: 10 gm Levetiracetam (Keppra) 1,500 mg PO BID [facility] Stop: 06/02/17 08:59 Last Admin: 04/04/17 10:02 Dose: 1,500 mg Levothyroxine Sodium (Synthroid) 0.05 mg PO QDAC [facility] Stop: 06/02/17 07:29 Last Admin: 04/04/17 06:47 Dose: 0.05 mg Metoclopramide HCl (Reglan) 5 mg PO BID [facility] Stop: 06/02/17 08:59 Last Admin: 04/04/17 10:03 Dose: 5 mg Mometasone Furoate (Elocon 1%) 1 appl TP DAILY [facility] Stop: 06/02/17 08:59 Last Admin: 04/04/17 10:36 Dose: 1 appl Ondansetron HCl (Zofran Odt) 4 mg PO Q4H PRN PRN Reason: Nausea / Vomiting Stop: 06/02/17 03:15 Quetiapine Fumarate (Seroquel) 25 mg PO TID [facility] PRN Reason: Protocol Stop: 06/02/17 08:59 Last Admin: 04/04/17 14:41 Dose: 25 mg Trazodone HCl (Desyrel) 100 mg PO HS [facility] Stop: 06/02/17 20:59 Last Admin: 04/03/17 21:28 Dose: 100 mg - Procedures Procedures: Procedures Procedure Code Date COLONOSCOPY 45.23 07/22/10 DIAGNOSTIC COLONOSCOPY 90936 07/22/10 EGD DIAGNOSTIC BRUSH WASH 08879 04/17/09 ESOPHAGOGASTRODUODENOSCOPY [EGD] W/CLOSED BIOPSY 45.16 03/05/09 EXC TR-EXT B9+CHILANGO 0.5 CM< 88864 06/26/16 EXCISION OF CHEST WALL, OPEN APPROACH [id number] 06/26/16 OTHER ENDOSCOPY OF SM INTEST 45.13 04/17/09 Assessment/Plan - Problem List Patient Problems: All 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
[2017-04-05] MEDS: Levothyroxine 0.05 Mg Tab PO SCH (06:46)
[2017-04-05] MEDS: Lactulose 10 Gm/15 mL 30mL UDC PO SCH (08:44)
[2017-04-05] MEDS: Lactobacillus Rhamnosus 10 Billion CFU Capsule PO SCH (08:45)
[2017-04-05] MEDS: MOMETASONE FUROATE 0.1% TP SCH (08:46)
[2017-04-05] MEDS: Menthol/Zinc Oxide Oint 113gm Tube TP SCH (08:47)
--- NOTE | 2017-04-05 09:54 | Internal Medicine Prog Note ---
Internal Medicine Subjective - Subjective Service Date: 04/05/17 Patient seen and examined:: with staff Patient is:: awake Per staff patient has:: no adverse event, tolerating meds Internal Medicine Objective - Results Result Diagrams: 04/04/17 08:10 04/04/17 08:10 Recent Labs: Laboratory Last Values WBC 10.8 Th/cmm (4.8-10.8) D 04/04/17 08:10 RBC 4.33 Mil/cmm (4.30-5.70) 04/04/17 08:10 Hgb 12.3 gm/dL (12-16) 04/04/17 08:10 Hct 37.6 % (41.0-60) L 04/04/17 08:10 MCV 86.9 fl (80-99) 04/04/17 08:10 MCH 28.3 pg (26.0-30.0) 04/04/17 08:10 MCHC Differential 32.6 pg (28.0-36.0) 04/04/17 08:10 RDW 16.2 % (11.5-20.0) 04/04/17 08:10 Plt Count 418 Th/cmm (150-400) H 04/04/17 08:10 MPV 7.5 fl 04/04/17 08:10 Neutrophils % 54.8 % (40.0-80.0) 04/03/17 05:52 Lymphocytes % 29.6 % (20.0-50.0) 04/03/17 05:52 Monocytes % 13.5 % (2.0-10.0) H 04/03/17 05:52 Eosinophils % 1.9 % (0.0-5.0) 04/03/17 05:52 Basophils % 0.2 % (0.0-2.0) 04/03/17 05:52 PT 9.9 SECONDS (9.5-11.5) 04/02/17 12:57 INR 0.95 (0.5-1.4) 04/02/17 12:57 PTT (Actin FS) 27.6 SECONDS (26.0-38.0) 04/02/17 12:57 Sodium 137 mEq/L (136-145) 04/04/17 08:10 Potassium 4.5 mEq/L (3.5-5.1) 04/04/17 08:10 Chloride 103 mEq/L (98-107) 04/04/17 08:10 Carbon Dioxide 28.8 mEq/L (21.0-31.0) 04/04/17 08:10 Anion Gap 9.7 (7.0-16.0) 04/04/17 08:10 BUN 24 mg/dL (7-25) 04/04/17 08:10 Creatinine 0.8 mg/dL (0.7-1.3) 04/04/17 08:10 Est GFR ( Amer) > 60.0 ml/min (>90) 04/04/17 08:10 Est GFR (Non-Af Amer) > 60.0 ml/min 04/04/17 08:10 BUN/Creatinine Ratio 30.0 04/04/17 08:10 Glucose 84 mg/dL (70-105) 04/04/17 08:10 Whole Bld Lactic Acid 1.93 mmol/L (0.60-1.99) 04/02/17 12:57 Calcium 9.5 mg/dL (8.6-10.3) 04/04/17 08:10 Total Bilirubin 0.2 mg/dL (0.3-1.0) L 04/02/17 12:57 AST 22 U/L (13-39) 04/02/17 12:57 ALT 14 U/L (7-52) 04/02/17 12:57 Alkaline Phosphatase 54 U/L (34-104) 04/02/17 12:57 Creatine Kinase 244 U/L (30-223) H 04/02/17 12:57 CK-MB (CK-2) 7.6 ng/mL (0.6-6.3) H 04/02/17 12:57 Troponin I 0.01 ng/mL (0.01-0.05) 04/02/17 12:57 Total Protein 7.1 gm/dL (6.0-8.3) 04/02/17 12:57 Albumin 3.6 gm/dL (4.2-5.5) L 04/02/17 12:57 Globulin 3.5 gm/dL 04/02/17 12:57 Albumin/Globulin Ratio 1.0 (1.0-1.8) 04/02/17 12:57 Urine Source MIDSTREAM 04/02/17 13:37 Urine Color YELLOW 04/02/17 13:37 Urine Clarity HAZY (CLEAR) 04/02/17 13:37 Urine pH 6.0 (4.6 - 8.0) 04/02/17 13:37 Ur Specific [place] 1.025 (1.005-1.030) 04/02/17 13:37 Urine Protein NEGATIVE mg/dL (NEGATIVE) 04/02/17 13:37 Urine Glucose (UA) NEGATIVE mg/dL (NEGATIVE) 04/02/17 13:37 Urine Ketones TRACE mg/dL (NEGATIVE) 04/02/17 13:37 Urine Blood LARGE (NEGATIVE) H 04/02/17 13:37 Urine Nitrate NEGATIVE (NEGATIVE) 04/02/17 13:37 Urine Bilirubin NEGATIVE (NEGATIVE) 04/02/17 13:37 Urine Urobilinogen 0.2 E.U./dL (0.2 - 1.0) 04/02/17 13:37 Ur Leukocyte Esterase NEGATIVE (NEGATIVE) 04/02/17 13:37 Urine RBC >100 /hpf (0-5) H 04/02/17 13:37 Urine WBC 2-5 /hpf (0-5) H 04/02/17 13:37 Ur Epithelial Cells FEW /lpf (FEW) 04/02/17 13:37 Urine Bacteria 2+ /hpf (NONE SEEN) H 04/02/17 13:37 - Physical Exam Vitals and I&O: Vital Signs Temp 98.6 F 04/05/17 00:00 Pulse 74 04/05/17 00:00 Resp 18 04/05/17 07:59 BP 110/69 04/05/17 00:00 Pulse Ox 97 04/05/17 00:00 Intake & Output 04/04/17 04/05/17 04/05/17 18:59 06:59 18:59 Intake Total 400 Balance 400 Weight (lbs) 138 lb Intake: Oral 400 Other: # Voids 3 # Bowel Movements 0 Active Medications: Current Medications Acetaminophen (Tylenol) 650 mg PO Q6H PRN PRN Reason: Pain (Mild) Stop: 06/01/17 17:40 Last Admin: 04/03/17 01:03 Dose: 650 mg Bupropion HCl (Wellbutrin Sr) 75 mg PO DAILY [facility] Stop: 06/02/17 08:59 Last Admin: 04/05/17 08:44 Dose: 75 mg Calamine/Phenol (Calmoseptine) 113 appl TP BID [facility] Stop: 06/02/17 08:59 Last Admin: 04/05/17 08:47 Dose: 113 appl Clonazepam (Klonopin) 1 mg PO TID [facility] Stop: 06/01/17 20:59 Last Admin: 04/05/17 08:48 Dose: 1 mg Clotrimazole (Lotrimin 1% Cream) 1 appl TP BID [facility] Stop: 06/02/17 08:59 Last Admin: 04/05/17 08:47 Dose: 1 appl Desmopressin Acetate (Ddavp) 0.1 mg PO DAILY [facility] Stop: 06/02/17 08:59 Last Admin: 04/05/17 08:48 Dose: 0.1 mg Diphenhydramine HCl (Benadryl) 25 mg PO Q6H PRN PRN Reason: Itching Stop: 06/01/17 17:40 Last Admin: 04/03/17 01:03 Dose: 25 mg Diphenoxylate HCl/Atropine (Lomotil) 1 tab PO Q6H PRN PRN Reason: Diarrhea Stop: 06/01/17 17:40 Divalproex Sodium (Depakote Dr) 500 mg PO TID [facility] PRN Reason: Protocol Stop: 06/01/17 20:59 Last Admin: 04/05/17 08:44 Dose: 500 mg Fluoxetine HCl (Prozac) 20 mg PO DAILY [facility] PRN Reason: Protocol Stop: 06/02/17 08:59 Last Admin: 04/05/17 08:46 Dose: 20 mg Lacosamide (Vimpat) 50 mg PO BID [facility] Stop: 06/02/17 08:59 Last Admin: 04/05/17 09:02 Dose: 50 mg Lactobacillus Rhamnosus (Culturelle) 1 each PO DAILY [facility] Stop: 06/02/17 08:59 Last Admin: 04/05/17 08:45 Dose: 1 each Lactulose (Cephulac) 10 gm PO DAILY [facility] Stop: 06/02/17 08:59 Last Admin: 04/05/17 08:44 Dose: 10 gm Levetiracetam (Keppra) 1,500 mg PO BID [facility] Stop: 06/02/17 08:59 Last Admin: 04/05/17 08:44 Dose: 1,500 mg Levothyroxine Sodium (Synthroid) 0.05 mg PO QDAC [facility] Stop: 06/02/17 07:29 Last Admin: 04/05/17 06:46 Dose: 0.05 mg Metoclopramide HCl (Reglan) 5 mg PO BID [facility] Stop: 06/02/17 08:59 Last Admin: 04/05/17 08:48 Dose: 5 mg Mometasone Furoate (Elocon 1%) 1 appl TP DAILY [facility] Stop: 06/02/17 08:59 Last Admin: 04/05/17 08:46 Dose: 1 appl Ondansetron HCl (Zofran Odt) 4 mg PO Q4H PRN PRN Reason: Nausea / Vomiting Stop: 06/02/17 03:15 Quetiapine Fumarate (Seroquel) 25 mg PO TID [facility] PRN Reason: Protocol Stop: 06/02/17 08:59 Last Admin: 04/05/17 08:44 Dose: 25 mg Trazodone HCl (Desyrel) 100 mg PO HS [facility] Stop: 06/02/17 20:59 Last Admin: 04/04/17 21:38 Dose: 100 mg General: alert HEENT: NC/AT, PERRLA Neck: Supple Lungs: CTAB Cardiovascular: RRR, Normal S1, Normal S2, without murmur Abdomen: soft, non-tender, non-distended, positive bowel sound Neurological: alert, other (confused) - Procedures Procedures: Procedures Procedure Code Date COLONOSCOPY 45.23 07/22/10 DIAGNOSTIC COLONOSCOPY 14158 07/22/10 EGD DIAGNOSTIC BRUSH WASH 62152 04/17/09 ESOPHAGOGASTRODUODENOSCOPY [EGD] W/CLOSED BIOPSY 45.16 03/05/09 EXC TR-EXT B9+CHILANGO 0.5 CM< 22192 06/26/16 EXCISION OF CHEST WALL, OPEN APPROACH [id number] 06/26/16 OTHER ENDOSCOPY OF SM INTEST 45.13 04/17/09 Internal Medicine Assmt/Plan - 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
== END 2017-04-05 13:15 | disposition short-term general hospital (02) | DRG 871 ==
LOC: ER 12:18 → TELE 17:29
PROVIDERS: ADMIT Internal Medicine; ATTEND Internal Medicine
DX: A41.9 Sepsis, unspecified organism (principal); J18.9 Pneumonia, unspecified organism; F72 Severe intellectual disabilities; Q93.5 Other deletions of part of a chromosome; N39.0 Urinary tract infection, site not specified; F03.90 Unspecified dementia, unspecified severity, without behavioral disturbance, psychotic disturbance, mood disturbance, and anxiety; J40 Bronchitis, not specified as acute or chronic; F32.9 Major depressive disorder, single episode, unspecified; E03.9 Hypothyroidism, unspecified; R31.9 Hematuria, unspecified; Z79.899 Other long term (current) drug therapy; Z82.49 Family history of ischemic heart disease and other diseases of the circulatory system
CPT/HCPCS: 36415-UA; 71010-TC; 80048-TC; 80053-TC; 81001-TC; 82550-TC; 82553; 83605; 84484-TC; 85025-TC; 85610-TC; 85730-TC; 87086-90; 93005; J1956; Z7610

== ENCOUNTER 2017-05-18 21:57 | Inpatient (IN) | payer MEDICARE, MEDICAID ==
--- NOTE | 2017-05-18 22:08 | ED Physician Chart ---
ED Chief Complaint/HPI - Patient Information Date Seen:: 05/18/17 Time Seen:: 21:50 Chief Complaint:: Vomiting History of Present Illness:: onset x one day of N/Vx5, hematemesis; no report of A/D/C, melena, hematochezia , H/As, S/T, neck pain, C/P, SOB, Abd. Pain, or urinary s/s Allergies:: Allergies Allergy/AdvReac Type Severity Reaction Status Date / Time No Known Allergies Allergy Verified 10/04/16 12:06 Historian:: Patient, EMS Review:: Nurse's Note Reviewed, Old Chart Reviewed, EMS run form Reviewed ED Review of Systems - Review of Systems General/Constitutional: No fever, No chills, No weight loss, No weakness, No diaphoresis, No edema, No loss of appetite Skin: No skin lesions, No rash, No bruising Head: No headache, No light-headedness Eyes: No loss of vision, No pain, No diplopia ENT: No earache, No nasal drainage, No sore throat, No tinnitus Neck: No neck pain, No swelling, No thyromegaly, No stiffness, No mass noted Cardio Vascular: No chest pain, No palpitations, No PND, No orthopnea, No edema Pulmonary: No SOB, No cough, No sputum, No wheezing GI: No nausea, No vomiting, No diarrhea, No pain, No melena, No hematochezia, No constipation, No hematemesis G/U: No dysuria, No frequency, No hematuria, No nacturia Musculoskeletal: No bone or joint pain, No back pain, No muscle pain Endocrine: No polyuria, No polydipsia Psychiatric: Prior psych history, Depression, No anxiety, No suicidal ideation, No homicidal ideation, No auditory hallucination, No visual hallucination Hematopoietic: No bruising, No lymphadenopathy Allergic/Immuno: No urticaria, No angioedema Neurological: No syncope, No focal symptoms, No weakness, No paresthesia, No headache, No seizure, No dizziness, No confusion, No vertigo ED Past Medical History - Past Medical History Obtainable: Yes Past Medical History: Thyroid disorder, Dementia, Other (Tardive Dyskinesia) Family History: Diabetes Melitus, HTN Social History: Non Smoker, No Alcohol, No Drug Use, Single, Care Facility Surgical History: None Psychiatricy History: Depression, Bipolar, Dementia Medication: Reviewed Family Medical History - Family Member Mother History Unknown: Yes Ethnicity: Unknown Living Status: Unknown Hx Family Cancer: (ANUSHKA) Hx Family Coronary Artery Disease: (ANUSHKA) Hx Family Congestive Heart Failure: (ANUSHKA) Hx Family Hypertension: (ANUSHKA) Hx Family Stroke: (ANUSHKA) Hx Family Diabetes: (ANUSHKA) Hx Family Seizures: (ANUSHKA) Hx Family Dementia: (ANUSHKA) Hx Family AIDS: (ANUSHKA) Hx Family COPD: (ANUSHKA) Hx Family Hepatitis: (ANUSHKA) Hx Family Psychiatric Problems: (ANUSHKA) Hx Family Tuberculosis: (ANUSHKA) ED Physical Exam - Physical Examination General/Constitutional: Awake, Well-developed, well-nourished, Alert, No distress, GCS 15, Non-toxic appearing, Ambulatory Head: Atraumatic Eyes: Lids, conjuctiva normal, PERRL, EOMI Skin: Nl inspection, No rash, No skin lesions, No ecchymosis, Well hydrated, No lymphadenopathy ENMT: External ears, nose nl, Nasal exam nl, Lips, teeth, gums nl Neck: Nontender, Full ROM w/o pain, No JVD, No nuchal rigidity, No bruit, No mass, No stridor Respiratory: Nl effort/Exclusion, Clear to Auscultation, No Wheeze/Rhonchi/Rales Cardio Vascular: RRR, No murmur, gallop, rubs, NL S1 S2, Carotid/Femoral/Distal pulses equal bilaterally GI: No tenderness/rebounding/guarding, No organomegaly, No hernia, Normal BS's, Nondistended, No mass/bruits, No McBurney tenderness : No CVA tenderness Extremities: No tenderness or effusion, Full ROM, normal strength in all extremities, No edema, Normal digits & nails Neuro/Psych: DTR's symmetric, Normal sensory exam, Normal motor strength, Judgement/insight normal, Mood normal, Normal gait, No focal deficits Other Neuro/Psych comments:: Confused and disoriented Misc: Normal back, No paraspinal tenderness ED Labs/Radiology/EKG Results - Lab Results Comments:: WBC: 12.6 - Radiology Results Comments:: + Infiltrate - EKG Interpretations EKG Time:: 22:19 Rate & Rhythm: 85; NSR/JR Comments:: non-specific st-t changes ED Septic Shock - . Is Septic Shock (SBP<90, OR Lactate>4 mmol\L) present?: No ED Reassessment (Disposition) - Reassessment Reassessment Condition:: Improved - Diagnosis Diagnosis:: PNA; N/V; GI Bleed; Hematemesis; Dehydration; Sepsis; Leukocytosis; AGE; Gastritis - Aftercare/Follow up Instructions Aftercare/Follow-Up Instructions:: Counseled pt regarding lab results/diagnosis & need follow up, Counseled pt & family regarding lab results/diagnosis & need follow up - Patient Disposition Discharge/Transfer:: Acute Care w/in this hosp Accepting Physician:: Dr. Nian Time Called:: 0957 Time Responded:: 23:50 Admitted to:: Med/Surg Spoke to:: Dr. Nina Admitting Medical Physician:: Dr. Nina Condition at Disposition:: Stable, Improved
[2017-05-18] MEDS ORDERED: Sodium Chloride 0.9% 1,000 ML IV ONE (22:09)
[2017-05-18 23:19] LABS: % BASOPHILS 1.2 % (0.0-2.0); % LYMPHOCYTES 19.5 % (20.0-50.0); % MONOCYTES 12.3 % (2.0-10.0); BASOPHILE ABSOLUTE 0.2 Th/cumm (0-0.2); EOSINOPHILE ABSOLUTE 0.5 Th/cmm (0.1-0.4); HEMATOCRIT 38.1 % (41.0-60); HEMOGLOBIN 12.3 gm/dL (12-16); LYMPHOCYTE ABSOLUTE 2.5 Th/cmm (1.5-3.0); MEAN CELL VOLUME 85.5 fl (80-99); MEAN CORPUSCULAR HEMOGLOBIN 27.5 pg (26.0-30.0); MEAN CORPUSCULAR HGB CONC 32.2 pg (28.0-36.0); MEAN PLATELET VOLUME 7.4 fl; MONOCYTE ABSOLUTE 1.5 Th/cmm (0.3-1.0); NEUTROPHILE ABSOLUTE 7.9 Th/cmm (1.8-8.0); PLATELET COUNT 464 Th/cmm (150-400); RED BLOOD COUNT 4.46 Mil/cmm (4.30-5.70); RED CELL DISTRIBUTION WIDTH 18.3 % (11.5-20.0)
[2017-05-18 23:22] LABS: WHITE BLOOD COUNT 12.6 Th/cmm (4.8-10.8)
[2017-05-18 23:34] LABS: ANION GAP 7.9 (7.0-16.0); BUN - UREA NITROGEN 21 mg/dL (7-25); CALCIUM SERUM 9.3 mg/dL (8.6-10.3); CARBON DIOXIDE 35.6 mEq/L (21.0-31.0); CHLORIDE 105 mEq/L (98-107); CHOLESTEROL 167 mg/dL (<200); CREATININE - SERUM 0.8 mg/dL (0.7-1.3); CREATININE KINASE 53 U/L (30-223); GFR AFRICAN-AMERICAN > 60.0 ml/min (>90); GFR NON AFRICAN-AMERICAN > 60.0 ml/min; GLUCOSE 75 mg/dL (70-105); HDL -HIGH DENSITY LIPOPROTEIN 53 mg/dL (23-92); POTASSIUM SERUM 4.5 mEq/L (3.5-5.1); SODIUM SERUM 144 mEq/L (136-145); TRIGLYCERIDES 75 mg/dL (<150)
[2017-05-18 23:35] LABS: AMYLASE SERUM 20 U/L (29-103); LIPASE 22 U/L (11-82)
[2017-05-18 23:35] LABS: INR 0.97 (0.5-1.4); PROTHROMBIN TIME (TEST) 10.1 SECONDS (9.5-11.5)
[2017-05-19] MEDS ORDERED: cefTRIAXone 1 GM in Sodium Chloride 0.9% 50 ML IV ONE (03:23)
--- NOTE | 2017-05-19 07:52 | Diagnostic Imaging Report ---
Portable chest x-ray History: Pain Allowing for portable technique the heart size is normal. No focal pulmonary parenchymal processes. No hilar or mediastinal abnormalities. Impression: No acute abnormalities.
[2017-05-19] MEDS ORDERED: D5-0.45NS 1,000 ML IV SCH (08:29)
--- NOTE | 2017-05-19 08:49 | History and Physical ---
History of Present Illness - HPI Chief Complaint: patient presented with c/o nausea + vomiting hematemesis, hematochezia Vital Signs: Last Vital Signs Temp 95.8 F 05/19/17 04:00 Pulse 70 05/19/17 04:00 Resp 18 05/19/17 04:00 BP 106/67 05/19/17 05:00 Pulse Ox 97 05/19/17 04:00 Past Medical History Psych: Report: Depression, Other (dementia, bipolar) Endocrine: Report: Other (thyroid disorder) Family Medical History - Family Member Mother History Unknown: Yes Ethnicity: Unknown Living Status: Unknown Hx Family Cancer: (ANUSHKA) Hx Family Coronary Artery Disease: (ANUSHKA) Hx Family Congestive Heart Failure: (ANUSHKA) Hx Family Hypertension: (ANUSHKA) Hx Family Stroke: (ANUSKHA) Hx Family Diabetes: (ANUSHKA) Hx Family Seizures: (ANUSHKA) Hx Family Dementia: (ANUSHKA) Hx Family AIDS: (ANUSHKA) Hx Family COPD: (ANUSHKA) Hx Family Hepatitis: (ANUSHKA) Hx Family Psychiatric Problems: (ANUSHKA) Hx Family Tuberculosis: (ANUSHKA) Social History Smoke: No Alcohol: None Drugs: None Lives: Residential Domestic Violence: Negative Health Maintenance Health Maintenance: Other - Medications Home Medications: Home Medication Medication Instructions Recorded Type Acetaminophen [Tylenol] 650 mg PO Q6H PRN tab 03/19/17 Rx Bupropion HCl 75 mg PO DAILY 04/02/17 History Clotrimazole 1% Cream [Lotrimin 1% 1 appl TP BID PRN 04/02/17 History Cream] Mometasone Furoate 0.1% Cream 1 appl TP DAILY 04/02/17 History [Elocon 1%] Betamethasone Dip 0.05% Cream 1 appl TP BID 05/18/17 History Clonazepam [Clonazepam*] 1 mg PO TID 05/18/17 History Diphenhydramine HCL [Benadryl] 25 mg PO QID PRN 05/18/17 History Divalproex Sodium [Depakote 125 mg PO TID 05/18/17 History Sprinkle] FLUoxetine HCL [PROzac] 20 mg PO 05/18/17 History FLUoxetine HCL [Prozac*] 20 mg PO DAILY 05/18/17 History Ferrous Sulfate [Iron] 1 tab PO DAILY 05/18/17 History Lacosamide [Vimpat] 50 mg PO BID 05/18/17 History Levetiracetam 15 ml PO BID 05/18/17 History Menthol/Zinc Oxide [Calmoseptine 113 gm TP DAILY PRN 05/18/17 History Ointment] Metoclopramide HCl 5 mg PO BID 05/18/17 History Promethazine DM 6.25/15mg-5mL 5 ml PO Q6H PRN 05/18/17 History [Phenergan DM 6.25/15mg-5 mL] QUEtiapine Fumarate [SEROquel] 25 mg PO TID 05/18/17 History Starch [Thick-It] 1,020 gm PO DAILY 05/18/17 History Trazodone HCl 100 mg PO HS 05/18/17 History Triamcinolone Acet 0.1% Cream 1 appl TP TID PRN 05/18/17 History [Kenalog 0.1%] Desmopressin [Ddavp] 0.1 mg PO DAILY 05/19/17 History Lactulose [Cephulac] 10 gm PO DAILY 05/19/17 History Levothyroxine [Synthroid] 0.05 mg PO QDAC 05/19/17 History - Allergies Allergies/Adverse Reactions: Allergies Allergy/AdvReac Type Severity Reaction Status Date / Time No Known Allergies Allergy Verified 10/04/16 12:06 Review of Systems - Review of Systems Constitutional: Report: Weakness Eyes: Report: No Significant ENT: Report: No Significant Respiratory: Report: No Significant Cardiovascular: Report: No Significant Gastrointestinal: Report: Nausea, Vomiting Genitourinary: Report: No Significant Musculoskeletal: Report: No Significant Skin: Report: No Significant Neurological: Report: Weakness. Denies: No Significant Physical Exam - Physical Exam HEENT: Report: Ears Nose Throat within normal limits Neck: Report: Within normal limits Cardiovascular Systems: Report: +s1/s2 noted, Regular, Rate and Rhythm Respiratory: Report: Breath Sounds are within normal limits Abdomen: Report: Non-tender to palpation Back: Report: Inspection of back is within normal limits. Extremities: Report: Non-tender to palpation. Skin: Report: Color of skin is within normal limits Neuro/Psych: Report: Mood affect is within normal limits - Assessment Assessment: pneumonia nausea vomiting gi bleed hematemesis dehydration sepsis leukocytosis gastritis - Plan Plan: as per order sheet
[2017-05-19 09:06] LABS: % BASOPHILS 0.3 % (0.0-2.0); % EOSINOPHILS 3.1 % (0.0-5.0); % LYMPHOCYTES 15.1 % (20.0-50.0); % MONOCYTES 10.1 % (2.0-10.0); % NEUTROPHILS 71.4 % (40.0-80.0); EOSINOPHILE ABSOLUTE 0.4 Th/cmm (0.1-0.4); HEMATOCRIT 37.4 % (41.0-60); LYMPHOCYTE ABSOLUTE 1.9 Th/cmm (1.5-3.0); MEAN CELL VOLUME 85.2 fl (80-99); MEAN CORPUSCULAR HEMOGLOBIN 27.4 pg (26.0-30.0); MEAN CORPUSCULAR HGB CONC 32.1 pg (28.0-36.0); MONOCYTE ABSOLUTE 1.3 Th/cmm (0.3-1.0); NEUTROPHILE ABSOLUTE 9.2 Th/cmm (1.8-8.0); PLATELET COUNT 456 Th/cmm (150-400); RED BLOOD COUNT 4.39 Mil/cmm (4.30-5.70); RED CELL DISTRIBUTION WIDTH 18.2 % (11.5-20.0)
[2017-05-19 09:42] LABS: WHITE BLOOD COUNT 12.8 Th/cmm (4.8-10.8)
[2017-05-19 09:51] LABS: ANION GAP 8.4 (7.0-16.0); BUN - UREA NITROGEN 19 mg/dL (7-25); CALCIUM SERUM 8.9 mg/dL (8.6-10.3); CARBON DIOXIDE 31.9 mEq/L (21.0-31.0); CHLORIDE 108 mEq/L (98-107); CHOLESTEROL 158 mg/dL (<200); CREATININE - SERUM 0.7 mg/dL (0.7-1.3); GFR AFRICAN-AMERICAN > 60.0 ml/min (>90); GFR NON AFRICAN-AMERICAN > 60.0 ml/min; GLUCOSE 82 mg/dL (70-105); HDL -HIGH DENSITY LIPOPROTEIN 50 mg/dL (23-92); POTASSIUM SERUM 4.3 mEq/L (3.5-5.1); SODIUM SERUM 144 mEq/L (136-145); TRIGLYCERIDES 77 mg/dL (<150)
[2017-05-19] MEDS: D5-0.45NS 1,000 ML IV SCH (13:41)
[2017-05-19] MEDS: Levofloxacin 500mg/100mL 500 MG/100 ML BAG IV SCH (13:43)
--- NOTE | 2017-05-19 14:55 | Consultation ---
Consult Note - Consult Note Service Date: 05/19/17 Referring Physician: Melissa Nina Consult Note: PHYSICIAN Consultation Note: Date of Admission: 05/19/17 Purpose of Consultation: Chief Complaint: onset x one day of N/Vx5, hematemesis; no report of A/D/C, melena, hematochezia, H/As, S/T, neck pain, C/P, SOB, Abd. Pain, or urinary s/s. 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 on inititial evaluation he was afebrile and WBC count was 12,k. Levaquin was started and ID consult was called for antibiotic management. Past Medical History: Angleman's syndrome. Diagnoses SEPSIS, UNSPECIFIED ORGANISM (05/19/17) DEHYDRATION (05/19/17) UNSPECIFIED DEMENTIA WITHOUT BEHAVIORAL DISTURBANCE (05/19/17) BIPOLAR DISORDER, UNSPECIFIED (05/19/17) PNEUMONIA, UNSPECIFIED ORGANISM (05/19/17) GASTRITIS, UNSPECIFIED, WITHOUT BLEEDING (05/19/17) GASTROINTESTINAL HEMORRHAGE, UNSPECIFIED (05/19/17) Allergies Allergy/AdvReac Type Severity Reaction Status Date / Time No Known Allergies Allergy Verified 10/04/16 12:06 Vital Signs Temp 97.2 F 05/19/17 09:00 Pulse 64 05/19/17 09:00 Resp 20 05/19/17 09:00 BP 113/75 05/19/17 09:00 Pulse Ox 113 05/19/17 09:00 Intake & Output 05/18/17 05/19/17 05/19/17 18:59 06:59 18:59 Intake Total 50 Balance 50 Intake: Intake, IV Amount 50 cefTRIAXone 1 gm In 50 Sodium Chloride 0.9% 50 ml @ 100 mls/hr IV X1 ONE Rx#:[id number] Laboratory Results - last 24 hr 05/19/17 05/19/17 05/19/17 08:50 08:50 08:50 WBC 12.8 H RBC 4.39 Hgb 12.0 Hct 37.4 L MCV 85.2 MCH 27.4 MCHC Differential 32.1 RDW 18.2 Plt Count 456 H MPV 7.0 Neutrophils % 71.4 Lymphocytes % 15.1 L Monocytes % 10.1 H Eosinophils % 3.1 Basophils % 0.3 Sodium 144 Potassium 4.3 Chloride 108 H Carbon Dioxide 31.9 H Anion Gap 8.4 BUN 19 Creatinine 0.7 Est GFR ( Amer) > 60.0 Est GFR (Non-Af Amer) > 60.0 BUN/Creatinine Ratio 27.1 Glucose 82 Calcium 8.9 Triglycerides 77 Cholesterol 158 HDL Cholesterol 50 TSH 4.50 Home Medication Medication Instructions Recorded Type Acetaminophen [Tylenol] 650 mg PO Q6H PRN tab 03/19/17 Rx Bupropion HCl 75 mg PO DAILY 04/02/17 History Clotrimazole 1% Cream [Lotrimin 1% 1 appl TP BID PRN 04/02/17 History Cream] Mometasone Furoate 0.1% Cream 1 appl TP DAILY 04/02/17 History [Elocon 1%] Betamethasone Dip 0.05% Cream 1 appl TP BID 05/18/17 History Clonazepam [Clonazepam*] 1 mg PO TID 05/18/17 History Diphenhydramine HCL [Benadryl] 25 mg PO QID PRN 05/18/17 History Divalproex Sodium [Depakote 125 mg PO TID 05/18/17 History Sprinkle] FLUoxetine HCL [PROzac] 20 mg PO 05/18/17 History FLUoxetine HCL [Prozac*] 20 mg PO DAILY 05/18/17 History Ferrous Sulfate [Iron] 1 tab PO DAILY 05/18/17 History Lacosamide [Vimpat] 50 mg PO BID 05/18/17 History Levetiracetam 15 ml PO BID 05/18/17 History Menthol/Zinc Oxide [Calmoseptine 113 gm TP DAILY PRN 05/18/17 History Ointment] Metoclopramide HCl 5 mg PO BID 05/18/17 History Promethazine DM 6.25/15mg-5mL 5 ml PO Q6H PRN 05/18/17 History [Phenergan DM 6.25/15mg-5 mL] QUEtiapine Fumarate [SEROquel] 25 mg PO TID 05/18/17 History Starch [Thick-It] 1,020 gm PO DAILY 05/18/17 History Trazodone HCl 100 mg PO HS 05/18/17 History Triamcinolone Acet 0.1% Cream 1 appl TP TID PRN 05/18/17 History [Kenalog 0.1%] Desmopressin [Ddavp] 0.1 mg PO DAILY 05/19/17 History Lactulose [Cephulac] 10 gm PO DAILY 05/19/17 History Levothyroxine [Synthroid] 0.05 mg PO QDAC 05/19/17 History Current Medications Generic Name Dose Route Start Last Admin Trade Name Freq PRN Reason Stop Dose Admin Levofloxacin 500 mg in 100 mls @ 100 mls/hr 05/19/17 13:00 05/19/17 13:43 Levaquin Pb IV 07/18/17 12:59 100 mls/hr Q24HR PRAVEENA Administration Dextrose/Sodium Chloride 1,000 mls @ 125 mls/hr 05/19/17 13:00 05/19/17 13:41 D5-0.45ns IV 07/18/17 12:59 125 mls/hr .Q8H PRAVEENA Administration Review of Systems: A 12 point ROS was reviewed with the pertinent positive and negatives noted in the HPI. Social History Smoking Status Smoker, status unknown Drug Use No Alcohol Use No Family Medical History Family Medical History Start: 05/19/17 06: 44 Freq: ONCE Status: Active Document 05/19/17 09:00 MINDY (Rec: 05/19/17 11:28 MINDY [id number] ) Family Medical History Mother History Unknown Yes Physical Exam: General: Comfortable, not in distress. HEENT: Head : normocephalic, atraumatic. Oral cavity moist pink tongue, eyes no pallor no icterus, PERRLA, EOMI. Neck: Supple, no JVD, no carotid bruit. Cardio: S1 and S2 WNL. Respiratory: Vesicular breath sounds, no crackles, no wheezing. Abdominal: Soft NT ND BS present. Genital/Urinary: Deferred. Extremities: NCCE. Neurological: Alert and awake. Assessment: 1. Leukocytosis, reactive versus aspiration. 2. Aspiration. 3. Angleman's syndrome. Plan: Continue levaquin. Thank you Dr Nina for involving me in taking care of this patient. Katerina, Jermaine Rivas M.D. [id number]
--- NOTE | 2017-05-19 17:45 | History & Physical ---
ADMIT DATE: 05/19/2017 HISTORY OF PRESENT ILLNESS: The patient is a very well known to me. The patient has abdominal pain, nausea, vomiting for several days and patient dehydrated. I have asked him to come to the Emergency Room, was admitted for severe dehydration. The patient is well known to me. The patient is known to have a history of mental delay. The patient is known to have a history of multiple problems including history of thyroid disorder, history of dementia, history of tardive dyskinesia and family history of diabetes and hypertension and the patient was seen in the Emergency Room, was found to be severely dehydrated and with severe nausea and vomiting, was admitted. REVIEW OF SYSTEMS: The patient had no fever, no chills, no skin lesion, no headache, no neck pain. CARDIOVASCULAR SYSTEM: No chest pain, no shortness of breath. GASTROINTESTINAL: Complaining of nausea and vomiting, abdominal discomfort. NEUROLOGIC: The patient has slow mentation. PHYSICAL EXAMINATION: GENERAL: The patient is a kind of agitated. HEAD: Normal. ENT: Normal. NECK: Supple, nontender. LUNGS: Bilaterally decreased breath sounds. CARDIOVASCULAR SYSTEM: S1, S2 heard. ABDOMEN: The patient has diffuse abdominal tenderness. CENTRAL NERVOUS SYSTEM: The patient is confused and disoriented. LABORATORY DATA: His white count was slightly high at 12.6. Chest x-ray showed infiltrate. DIAGNOSES: Dehydration, pneumonia, history of mental challenge, history of dementia, rule out gastrointestinal disorder, patient is being leukocytosis, rule out sepsis. PLAN: The patient is being admitted. I will go ahead and do the blood cultures, urine cultures and start him on antibiotics and also given dehydration, I will have Dr. Jermaine Rivas see the patient. I will follow the patient. JOB# [id number]
[2017-05-19] MEDS ORDERED: Menthol/Zinc Oxide Oint 113gm Tube TP PRN (19:35)
[2017-05-19] MEDS ORDERED: Promethazine DM 6.25/15mg-5mL 5 ML SYR PO PRN (19:35)
[2017-05-20] MEDS: Levothyroxine 0.05 Mg Tab PO SCH (06:36)
[2017-05-20] MEDS ORDERED: BUPROPION HCL 75 MG PO SCH (09:00)
[2017-05-20] MEDS ORDERED: STARCH PO SCH (09:00)
[2017-05-20] MEDS: Triamcinolone Acetonide 0.1% Cream 15 gm TP PRN (09:30)
[2017-05-20] MEDS: MOMETASONE FUROATE 0.1% TP SCH (09:30)
[2017-05-20] MEDS: Ferrous Sulfate 325 MG TAB PO SCH (09:31)
[2017-05-20] MEDS: Levetiracetam 500 mg/5mL 5mL UDC PO SCH ×2 (09:31→17:50)
[2017-05-20] MEDS: Lactulose 10 Gm/15 mL 30mL UDC PO SCH (09:32)
[2017-05-20] MEDS: Levofloxacin 500mg/100mL 500 MG/100 ML BAG IV SCH (13:58)
--- NOTE | 2017-05-20 20:55 | Internal Medicine Prog Note ---
Internal Medicine Subjective - Subjective Service Date: 05/20/17 Patient seen and examined:: with staff Patient is:: awake Per staff patient has:: no adverse event Internal Medicine Objective - Results Result Diagrams: 05/19/17 08:50 05/19/17 08:50 Recent Labs: Laboratory Last Values WBC 12.8 Th/cmm (4.8-10.8) H 05/19/17 08:50 RBC 4.39 Mil/cmm (4.30-5.70) 05/19/17 08:50 Hgb 12.0 gm/dL (12-16) 05/19/17 08:50 Hct 37.4 % (41.0-60) L 05/19/17 08:50 MCV 85.2 fl (80-99) 05/19/17 08:50 MCH 27.4 pg (26.0-30.0) 05/19/17 08:50 MCHC Differential 32.1 pg (28.0-36.0) 05/19/17 08:50 RDW 18.2 % (11.5-20.0) 05/19/17 08:50 Plt Count 456 Th/cmm (150-400) H 05/19/17 08:50 MPV 7.0 fl 05/19/17 08:50 Neutrophils % 71.4 % (40.0-80.0) 05/19/17 08:50 Lymphocytes % 15.1 % (20.0-50.0) L 05/19/17 08:50 Monocytes % 10.1 % (2.0-10.0) H 05/19/17 08:50 Eosinophils % 3.1 % (0.0-5.0) 05/19/17 08:50 Basophils % 0.3 % (0.0-2.0) 05/19/17 08:50 PT 10.1 SECONDS (9.5-11.5) 05/18/17 22:55 INR 0.97 (0.5-1.4) 05/18/17 22:55 PTT (Actin FS) 25.8 SECONDS (26.0-38.0) L 05/18/17 22:55 Sodium 144 mEq/L (136-145) 05/19/17 08:50 Potassium 4.3 mEq/L (3.5-5.1) 05/19/17 08:50 Chloride 108 mEq/L (98-107) H 05/19/17 08:50 Carbon Dioxide 31.9 mEq/L (21.0-31.0) H 05/19/17 08:50 Anion Gap 8.4 (7.0-16.0) 05/19/17 08:50 BUN 19 mg/dL (7-25) 05/19/17 08:50 Creatinine 0.7 mg/dL (0.7-1.3) 05/19/17 08:50 Est GFR ( Amer) > 60.0 ml/min (>90) 05/19/17 08:50 Est GFR (Non-Af Amer) > 60.0 ml/min 05/19/17 08:50 BUN/Creatinine Ratio 27.1 05/19/17 08:50 Glucose 82 mg/dL (70-105) 05/19/17 08:50 Whole Bld Lactic Acid 1.16 mmol/L (0.60-1.99) 05/18/17 22:55 Calcium 8.9 mg/dL (8.6-10.3) 05/19/17 08:50 Creatine Kinase 53 U/L (30-223) 05/18/17 22:40 Troponin I 0.01 ng/mL (0.01-0.05) 05/18/17 22:40 B-Natriuretic Peptide 19.9 pg/mL (5.0-100.0) 05/18/17 22:55 Triglycerides 77 mg/dL (<150) 05/19/17 08:50 Cholesterol 158 mg/dL (<200) 05/19/17 08:50 LDL Cholesterol Direct 99 mg/dL (75-193) 05/19/17 08:50 HDL Cholesterol 50 mg/dL (23-92) 05/19/17 08:50 Amylase 20 U/L (29-103) L 05/18/17 22:40 Lipase 22 U/L (11-82) 05/18/17 22:40 TSH 4.50 uIU/ml (0.34-5.60) 05/19/17 08:50 - Physical Exam Vitals and I&O: Vital Signs Temp 97.8 F 05/20/17 07:26 Pulse 85 05/20/17 07:26 Resp 17 05/20/17 07:26 BP 116/66 01/12/18 07:26 Pulse Ox 96 05/20/17 07:26 Intake & Output 05/20/17 05/20/17 05/21/17 06:59 18:59 06:59 Weight (lbs) 133 lb 14.4 oz 133 lb Other: Stool Characteristics Soft Active Medications: Current Medications Acetaminophen (Tylenol) 650 mg PO Q6H PRN PRN Reason: Pain (Mild) Stop: 07/18/17 19:34 Betamethasone Dipropionate (Betamethasone Dip 0.05% Cream) 1 appl TP BID PRAVEENA Stop: 07/19/17 08:59 Calamine/Phenol (Calmoseptine) 1 appl TP DAILY PRN PRN Reason: Diaper Rash Stop: 07/18/17 19:34 Last Admin: 05/20/17 09:30 Dose: 1 appl Clonazepam (Klonopin) 1 mg PO TID PRAVEENA Stop: 07/18/17 20:59 Clotrimazole (Lotrimin 1% Cream) 1 appl TP BID PRN PRN Reason: Itching Stop: 07/18/17 19:34 Last Admin: 05/20/17 09:30 Dose: 1 appl Desmopressin Acetate (Ddavp) 0.1 mg PO DAILY PRAVEENA Stop: 07/19/17 08:59 Last Admin: 05/20/17 09:31 Dose: 0.1 mg Diphenhydramine HCl (Benadryl) 25 mg PO QID PRN PRN Reason: Dry Skin Stop: 07/18/17 19:34 Last Admin: 05/19/17 21:02 Dose: 25 mg Divalproex Sodium (Depakote Sprinkle) 125 mg PO TID PRAVEENA PRN Reason: Protocol Stop: 07/18/17 20:59 Ferrous Sulfate (Iron) 325 mg PO DAILY PRAVEENA Stop: 07/19/17 08:59 Last Admin: 05/20/17 09:31 Dose: 325 mg Fluoxetine HCl (Prozac) 20 mg PO DAILY PRAVEENA PRN Reason: Protocol Stop: 07/19/17 08:59 Levofloxacin (Levaquin Pb) 500 mg in 100 mls @ 100 mls/hr IV Q24HR PRAVEENA Stop: 07/18/17 12:59 Last Admin: 05/20/17 13:58 Dose: 100 mls/hr Dextrose/Sodium Chloride (D5-0.45ns) 1,000 mls @ 125 mls/hr IV .Q8H PRAVEENA Stop: 07/18/17 12:59 Last Admin: 05/19/17 13:41 Dose: 125 mls/hr Lacosamide (Vimpat) 50 mg PO BID PRAVEENA Stop: 07/19/17 08:59 Last Admin: 05/20/17 17:50 Dose: 50 mg Lactulose (Cephulac) 10 gm PO DAILY PRAVEENA Stop: 07/19/17 08:59 Last Admin: 05/20/17 09:32 Dose: Not Given Levetiracetam (Keppra) 1,500 mg PO BID PRAVEENA Stop: 07/19/17 08:59 Last Admin: 05/20/17 17:50 Dose: 1,500 mg Levothyroxine Sodium (Synthroid) 0.05 mg PO QDAC PRAVEENA Stop: 07/19/17 07:29 Last Admin: 05/20/17 06:36 Dose: 0.05 mg Metoclopramide HCl (Reglan) 5 mg PO BID PRAVEENA Stop: 07/19/17 08:59 Last Admin: 05/20/17 17:50 Dose: 5 mg Miscellaneous (Bupropion Hcl [Bupropion Hcl]) 75 mg PO DAILY PRAVEENA Stop: 07/19/17 08:59 Mometasone Furoate (Elocon 1%) 1 appl TP DAILY PRAVEENA Stop: 07/19/17 08:59 Last Admin: 05/20/17 09:30 Dose: 1 appl Mupirocin (Bactroban Oint) 1 appl NS BID PRAVEENA Stop: 05/25/17 09:01 Last Admin: 05/20/17 17:50 Dose: 1 appl Promethazine HCl/Dextromethorphan (Phenergan Dm 6.25/15mg-5 Ml) 5 ml PO Q6H PRN PRN Reason: Cough Stop: 07/18/17 19:34 Quetiapine Fumarate (Seroquel) 25 mg PO TID PRAVEENA PRN Reason: Protocol Stop: 07/18/17 20:59 Trazodone HCl (Desyrel) 100 mg PO HS PRAVEENA Stop: 07/18/17 20:59 Triamcinolone Acetonide (Kenalog 0.1%) 1 appl TP TID PRN PRN Reason: Rash Stop: 07/18/17 19:34 Last Admin: 05/20/17 09:30 Dose: 1 appl General: alert HEENT: NC/AT, PERRLA Neck: Supple Lungs: CTAB Abdomen: soft, non-tender, non-distended, positive bowel sound Extremities: excoriation - Procedures Procedures: Procedures Procedure Code Date COLONOSCOPY 45.23 07/22/10 DIAGNOSTIC COLONOSCOPY 26420 07/22/10 EGD DIAGNOSTIC BRUSH WASH 12072 04/17/09 ESOPHAGOGASTRODUODENOSCOPY [EGD] W/CLOSED BIOPSY 45.16 03/05/09 EXC TR-EXT B9+CHILANGO 0.5 CM< [id number] 06/26/16 EXCISION OF CHEST WALL, OPEN APPROACH [id number] 06/26/16 OTHER ENDOSCOPY OF SM INTEST 45.13 04/17/09 Internal Medicine Assmt/Plan - Assessment Assessment: dehydration pna hx dementia hx mr leukocytosis r/o sepsis - Plan Plan: ivf for hydration ivabx follow up labs in am cpm Nutritional Asmnt/Malnutr-PDOC - Dietary Evaluation Malnutrition Findings (Please click <Entered> for more info): Nutritional Asmnt/Malnutrition Start: 05/19/17 16: 29 Text: Status: Complete Freq: Document 05/19/17 16:29 LCHENG (Rec: 05/19/17 16:45 [email or web address] [id number]) Nutritional Asmnt/Malnutrition Patient General Information Nutritional Screening High Risk Diagnosis dehydration (reason for visit) Pertinent Medical Hx/Surgical Hx thyroid disorder, dementia, tardive dyskinesia, depression , bipolar Subjective Information Pt seen lying in bed at the time of visit, confused, not able to communicate. Spoke with nurse, pt ate very fast and cough on regular textured food. PO intake 90% of lunch today. Current Diet Order/ Nutrition Support Regular Pertinent Medications levaquin, D5-0.45ns Pertinent Labs 05/19 Na 144, K 4.3, Cl 108, BUN 19, Cr 0.7, Glucose 82, Ca 8.9 Nutritional Hx/Data Height 5 ft 9 in Height (Calculated Centimeters) 175.3 Current Weight (lbs) 110 lb Weight (Calculated Kilograms) 49.9 Weight (Calculated Grams) 37589.2 Hilliards Body Weight 160 % Hilliards Body Weight 69 Body Mass Index (BMI) 16.2 Weight Status Underweight GI Symptoms Last BM no record Skin Integrity/Comment: camilo 15, rash, redness in the groin Estimated Nutritional Goals Calories/Kcals/Kg 25-30 based on IBW 73kg Kcals Calculated 5261-5371 Protein g/k Protein Calculated 73 Fluid: ml 6895-3234 Nutritional Problem 1. Problem Problem swallowing difficulty Etiology possible dysphagia Signs/Symptoms: pt coughing on regular diet and need for pureed diet Malnutrition Alert Protein-Calorie Malnutrition N/A Is there a minimum of two criteria No selected? Query Text:Check all the applicable criteria. A minimum of two criteria are recommended for diagnosis of either severe or non-severe malnutrition. Intervention/Recommendation Comments 1. Recommend Pureed diet. RN notified and updated diet order. 2. Monitor PO intake, tolerance, wt, labs and skin integrity 3. F/U as moderate risk in 3-5 days, 05/22-05/24 Expected Outcomes/Goals Expected Outcomes/Goals 1. PO intake to meet at least 75% of nutritional needs with tolerance. 2. Wt stability, skin to remain intact, labs to approach WNL.
[2017-05-20] MEDS: D5-0.45NS 1,000 ML IV SCH (23:48)
[2017-05-21] MEDS: Levothyroxine 0.05 Mg Tab PO SCH (06:48)
[2017-05-21] MEDS: Ferrous Sulfate 325 MG TAB PO SCH (08:53)
[2017-05-21] MEDS: Levetiracetam 500 mg/5mL 5mL UDC PO SCH ×2 (08:54→17:00)
[2017-05-21] MEDS: Lactulose 10 Gm/15 mL 30mL UDC PO SCH (08:54)
[2017-05-21] MEDS: D5-0.45NS 1,000 ML IV SCH ×2 (08:58→20:51)
[2017-05-21] MEDS: MOMETASONE FUROATE 0.1% TP SCH (09:25)
[2017-05-21] MEDS: Levofloxacin 500mg/100mL 500 MG/100 ML BAG IV SCH (14:24)
[2017-05-21] MEDS ORDERED: Probiotic Screen MC PRN (15:15)
--- NOTE | 2017-05-21 15:44 | Progress Notes ---
DATE: 05/21/2017 SUBJECTIVE: The patient was seen in his room, lying in the bed. The patient is a poor historian due to medical condition, but the patient appears to be comfortable, in no acute distress. OBJECTIVE: VITAL SIGNS: Temperature of 98.3, heart rate of 62, blood pressure 126/67, respiration of 18, 98% on room air. HEENT: Head is atraumatic and normocephalic. Eyes: Bilateral conjunctivae are clear. Bilateral pupils are equally round and reactive. NECK: Supple. No JVD. CARDIOVASCULAR: S1 and S2, without murmur. PULMONARY: Clear to auscultation. GASTROINTESTINAL: Soft and nontender without guarding. Positive bowel sounds. MUSCULOSKELETAL: No clubbing. No cyanosis noted. ASSESSMENT: 1. Pneumonia. 2. Mental retardation. 3. Angelman syndrome. 4. Leukocytosis. 5. Dehydration. PLAN: We will continue current IV antibiotics. We will follow up with ID doctor for antibiotic management. We will also going to continue IV fluids for hydration. We will also going to monitor the patient's nutritional status. Treatment plans were discussed with the patient's nurse. Treatment plans were discussed with Dr. Nina. JOB# [id number]
--- NOTE | 2017-05-21 17:10 | Infectious Disease Prog Note ---
Infectious Disease Subjective - Review of Systems Service Date: 05/21/17 Infectious Disease Objective - Results Result Diagrams: 05/19/17 08:50 05/19/17 08:50 Recent Labs: Laboratory Last Values WBC 12.8 Th/cmm (4.8-10.8) H 05/19/17 08:50 RBC 4.39 Mil/cmm (4.30-5.70) 05/19/17 08:50 Hgb 12.0 gm/dL (12-16) 05/19/17 08:50 Hct 37.4 % (41.0-60) L 05/19/17 08:50 MCV 85.2 fl (80-99) 05/19/17 08:50 MCH 27.4 pg (26.0-30.0) 05/19/17 08:50 MCHC Differential 32.1 pg (28.0-36.0) 05/19/17 08:50 RDW 18.2 % (11.5-20.0) 05/19/17 08:50 Plt Count 456 Th/cmm (150-400) H 05/19/17 08:50 MPV 7.0 fl 05/19/17 08:50 Neutrophils % 71.4 % (40.0-80.0) 05/19/17 08:50 Lymphocytes % 15.1 % (20.0-50.0) L 05/19/17 08:50 Monocytes % 10.1 % (2.0-10.0) H 05/19/17 08:50 Eosinophils % 3.1 % (0.0-5.0) 05/19/17 08:50 Basophils % 0.3 % (0.0-2.0) 05/19/17 08:50 PT 10.1 SECONDS (9.5-11.5) 05/18/17 22:55 INR 0.97 (0.5-1.4) 05/18/17 22:55 PTT (Actin FS) 25.8 SECONDS (26.0-38.0) L 05/18/17 22:55 Sodium 144 mEq/L (136-145) 05/19/17 08:50 Potassium 4.3 mEq/L (3.5-5.1) 05/19/17 08:50 Chloride 108 mEq/L (98-107) H 05/19/17 08:50 Carbon Dioxide 31.9 mEq/L (21.0-31.0) H 05/19/17 08:50 Anion Gap 8.4 (7.0-16.0) 05/19/17 08:50 BUN 19 mg/dL (7-25) 05/19/17 08:50 Creatinine 0.7 mg/dL (0.7-1.3) 05/19/17 08:50 Est GFR ( Amer) > 60.0 ml/min (>90) 05/19/17 08:50 Est GFR (Non-Af Amer) > 60.0 ml/min 05/19/17 08:50 BUN/Creatinine Ratio 27.1 05/19/17 08:50 Glucose 82 mg/dL (70-105) 05/19/17 08:50 Whole Bld Lactic Acid 1.16 mmol/L (0.60-1.99) 05/18/17 22:55 Calcium 8.9 mg/dL (8.6-10.3) 05/19/17 08:50 Creatine Kinase 53 U/L (30-223) 05/18/17 22:40 Troponin I 0.01 ng/mL (0.01-0.05) 05/18/17 22:40 B-Natriuretic Peptide 19.9 pg/mL (5.0-100.0) 05/18/17 22:55 Triglycerides 77 mg/dL (<150) 05/19/17 08:50 Cholesterol 158 mg/dL (<200) 05/19/17 08:50 LDL Cholesterol Direct 99 mg/dL (75-193) 05/19/17 08:50 HDL Cholesterol 50 mg/dL (23-92) 05/19/17 08:50 Amylase 20 U/L (29-103) L 05/18/17 22:40 Lipase 22 U/L (11-82) 05/18/17 22:40 TSH 4.50 uIU/ml (0.34-5.60) 05/19/17 08:50 - Physical Exam Vitals and I&O: Vital Signs Temp 98.2 F 05/21/17 16:00 Pulse 87 05/21/17 16:00 Resp 18 05/21/17 16:00 BP 105/66 05/21/17 16:00 Pulse Ox 92 05/21/17 16:00 Intake & Output 05/20/17 05/21/17 05/21/17 18:59 06:59 18:59 Intake Total 518 512 6838 Balance 280 253 0985 Weight (lbs) 60.328 kg 60.373 kg Intake: Intake, IV Amount 100 1000 D5-0.45NS 1,000 ml @ 125 1000 mls/hr IV .Q8H REPLACED BY [facility] Rx#: [id number] Levofloxacin 500mg/100mL 100 500 mg In 100 ml @ 100 mls/hr IV Q24HR [facility] Rx#: [id number] Oral 250 Other: # Voids 2 # Bowel Movements 1 Stool Characteristics Soft Soft Active Medications: Current Medications Acetaminophen (Tylenol) 650 mg PO Q6H PRN PRN Reason: Pain (Mild) Stop: 07/18/17 19:34 Betamethasone Dipropionate (Betamethasone Dip 0.05% Cream) 1 appl TP BID REPLACED BY [facility] Stop: 07/19/17 08:59 Last Admin: 05/21/17 16:59 Dose: 1 appl Calamine/Phenol (Calmoseptine) 1 appl TP DAILY PRN PRN Reason: Diaper Rash Stop: 07/18/17 19:34 Last Admin: 05/20/17 09:30 Dose: 1 appl Clonazepam (Klonopin) 1 mg PO TID [facility] Stop: 07/18/17 20:59 Last Admin: 05/21/17 14:39 Dose: 1 mg Clotrimazole (Lotrimin 1% Cream) 1 appl TP BID PRN PRN Reason: Itching Stop: 07/18/17 19:34 Last Admin: 05/20/17 09:30 Dose: 1 appl Desmopressin Acetate (Ddavp) 0.1 mg PO DAILY REPLACED BY [facility] Stop: 07/19/17 08:59 Last Admin: 05/21/17 08:53 Dose: 0.1 mg Diphenhydramine HCl (Benadryl) 25 mg PO QID PRN PRN Reason: Dry Skin Stop: 07/18/17 19:34 Last Admin: 05/19/17 21:02 Dose: 25 mg Divalproex Sodium (Depakote Sprinkle) 125 mg PO TID [facility] PRN Reason: Protocol Stop: 07/18/17 20:59 Last Admin: 05/21/17 14:39 Dose: 125 mg Ferrous Sulfate (Iron) 325 mg PO DAILY [facility] Stop: 07/19/17 08:59 Last Admin: 05/21/17 08:53 Dose: 325 mg Fluoxetine HCl (Prozac) 20 mg PO DAILY [facility] PRN Reason: Protocol Stop: 07/20/17 08:59 Last Admin: 05/21/17 08:53 Dose: 20 mg Levofloxacin (Levaquin Pb) 500 mg in 100 mls @ 100 mls/hr IV Q24HR [facility] Stop: 07/18/17 12:59 Last Admin: 05/21/17 14:24 Dose: 100 mls/hr Dextrose/Sodium Chloride (D5-0.45ns) 1,000 mls @ 125 mls/hr IV .Q8H [facility] Stop: 07/18/17 12:59 Last Admin: 05/21/17 08:58 Dose: 125 mls/hr Lacosamide (Vimpat) 50 mg PO BID [facility] Stop: 07/19/17 08:59 Last Admin: 05/21/17 16:59 Dose: 50 mg Lactobacillus Rhamnosus (Culturelle 15b) 1 each PO DAILY [facility] Stop: 07/21/17 08:59 Lactulose (Cephulac) 10 gm PO DAILY [facility] Stop: 07/19/17 08:59 Last Admin: 05/21/17 08:54 Dose: 10 gm Levetiracetam (Keppra) 1,500 mg PO BID [facility] Stop: 07/19/17 08:59 Last Admin: 05/21/17 17:00 Dose: 1,500 mg Levothyroxine Sodium (Synthroid) 0.05 mg PO QDAC [facility] Stop: 07/19/17 07:29 Last Admin: 05/21/17 06:48 Dose: 0.05 mg Metoclopramide HCl (Reglan) 5 mg PO BID [facility] Stop: 07/19/17 08:59 Last Admin: 05/21/17 17:00 Dose: 5 mg Miscellaneous (Bupropion Hcl [Bupropion Hcl]) 75 mg PO DAILY [facility] Stop: 07/19/17 08:59 Miscellaneous (Probiotic Screen) 1 ea MC PRN PRN PRN Reason: PROTOCOL Stop: 07/20/17 15:14 Mometasone Furoate (Elocon 1%) 1 appl TP DAILY [facility] Stop: 03/13/18 08:59 Last Admin: 05/21/17 09:25 Dose: 1 appl Mupirocin (Bactroban Oint) 1 appl NS BID [facility] Stop: 05/25/17 09:01 Last Admin: 05/21/17 17:01 Dose: 1 appl Promethazine HCl/Dextromethorphan (Phenergan Dm 6.25/15mg-5 Ml) 5 ml PO Q6H PRN PRN Reason: Cough Stop: 07/18/17 19:34 Quetiapine Fumarate (Seroquel) 25 mg PO TID [facility] PRN Reason: Protocol Stop: 07/18/17 20:59 Last Admin: 05/21/17 14:40 Dose: 25 mg Trazodone HCl (Desyrel) 100 mg PO HS [facility] Stop: 07/18/17 20:59 Last Admin: 05/21/17 00:14 Dose: 100 mg Triamcinolone Acetonide (Kenalog 0.1%) 1 appl TP TID PRN PRN Reason: Rash Stop: 07/18/17 19:34 Last Admin: 05/20/17 09:30 Dose: 1 appl - Procedures Procedures: Procedures Procedure Code Date COLONOSCOPY 45.23 07/22/10 DIAGNOSTIC COLONOSCOPY 62912 07/22/10 EGD DIAGNOSTIC BRUSH WASH 15346 04/17/09 ESOPHAGOGASTRODUODENOSCOPY [EGD] W/CLOSED BIOPSY 45.16 03/05/09 EXC TR-EXT B9+CHILANGO 0.5 CM< 53319 06/26/16 EXCISION OF CHEST WALL, OPEN APPROACH [id number] 06/26/16 OTHER ENDOSCOPY OF SM INTEST 45.13 04/17/09 Infectious Disease Assmt/Plan - Problem List Patient Problems: All 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 Failure to thrive (Acute) [id number] History of pneumonia (Acute) Z87.01 Inadequate oral intake (Acute) R63.8 Leukocytosis (Acute) D72.829 Thyroid disorder (Acute) UTI (urinary tract infection) (Acute) VOMITING WITH PERIPHERAL TREMORS (Acute) Nutritional Asmnt/Malnutr-PDOC - Dietary Evaluation Malnutrition Findings (Please click <Entered> for more info): Nutritional Asmnt/Malnutrition Start: 05/19/17 16: 29 Text: Status: Complete Freq: Document 05/19/17 16:29 LCHENG (Rec: 05/19/17 16:45 [facility]-[email or web address]) Nutritional Asmnt/Malnutrition Patient General Information Nutritional Screening High Risk Diagnosis dehydration (reason for visit) Pertinent Medical Hx/Surgical Hx thyroid disorder, dementia, tardive dyskinesia, depression , bipolar Subjective Information Pt seen lying in bed at the time of visit, confused, not able to communicate. Spoke with nurse, pt ate very fast and cough on regular textured food. PO intake 90% of lunch today. Current Diet Order/ Nutrition Support Regular Pertinent Medications levaquin, D5-0.45ns Pertinent Labs 05/19 Na 144, K 4.3, Cl 108, BUN 19, Cr 0.7, Glucose 82, Ca 8.9 Nutritional Hx/Data Height 1.75 m Height (Calculated Centimeters) 175.3 Current Weight (lbs) 49.895 kg Weight (Calculated Kilograms) 49.9 Weight (Calculated Grams) 79113.2 [place] Body Weight 160 % [place] Body Weight 69 Body Mass Index (BMI) 16.2 Weight Status Underweight GI Symptoms Last BM no record Skin Integrity/Comment: camilo 15, rash, redness in the groin Estimated Nutritional Goals Calories/Kcals/Kg 25-30 based on IBW 73kg Kcals Calculated 8868-5026 Protein g/k Protein Calculated 73 Fluid: ml 1104-0250 Nutritional Problem 1. Problem Problem swallowing difficulty Etiology possible dysphagia Signs/Symptoms: pt coughing on regular diet and need for pureed diet Malnutrition Alert Protein-Calorie Malnutrition N/A Is there a minimum of two criteria No selected? Query Text:Check all the applicable criteria. A minimum of two criteria are recommended for diagnosis of either severe or non-severe malnutrition. Intervention/Recommendation Comments 1. Recommend Pureed diet. RN notified and updated diet order. 2. Monitor PO intake, tolerance, wt, labs and skin integrity 3. F/U as moderate risk in 3-5 days, 05/22-05/24 Expected Outcomes/Goals Expected Outcomes/Goals 1. PO intake to meet at least 75% of nutritional needs with tolerance. 2. Wt stability, skin to remain intact, labs to approach WNL.
[2017-05-21 18:39] LABS: URINE MICROSCOPIC INDICATED? YES; URINE SOURCE MIDSTREAM
[2017-05-21 18:41] LABS: URINE BILIRUBIN NEGATIVE (NEGATIVE); URINE BLOOD NEGATIVE (NEGATIVE); URINE GLUCOSE (UA) NEGATIVE (NEGATIVE); URINE KETONE NEGATIVE (NEGATIVE); URINE LEUKOCYTE ESTERASE NEGATIVE (NEGATIVE); URINE NITRATE NEGATIVE (NEGATIVE); URINE PH 7.5 (4.6 - 8.0); URINE PROTEIN NEGATIVE (NEGATIVE); URINE UROBILINOGEN 0.2 E.U./dL (0.2 - 1.0)
[2017-05-21 18:46] LABS: URINE BACTERIA NONE SEEN /hpf (NONE SEEN); URINE CLARITY CLEAR (CLEAR); URINE COLOR YELLOW; URINE EPITHELIAL CELLS NONE SEEN /lpf (FEW); URINE RBC NONE SEEN /hpf (0-5); URINE WBC NONE SEEN /hpf (0-5)
[2017-05-22] MEDS: Levothyroxine 0.05 Mg Tab PO SCH (06:47)
[2017-05-22] MEDS: D5-0.45NS 1,000 ML IV SCH (06:48)
[2017-05-22 07:48] LABS: HEMATOCRIT 38.7 % (41.0-60); HEMOGLOBIN 12.4 gm/dL (12-16); MEAN CELL VOLUME 84.3 fl (80-99); MEAN CORPUSCULAR HGB CONC 32.1 pg (28.0-36.0); MEAN PLATELET VOLUME 7.2 fl; PLATELET COUNT 429 Th/cmm (150-400); RED BLOOD COUNT 4.59 Mil/cmm (4.30-5.70); RED CELL DISTRIBUTION WIDTH 17.8 % (11.5-20.0)
[2017-05-22 07:49] LABS: EOSINOPHILE ABSOLUTE 0.5 Th/cmm (0.1-0.4); LYMPHOCYTE ABSOLUTE 2.8 Th/cmm (1.5-3.0); MONOCYTE ABSOLUTE 1.5 Th/cmm (0.3-1.0); NEUTROPHILE ABSOLUTE 5.1 Th/cmm (1.8-8.0)
[2017-05-22 07:58] LABS: ALB/GLOB RATIO 0.8 (1.0-1.8); ALBUMIN 3.2 gm/dL (4.2-5.5); ALKALINE PHOSPHATASE 47 U/L (34-104); ANION GAP 9.4 (7.0-16.0); BILIRUBIN,TOTAL 0.3 mg/dL (0.3-1.0); BUN - UREA NITROGEN 13 mg/dL (7-25); CALCIUM SERUM 8.9 mg/dL (8.6-10.3); CARBON DIOXIDE 29.1 mEq/L (21.0-31.0); CHLORIDE 99 mEq/L (98-107); CREATININE - SERUM 0.7 mg/dL (0.7-1.3); GFR AFRICAN-AMERICAN > 60.0 ml/min (>90); GFR NON AFRICAN-AMERICAN > 60.0 ml/min; GLUCOSE 84 mg/dL (70-105); POTASSIUM SERUM 4.5 mEq/L (3.5-5.1); SGOT 18 U/L (13-39); SGPT/ALT 18 U/L (7-52); SODIUM SERUM 133 mEq/L (136-145)
[2017-05-22 08:00] LABS: WHITE BLOOD COUNT 9.9 Th/cmm (4.8-10.8)
[2017-05-22] MEDS ORDERED: Lactobacillus Rhamnosus GG 15 Billion CFU CAP.SPRINK PO SCH (09:00)
[2017-05-22] MEDS: Lactulose 10 Gm/15 mL 30mL UDC PO SCH (09:32)
[2017-05-22] MEDS: Levetiracetam 500 mg/5mL 5mL UDC PO SCH (09:35)
[2017-05-22] MEDS: Ferrous Sulfate 325 MG TAB PO SCH (09:35)
[2017-05-22] MEDS: Triamcinolone Acetonide 0.1% Cream 15 gm TP PRN (09:46)
[2017-05-22] MEDS: MOMETASONE FUROATE 0.1% TP SCH (09:46)
--- NOTE | 2017-05-22 11:27 | General Progress Note ---
Subjective - Review of Systems Events since last encounter: patient in no acute distress Objective - Results Result Diagrams: 05/22/17 05:55 05/22/17 05:55 Recent Labs: Laboratory Last Values WBC 9.9 Th/cmm (4.8-10.8) D 05/22/17 05:55 RBC 4.59 Mil/cmm (4.30-5.70) 05/22/17 05:55 Hgb 12.4 gm/dL (12-16) 05/22/17 05:55 Hct 38.7 % (41.0-60) L 05/22/17 05:55 MCV 84.3 fl (80-99) 05/22/17 05:55 MCH 27.0 pg (26.0-30.0) 05/22/17 05:55 MCHC Differential 32.1 pg (28.0-36.0) 05/22/17 05:55 RDW 17.8 % (11.5-20.0) 05/22/17 05:55 Plt Count 429 Th/cmm (150-400) H 05/22/17 05:55 MPV 7.2 fl 05/22/17 05:55 Neutrophils % 71.4 % (40.0-80.0) 05/19/17 08:50 Lymphocytes % 15.1 % (20.0-50.0) L 05/19/17 08:50 Monocytes % 10.1 % (2.0-10.0) H 05/19/17 08:50 Eosinophils % 3.1 % (0.0-5.0) 05/19/17 08:50 Basophils % 0.3 % (0.0-2.0) 05/19/17 08:50 PT 10.1 SECONDS (9.5-11.5) 05/18/17 22:55 INR 0.97 (0.5-1.4) 05/18/17 22:55 PTT (Actin FS) 25.8 SECONDS (26.0-38.0) L 05/18/17 22:55 Sodium 133 mEq/L (136-145) L 05/22/17 05:55 Potassium 4.5 mEq/L (3.5-5.1) 05/22/17 05:55 Chloride 99 mEq/L (98-107) 05/22/17 05:55 Carbon Dioxide 29.1 mEq/L (21.0-31.0) 05/22/17 05:55 Anion Gap 9.4 (7.0-16.0) 05/22/17 05:55 BUN 13 mg/dL (7-25) 05/22/17 05:55 Creatinine 0.7 mg/dL (0.7-1.3) 05/22/17 05:55 Est GFR ( Amer) > 60.0 ml/min (>90) 05/22/17 05:55 Est GFR (Non-Af Amer) > 60.0 ml/min 05/22/17 05:55 BUN/Creatinine Ratio 18.6 05/22/17 05:55 Glucose 84 mg/dL (70-105) 05/22/17 05:55 Whole Bld Lactic Acid 1.16 mmol/L (0.60-1.99) 05/18/17 22:55 Calcium 8.9 mg/dL (8.6-10.3) 05/22/17 05:55 Total Bilirubin 0.3 mg/dL (0.3-1.0) 05/22/17 05:55 AST 18 U/L (13-39) 05/22/17 05:55 ALT 18 U/L (7-52) 05/22/17 05:55 Alkaline Phosphatase 47 U/L (34-104) 05/22/17 05:55 Creatine Kinase 53 U/L (30-223) 05/18/17 22:40 Troponin I 0.01 ng/mL (0.01-0.05) 05/18/17 22:40 B-Natriuretic Peptide 19.9 pg/mL (5.0-100.0) 05/18/17 22:55 Total Protein 7.0 gm/dL (6.0-8.3) 05/22/17 05:55 Albumin 3.2 gm/dL (4.2-5.5) L 05/22/17 05:55 Globulin 3.8 gm/dL 05/22/17 05:55 Albumin/Globulin Ratio 0.8 (1.0-1.8) L 05/22/17 05:55 Triglycerides 77 mg/dL (<150) 05/19/17 08:50 Cholesterol 158 mg/dL (<200) 05/19/17 08:50 LDL Cholesterol Direct 99 mg/dL (75-193) 05/19/17 08:50 HDL Cholesterol 50 mg/dL (23-92) 05/19/17 08:50 Amylase 20 U/L (29-103) L 05/18/17 22:40 Lipase 22 U/L (11-82) 05/18/17 22:40 TSH 4.50 uIU/ml (0.34-5.60) 05/19/17 08:50 Urine Source MIDSTREAM 05/21/17 17:58 Urine Color YELLOW 05/21/17 17:58 Urine Clarity CLEAR (CLEAR) 05/21/17 17:58 Urine pH 7.5 (4.6 - 8.0) 05/21/17 17:58 Ur Specific [place] 1.020 (1.005-1.030) 05/21/17 17:58 Urine Protein NEGATIVE mg/dL (NEGATIVE) 05/21/17 17:58 Urine Glucose (UA) NEGATIVE mg/dL (NEGATIVE) 05/21/17 17:58 Urine Ketones NEGATIVE mg/dL (NEGATIVE) 05/21/17 17:58 Urine Blood NEGATIVE (NEGATIVE) 05/21/17 17:58 Urine Nitrate NEGATIVE (NEGATIVE) 05/21/17 17:58 Urine Bilirubin NEGATIVE (NEGATIVE) 05/21/17 17:58 Urine Urobilinogen 0.2 E.U./dL (0.2 - 1.0) 05/21/17 17:58 Ur Leukocyte Esterase NEGATIVE (NEGATIVE) 05/21/17 17:58 Urine RBC NONE SEEN /hpf (0-5) 05/21/17 17:58 Urine WBC NONE SEEN /hpf (0-5) 05/21/17 17:58 Ur Epithelial Cells NONE SEEN /lpf (FEW) 05/21/17 17:58 Urine Bacteria NONE SEEN /hpf (NONE SEEN) 05/21/17 17:58 - Physical Exam Vitals and I&O: Vital Signs Temp 97 F 05/22/17 08:00 Pulse 62 05/22/17 08:00 Resp 19 05/22/17 08:00 BP 108/70 05/22/17 08:00 Pulse Ox 95 05/22/17 08:00 Intake & Output 05/21/17 05/22/17 05/22/17 18:59 06:59 18:59 Intake Total 2100 1580 Balance 2100 1580 Weight (lbs) 60.328 kg 60.328 kg Intake: Intake, IV Amount 2000 1100 D5-0.45NS 1,000 ml @ 125 2000 1000 mls/hr IV .Q8H [facility] Rx#: [id number] Levofloxacin 500mg/100mL 100 500 mg In 100 ml @ 100 mls/hr IV Q24HR [facility] Rx#: [id number] Oral 100 480 Other: # Voids 4 1 # Bowel Movements 1 0 Stool Characteristics Soft Active Medications: Current Medications Acetaminophen (Tylenol) 650 mg PO Q6H PRN PRN Reason: Pain (Mild) Stop: 07/18/17 19:34 Betamethasone Dipropionate (Betamethasone Dip 0.05% Cream) 1 appl TP BID [facility] Stop: 07/19/17 08:59 Last Admin: 05/22/17 09:46 Dose: 1 appl Bupropion HCl (Wellbutrin Sr) 75 mg PO DAILY [facility] Stop: 07/21/17 08:59 Last Admin: 05/22/17 09:33 Dose: 75 mg Calamine/Phenol (Calmoseptine) 1 appl TP DAILY PRN PRN Reason: Diaper Rash Stop: 07/18/17 19:34 Last Admin: 05/20/17 09:30 Dose: 1 appl Clonazepam (Klonopin) 1 mg PO TID [facility] Stop: 07/18/17 20:59 Last Admin: 05/22/17 09:32 Dose: 1 mg Clotrimazole (Lotrimin 1% Cream) 1 appl TP BID PRN PRN Reason: Itching Stop: 07/18/17 19:34 Last Admin: 05/22/17 09:46 Dose: 1 appl Desmopressin Acetate (Ddavp) 0.1 mg PO DAILY [facility] Stop: 07/19/17 08:59 Last Admin: 05/22/17 09:34 Dose: 0.1 mg Diphenhydramine HCl (Benadryl) 25 mg PO QID PRN PRN Reason: Dry Skin Stop: 07/18/17 19:34 Last Admin: 05/19/17 21:02 Dose: 25 mg Divalproex Sodium (Depakote Sprinkle) 125 mg PO TID [facility] PRN Reason: Protocol Stop: 07/18/17 20:59 Last Admin: 05/22/17 09:31 Dose: 125 mg Ferrous Sulfate (Iron) 325 mg PO DAILY [facility] Stop: 07/19/17 08:59 Last Admin: 05/22/17 09:35 Dose: 325 mg Fluoxetine HCl (Prozac) 20 mg PO DAILY [facility] PRN Reason: Protocol Stop: 07/20/17 08:59 Last Admin: 05/22/17 09:33 Dose: 20 mg Levofloxacin (Levaquin Pb) 500 mg in 100 mls @ 100 mls/hr IV Q24HR [facility] Stop: 07/18/17 12:59 Last Infusion: 05/21/17 19:02 Dose: Infused Dextrose/Sodium Chloride (D5-0.45ns) 1,000 mls @ 125 mls/hr IV .Q8H [facility] Stop: 07/18/17 12:59 Last Admin: 05/22/17 06:48 Dose: 125 mls/hr Lacosamide (Vimpat) 50 mg PO BID [facility] Stop: 07/19/17 08:59 Last Admin: 05/22/17 09:31 Dose: 50 mg Lactobacillus Rhamnosus (Culturelle 15b) 1 each PO DAILY [facility] Stop: 07/21/17 08:59 Last Admin: 05/22/17 09:32 Dose: 1 each Lactulose (Cephulac) 10 gm PO DAILY [facility] Stop: 07/19/17 08:59 Last Admin: 05/22/17 09:32 Dose: 10 gm Levetiracetam (Keppra) 1,500 mg PO BID [facility] Stop: 07/19/17 08:59 Last Admin: 05/22/17 09:35 Dose: 1,500 mg Levothyroxine Sodium (Synthroid) 0.05 mg PO QDAC [facility] Stop: 07/19/17 07:29 Last Admin: 05/22/17 06:47 Dose: 0.05 mg Metoclopramide HCl (Reglan) 5 mg PO BID [facility] Stop: 07/19/17 08:59 Last Admin: 05/22/17 09:34 Dose: 5 mg Miscellaneous (Probiotic Screen) 1 ea MC PRN PRN PRN Reason: PROTOCOL Stop: 07/20/17 15:14 Mometasone Furoate (Elocon 1%) 1 appl TP DAILY [facility] Stop: 07/19/17 08:59 Last Admin: 01/14/18 09:46 Dose: 1 appl Mupirocin (Bactroban Oint) 1 appl NS BID [facility] Stop: 05/25/17 09:01 Last Admin: 05/21/17 17:01 Dose: 1 appl Promethazine HCl/Dextromethorphan (Phenergan Dm 6.25/15mg-5 Ml) 5 ml PO Q6H PRN PRN Reason: Cough Stop: 07/18/17 19:34 Quetiapine Fumarate (Seroquel) 25 mg PO TID [facility] PRN Reason: Protocol Stop: 07/18/17 20:59 Last Admin: 05/22/17 09:34 Dose: 25 mg Trazodone HCl (Desyrel) 100 mg PO HS [facility] Stop: 07/18/17 20:59 Last Admin: 05/21/17 20:50 Dose: 100 mg Triamcinolone Acetonide (Kenalog 0.1%) 1 appl TP TID PRN PRN Reason: Rash Stop: 07/18/17 19:34 Last Admin: 05/22/17 09:46 Dose: 1 appl General: No acute distress HEENT: Atraumatic Neck: Supple Cardiovascular: Regular rate, Normal S1, Normal S2 - Procedures Procedures: Procedures Procedure Code Date COLONOSCOPY 45.23 07/22/10 DIAGNOSTIC COLONOSCOPY 75774 07/22/10 EGD DIAGNOSTIC BRUSH WASH 95920 04/17/09 ESOPHAGOGASTRODUODENOSCOPY [EGD] W/CLOSED BIOPSY 45.16 03/05/09 EXC TR-EXT B9+CHILANGO 0.5 CM< 35073 06/26/16 EXCISION OF CHEST WALL, OPEN APPROACH [id number] 06/26/16 OTHER ENDOSCOPY OF SM INTEST 45.13 04/17/09 Assessment/Plan - Problem List Patient Problems: All 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 Failure to thrive (Acute) [id number] History of pneumonia (Acute) Z87.01 Inadequate oral intake (Acute) R63.8 Leukocytosis (Acute) D72.829 Thyroid disorder (Acute) UTI (urinary tract infection) (Acute) VOMITING WITH PERIPHERAL TREMORS (Acute) - Assessment Assessment: pneumonia nausea vomiting gi bleed hematemesis dehydration sepsis leukocytosis gastritis - Plan Plan: as per order sheet Nutritional Asmnt/Malnutr-PDOC - Dietary Evaluation Malnutrition Findings (Please click <Entered> for more info): Nutritional Asmnt/Malnutrition Start: 05/19/17 16: 29 Text: Status: Complete Freq: Document 05/19/17 16:29 LCTAYLOR (Rec: 05/19/17 16:45 SHAY[facility] ARNETT-[email or web address]) Nutritional Asmnt/Malnutrition Patient General Information Nutritional Screening High Risk Diagnosis dehydration (reason for visit) Pertinent Medical Hx/Surgical Hx thyroid disorder, dementia, tardive dyskinesia, depression , bipolar Subjective Information Pt seen lying in bed at the time of visit, confused, not able to communicate. Spoke with nurse, pt ate very fast and cough on regular textured food. PO intake 90% of lunch today. Current Diet Order/ Nutrition Support Regular Pertinent Medications levaquin, D5-0.45ns Pertinent Labs 05/19 Na 144, K 4.3, Cl 108, BUN 19, Cr 0.7, Glucose 82, Ca 8.9 Nutritional Hx/Data Height 1.75 m Height (Calculated Centimeters) 175.3 Current Weight (lbs) 49.895 kg Weight (Calculated Kilograms) 49.9 Weight (Calculated Grams) 06390.2 [place] Body Weight 160 % [place] Body Weight 69 Body Mass Index (BMI) 16.2 Weight Status Underweight GI Symptoms Last BM no record Skin Integrity/Comment: camilo 15, rash, redness in the groin Estimated Nutritional Goals Calories/Kcals/Kg 25-30 based on IBW 73kg Kcals Calculated 2503-9206 Protein g/k Protein Calculated 73 Fluid: ml 1764-0629 Nutritional Problem 1. Problem Problem swallowing difficulty Etiology possible dysphagia Signs/Symptoms: pt coughing on regular diet and need for pureed diet Malnutrition Alert Protein-Calorie Malnutrition N/A Is there a minimum of two criteria No selected? Query Text:Check all the applicable criteria. A minimum of two criteria are recommended for diagnosis of either severe or non-severe malnutrition. Intervention/Recommendation Comments 1. Recommend Pureed diet. RN notified and updated diet order. 2. Monitor PO intake, tolerance, wt, labs and skin integrity 3. F/U as moderate risk in 3-5 days, 05/22-05/24 Expected Outcomes/Goals Expected Outcomes/Goals 1. PO intake to meet at least 75% of nutritional needs with tolerance. 2. Wt stability, skin to remain intact, labs to approach WNL.
== END 2017-05-22 15:15 | disposition home or self-care (01) | DRG 871 ==
LOC: ER 21:57 → MSI 05-19 01:00
PROVIDERS: ADMIT Internal Medicine; ATTEND Internal Medicine
DX: A41.9 Sepsis, unspecified organism (principal); J18.9 Pneumonia, unspecified organism; Q93.5 Other deletions of part of a chromosome; K29.71 Gastritis, unspecified, with bleeding; F03.90 Unspecified dementia, unspecified severity, without behavioral disturbance, psychotic disturbance, mood disturbance, and anxiety; E86.0 Dehydration; F31.9 Bipolar disorder, unspecified; K52.9 Noninfective gastroenteritis and colitis, unspecified; F79 Unspecified intellectual disabilities; Z83.3 Family history of diabetes mellitus; Z82.49 Family history of ischemic heart disease and other diseases of the circulatory system
CPT/HCPCS: 36415-UA; 71010-TC; 80048-TC; 80053-TC; 80061-TC; 81001-TC; 82150-TC; 82550-TC; 83605; 83690-TC; 83880-TC; 84443-TC; 84484-TC; 85025-TC; 85610-TC; 85730-TC; 87086-90; 93005; 94760; C9113; J0696; J1956; J7030; Z7610

== ENCOUNTER 2017-07-28 20:27 | Inpatient (IN) | payer MEDICARE, MEDICAID ==
--- NOTE | 2017-07-28 20:38 | ED Physician Chart ---
ED Chief Complaint/HPI - Patient Information Date Seen:: 07/28/17 Time Seen:: 20:30 Chief Complaint:: poor oral oral intake History of Present Illness:: Poor oral intake and cough for 1 day. No fever, vomiting or diarrhea. Allergies:: Allergies Allergy/AdvReac Type Severity Reaction Status Date / Time No Known Allergies Allergy Verified 07/28/17 20:34 Historian:: EMS Review:: Nurse's Note Reviewed, Transfer documents Reviewed ED Review of Systems - Review of Systems General/Constitutional: No fever, No chills Skin: No skin lesions Head: No headache Eyes: No loss of vision ENT: No earache Neck: No neck pain Cardio Vascular: No chest pain, No palpitations Pulmonary: No SOB, Cough GI: No nausea, No vomiting, No diarrhea G/U: No dysuria, No frequency, No hematuria Musculoskeletal: No bone or joint pain Endocrine: No polyuria Psychiatric: Depression Hematopoietic: No bruising Allergic/Immuno: No urticaria Neurological: No syncope ED Past Medical History - Past Medical History Past Medical History: Thyroid disorder Family History: Other (unavailable) Social History: Care Facility Surgical History: other (unavailable) Psychiatricy History: Other (anxiety) Medication: Reviewed Family Medical History - Family Member Mother History Unknown: Yes Ethnicity: Unknown Living Status: Unknown Hx Family Cancer: (ANUSHKA) Hx Family Coronary Artery Disease: (ANUSHKA) Hx Family Congestive Heart Failure: (ANUSHKA) Hx Family Hypertension: (ANUSHKA) Hx Family Stroke: (ANUSHKA) Hx Family Diabetes: (ANUSHKA) Hx Family Seizures: (ANUSHKA) Hx Family Dementia: (ANUSHKA) Hx Family AIDS: (ANUSHKA) Hx Family COPD: (ANUSHKA) Hx Family Hepatitis: (ANUSHKA) Hx Family Psychiatric Problems: (ANUSHKA) Hx Family Tuberculosis: (ANUSHKA) ED Physical Exam - Physical Examination General/Constitutional: No distress Other Gen/Cons comments:: Patient is contractured and nonverbal Head: Atraumatic Eyes: Lids, conjuctiva normal, PERRL Skin: Nl inspection, No rash, No skin lesions, No ecchymosis ENMT: External ears, nose nl Other ENMT comments:: Edentulous Neck: No nuchal rigidity Respiratory: Nl effort/Exclusion, Clear to Auscultation Cardio Vascular: RRR, No murmur, gallop, rubs GI: No tenderness/rebounding/guarding, No organomegaly, No hernia : No CVA tenderness Extremities: Normal digits & nails Neuro/Psych: No focal deficits ED Labs/Radiology/EKG Results - Lab Results Results: Laboratory Results - last 24 hr 07/28/17 07/28/17 21:00 21:00 WBC 10.7 RBC 4.56 Hgb 12.2 Hct 38.4 L MCV 84.4 MCH 26.7 MCHC Differential 31.7 RDW 18.7 Plt Count 275 MPV 6.8 Sodium 139 Potassium 4.3 Chloride 100 Carbon Dioxide 35.8 H Anion Gap 7.5 BUN 22 Creatinine 0.8 Est GFR ( Amer) > 60.0 Est GFR (Non-Af Amer) > 60.0 BUN/Creatinine Ratio 27.5 Glucose 82 Calcium 9.7 ED Septic Shock - . Is Septic Shock (SBP<90, OR Lactate>4 mmol\L) present?: No ED Reassessment (Disposition) - Reassessment Reassessment Condition:: Unchanged - Diagnosis Diagnosis:: Altered mental status - Patient Disposition Admitted to:: Med/Surg Spoke to:: Melissa Nina Admitting Medical Physician:: Melissa Nina Condition at Disposition:: Stable, Unchanged ED Discharge Plan - Patient Disposition Admit/Discharge/Transfer: Acute Care w/in this hosp Condition at Disposition: Improved
[2017-07-28 21:11] LABS: EOSINOPHILE ABSOLUTE 0.2 Th/cmm (0.1-0.4); HEMATOCRIT 38.4 % (41.0-60); HEMOGLOBIN 12.2 gm/dL (12-16); LYMPHOCYTE ABSOLUTE 2.6 Th/cmm (1.5-3.0); MANUAL DIFF REQUIRED? YES; MEAN CELL VOLUME 84.4 fl (80-99); MEAN CORPUSCULAR HEMOGLOBIN 26.7 pg (26.0-30.0); MEAN CORPUSCULAR HGB CONC 31.7 pg (28.0-36.0); MEAN PLATELET VOLUME 6.8 fl; MONOCYTE ABSOLUTE 2.3 Th/cmm (0.3-1.0); NEUTROPHILE ABSOLUTE 5.6 Th/cmm (1.8-8.0); PLATELET COUNT 275 Th/cmm (150-400); RED BLOOD COUNT 4.56 Mil/cmm (4.30-5.70); RED CELL DISTRIBUTION WIDTH 18.7 % (11.5-20.0); WHITE BLOOD COUNT 10.7 Th/cmm (4.8-10.8)
[2017-07-28 21:24] LABS: ANION GAP 7.5 (7.0-16.0); BUN - UREA NITROGEN 22 mg/dL (7-25); CALCIUM SERUM 9.7 mg/dL (8.6-10.3); CARBON DIOXIDE 35.8 mEq/L (21.0-31.0); CHLORIDE 100 mEq/L (98-107); CREATININE - SERUM 0.8 mg/dL (0.7-1.3); GFR AFRICAN-AMERICAN > 60.0 ml/min (>90); GFR NON AFRICAN-AMERICAN > 60.0 ml/min; GLUCOSE 82 mg/dL (70-105); POTASSIUM SERUM 4.3 mEq/L (3.5-5.1); SODIUM SERUM 139 mEq/L (136-145)
[2017-07-29] MEDS: D5-0.45NS 1,000 ML IV SCH (03:48)
[2017-07-29] MEDS ORDERED: Pneumococcal Vaccine 0.5 mL Vial IM ONE (05:33)
[2017-07-29 06:18] LABS: % EOSINOPHILS 1.2 % (0.0-5.0); % LYMPHOCYTES 27.9 % (20.0-50.0); % MONOCYTES 23.7 % (2.0-10.0); % NEUTROPHILS 46.4 % (40.0-80.0); BASOPHILE ABSOLUTE 0.1 Th/cumm (0-0.2); EOSINOPHILE ABSOLUTE 0.1 Th/cmm (0.1-0.4); HEMATOCRIT 37.5 % (41.0-60); HEMOGLOBIN 12.1 gm/dL (12-16); LYMPHOCYTE ABSOLUTE 2.1 Th/cmm (1.5-3.0); MEAN CELL VOLUME 84.9 fl (80-99); MEAN CORPUSCULAR HEMOGLOBIN 27.4 pg (26.0-30.0); MEAN CORPUSCULAR HGB CONC 32.3 pg (28.0-36.0); MEAN PLATELET VOLUME 7.2 fl; MONOCYTE ABSOLUTE 1.8 Th/cmm (0.3-1.0); NEUTROPHILE ABSOLUTE 3.4 Th/cmm (1.8-8.0); PLATELET COUNT 245 Th/cmm (150-400); RED BLOOD COUNT 4.41 Mil/cmm (4.30-5.70); RED CELL DISTRIBUTION WIDTH 18.6 % (11.5-20.0); WHITE BLOOD COUNT 7.5 Th/cmm (4.8-10.8)
[2017-07-29 06:19] LABS: % BASOPHILS 0.8 % (0.0-2.0)
[2017-07-29 06:41] LABS: ANION GAP 10.4 (7.0-16.0); BUN - UREA NITROGEN 20 mg/dL (7-25); CALCIUM SERUM 9.6 mg/dL (8.6-10.3); CARBON DIOXIDE 33.5 mEq/L (21.0-31.0); CHLORIDE 99 mEq/L (98-107); CHOLESTEROL 147 mg/dL (<200); CREATININE - SERUM 0.8 mg/dL (0.7-1.3); GFR AFRICAN-AMERICAN > 60.0 ml/min (>90); GFR NON AFRICAN-AMERICAN > 60.0 ml/min; GLUCOSE 63 mg/dL (70-105); HDL -HIGH DENSITY LIPOPROTEIN 45 mg/dL (23-92); POTASSIUM SERUM 3.9 mEq/L (3.5-5.1); SODIUM SERUM 139 mEq/L (136-145); TRIGLYCERIDES 76 mg/dL (<150)
--- NOTE | 2017-07-29 08:08 | Diagnostic Imaging Report ---
Portable chest x-ray Time: 2052 History: Cough Allowing for portable technique the heart size is normal. No focal pulmonary parenchymal processes. No hilar or mediastinal abnormalities. Impression: No acute abnormalities.
[2017-07-29] MEDS: POLYETHYLENE GLYCOL 3350 17 GM PACK PO SCH (13:42)
[2017-07-29] MEDS ORDERED: Menthol/Zinc Oxide Oint 113gm Tube TP PRN (14:58)
[2017-07-29] MEDS ORDERED: Promethazine DM 6.25/15mg-5mL 5 ML SYR PO PRN (14:58)
--- NOTE | 2017-07-29 15:49 | Internal Medicine Prog Note ---
Internal Medicine Subjective - Subjective Service Date: 07/29/17 ([facility] dictated [id number]) Internal Medicine Objective - Results Result Diagrams: 07/29/17 06:10 07/29/17 06:10 Recent Labs: Laboratory Last Values WBC 7.5 Th/cmm (4.8-10.8) 07/29/17 06:10 RBC 4.41 Mil/cmm (4.30-5.70) 07/29/17 06:10 Hgb 12.1 gm/dL (12-16) 07/29/17 06:10 Hct 37.5 % (41.0-60) L 07/29/17 06:10 MCV 84.9 fl (80-99) 07/29/17 06:10 MCH 27.4 pg (26.0-30.0) 07/29/17 06:10 MCHC Differential 32.3 pg (28.0-36.0) 07/29/17 06:10 RDW 18.6 % (11.5-20.0) 07/29/17 06:10 Plt Count 245 Th/cmm (150-400) 07/29/17 06:10 MPV 7.2 fl 07/29/17 06:10 Neutrophils % 46.4 % (40.0-80.0) 07/29/17 06:10 Lymphocytes % 27.9 % (20.0-50.0) 07/29/17 06:10 Monocytes % 23.7 % (2.0-10.0) H 07/29/17 06:10 Eosinophils % 1.2 % (0.0-5.0) 07/29/17 06:10 Basophils % 0.8 % (0.0-2.0) 07/29/17 06:10 Sodium 139 mEq/L (136-145) 07/29/17 06:10 Potassium 3.9 mEq/L (3.5-5.1) 07/29/17 06:10 Chloride 99 mEq/L (98-107) 07/29/17 06:10 Carbon Dioxide 33.5 mEq/L (21.0-31.0) H 07/29/17 06:10 Anion Gap 10.4 (7.0-16.0) 07/29/17 06:10 BUN 20 mg/dL (7-25) 07/29/17 06:10 Creatinine 0.8 mg/dL (0.7-1.3) 07/29/17 06:10 Est GFR ( Amer) > 60.0 ml/min (>90) 07/29/17 06:10 Est GFR (Non-Af Amer) > 60.0 ml/min 07/29/17 06:10 BUN/Creatinine Ratio 25.0 07/29/17 06:10 Glucose 63 mg/dL (70-105) L 07/29/17 06:10 Calcium 9.6 mg/dL (8.6-10.3) 07/29/17 06:10 Triglycerides 76 mg/dL (<150) 07/29/17 06:10 Cholesterol 147 mg/dL (<200) 07/29/17 06:10 LDL Cholesterol Direct 92 mg/dL (75-193) 07/29/17 06:10 HDL Cholesterol 45 mg/dL (23-92) 07/29/17 06:10 TSH 3.11 uIU/ml (0.34-5.60) 07/29/17 06:10 - Physical Exam Vitals and I&O: Vital Signs Temp 98.2 F 07/29/17 11:53 Pulse 100 07/29/17 11:53 Resp 18 07/29/17 11:53 BP 127/72 07/29/17 11:53 Pulse Ox 97 07/29/17 11:53 Intake & Output 07/28/17 07/29/17 07/29/17 18:59 06:59 18:59 Intake Total 973.333 Balance 973.333 Weight (lbs) 125 lb Intake: Intake, IV Amount 973.333 D5-0.45NS 1,000 ml @ 100 973.333 mls/hr IV .Q10H [facility] Rx#: [id number] Other: # Voids 1 Stool Characteristics Formed Weight Source Bedscale Active Medications: Current Medications Acetaminophen (Tylenol) 650 mg PO Q6H PRN PRN Reason: Pain or Fever >101 Stop: 09/27/17 14:57 Bupropion HCl (Wellbutrin Sr) 75 mg PO DAILY [facility] PRN Reason: Protocol Stop: 09/28/17 08:59 Calamine/Phenol (Calmoseptine) 1 appl TP DAILY PRN PRN Reason: Diaper Rash Stop: 09/27/17 14:57 Clonazepam (Klonopin) 1 mg PO TID [facility] Stop: 09/27/17 20:59 Clotrimazole (Lotrimin 1% Cream) 1 appl TP BID PRN PRN Reason: Itching (SKIN) Stop: 09/27/17 14:57 Desmopressin Acetate (Ddavp) 0.1 mg PO DAILY [facility] Stop: 09/28/17 08:59 Diphenhydramine HCl (Benadryl) 25 mg PO QID PRN PRN Reason: ITCHING Stop: 09/27/17 14:57 Divalproex Sodium (Depakote Dr) 125 mg PO TID [facility] PRN Reason: Protocol Stop: 09/27/17 20:59 Ferrous Sulfate (Iron) 325 mg PO DAILY [facility] Stop: 09/28/17 08:59 Fluoxetine HCl (Prozac) 20 mg PO DAILY [facility] PRN Reason: Protocol Stop: 09/28/17 08:59 Dextrose/Sodium Chloride (D5-0.45ns) 1,000 mls @ 100 mls/hr IV .Q10H [facility] Stop: 09/27/17 01:59 Last Infusion: 07/29/17 13:32 Dose: 0 mls/hr Lacosamide (Vimpat) 50 mg PO BID [facility] Stop: 09/27/17 16:59 Lactulose (Cephulac) 10 gm PO TID [facility] Stop: 09/27/17 20:59 Levetiracetam (Keppra) 1,500 mg PO BID [facility] Stop: 09/27/17 16:59 Levothyroxine Sodium (Synthroid) 0.05 mg PO QDAC [facility] Stop: 09/28/17 07:29 Lorazepam (Ativan) 1 mg IVP Q6H PRN; Protocol PRN Reason: Agitation Stop: 09/27/17 04:05 Last Admin: 07/29/17 04:22 Dose: 1 mg Metoclopramide HCl (Reglan) 5 mg PO BID [facility] Stop: 09/27/17 16:59 Polyethylene Glycol (Miralax) 17 gm PO DAILY [facility] Stop: 09/27/17 12:14 Last Admin: 07/29/17 13:42 Dose: 17 gm Promethazine HCl/Dextromethorphan (Phenergan Dm 6.25/15mg-5 Ml) 5 ml PO Q6H PRN PRN Reason: Cough Stop: 09/27/17 14:57 Quetiapine Fumarate (Seroquel) 25 mg PO TID [facility] PRN Reason: Protocol Stop: 09/27/17 20:59 Trazodone HCl (Desyrel) 100 mg PO HS [facility] Stop: 09/27/17 20:59 - Procedures Procedures: Procedures Procedure Code Date COLONOSCOPY 45.23 07/22/10 DIAGNOSTIC COLONOSCOPY 40778 07/22/10 EGD DIAGNOSTIC BRUSH WASH 57768 04/17/09 ESOPHAGOGASTRODUODENOSCOPY [EGD] W/CLOSED BIOPSY 45.16 03/05/09 EXC TR-EXT B9+CHILANGO 0.5 CM< 44183 06/26/16 EXCISION OF CHEST WALL, OPEN APPROACH [id number] 06/26/16 OTHER ENDOSCOPY OF SM INTEST 45.13 04/17/09
[2017-07-29] MEDS ORDERED: VTE Chemical Prophylaxis Screen/Admission MC PRN (16:17)
[2017-07-29] MEDS: Levetiracetam 500 mg/5mL 5mL UDSyr *for ORAL USE ONLY PO SCH (17:09)
--- NOTE | 2017-07-29 17:44 | History & Physical ---
ADMIT DATE: 07/29/2017 CHIEF COMPLAINT: Poor oral intake. HISTORY OF PRESENT ILLNESS: This is a 47-year-old male who is sent here to [facility] [place] [facility] due to a 1-day history of poor oral intake and productive cough. The patient did not have any fevers. PAST MEDICAL HISTORY: Seizures and hypothyroidism. FAMILY HISTORY: Noncontributory. SOCIAL HISTORY: The patient is a assisted resident, ____ nursing care. MEDICATIONS: Please see medication reconciliation. REVIEW OF SYSTEMS: Unable to obtain due to the patient's mental status. The patient is nonverbal. PHYSICAL EXAMINATION: GENERAL: This patient is awake, nonverbal, in no apparent distress. VITAL SIGNS: Temperature 99.2, heart rate 100, blood pressure 127/72, respirations 18, O2 97%. HEENT: Head is normocephalic, atraumatic. NECK: Supple. No mass. LUNGS: Clear bilaterally. HEART: Regular rhythm. ABDOMEN: Soft, nontender. LABORATORY DATA: WBC is 7.5, H and H is 12.1 and 37.5, platelet of 245. Sodium is 139, potassium 3.9, chloride 99, BUN 20, and creatinine 0.8. The patient had a chest x-ray done and impression is no acute abnormalities. ASSESSMENT: 1. Failure to thrive, poor oral intake 2. Seizure disorder, gastritis. PLAN: The patient is to be admitted to the med-surg unit. We will get GI on the case. Monitor the patient's oral intake. We will continue to monitor this patient. [facility]# [id number]
[2017-07-29] MEDS: Lactulose 10 Gm/15 mL 30mL UDC PO SCH (20:34)
--- NOTE | 2017-07-29 23:31 | Consultation ---
DATE OF CONSULTATION: 07/29/2017 INPATIENT GI CONSULTATION CONSULTING PHYSICIAN: Dr. Nina. REASON FOR CONSULTATION: Poor oral intake. HISTORY OF PRESENT ILLNESS: The patient is a 47-year-old male with history of Angelman syndrome, who is a permanent resident of a board and care facility, admitted to the hospital with poor oral intake at this time. The patient is nonverbal and the history is mostly obtained from the chart. As per chart review, the patient has been eating well at his board and care facility. He has been admitted several times over the past several months for either infections or sometimes for gastrointestinal issues. As per the nursing staff, this patient is well known to them and he will take better nutrition as long as someone works with him and gives him the food slowly. Since the patient was admitted, his nurse today has already been able to get him to eat his breakfast, which he tolerated okay without vomiting. At the current time, there are no complaints and no evidence of hematemesis or vomiting or melena or hematochezia. PAST MEDICAL HISTORY: Angelman syndrome, recurrent infections. PAST SURGICAL HISTORY: No history of abdominal surgeries. FAMILY HISTORY: Noncontributory. SOCIAL HISTORY: The patient is a permanent resident of a nursing facility. There is no history of alcoholism or drug use. REVIEW OF SYSTEMS: Not possible given that the patient is not able to participate in the interview. CURRENT MEDICATIONS: Include Ativan as needed. PHYSICAL EXAMINATION: VITAL SIGNS: Blood pressure is 122/63, pulse 68 beats per minute, temperature 98, oxygenation 97%, respiratory rate is 17. GENERAL: The patient is lying at 45 degrees in bed. He is alert and oriented x 0. HEAD, EARS, EYES, NOSE, AND THROAT: Normocephalic and atraumatic appearing head. Pupils are equal and reactive to light. Extraocular muscles are intact. Moist mucous membranes. NECK: Supple. No JVD or thyromegaly. CHEST: Reduced breath sounds at the bases. CARDIOVASCULAR: S1 and S2 are present. Regular rate and rhythm. ABDOMEN: Soft, thin. No obvious tenderness, no guarding, no rebound, no distention. EXTREMITIES: Nonpitting edema is noted. Pulses are not palpable. SKIN: No obvious jaundice or rashes. LABORATORY DATA AND DIAGNOSTIC STUDIES: White blood cell count is 7.5, hemoglobin 12.1, platelet count is 245. Sodium 139, BUN is 20, creatinine 0.8. There is no abdominal imaging that has been performed. IMPRESSION: This is a 47-year-old male with history of Angelman syndrome, who frequently is admitted to the hospital with either infections, vomiting or other issues, who is now admitted with poor oral intake. 1. Poor oral intake. 2. Angelman syndrome. 3. 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 DISCUSSION: As per the nursing staff, today the patient is eating as long as someone appropriately gives him food slowly and encourages him to eat it. We can track the amount of food he is able to eat over the next day or two and if he is taking adequate nutrition this way, then he likely does not need enteral feeding; however, if the patient is not taking any food in despite the history provided by the nurse, we can always consider G-tube for the patient later on this admission. RECOMMENDATIONS: 1. We will continue the diet today as tolerated by the patient. 2. Track the amount of food he is eating in terms of percentage completion of his meals. 3. Consider G-tube if needed if the patient is not taking adequate nutrition. 4. Consider good bowel regimen to prevent constipation from contributing. 5. Swallow evaluation. Thank you for allowing me to participate in the care of this patient. Please call with any further questions. [facility]# [id number]
[2017-07-30] MEDS: Levothyroxine 0.05 Mg Tab PO SCH ×2 (06:54→06:59)
--- NOTE | 2017-07-30 08:42 | GI Progress Note ---
Subjective - Review of Systems Service Date: 07/30/17 Subjective: JJ ORAL DIET. Objective - Results Result Diagrams: 07/29/17 06:10 07/29/17 06:10 Recent Labs: Laboratory Last Values WBC 7.5 Th/cmm (4.8-10.8) 07/29/17 06:10 RBC 4.41 Mil/cmm (4.30-5.70) 07/29/17 06:10 Hgb 12.1 gm/dL (12-16) 07/29/17 06:10 Hct 37.5 % (41.0-60) L 07/29/17 06:10 MCV 84.9 fl (80-99) 07/29/17 06:10 MCH 27.4 pg (26.0-30.0) 07/29/17 06:10 MCHC Differential 32.3 pg (28.0-36.0) 07/29/17 06:10 RDW 18.6 % (11.5-20.0) 07/29/17 06:10 Plt Count 245 Th/cmm (150-400) 07/29/17 06:10 MPV 7.2 fl 07/29/17 06:10 Neutrophils % 46.4 % (40.0-80.0) 07/29/17 06:10 Lymphocytes % 27.9 % (20.0-50.0) 07/29/17 06:10 Monocytes % 23.7 % (2.0-10.0) H 07/29/17 06:10 Eosinophils % 1.2 % (0.0-5.0) 07/29/17 06:10 Basophils % 0.8 % (0.0-2.0) 07/29/17 06:10 Sodium 139 mEq/L (136-145) 07/29/17 06:10 Potassium 3.9 mEq/L (3.5-5.1) 07/29/17 06:10 Chloride 99 mEq/L (98-107) 07/29/17 06:10 Carbon Dioxide 33.5 mEq/L (21.0-31.0) H 07/29/17 06:10 Anion Gap 10.4 (7.0-16.0) 07/29/17 06:10 BUN 20 mg/dL (7-25) 07/29/17 06:10 Creatinine 0.8 mg/dL (0.7-1.3) 07/29/17 06:10 Est GFR ( Amer) > 60.0 ml/min (>90) 07/29/17 06:10 Est GFR (Non-Af Amer) > 60.0 ml/min 07/29/17 06:10 BUN/Creatinine Ratio 25.0 07/29/17 06:10 Glucose 63 mg/dL (70-105) L 07/29/17 06:10 Calcium 9.6 mg/dL (8.6-10.3) 07/29/17 06:10 Triglycerides 76 mg/dL (<150) 07/29/17 06:10 Cholesterol 147 mg/dL (<200) 07/29/17 06:10 LDL Cholesterol Direct 92 mg/dL (75-193) 07/29/17 06:10 HDL Cholesterol 45 mg/dL (23-92) 07/29/17 06:10 TSH 3.11 uIU/ml (0.34-5.60) 07/29/17 06:10 - Physical Exam Vitals and I&O: Vital Signs Temp 97.2 F 07/30/17 08:11 Pulse 56 07/30/17 08:11 Resp 17 07/30/17 08:11 BP 89/50 07/30/17 08:11 Pulse Ox 95 07/30/17 08:11 Intake & Output 07/29/17 07/30/17 07/30/17 18:59 06:59 18:59 Intake Total 973.333 Output Total 4 Balance 973.333 -4 Weight (lbs) 56.699 kg Intake: Intake, IV Amount 973.333 D5-0.45NS 1,000 ml @ 100 973.333 mls/hr IV .Q10H [facility] Rx#: [id number] Output: Urine 2 Stool 2 Other: # Voids 2 # Bowel Movements 2 Stool Characteristics Formed Weight Source Bedscale Active Medications: Current Medications Acetaminophen (Tylenol) 650 mg PO Q6H PRN PRN Reason: Pain or Fever >101 Stop: 09/27/17 14:57 Bupropion HCl (Wellbutrin Sr) 75 mg PO DAILY [facility] PRN Reason: Protocol Stop: 09/28/17 08:59 Calamine/Phenol (Calmoseptine) 1 appl TP DAILY PRN PRN Reason: Diaper Rash Stop: 09/27/17 14:57 Clonazepam (Klonopin) 1 mg PO TID [facility] Stop: 09/27/17 20:59 Last Admin: 07/29/17 20:34 Dose: 1 mg Clotrimazole (Lotrimin 1% Cream) 1 appl TP BID PRN PRN Reason: Itching (SKIN) Stop: 09/27/17 14:57 Desmopressin Acetate (Ddavp) 0.1 mg PO DAILY [facility] Stop: 09/28/17 08:59 Diphenhydramine HCl (Benadryl) 25 mg PO QID PRN PRN Reason: ITCHING Stop: 09/27/17 14:57 Divalproex Sodium (Depakote Dr) 125 mg PO TID [facility] PRN Reason: Protocol Stop: 09/27/17 20:59 Last Admin: 07/29/17 20:34 Dose: 125 mg Ferrous Sulfate (Iron) 325 mg PO DAILY [facility] Stop: 09/28/17 08:59 Fluoxetine HCl (Prozac) 20 mg PO DAILY [facility] PRN Reason: Protocol Stop: 09/28/17 08:59 Heparin Sodium (Porcine) (Heparin) 5,000 units SUBQ Q12H [facility] Stop: 09/27/17 20:59 Last Admin: 07/29/17 20:34 Dose: 5,000 units Dextrose/Sodium Chloride (D5-0.45ns) 1,000 mls @ 100 mls/hr IV .Q10H [facility] Stop: 09/27/17 01:59 Last Infusion: 07/29/17 13:32 Dose: 0 mls/hr Lacosamide (Vimpat) 50 mg PO BID [facility] Stop: 09/27/17 16:59 Last Admin: 07/29/17 17:09 Dose: 50 mg Lactulose (Cephulac) 10 gm PO TID [facility] Stop: 09/27/17 20:59 Last Admin: 07/29/17 20:34 Dose: 10 gm Levetiracetam (Keppra) 1,500 mg PO BID [facility] Stop: 09/27/17 16:59 Last Admin: 07/29/17 17:09 Dose: 1,500 mg Levothyroxine Sodium (Synthroid) 0.05 mg PO QDAC [facility] Stop: 09/28/17 07:29 Last Admin: 07/30/17 06:59 Dose: Not Given Lorazepam (Ativan) 1 mg IVP Q6H PRN; Protocol PRN Reason: Agitation Stop: 09/27/17 04:05 Last Admin: 07/29/17 04:22 Dose: 1 mg Metoclopramide HCl (Reglan) 5 mg PO BID [facility] Stop: 09/27/17 16:59 Last Admin: 07/29/17 17:08 Dose: 5 mg Miscellaneous (Vte Chemical Prophylaxis Screen/ Admission) 1 ea [facility] PRN PRN PRN Reason: PROTOCOL Stop: 09/27/17 16:16 Polyethylene Glycol (Miralax) 17 gm PO DAILY [facility] Stop: 09/27/17 12:14 Last Admin: 07/29/17 13:42 Dose: 17 gm Promethazine HCl/Dextromethorphan (Phenergan Dm 6.25/15mg-5 Ml) 5 ml PO Q6H PRN PRN Reason: Cough Stop: 09/27/17 14:57 Quetiapine Fumarate (Seroquel) 25 mg PO TID [facility] PRN Reason: Protocol Stop: 09/27/17 20:59 Trazodone HCl (Desyrel) 100 mg PO HS [facility] Stop: 09/27/17 20:59 General: Alert, No acute distress HEENT: Atraumatic Neck: Supple Cardiovascular: Regular rate Lungs: Clear to auscultation Abdomen: Bowel sounds, Soft, no Tender, no Distended - Procedures Procedures: Procedures Procedure Code Date COLONOSCOPY 45.23 07/22/10 DIAGNOSTIC COLONOSCOPY 62267 07/22/10 EGD DIAGNOSTIC BRUSH WASH 79554 04/17/09 ESOPHAGOGASTRODUODENOSCOPY [EGD] W/CLOSED BIOPSY 45.16 03/05/09 EXC TR-EXT B9+CHILANGO 0.5 CM< 79691 06/26/16 EXCISION OF CHEST WALL, OPEN APPROACH [id number] 06/26/16 OTHER ENDOSCOPY OF SM INTEST 45.13 04/17/09 Assessment/Plan - Assessment Assessment: IMPRESSION: 1. Anorexia - improved. 2. Constipation - improved. 3. Dementia/Angelman's syndrome. RECS: 1. Encourage oral intake; feeder. 2. Stool softeners po and [place]. 3. Consider PEG insertion in future if snf poor oral intake.
[2017-07-30] MEDS: Levetiracetam 500 mg/5mL 5mL UDSyr *for ORAL USE ONLY PO SCH ×2 (09:00→18:28)
[2017-07-30] MEDS: Ferrous Sulfate 325 MG TAB PO SCH (09:48)
[2017-07-30] MEDS: Lactulose 10 Gm/15 mL 30mL UDC PO SCH ×3 (09:50→20:31)
[2017-07-30] MEDS: POLYETHYLENE GLYCOL 3350 17 GM PACK PO SCH (09:51)
--- NOTE | 2017-07-30 10:54 | General Progress Note ---
Subjective - Review of Systems Events since last encounter: patient awake no fever no pain Objective - Results Result Diagrams: 07/29/17 06:10 07/29/17 06:10 Recent Labs: Laboratory Last Values WBC 7.5 Th/cmm (4.8-10.8) 07/29/17 06:10 RBC 4.41 Mil/cmm (4.30-5.70) 07/29/17 06:10 Hgb 12.1 gm/dL (12-16) 07/29/17 06:10 Hct 37.5 % (41.0-60) L 07/29/17 06:10 MCV 84.9 fl (80-99) 07/29/17 06:10 MCH 27.4 pg (26.0-30.0) 07/29/17 06:10 MCHC Differential 32.3 pg (28.0-36.0) 07/29/17 06:10 RDW 18.6 % (11.5-20.0) 07/29/17 06:10 Plt Count 245 Th/cmm (150-400) 07/29/17 06:10 MPV 7.2 fl 07/29/17 06:10 Neutrophils % 46.4 % (40.0-80.0) 07/29/17 06:10 Lymphocytes % 27.9 % (20.0-50.0) 07/29/17 06:10 Monocytes % 23.7 % (2.0-10.0) H 07/29/17 06:10 Eosinophils % 1.2 % (0.0-5.0) 07/29/17 06:10 Basophils % 0.8 % (0.0-2.0) 07/29/17 06:10 Sodium 139 mEq/L (136-145) 07/29/17 06:10 Potassium 3.9 mEq/L (3.5-5.1) 07/29/17 06:10 Chloride 99 mEq/L (98-107) 07/29/17 06:10 Carbon Dioxide 33.5 mEq/L (21.0-31.0) H 07/29/17 06:10 Anion Gap 10.4 (7.0-16.0) 07/29/17 06:10 BUN 20 mg/dL (7-25) 07/29/17 06:10 Creatinine 0.8 mg/dL (0.7-1.3) 07/29/17 06:10 Est GFR ( Amer) > 60.0 ml/min (>90) 07/29/17 06:10 Est GFR (Non-Af Amer) > 60.0 ml/min 07/29/17 06:10 BUN/Creatinine Ratio 25.0 07/29/17 06:10 Glucose 63 mg/dL (70-105) L 07/29/17 06:10 Calcium 9.6 mg/dL (8.6-10.3) 07/29/17 06:10 Triglycerides 76 mg/dL (<150) 07/29/17 06:10 Cholesterol 147 mg/dL (<200) 07/29/17 06:10 LDL Cholesterol Direct 92 mg/dL (75-193) 07/29/17 06:10 HDL Cholesterol 45 mg/dL (23-92) 07/29/17 06:10 TSH 3.11 uIU/ml (0.34-5.60) 07/29/17 06:10 - Physical Exam Vitals and I&O: Vital Signs Temp 97.2 F 07/30/17 08:11 Pulse 75 07/30/17 10:25 Resp 14 07/30/17 10:25 BP 89/50 07/30/17 08:11 Pulse Ox 92 07/30/17 10:25 Intake & Output 07/29/17 07/30/17 07/30/17 18:59 06:59 18:59 Intake Total 973.333 Output Total 4 Balance 973.333 -4 Weight (lbs) 56.699 kg Intake: Intake, IV Amount 973.333 D5-0.45NS 1,000 ml @ 100 973.333 mls/hr IV .Q10H [facility] Rx#: [id number] Output: Urine 2 Stool 2 Other: # Voids 2 # Bowel Movements 2 Stool Characteristics Formed Weight Source Bedscale Active Medications: Current Medications Acetaminophen (Tylenol) 650 mg PO Q6H PRN PRN Reason: Pain or Fever >101 Stop: 09/27/17 14:57 Bupropion HCl (Wellbutrin Sr) 75 mg PO DAILY [facility] PRN Reason: Protocol Stop: 09/28/17 08:59 Last Admin: 07/30/17 09:49 Dose: 75 mg Calamine/Phenol (Calmoseptine) 1 appl TP DAILY PRN PRN Reason: Diaper Rash Stop: 09/27/17 14:57 Clonazepam (Klonopin) 1 mg PO TID [facility] Stop: 09/27/17 20:59 Last Admin: 07/30/17 09:48 Dose: 1 mg Clotrimazole (Lotrimin 1% Cream) 1 appl TP BID PRN PRN Reason: Itching (SKIN) Stop: 09/27/17 14:57 Desmopressin Acetate (Ddavp) 0.1 mg PO DAILY [facility] Stop: 09/28/17 08:59 Last Admin: 07/30/17 10:04 Dose: 0.1 mg Diphenhydramine HCl (Benadryl) 25 mg PO QID PRN PRN Reason: ITCHING Stop: 09/27/17 14:57 Divalproex Sodium (Depakote Dr) 125 mg PO TID [facility] PRN Reason: Protocol Stop: 09/27/17 20:59 Last Admin: 07/30/17 09:48 Dose: 125 mg Ferrous Sulfate (Iron) 325 mg PO DAILY [facility] Stop: 09/28/17 08:59 Last Admin: 07/30/17 09:48 Dose: 325 mg Fluoxetine HCl (Prozac) 20 mg PO DAILY [facility] PRN Reason: Protocol Stop: 09/28/17 08:59 Heparin Sodium (Porcine) (Heparin) 5,000 units SUBQ Q12H [facility] Stop: 09/27/17 20:59 Last Admin: 07/30/17 09:50 Dose: 5,000 units Dextrose/Sodium Chloride (D5-0.45ns) 1,000 mls @ 100 mls/hr IV .Q10H [facility] Stop: 09/27/17 01:59 Last Infusion: 07/29/17 13:32 Dose: 0 mls/hr Lacosamide (Vimpat) 50 mg PO BID [facility] Stop: 09/27/17 16:59 Last Admin: 07/30/17 09:48 Dose: 50 mg Lactulose (Cephulac) 10 gm PO TID [facility] Stop: 09/27/17 20:59 Last Admin: 07/30/17 09:50 Dose: 10 gm Levetiracetam (Keppra) 1,500 mg PO BID [facility] Stop: 09/27/17 16:59 Last Admin: 07/29/17 17:09 Dose: 1,500 mg Levothyroxine Sodium (Synthroid) 0.05 mg PO QDAC [facility] Stop: 09/28/17 07:29 Last Admin: 07/30/17 06:59 Dose: Not Given Lorazepam (Ativan) 1 mg IVP Q6H PRN; Protocol PRN Reason: Agitation Stop: 09/27/17 04:05 Last Admin: 07/29/17 04:22 Dose: 1 mg Metoclopramide HCl (Reglan) 5 mg PO BID [facility] Stop: 09/27/17 16:59 Last Admin: 07/30/17 09:47 Dose: 5 mg Miscellaneous (Vte Chemical Prophylaxis Screen/ Admission) 1 ea [facility] PRN PRN PRN Reason: PROTOCOL Stop: 09/27/17 16:16 Polyethylene Glycol (Miralax) 17 gm PO DAILY [facility] Stop: 09/27/17 12:14 Last Admin: 07/30/17 09:51 Dose: 17 gm Promethazine HCl/Dextromethorphan (Phenergan Dm 6.25/15mg-5 Ml) 5 ml PO Q6H PRN PRN Reason: Cough Stop: 09/27/17 14:57 Quetiapine Fumarate (Seroquel) 25 mg PO TID [facility] PRN Reason: Protocol Stop: 09/27/17 20:59 Trazodone HCl (Desyrel) 100 mg PO HS [facility] Stop: 09/27/17 20:59 General: Alert, No acute distress HEENT: Atraumatic Neck: Supple Cardiovascular: Regular rate Lungs: Clear to auscultation Abdomen: Bowel sounds, Soft, no Tender, no Distended - Procedures Procedures: Procedures Procedure Code Date COLONOSCOPY 45.23 07/22/10 DIAGNOSTIC COLONOSCOPY 90494 07/22/10 EGD DIAGNOSTIC BRUSH WASH 45036 04/17/09 ESOPHAGOGASTRODUODENOSCOPY [EGD] W/CLOSED BIOPSY 45.16 03/05/09 EXC TR-EXT B9+CHILANGO 0.5 CM< 74888 06/26/16 EXCISION OF CHEST WALL, OPEN APPROACH [id number] 06/26/16 OTHER ENDOSCOPY OF SM INTEST 45.13 04/17/09
[2017-07-31] MEDS: D5-0.45NS 1,000 ML IV SCH (05:23)
[2017-07-31] MEDS: Levothyroxine 0.05 Mg Tab PO SCH (06:32)
--- NOTE | 2017-07-31 08:21 | GI Progress Note ---
Subjective - Review of Systems Service Date: 07/31/17 Subjective: JJ ORAL DIET - EATING 25-50% OF HIS MEALS. Objective - Results Result Diagrams: 07/29/17 06:10 07/29/17 06:10 Recent Labs: Laboratory Last Values WBC 7.5 Th/cmm (4.8-10.8) 07/29/17 06:10 RBC 4.41 Mil/cmm (4.30-5.70) 07/29/17 06:10 Hgb 12.1 gm/dL (12-16) 07/29/17 06:10 Hct 37.5 % (41.0-60) L 07/29/17 06:10 MCV 84.9 fl (80-99) 07/29/17 06:10 MCH 27.4 pg (26.0-30.0) 07/29/17 06:10 MCHC Differential 32.3 pg (28.0-36.0) 07/29/17 06:10 RDW 18.6 % (11.5-20.0) 07/29/17 06:10 Plt Count 245 Th/cmm (150-400) 07/29/17 06:10 MPV 7.2 fl 07/29/17 06:10 Neutrophils % 46.4 % (40.0-80.0) 07/29/17 06:10 Lymphocytes % 27.9 % (20.0-50.0) 07/29/17 06:10 Monocytes % 23.7 % (2.0-10.0) H 07/29/17 06:10 Eosinophils % 1.2 % (0.0-5.0) 07/29/17 06:10 Basophils % 0.8 % (0.0-2.0) 07/29/17 06:10 Sodium 139 mEq/L (136-145) 07/29/17 06:10 Potassium 3.9 mEq/L (3.5-5.1) 07/29/17 06:10 Chloride 99 mEq/L (98-107) 07/29/17 06:10 Carbon Dioxide 33.5 mEq/L (21.0-31.0) H 07/29/17 06:10 Anion Gap 10.4 (7.0-16.0) 07/29/17 06:10 BUN 20 mg/dL (7-25) 07/29/17 06:10 Creatinine 0.8 mg/dL (0.7-1.3) 07/29/17 06:10 Est GFR ( Amer) > 60.0 ml/min (>90) 07/29/17 06:10 Est GFR (Non-Af Amer) > 60.0 ml/min 07/29/17 06:10 BUN/Creatinine Ratio 25.0 07/29/17 06:10 Glucose 63 mg/dL (70-105) L 07/29/17 06:10 Calcium 9.6 mg/dL (8.6-10.3) 07/29/17 06:10 Triglycerides 76 mg/dL (<150) 07/29/17 06:10 Cholesterol 147 mg/dL (<200) 07/29/17 06:10 LDL Cholesterol Direct 92 mg/dL (75-193) 07/29/17 06:10 HDL Cholesterol 45 mg/dL (23-92) 07/29/17 06:10 TSH 3.11 uIU/ml (0.34-5.60) 07/29/17 06:10 - Physical Exam Vitals and I&O: Vital Signs Temp 96.6 F 07/31/17 04:00 Pulse 62 07/31/17 04:00 Resp 20 07/31/17 04:00 BP 107/53 07/31/17 04:00 Pulse Ox 99 07/31/17 04:00 Intake & Output 07/30/17 07/31/17 07/31/17 18:59 06:59 18:59 Intake Total 400 60 Output Total 1 Balance 399 60 Weight (lbs) 56.699 kg 55.48 kg Intake: Intake, IV Amount 0 D5-0.45NS 1,000 ml @ 100 0 mls/hr IV .Q10H [facility] Rx#: [id number] Oral 400 60 Output: Stool 1 Other: # Voids 3 4 # Bowel Movements 2 Stool Characteristics Soft Weight Source Bedscale Bedscale Active Medications: Current Medications Acetaminophen (Tylenol) 650 mg PO Q6H PRN PRN Reason: Pain or Fever >101 Stop: 09/27/17 14:57 Last Admin: 07/31/17 06:33 Dose: 650 mg Bupropion HCl (Wellbutrin Sr) 75 mg PO DAILY [facility] PRN Reason: Protocol Stop: 09/28/17 08:59 Last Admin: 07/30/17 09:49 Dose: 75 mg Calamine/Phenol (Calmoseptine) 1 appl TP DAILY PRN PRN Reason: Diaper Rash Stop: 09/27/17 14:57 Clonazepam (Klonopin) 1 mg PO TID [facility] Stop: 09/27/17 20:59 Last Admin: 07/30/17 20:32 Dose: 1 mg Clotrimazole (Lotrimin 1% Cream) 1 appl TP BID PRN PRN Reason: Itching (SKIN) Stop: 09/27/17 14:57 Desmopressin Acetate (Ddavp) 0.1 mg PO DAILY [facility] Stop: 09/28/17 08:59 Last Admin: 07/30/17 10:04 Dose: 0.1 mg Diphenhydramine HCl (Benadryl) 25 mg PO QID PRN PRN Reason: ITCHING Stop: 09/27/17 14:57 Divalproex Sodium (Depakote Dr) 125 mg PO TID [facility] PRN Reason: Protocol Stop: 09/27/17 20:59 Last Admin: 07/30/17 20:32 Dose: 125 mg Ferrous Sulfate (Iron) 325 mg PO DAILY [facility] Stop: 09/28/17 08:59 Last Admin: 07/30/17 09:48 Dose: 325 mg Fluoxetine HCl (Prozac) 20 mg PO DAILY [facility] PRN Reason: Protocol Stop: 09/28/17 08:59 Heparin Sodium (Porcine) (Heparin) 5,000 units SUBQ Q12H [facility] Stop: 09/27/17 20:59 Last Admin: 07/30/17 20:31 Dose: 5,000 units Dextrose/Sodium Chloride (D5-0.45ns) 1,000 mls @ 100 mls/hr IV .Q10H [facility] Stop: 09/27/17 01:59 Last Admin: 07/31/17 05:23 Dose: 100 mls/hr Lacosamide (Vimpat) 50 mg PO BID [facility] Stop: 09/27/17 16:59 Last Admin: 07/30/17 18:28 Dose: Not Given Lactulose (Cephulac) 10 gm PO TID [facility] Stop: 09/27/17 20:59 Last Admin: 07/30/17 20:31 Dose: 10 gm Levetiracetam (Keppra) 1,500 mg PO BID [facility] Stop: 09/27/17 16:59 Last Admin: 07/30/17 18:28 Dose: Not Given Levothyroxine Sodium (Synthroid) 0.05 mg PO QDAC [facility] Stop: 09/28/17 07:29 Last Admin: 07/31/17 06:32 Dose: 0.05 mg Lorazepam (Ativan) 1 mg IVP Q6H PRN; Protocol PRN Reason: Agitation Stop: 09/27/17 04:05 Last Admin: 07/29/17 04:22 Dose: 1 mg Metoclopramide HCl (Reglan) 5 mg PO BID [facility] Stop: 09/27/17 16:59 Last Admin: 07/30/17 18:28 Dose: Not Given Miscellaneous (Vte Chemical Prophylaxis Screen/ Admission) 1 ea [facility] PRN PRN PRN Reason: PROTOCOL Stop: 09/27/17 16:16 Polyethylene Glycol (Miralax) 17 gm PO DAILY [facility] Stop: 09/27/17 12:14 Last Admin: 07/30/17 09:51 Dose: 17 gm Promethazine HCl/Dextromethorphan (Phenergan Dm 6.25/15mg-5 Ml) 5 ml PO Q6H PRN PRN Reason: Cough Stop: 09/27/17 14:57 Quetiapine Fumarate (Seroquel) 25 mg PO TID [facility] PRN Reason: Protocol Stop: 09/27/17 20:59 Trazodone HCl (Desyrel) 100 mg PO HS [facility] Stop: 09/27/17 20:59 General: Alert, No acute distress HEENT: Atraumatic Neck: Supple Cardiovascular: Regular rate Lungs: Clear to auscultation Abdomen: Bowel sounds, Soft, no Tender, no Distended - Procedures Procedures: Procedures Procedure Code Date COLONOSCOPY 45.23 07/22/10 DIAGNOSTIC COLONOSCOPY 39849 07/22/10 EGD DIAGNOSTIC BRUSH WASH 26020 04/17/09 ESOPHAGOGASTRODUODENOSCOPY [EGD] W/CLOSED BIOPSY 45.16 03/05/09 EXC TR-EXT B9+CHILANGO 0.5 CM< 57078 06/26/16 EXCISION OF CHEST WALL, OPEN APPROACH [id number] 06/26/16 OTHER ENDOSCOPY OF SM INTEST 45.13 04/17/09 Assessment/Plan - Assessment Assessment: IMPRESSION: 1. Anorexia - improved. 2. Constipation - improved. 3. Dementia/Angelman's syndrome. RECS: 1. Encourage oral intake; feeder. 2. Stool softeners po and AK. 3. Consider PEG insertion in future if supervisor carbon electrodes poor oral intake. 4. Check calorie counts.
[2017-07-31] MEDS: Levetiracetam 500 mg/5mL 5mL UDSyr *for ORAL USE ONLY PO SCH (09:11)
[2017-07-31] MEDS: Lactulose 10 Gm/15 mL 30mL UDC PO SCH (09:11)
[2017-07-31] MEDS: POLYETHYLENE GLYCOL 3350 17 GM PACK PO SCH (09:19)
[2017-07-31] MEDS: Ferrous Sulfate 325 MG TAB PO SCH (09:19)
--- NOTE | 2017-07-31 10:28 | General Progress Note ---
Subjective - Review of Systems Events since last encounter: patient awake in no distress Objective - Results Result Diagrams: 07/29/17 06:10 07/29/17 06:10 Recent Labs: Laboratory Last Values WBC 7.5 Th/cmm (4.8-10.8) 07/29/17 06:10 RBC 4.41 Mil/cmm (4.30-5.70) 07/29/17 06:10 Hgb 12.1 gm/dL (12-16) 07/29/17 06:10 Hct 37.5 % (41.0-60) L 07/29/17 06:10 MCV 84.9 fl (80-99) 07/29/17 06:10 MCH 27.4 pg (26.0-30.0) 07/29/17 06:10 MCHC Differential 32.3 pg (28.0-36.0) 07/29/17 06:10 RDW 18.6 % (11.5-20.0) 07/29/17 06:10 Plt Count 245 Th/cmm (150-400) 07/29/17 06:10 MPV 7.2 fl 07/29/17 06:10 Neutrophils % 46.4 % (40.0-80.0) 07/29/17 06:10 Lymphocytes % 27.9 % (20.0-50.0) 07/29/17 06:10 Monocytes % 23.7 % (2.0-10.0) H 07/29/17 06:10 Eosinophils % 1.2 % (0.0-5.0) 07/29/17 06:10 Basophils % 0.8 % (0.0-2.0) 07/29/17 06:10 Sodium 139 mEq/L (136-145) 07/29/17 06:10 Potassium 3.9 mEq/L (3.5-5.1) 07/29/17 06:10 Chloride 99 mEq/L (98-107) 07/29/17 06:10 Carbon Dioxide 33.5 mEq/L (21.0-31.0) H 07/29/17 06:10 Anion Gap 10.4 (7.0-16.0) 07/29/17 06:10 BUN 20 mg/dL (7-25) 07/29/17 06:10 Creatinine 0.8 mg/dL (0.7-1.3) 07/29/17 06:10 Est GFR ( Amer) > 60.0 ml/min (>90) 07/29/17 06:10 Est GFR (Non-Af Amer) > 60.0 ml/min 07/29/17 06:10 BUN/Creatinine Ratio 25.0 07/29/17 06:10 Glucose 63 mg/dL (70-105) L 07/29/17 06:10 Calcium 9.6 mg/dL (8.6-10.3) 07/29/17 06:10 Triglycerides 76 mg/dL (<150) 07/29/17 06:10 Cholesterol 147 mg/dL (<200) 07/29/17 06:10 LDL Cholesterol Direct 92 mg/dL (75-193) 07/29/17 06:10 HDL Cholesterol 45 mg/dL (23-92) 07/29/17 06:10 TSH 3.11 uIU/ml (0.34-5.60) 07/29/17 06:10 - Physical Exam Vitals and I&O: Vital Signs Temp 96.6 F 07/31/17 04:00 Pulse 76 07/31/17 08:41 Resp 14 07/31/17 08:41 BP 107/53 07/31/17 04:00 Pulse Ox 92 07/31/17 08:41 Intake & Output 07/30/17 07/31/17 07/31/17 18:59 06:59 18:59 Intake Total 400 60 Output Total 1 Balance 399 60 Weight (lbs) 56.699 kg 55.48 kg Intake: Intake, IV Amount 0 D5-0.45NS 1,000 ml @ 100 0 mls/hr IV .Q10H [facility] Rx#: [id number] Oral 400 60 Output: Stool 1 Other: # Voids 3 4 # Bowel Movements 2 Stool Characteristics Soft Weight Source Bedscale Bedscale Active Medications: Current Medications Acetaminophen (Tylenol) 650 mg PO Q6H PRN PRN Reason: Pain or Fever >101 Stop: 09/27/17 14:57 Last Admin: 07/31/17 06:33 Dose: 650 mg Bupropion HCl (Wellbutrin Sr) 75 mg PO DAILY [facility] PRN Reason: Protocol Stop: 09/28/17 08:59 Last Admin: 07/31/17 09:09 Dose: 75 mg Calamine/Phenol (Calmoseptine) 1 appl TP DAILY PRN PRN Reason: Diaper Rash Stop: 09/27/17 14:57 Clonazepam (Klonopin) 1 mg PO TID [facility] Stop: 09/27/17 20:59 Last Admin: 07/31/17 09:10 Dose: 1 mg Clotrimazole (Lotrimin 1% Cream) 1 appl TP BID PRN PRN Reason: Itching (SKIN) Stop: 09/27/17 14:57 Desmopressin Acetate (Ddavp) 0.1 mg PO DAILY [facility] Stop: 09/28/17 08:59 Last Admin: 07/31/17 09:10 Dose: 0.1 mg Diphenhydramine HCl (Benadryl) 25 mg PO QID PRN PRN Reason: ITCHING Stop: 09/27/17 14:57 Divalproex Sodium (Depakote Dr) 125 mg PO TID [facility] PRN Reason: Protocol Stop: 09/27/17 20:59 Last Admin: 07/31/17 09:10 Dose: 125 mg Ferrous Sulfate (Iron) 325 mg PO DAILY [facility] Stop: 09/28/17 08:59 Last Admin: 07/31/17 09:19 Dose: 325 mg Fluoxetine HCl (Prozac) 20 mg PO DAILY [facility] PRN Reason: Protocol Stop: 09/28/17 08:59 Last Admin: 07/31/17 10:11 Dose: 20 mg Heparin Sodium (Porcine) (Heparin) 5,000 units SUBQ Q12H [facility] Stop: 09/27/17 20:59 Last Admin: 07/31/17 09:34 Dose: 5,000 units Dextrose/Sodium Chloride (D5-0.45ns) 1,000 mls @ 100 mls/hr IV .Q10H [facility] Stop: 09/27/17 01:59 Last Admin: 07/31/17 05:23 Dose: 100 mls/hr Lacosamide (Vimpat) 50 mg PO BID [facility] Stop: 09/27/17 16:59 Last Admin: 07/31/17 09:11 Dose: 50 mg Lactulose (Cephulac) 10 gm PO TID [facility] Stop: 09/27/17 20:59 Last Admin: 07/31/17 09:11 Dose: 10 gm Levetiracetam (Keppra) 1,500 mg PO BID [facility] Stop: 09/27/17 16:59 Last Admin: 07/31/17 09:11 Dose: 1,500 mg Levothyroxine Sodium (Synthroid) 0.05 mg PO QDAC [facility] Stop: 09/28/17 07:29 Last Admin: 07/31/17 06:32 Dose: 0.05 mg Lorazepam (Ativan) 1 mg IVP Q6H PRN; Protocol PRN Reason: Agitation Stop: 09/27/17 04:05 Last Admin: 07/29/17 04:22 Dose: 1 mg Metoclopramide HCl (Reglan) 5 mg PO BID [facility] Stop: 09/27/17 16:59 Last Admin: 07/31/17 09:19 Dose: 5 mg Miscellaneous (Vte Chemical Prophylaxis Screen/ Admission) 1 ea [facility] PRN PRN PRN Reason: PROTOCOL Stop: 09/27/17 16:16 Polyethylene Glycol (Miralax) 17 gm PO DAILY [facility] Stop: 09/27/17 12:14 Last Admin: 07/31/17 09:19 Dose: 17 gm Promethazine HCl/Dextromethorphan (Phenergan Dm 6.25/15mg-5 Ml) 5 ml PO Q6H PRN PRN Reason: Cough Stop: 09/27/17 14:57 Quetiapine Fumarate (Seroquel) 25 mg PO TID [facility] PRN Reason: Protocol Stop: 09/27/17 20:59 Last Admin: 07/31/17 09:09 Dose: 25 mg Trazodone HCl (Desyrel) 100 mg PO HS [facility] Stop: 09/27/17 20:59 General: Alert, No acute distress HEENT: Atraumatic Neck: Supple Cardiovascular: Regular rate Lungs: Clear to auscultation Abdomen: Bowel sounds, Soft, no Tender, no Distended - Procedures Procedures: Procedures Procedure Code Date COLONOSCOPY 45.23 07/22/10 DIAGNOSTIC COLONOSCOPY 12778 07/22/10 EGD DIAGNOSTIC BRUSH WASH 14001 04/17/09 ESOPHAGOGASTRODUODENOSCOPY [EGD] W/CLOSED BIOPSY 45.16 03/05/09 EXC TR-EXT B9+CHILANGO 0.5 CM< 01421 06/26/16 EXCISION OF CHEST WALL, OPEN APPROACH [id number] 06/26/16 OTHER ENDOSCOPY OF SM INTEST 45.13 04/17/09 Nutritional Asmnt/Malnutr-PDOC - Dietary Evaluation Malnutrition Findings (Please click <Entered> for more info): Nutritional Asmnt/Malnutrition Start: 07/30/17 11: 35 Text: Status: Complete Freq: Document 07/30/17 11:35 AVILA (Rec: 07/30/17 11:39 AVILA HODGEN- [id number]) Nutritional Asmnt/Malnutrition Patient General Information Diagnosis Poor PO intake R/O gastritis Pertinent Medical Hx/Surgical Hx seizures and hypothyroidism Subjective Information Pt asleep in bed at time of visitq Current Diet Order/ Nutrition Support pureed Pertinent Medications Fe, Lactulose, synthroid, reglan, mialax Pertinent Labs 07/29: Na 139, K 3.9, Cl 99, CO2 3.5, BUN 20, Cr 0.8, Ca 9. 6, glucose 63 Nutritional Hx/Data Height 1.78 m Height (Calculated Centimeters) 177.8 Current Weight (lbs) 56.699 kg Weight (Calculated Kilograms) 56.7 Weight (Calculated Grams) 19642.0 Body Mass Index (BMI) 17.9 Weight Status Underweight GI Symptoms Cultural/Ethnic/Holiness Belief none noted Usual diet at home pureed Skin Integrity/Comment: camilo score 14, intact Current %PO Good (75-100%) Estimated Nutritional Goals BEE in Kcals: Using Current wt Calories/Kcals/Kg 30-35kcals/kg Kcals Calculated 1710-1995kcals/day Protein: Using Current wt Protein g/k.1-1.4g/kg Protein Calculated 63-80g/day Fluid: ml 1710-1995ml/day (1ml/kcal) Nutritional Problem 1. Problem Problem Altered nutrition related lab values related to Etiology endocrine dysfunction as evidenced by Signs/Symptoms: glucose 63. Intervention/Recommendation Comments Recommend continuing pureed diet, as PO intake 90-100% charted Expected Outcomes/Goals Expected Outcomes/Goals PO intake >75% of meals
== END 2017-07-31 11:40 | disposition home health service (06) | DRG 70 ==
LOC: ER 20:27 → MSI 07-29 01:35
PROVIDERS: ADMIT Internal Medicine; ATTEND Internal Medicine
DX: G93.41 Metabolic encephalopathy (principal); E41 Nutritional marasmus; Q93.5 Other deletions of part of a chromosome; Z68.1 Body mass index [BMI] 19.9 or less, adult; E44.0 Moderate protein-calorie malnutrition; R62.7 Adult failure to thrive; F03.90 Unspecified dementia, unspecified severity, without behavioral disturbance, psychotic disturbance, mood disturbance, and anxiety; E03.9 Hypothyroidism, unspecified; K29.70 Gastritis, unspecified, without bleeding; F41.9 Anxiety disorder, unspecified; K59.00 Constipation, unspecified; G40.909 Epilepsy, unspecified, not intractable, without status epilepticus; Z23 Encounter for immunization
CPT/HCPCS: 36415-UA; 71045-TC; 80048-TC; 80061-TC; 84443-TC; 85007-TC; 85025-TC; 85027-TC; 94760; J1644; J2060; X3401; Z7610

== ENCOUNTER 2017-10-26 22:56 | Inpatient (IN) | payer MEDICARE, MEDICAID ==
--- NOTE | 2017-10-26 23:12 | ED Physician Chart ---
ED Chief Complaint/HPI - Patient Information Date Seen:: 10/26/17 Time Seen:: 22:40 Chief Complaint:: AMS History of Present Illness:: onset x one day of AMS, ALOC, weakness, poor oral intake, and failure to thrive ; no report of trauma, H/As, S/T, neck pain, cough, C/P, SOB, Abd. Pain, A/N/V/D /C, fever, chills, or urinary s/s Allergies:: Allergies Allergy/AdvReac Type Severity Reaction Status Date / Time No Known Allergies Allergy Verified 07/28/17 20:34 Historian:: Patient, EMS Review:: Nurse's Note Reviewed, Old Chart Reviewed, EMS run form Reviewed ED Review of Systems - Review of Systems General/Constitutional: Fever, No chills, No weight loss, Weakness, No diaphoresis, No edema, No loss of appetite Skin: No skin lesions, No rash, No bruising Head: No headache, No light-headedness Eyes: No loss of vision, No pain, No diplopia ENT: No earache, No nasal drainage, No sore throat, No tinnitus Neck: No neck pain, No swelling, No thyromegaly, No stiffness, No mass noted Cardio Vascular: No chest pain, No palpitations, No PND, No orthopnea, No edema Pulmonary: No SOB, No cough, No sputum, No wheezing GI: No nausea, No vomiting, No diarrhea, No pain, No melena, No hematochezia, No constipation, No hematemesis G/U: No dysuria, No frequency, No hematuria, No nacturia Musculoskeletal: No bone or joint pain, No back pain, No muscle pain Endocrine: No polyuria, No polydipsia Psychiatric: No prior psych history, No depression, No anxiety, No suicidal ideation, No homicidal ideation, No auditory hallucination, No visual hallucination Hematopoietic: No bruising, No lymphadenopathy Allergic/Immuno: No urticaria, No angioedema Neurological: No syncope, No focal symptoms, Weakness, No paresthesia, No headache, No seizure, No dizziness, Confusion, No vertigo ED Past Medical History - Past Medical History Obtainable: Yes Past Medical History: HTN, Dyslipidemia, Seizures, Thyroid disorder, Dementia Family History: HTN Social History: Non Smoker, No Alcohol, No Drug Use, Single, Care Facility Surgical History: None Psychiatricy History: Dementia Medication: Reviewed Family Medical History - Family Member Mother History Unknown: Yes Ethnicity: Unknown Living Status: Unknown Hx Family Cancer: (ANUSHKA) Hx Family Coronary Artery Disease: (ANUSHKA) Hx Family Congestive Heart Failure: (ANUSHKA) Hx Family Hypertension: (ANUSHKA) Hx Family Stroke: (ANUSHKA) Hx Family Diabetes: (ANUSHKA) Hx Family Seizures: (ANUSHKA) Hx Family Dementia: (ANUSHKA) Hx Family AIDS: (ANUSHKA) Hx Family COPD: (ANUSHKA) Hx Family Hepatitis: (ANUSHKA) Hx Family Psychiatric Problems: (ANUSHKA) Hx Family Tuberculosis: (ANUSHKA) ED Physical Exam - Physical Examination General/Constitutional: Awake, Well-developed, well-nourished, Alert, No distress, GCS 15, Non-toxic appearing, Ambulatory Head: Atraumatic Eyes: Lids, conjuctiva normal, PERRL, EOMI Skin: Nl inspection, No rash, No skin lesions, No ecchymosis, Well hydrated, No lymphadenopathy ENMT: External ears, nose nl, TM canals nl, Nasal exam nl, Lips, teeth, gums nl , Oropharynx nl, Tonsils nl Neck: Nontender, Full ROM w/o pain, No JVD, No nuchal rigidity, No bruit, No mass, No stridor Respiratory: Nl effort/Exclusion Other Respiratory comments:: Lungs: + Rales and Rhonchi Cardio Vascular: RRR, No murmur, gallop, rubs, NL S1 S2, Carotid/Femoral/Distal pulses equal bilaterally GI: No tenderness/rebounding/guarding, No organomegaly, No hernia, Normal BS's, Nondistended, No mass/bruits, No McBurney tenderness : No CVA tenderness Extremities: No tenderness or effusion, Full ROM, normal strength in all extremities, No edema, Normal digits & nails Neuro/Psych: Alert/oriented, DTR's symmetric, Normal sensory exam, Normal motor strength, Judgement/insight normal, Mood normal, Normal gait, No focal deficits Misc: Normal back, No paraspinal tenderness ED Labs/Radiology/EKG Results - Lab Results Comments:: WBC: 18.1; + Anemia - Radiology Results Comments:: + Infiltrate - EKG Interpretations Rate & Rhythm: NSR Comments:: non-specific st-t changes ED Septic Shock - . Is Septic Shock (SBP<90, OR Lactate>4 mmol\L) present?: No ED Reassessment (Disposition) - Reassessment Reassessment Condition:: Improved - Diagnosis Diagnosis:: Dx: Poor Oral Intake; AMS; ALOC; Failure to Thrive; Leukocytosis; Sepsis; PNA; Anemia - Aftercare/Follow up Instructions Aftercare/Follow-Up Instructions:: Counseled pt regarding lab results/diagnosis & need follow up, Counseled pt & family regarding lab results/diagnosis & need follow up - Patient Disposition Discharge/Transfer:: Acute Care w/in this hosp Accepting Physician:: Dr. Nina Time Called:: 0030 Time Responded:: 00:30 Admitted to:: Telemetry Spoke to:: Dr. Nina Admitting Medical Physician:: Dr. Nina Condition at Disposition:: Stable, Improved
[2017-10-26 23:50] LABS: HEMOGLOBIN 11.2 gm/dL (12-16); MEAN CELL VOLUME 84.8 fl (80-99); MEAN PLATELET VOLUME 7.2 fl; PLATELET COUNT 452 Th/cmm (150-400); RED BLOOD COUNT 4.01 Mil/cmm (4.30-5.70); RED CELL DISTRIBUTION WIDTH 18.5 % (11.5-20.0)
[2017-10-26 23:56] LABS: MANUAL DIFF REQUIRED? YES; WHITE BLOOD COUNT 18.1 Th/cmm (4.8-10.8)
[2017-10-27 00:03] LABS: ALBUMIN 3.6 gm/dL (4.2-5.5); ALKALINE PHOSPHATASE 48 U/L (34-104); AMYLASE SERUM 25 U/L (29-103); ANION GAP 10.6 (7.0-16.0); BILIRUBIN,TOTAL 0.2 mg/dL (0.3-1.0); BUN - UREA NITROGEN 20 mg/dL (7-25); CALCIUM SERUM 9.6 mg/dL (8.6-10.3); CARBON DIOXIDE 30.6 mEq/L (21.0-31.0); CHLORIDE 100 mEq/L (98-107); CREATININE - SERUM 0.8 mg/dL (0.7-1.3); CREATININE KINASE 191 U/L (30-223); GFR AFRICAN-AMERICAN > 60.0 ml/min (>90); GFR NON AFRICAN-AMERICAN > 60.0 ml/min; GLUCOSE 83 mg/dL (70-105); LIPASE 44 U/L (11-82); POTASSIUM SERUM 4.2 mEq/L (3.5-5.1); SGOT 19 U/L (13-39); SGPT/ALT 12 U/L (7-52); SODIUM SERUM 137 mEq/L (136-145); TOTAL PROTEIN,SERUM 7.4 gm/dL (6.0-8.3); TROP I 0.01 ng/mL (0.01-0.05)
[2017-10-27 00:15] LABS: BAND NEUTROPHILE 4 % (0-10); EOSINOPHIL 2 % (0-5); LYMPHOCYTE 16 % (20-50); MONOCYTE 5 % (2-10); NEUTROPHILS 73 % (40-80); PLATELET ESTIMATE ADEQUATE (NORMAL); TOTAL CELLS COUNTED 100
[2017-10-27] MEDS ORDERED: Sodium Chloride 0.9% 1,000 ML IV ONE (01:57)
[2017-10-27] MEDS ORDERED: Levofloxacin 500mg/100mL 500 MG/100 ML BAG IV ONE ×2 (01:57→01:59)
[2017-10-27] MEDS ORDERED: [UNRECOGNIZED DRUG - OTHER] PO PRN (07:20)
[2017-10-27] MEDS ORDERED: Promethazine DM 6.25/15mg-5mL 5 ML SYR PO PRN (07:20)
[2017-10-27] MEDS ORDERED: PSEUDOEPHEDRINE PO PRN (07:20)
[2017-10-27] MEDS ORDERED: Menthol/Zinc Oxide Oint 113gm Tube TP PRN (07:20)
[2017-10-27] MEDS ORDERED: MOMETASONE FUROATE 0.1% TP PRN (07:20)
[2017-10-27] MEDS ORDERED: METOCLOPRAMIDE HCL 5 MG PO SCH (09:00)
[2017-10-27] MEDS ORDERED: Non-Formulary Item 1 EA (Lacosamide [Vimpat] 50 MG) PO SCH (09:00)
[2017-10-27] MEDS ORDERED: LEVETIRACETAM PO SCH (09:00)
[2017-10-27] MEDS ORDERED: CLONAZEPAM 1 MG PO SCH (09:00)
--- NOTE | 2017-10-27 09:09 | Diagnostic Imaging Report ---
Portable chest x-ray HISTORY: Cough There is accentuation of interstitial markings that appears related to a poor inspiration and overall radiographic technique. Allowing for these factors, no focal processes are seen. The overall heart size appears normal. No hilar or mediastinal abnormalities. IMPRESSION: No acute focal abnormalities
--- NOTE | 2017-10-27 10:34 | Consultation ---
Consult Note - Consult Note Service Date: 10/27/17 Referring Physician: Melissa Nina Consult Note: PHYSICIAN Consultation Note: Date of Admission: 10/27/17 Purpose of Consultation: Pneumonia. Chief Complaint: Patient XANDER JOSUE was admitted to location Medical/ Surgical Unit I with PNEUMONIA,SEPSIS. 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 on initial evaluation, his temperature was 96.9F and WBC Count was 18K. CXR showed , infiltrate in both upper lobes, worse on the right. Patient is mentally challenged and unable to provide any history. Past Medical History: Anglemen's syndrome, mental retardation, H/o Chest wall abscess. Allergies Allergy/AdvReac Type Severity Reaction Status Date / Time No Known Allergies Allergy Verified 07/28/17 20:34 Vital Signs Temp 98.2 F 10/27/17 08:00 Pulse 71 10/27/17 08:00 Resp 18 10/27/17 08:00 BP 108/65 10/27/17 07:00 Pulse Ox 90 10/27/17 08:00 Intake & Output 10/26/17 10/27/17 10/27/17 18:59 06:59 18:59 Intake Total 1100 Balance 1100 Weight (lbs) 55.338 kg 55.338 kg Intake: Intake, IV Amount 1100 Other: Weight Source Estimated Estimated Laboratory Results - last 24 hr 10/26/17 10/26/17 10/26/17 23:30 23:30 23:30 WBC 18.1 H RBC 4.01 L Hgb 11.2 L Hct 34.0 L MCV 84.8 MCH 28.0 MCHC Differential 33.0 RDW 18.5 Plt Count 452 H MPV 7.2 Band Neutrophils % 4 Neutrophils (Manual) 73 Lymphocytes 16 L Monocytes 5 Eosinophils 2 Platelet Estimate ADEQUATE Sodium 137 Potassium 4.2 Chloride 100 Carbon Dioxide 30.6 Anion Gap 10.6 BUN 20 Creatinine 0.8 Est GFR ( Amer) > 60.0 Est GFR (Non-Af Amer) > 60.0 BUN/Creatinine Ratio 25.0 Glucose 83 Whole Bld Lactic Acid 1.50 Calcium 9.6 Total Bilirubin 0.2 L AST 19 ALT 12 Alkaline Phosphatase 48 Creatine Kinase 191 Troponin I 0.01 Total Protein 7.4 Albumin 3.6 L Globulin 3.8 Albumin/Globulin Ratio 1.0 Amylase 25 L Lipase 44 Home Medication Medication Instructions Recorded Type Clonazepam [Clonazepam*] 1 mg PO TID 05/18/17 History Diphenhydramine HCL [Benadryl] 25 mg PO QID PRN 05/18/17 History Divalproex Sodium [Depakote 500 mg PO TID 05/18/17 History Sprinkle] FLUoxetine HCL [Prozac*] 20 mg PO DAILY 05/18/17 History Ferrous Sulfate [Iron] 1 tab PO BID 05/18/17 History Lacosamide [Vimpat] 50 mg PO BID 05/18/17 History Levetiracetam 15 ml PO BID 05/18/17 History Menthol/Zinc Oxide [Calmoseptine 113 gm TP DAILY PRN 05/18/17 History Ointment] Metoclopramide HCl 5 mg PO BID 05/18/17 History Promethazine DM 6.25/15mg-5mL 5 ml PO Q6H PRN 05/18/17 History [Phenergan DM 6.25/15mg-5 mL] Trazodone HCl 100 mg PO HS 05/18/17 History Desmopressin [Ddavp] 0.1 mg PO DAILY 05/19/17 History Lactulose [Cephulac] 15 ml PO TID 05/19/17 History Levothyroxine [Synthroid] 0.05 mg PO QDAC 05/19/17 History buPROPion SR [Wellbutrin Sr] [address] 05/22/17 Rx Acetaminophen [Tylenol] 650 mg PO Q6H PRN 07/28/17 History QUEtiapine Fumarate [SEROquel] 25 mg PO TID 07/28/17 History Betamethasone Dip 0.05% Cream 1 appl TP BID PRN 10/26/17 History Mometasone Furoate 0.1% Cream 1 applic TP BID PRN 10/26/17 History [Elocon 1%] Ondansetron [Zofran ODT] 4 mg PO Q6HR PRN 10/26/17 History Triprolidine/Pseudoephedrine 1 tab PO TID PRN 10/26/17 History [Aprodine Tablet] Current Medications Generic Name Dose Route Start Last Admin Trade Name Freq PRN Reason Stop Dose Admin Acetaminophen 650 mg 10/27/17 07:20 Tylenol PO 12/26/17 07:19 Q6H PRN Pain or Fever >101 Betamethasone Dipropionate 1 appl 10/27/17 07:20 Betamethasone Dip 0.05% Cream TP 12/26/17 07:19 BID PRN Rash Bupropion HCl 75 mg 10/27/17 09:00 Wellbutrin Sr PO 12/26/17 08:59 DAILY PRAVEENA Protocol Calamine/Phenol 1 appl 10/27/17 07:20 Calmoseptine TP 12/26/17 07:19 DAILY PRN Diaper Rash Clonazepam 1 mg 10/27/17 14:00 Klonopin PO 12/26/17 13:59 TID PRAVEENA Desmopressin Acetate 0.1 mg 10/27/17 09:00 Ddavp PO 12/26/17 08:59 DAILY PRAVEENA Diphenhydramine HCl 25 mg 10/27/17 07:20 Benadryl PO 12/26/17 07:19 QID PRN Dry Skin Divalproex Sodium 500 mg 10/27/17 09:00 Depakote Sprinkle PO 12/26/17 08:59 TID PRAVEENA Protocol Ferrous Sulfate 325 mg 10/27/17 09:00 Iron PO 12/26/17 08:59 BID [facility] Fluoxetine HCl 20 mg 10/27/17 09:00 Prozac PO 12/26/17 08:59 DAILY PRAVEENA Protocol Lacosamide 50 mg 10/27/17 17:00 Vimpat PO 12/26/17 16:59 BID [facility] Lactulose 10 gm 10/27/17 09:00 Cephulac PO 12/26/17 08:59 TID [facility] Levetiracetam 1,500 mg 10/27/17 17:00 Keppra PO 12/26/17 16:59 BID [facility] Levothyroxine Sodium 0.05 mg 10/27/17 07:30 Synthroid PO 12/26/17 07:29 QDAC PRAVEENA Loratadine 10 mg 10/27/17 10:26 Claritin PO 12/26/17 10:25 TID PRN ALLERGY Metoclopramide HCl 5 mg 10/27/17 17:00 Reglan PO 12/26/17 16:59 BID [facility] Mometasone Furoate 1 appl 10/27/17 07:20 Elocon 1% TP 12/26/17 07:19 BID PRN Rash Ondansetron HCl 4 mg 10/27/17 07:20 Zofran Odt PO 12/26/17 07:19 Q6HR PRN Nausea / Vomiting Promethazine HCl/Dextromethorphan 5 ml 10/27/17 07:20 Phenergan Dm 6.25/15mg-5 Ml PO 12/26/17 07:19 Q6H PRN Cough Quetiapine Fumarate 25 mg 10/27/17 09:00 Seroquel PO 12/26/17 08:59 TID PRAVEENA Protocol Trazodone HCl 100 mg 10/27/17 21:00 Desyrel PO 12/26/17 20:59 HS [facility] Review of Systems: A 12 point ROS was reviewed with the pertinent positive and negatives noted in the HPI. Social History Smoking Status Unknown if ever smoked Drug Use No Alcohol Use No Physical Exam: General: Comfortable, not in any distress. HEENT: Head: NC NT. ORAL Cavity moist, pink tongue. Eyes: pallor present, EOMI. PERRLA. Neck: Supple, no JVD. No use of accessory neck muscles. Cardio: S1 and S2 WNL. Respiratory: CTAP. Abdominal: Soft NT ND BS. Genital/Urinary: Deferred. Extremities: NCCE. Neurological: Alert and Awake. Assessment: 1. Bilateral upper lobe pneumonia, new infiltrates from previous CXR. Likely CAP , Atypical Pneumonia. Cannot rule other etiologies. 2. angelmen's syndrome. 3. h/o MRSA colonization. Plan: Repeat CXR. TB gold quantiferon. start Rocephin and zithromax. Legionella, mycoplasma serology. Thank you, Dr Nina for involving me in taking care of this patient. Signed, Jermaine Rivas M.D. 032
[2017-10-27] MEDS: Lactulose 10 Gm/15 mL 30mL UDC PO SCH ×3 (11:00→22:27)
[2017-10-27] MEDS: Ferrous Sulfate 325 MG TAB PO SCH ×2 (11:01→17:20)
[2017-10-27] MEDS: Levothyroxine 0.05 Mg Tab PO SCH (11:01)
[2017-10-27] MEDS: Azithromycin 250 MG in Sodium Chloride 0.9% 250 ML IV SCH (13:10)
[2017-10-27] MEDS: Levetiracetam 500 mg/5mL 5mL UDSyr *for ORAL USE ONLY PO SCH (17:19)
[2017-10-27] MEDS ORDERED: Non-Formulary Item 1 EA (Trazodone Hcl [Trazodone Hcl] 100 MG) PO SCH (21:00)
[2017-10-27] MEDS ORDERED: Lactulose 10 Gm/15 mL 30mL UDC ONE (22:13)
--- NOTE | 2017-10-27 23:13 | History & Physical ---
ADMIT DATE: 10/27/2017 HISTORY OF PRESENT ILLNESS: The patient is well known to me. The patient lives in [facility]. The patient is known to have history of Angelman syndrome, history of mental challenges and was brought to the Emergency Room with cough and congestion and had white count of 18,000. Chest x-ray showed both upper lobes infiltrates and the patient was admitted. The patient is also mentally challenged and has confusion. PAST MEDICAL HISTORY: Included Angelman syndrome, mental challenge, history of a chest wall abscess. PHYSICAL EXAMINATION: VITAL SIGNS: Temperature 98.2, pulse rate 71, respirations 18, blood pressure 101/85. GENERAL: The patient unable to give any history. MEDICATION: Reviewed. HEAD: Microcephalic. NECK: Supple, nontender. LUNGS: Bilateral rales. CARDIOVASCULAR SYSTEM: S1, S2 heard. ABDOMEN: Soft. Bowel sounds are heard. DIAGNOSES: Bilateral upper lobe pneumonia, Angelman syndrome, history of MRSA colonization. PLAN: The patient will continue antibiotics and we will repeat a chest x-ray in the morning and give him Rocephin and Zithromax and we will also call Dr. Rivas, ID consult and I will follow the patient. JOB# [id number]
[2017-10-28] MEDS: Levothyroxine 0.05 Mg Tab PO SCH (06:29)
[2017-10-28 07:31] LABS: % BASOPHILS 0.5 % (0.0-2.0); % EOSINOPHILS 3.2 % (0.0-5.0); % MONOCYTES 9.7 % (2.0-10.0); % NEUTROPHILS 63.6 % (40.0-80.0); BASOPHILE ABSOLUTE 0.1 Th/cumm (0-0.2); EOSINOPHILE ABSOLUTE 0.4 Th/cmm (0.1-0.4); HEMATOCRIT 34.7 % (41.0-60); HEMOGLOBIN 11.2 gm/dL (12-16); LYMPHOCYTE ABSOLUTE 2.6 Th/cmm (1.5-3.0); MEAN CELL VOLUME 84.7 fl (80-99); MEAN CORPUSCULAR HEMOGLOBIN 27.3 pg (26.0-30.0); MEAN CORPUSCULAR HGB CONC 32.2 pg (28.0-36.0); MEAN PLATELET VOLUME 7.5 fl; MONOCYTE ABSOLUTE 1.1 Th/cmm (0.3-1.0); NEUTROPHILE ABSOLUTE 7.3 Th/cmm (1.8-8.0); PLATELET COUNT 486 Th/cmm (150-400); RED CELL DISTRIBUTION WIDTH 18.2 % (11.5-20.0); WHITE BLOOD COUNT 11.5 Th/cmm (4.8-10.8)
[2017-10-28 07:38] LABS: INR 0.91 (0.5-1.4); PROTHROMBIN TIME (TEST) 9.5 SECONDS (9.5-11.5)
[2017-10-28 07:46] LABS: ALB/GLOB RATIO 0.9 (1.0-1.8); ALBUMIN 3.3 gm/dL (4.2-5.5); ALKALINE PHOSPHATASE 43 U/L (34-104); ANION GAP 10.7 (7.0-16.0); BILIRUBIN,TOTAL 0.2 mg/dL (0.3-1.0); BUN - UREA NITROGEN 17 mg/dL (7-25); CALCIUM SERUM 9.1 mg/dL (8.6-10.3); CARBON DIOXIDE 30.3 mEq/L (21.0-31.0); CHLORIDE 99 mEq/L (98-107); CREATININE - SERUM 0.9 mg/dL (0.7-1.3); GFR AFRICAN-AMERICAN > 60.0 ml/min (>90); GFR NON AFRICAN-AMERICAN > 60.0 ml/min; GLUCOSE 81 mg/dL (70-105); SGOT 14 U/L (13-39); SGPT/ALT 10 U/L (7-52); SODIUM SERUM 136 mEq/L (136-145); TOTAL PROTEIN,SERUM 6.9 gm/dL (6.0-8.3)
--- NOTE | 2017-10-28 08:07 | Consultation ---
DATE OF CONSULTATION: 10/28/2017 PSYCHIATRIC CONSULTATION PHYSICIAN REQUESTING CONSULTATION: Dr. Nina. REASON FOR CONSULTATION: Failure to thrive and depression. HISTORY OF PRESENT ILLNESS: This patient is a 47-year-old resident [place] Information was obtained directly interviewing the patient as well as reviewing the patient's charts. The patient is noted have been diagnosed to have Angelman syndrome and intellectually challenged. He was brought to the Emergency Room for cough and congestion and the patient is admitted to rule out pneumonia and a psychiatric consultation is called to address the issue of the depression. The patient is interviewed. Staff was spoken to. The patient is not able to provide much of information and most of the time, he is moaning and groaning. Review of the chart indicated that the patient had been on bupropion that has been discontinued and the patient has been placed on 500 mg of Depakote 3 times a day and fluoxetine is being given at 20 mg in the morning and the patient is also on Seroquel 25 mg twice a day. The patient is being closely monitored. At this time, the patient is very drowsy and he is not providing much of information. PAST PSYCHIATRIC HISTORY: Details are not known. Currently, the patient is being treated for pneumonia. MENTAL STATUS EXAMINATION: The patient is 47 years old, looking older than his stated age, superficially cooperative. Mood is noted to be depressed. Affect is constricted. Coping skills at this time are noted to be very poor. The patient has been having difficult time to articulate. The patient is not presenting with any threats to harm self or others. No side effects to the medications are noted. In view of the patient's drowsiness and possible seizures, the Wellbutrin is going to be discontinued and the Seroquel is going to be gradually decreased. The patient's medications are going to be titrated. DIAGNOSTIC IMPRESSION: Major depressive disorder. PLAN: To continue the patient with supportive therapy and titrate the dose of medications. Thank you, Dr. Nina, for allowing me to participate in the care of the patient. JOB# [id number]
[2017-10-28] MEDS: Levetiracetam 500 mg/5mL 5mL UDSyr *for ORAL USE ONLY PO SCH ×2 (09:19→17:49)
[2017-10-28] MEDS: Ferrous Sulfate 325 MG TAB PO SCH ×2 (09:20→17:50)
[2017-10-28] MEDS: Lactulose 10 Gm/15 mL 30mL UDC PO SCH ×3 (09:40→21:32)
[2017-10-28] MEDS: Azithromycin 250 MG in Sodium Chloride 0.9% 250 ML IV SCH (12:06)
--- NOTE | 2017-10-28 12:49 | Infectious Disease Prog Note ---
Infectious Disease Subjective - Review of Systems Service Date: 10/28/17 Subjective: There is no new change, no fever. Infectious Disease Objective - Results Result Diagrams: 10/28/17 05:35 10/28/17 05:35 Recent Labs: Laboratory Last Values WBC 11.5 Th/cmm (4.8-10.8) H 10/28/17 05:35 RBC 4.10 Mil/cmm (4.30-5.70) L 10/28/17 05:35 Hgb 11.2 gm/dL (12-16) L 10/28/17 05:35 Hct 34.7 % (41.0-60) L 10/28/17 05:35 MCV 84.7 fl (80-99) 10/28/17 05:35 MCH 27.3 pg (26.0-30.0) 10/28/17 05:35 MCHC Differential 32.2 pg (28.0-36.0) 10/28/17 05:35 RDW 18.2 % (11.5-20.0) 10/28/17 05:35 Plt Count 486 Th/cmm (150-400) H 10/28/17 05:35 MPV 7.5 fl 10/28/17 05:35 Neutrophils % 63.6 % (40.0-80.0) 10/28/17 05:35 Band Neutrophils % 4 % (0-10) 10/26/17 23:30 Lymphocytes % 23.0 % (20.0-50.0) 10/28/17 05:35 Monocytes % 9.7 % (2.0-10.0) 10/28/17 05:35 Eosinophils % 3.2 % (0.0-5.0) 10/28/17 05:35 Basophils % 0.5 % (0.0-2.0) 10/28/17 05:35 Neutrophils (Manual) 73 % (40-80) 10/26/17 23:30 Lymphocytes 16 % (20-50) L 10/26/17 23:30 Monocytes 5 % (2-10) 10/26/17 23:30 Eosinophils 2 % (0-5) 10/26/17 23:30 Platelet Estimate ADEQUATE (NORMAL) 10/26/17 23:30 PT 9.5 SECONDS (9.5-11.5) 10/28/17 05:35 INR 0.91 (0.5-1.4) 10/28/17 05:35 PTT (Actin FS) 29.4 SECONDS (26.0-38.0) 10/28/17 05:35 Sodium 136 mEq/L (136-145) 10/28/17 05:35 Potassium 4.0 mEq/L (3.5-5.1) 10/28/17 05:35 Chloride 99 mEq/L (98-107) 10/28/17 05:35 Carbon Dioxide 30.3 mEq/L (21.0-31.0) 10/28/17 05:35 Anion Gap 10.7 (7.0-16.0) 10/28/17 05:35 BUN 17 mg/dL (7-25) 10/28/17 05:35 Creatinine 0.9 mg/dL (0.7-1.3) 10/28/17 05:35 Est GFR ( Amer) > 60.0 ml/min (>90) 10/28/17 05:35 Est GFR (Non-Af Amer) > 60.0 ml/min 10/28/17 05:35 BUN/Creatinine Ratio 18.9 10/28/17 05:35 Glucose 81 mg/dL (70-105) 10/28/17 05:35 Whole Bld Lactic Acid 1.50 mmol/L (0.60-1.99) 10/26/17 23:30 Calcium 9.1 mg/dL (8.6-10.3) 10/28/17 05:35 Total Bilirubin 0.2 mg/dL (0.3-1.0) L 10/28/17 05:35 AST 14 U/L (13-39) 10/28/17 05:35 ALT 10 U/L (7-52) 10/28/17 05:35 Alkaline Phosphatase 43 U/L (34-104) 10/28/17 05:35 Creatine Kinase 191 U/L (30-223) 10/26/17 23:30 Troponin I 0.01 ng/mL (0.01-0.05) 10/26/17 23:30 Total Protein 6.9 gm/dL (6.0-8.3) 10/28/17 05:35 Albumin 3.3 gm/dL (4.2-5.5) L 10/28/17 05:35 Globulin 3.6 gm/dL 10/28/17 05:35 Albumin/Globulin Ratio 0.9 (1.0-1.8) L 10/28/17 05:35 Amylase 25 U/L (29-103) L 10/26/17 23:30 Lipase 44 U/L (11-82) 10/26/17 23:30 - Physical Exam Vitals and I&O: Vital Signs Temp 97 F 10/28/17 11:57 Pulse 71 10/28/17 11:57 Resp 19 10/28/17 11:57 BP 110/61 10/28/17 11:57 Pulse Ox 95 10/28/17 11:57 Intake & Output 10/27/17 10/28/17 10/28/17 18:59 06:59 18:59 Intake Total 750 100 Output Total 4 2 Balance 746 98 Weight (lbs) 55.338 kg 55.367 kg Intake: Intake, IV Amount 250 Azithromycin 250 mg In 250 Sodium Chloride 0.9% 250 ml @ 250 mls/hr IV Q24HR [facility] Rx#:[id number] Oral 500 100 Output: Stool 4 2 Other: # Bowel Movements 4 2 Weight Source Bedscale Bedscale Active Medications: Current Medications Acetaminophen (Tylenol) 650 mg PO Q6H PRN PRN Reason: Pain or Fever >101 Stop: 12/26/17 07:19 Betamethasone Dipropionate (Betamethasone Dip 0.05% Cream) 1 appl TP BID PRN PRN Reason: Rash Stop: 12/26/17 07:19 Calamine/Phenol (Calmoseptine) 1 appl TP DAILY PRN PRN Reason: Diaper Rash Stop: 12/26/17 07:19 Clonazepam (Klonopin) 1 mg PO TID [facility] Stop: 12/26/17 13:59 Last Admin: 10/28/17 09:20 Dose: 1 mg Desmopressin Acetate (Ddavp) 0.1 mg PO DAILY [facility] Stop: 12/26/17 08:59 Last Admin: 10/28/17 09:21 Dose: 0.1 mg Diphenhydramine HCl (Benadryl) 25 mg PO QID PRN PRN Reason: Dry Skin Stop: 12/26/17 07:19 Divalproex Sodium (Depakote Sprinkle) 500 mg PO TID [facility]; Protocol Stop: 12/26/17 08:59 Last Admin: 10/28/17 09:20 Dose: 500 mg Ferrous Sulfate (Iron) 325 mg PO BID [facility] Stop: 12/26/17 08:59 Last Admin: 10/28/17 09:20 Dose: 325 mg Fluoxetine HCl (Prozac) 20 mg PO DAILY [facility]; Protocol Stop: 12/26/17 08:59 Last Admin: 10/28/17 09:21 Dose: 20 mg Ceftriaxone Sodium 1 gm/ (Dextrose) 50 mls @ 100 mls/hr IV Q24H [facility] Stop: 12/26/17 11:14 Last Admin: 10/27/17 12:43 Dose: 100 mls/hr Azithromycin 250 mg/ Sodium (Chloride) 250 mls @ 250 mls/hr IV Q24HR [facility] Stop: 12/26/17 11:14 Last Admin: 10/28/17 12:06 Dose: 250 mls/hr Lacosamide (Vimpat) 50 mg PO BID [facility] Stop: 12/26/17 16:59 Last Admin: 10/28/17 09:20 Dose: 50 mg Lactulose (Cephulac) 10 gm PO TID [facility] Stop: 12/26/17 08:59 Last Admin: 10/28/17 09:40 Dose: Not Given Levetiracetam (Keppra) 1,500 mg PO BID [facility] Stop: 12/26/17 16:59 Last Admin: 10/28/17 09:19 Dose: 1,500 mg Levothyroxine Sodium (Synthroid) 0.05 mg PO QDAC [facility] Stop: 12/26/17 07:29 Last Admin: 10/28/17 06:29 Dose: 0.05 mg Loratadine (Claritin) 10 mg PO TID PRN PRN Reason: ALLERGY Stop: 12/26/17 10:25 Last Admin: 10/27/17 11:01 Dose: 10 mg Metoclopramide HCl (Reglan) 5 mg PO BID [facility] Stop: 12/26/17 16:59 Last Admin: 10/28/17 09:20 Dose: 5 mg Mometasone Furoate (Elocon 1%) 1 appl TP BID PRN PRN Reason: Rash Stop: 12/26/17 07:19 Ondansetron HCl (Zofran Odt) 4 mg PO Q6HR PRN PRN Reason: Nausea / Vomiting Stop: 12/26/17 07:19 Promethazine HCl/Dextromethorphan (Phenergan Dm 6.25/15mg-5 Ml) 5 ml PO Q6H PRN PRN Reason: Cough Stop: 12/26/17 07:19 Quetiapine Fumarate (Seroquel) 25 mg PO BID PRAVEENA; Protocol Stop: 12/27/17 08:59 Trazodone HCl (Desyrel) 100 mg PO HS PRAVEENA Stop: 12/26/17 20:59 Last Admin: 10/27/17 21:00 Dose: 100 mg General: no acute distress, cachectic HEENT: atraumatic, normocephalic, PERRLA, EOMI Neck: supple, no thyromegaly Cardiovascular: S1S2, regular Lungs: clear to auscultation bilaterally, clear to percussion Abdomen: soft, no tender, no distended, no mass, no hepatomegaly, no splenomegaly Extremities: no cyanosis, no clubbing, no edema Neurological: awake, alert, oriented Skin: intact - Procedures Procedures: Procedures Procedure Code Date COLONOSCOPY 45.23 07/22/10 DIAGNOSTIC COLONOSCOPY 39210 07/22/10 EGD DIAGNOSTIC BRUSH WASH 63033 04/17/09 ESOPHAGOGASTRODUODENOSCOPY [EGD] W/CLOSED BIOPSY 45.16 03/05/09 EXC TR-EXT B9+CHILANGO 0.5 CM< 74303 06/26/16 EXCISION OF CHEST WALL, OPEN APPROACH [id number] 06/26/16 OTHER ENDOSCOPY OF SM INTEST 45.13 04/17/09 Nutritional Asmnt/Malnutr-PDOC - Dietary Evaluation Malnutrition Findings (Please click <Entered> for more info): Nutritional Asmnt/Malnutrition Start: 10/27/17 16: 29 Text: Status: Complete Freq: Protocol: Document 10/27/17 16:31 LCHENG (Rec: 10/27/17 16:47 [email or web address] [id number]) Nutritional Asmnt/Malnutrition Patient General Information Nutritional Screening High Risk Diagnosis PNA, sepsis Pertinent Medical Hx/Surgical Hx HTN, dyslipidemia, seizure, thyroid disorder, dementia Subjective Information Pt seen lying in bed at time of visit, awake, non-verbal, not able to communicate. Per nurse note, pt is able to take pureed food. Current Diet Order/ Nutrition Support pureed Pertinent Medications iron, synthroid, reglan, seroquel Pertinent Labs 10/26 alb 3.6 Nutritional Hx/Data Height 1.78 m Height (Calculated Centimeters) 177.8 Current Weight (lbs) 55.338 kg Weight (Calculated Kilograms) 55.3 Weight (Calculated Grams) 73712.3 [place] Body Weight 166 Body Mass Index (BMI) 17.4 Weight Status Underweight GI Symptoms GI Symptoms None Last BM none Difficult in: None Skin Integrity/Comment: intact Estimated Nutritional Goals BEE in Kcals: Using Current wt Calories/Kcals/Kg 30-35 Kcals Calculated [id number] Protein: Using Current wt Protein g/k-1.2 Protein Calculated 55-66 Fluid: ml 1650-1650ml (1ml/kcal) Nutritional Problem 1. Problem Problem inccreased nutrition needs Etiology increased metabolic demand Signs/Symptoms: dx of sepsis, PNA, underweight Malnutrition Alert Muscle Mass (Non-Severe) Mild Depletion Is there a minimum of two criteria No selected? Query Text:Check all the applicable criteria. A minimum of two criteria are recommended for diagnosis of either severe or non-severe malnutrition. Malnutrition Related to Morbid Obesity Malnutrition related to morbid obesity No Intervention/Recommendation Comments 1. Continue with pureed diet as ordered. Feed assist with meals. 2. Monitor PO intake, wt, labs and skin integrity 3. F/U as moderate risk in 3-5 days, 10/30-11/01, PO check Expected Outcomes/Goals Expected Outcomes/Goals 1. PO intake to meet at least 75% of nutritional needs. 2. Wt stability, skin to remain intact, labs to approach WNL.
[2017-10-29] MEDS: Levothyroxine 0.05 Mg Tab PO SCH ×2 (05:36→07:42)
[2017-10-29] MEDS: Levetiracetam 500 mg/5mL 5mL UDSyr *for ORAL USE ONLY PO SCH (08:10)
[2017-10-29] MEDS: Ferrous Sulfate 325 MG TAB PO SCH (08:11)
[2017-10-29] MEDS: Lactulose 10 Gm/15 mL 30mL UDC PO SCH ×2 (08:19→13:37)
[2017-10-29] MEDS: Azithromycin 250 MG in Sodium Chloride 0.9% 250 ML IV SCH (11:36)
--- NOTE | 2017-10-29 18:32 | Progress Notes ---
DATE: 10/29/2017 SUBJECTIVE: Staff was spoken to. The patient is interviewed. Mood is noted to be less irritable. The patient has been on Seroquel 25 mg twice a day and has been able to tolerate the medication. The patient is also receiving the valproic acid 500 mg 3 times a day and Prozac 20 mg daily. No major side effects to the medications are noted. The impulsive behavior seems to be under control. PLAN: To continue the patient with the current medications and followup. JOB# [id number]
== END 2017-10-29 16:00 | disposition home or self-care (01) | DRG 871 ==
LOC: ER 22:56 → MSI 10-27 02:00
PROVIDERS: ADMIT Internal Medicine; ATTEND Internal Medicine
DX: A41.9 Sepsis, unspecified organism (principal); J18.1 Lobar pneumonia, unspecified organism; Q93.5 Other deletions of part of a chromosome; F79 Unspecified intellectual disabilities; F32.9 Major depressive disorder, single episode, unspecified; I10 Essential (primary) hypertension; E78.5 Hyperlipidemia, unspecified; F03.90 Unspecified dementia, unspecified severity, without behavioral disturbance, psychotic disturbance, mood disturbance, and anxiety; D64.9 Anemia, unspecified; R62.7 Adult failure to thrive; Z82.49 Family history of ischemic heart disease and other diseases of the circulatory system
CPT/HCPCS: 36415-UA; 71045-TC; 80053-TC; 82150-TC; 82550-TC; 83605; 83690-TC; 84484-TC; 85007-TC; 85025-TC; 85027-TC; 85610-TC; 85730-TC; 86480-90; 86738-90; 87070; 93005; 96374; J0456; J0696; J1956; J7030; Z7610

== ENCOUNTER 2018-02-09 14:34 | Inpatient (IN) | payer MEDICARE, MEDICAID ==
--- NOTE | 2018-02-09 14:54 | ED Physician Chart ---
ED Chief Complaint/HPI - Patient Information Date Seen:: 02/09/18 Time Seen:: 14:45 Chief Complaint:: cough History of Present Illness:: Patient's had cough and congestion for 1 week. Patient is nonverbal so further history is not available. Allergies:: Allergies Allergy/AdvReac Type Severity Reaction Status Date / Time No Known Allergies Allergy Verified 07/28/17 20:34 Historian:: EMS Review:: Transfer documents Reviewed ED Review of Systems - Review of Systems General/Constitutional: No fever, No chills Skin: No skin lesions Head: No headache Eyes: No loss of vision ENT: No earache Neck: No neck pain, No swelling Cardio Vascular: No chest pain Pulmonary: Cough GI: No nausea, No vomiting, No diarrhea G/U: No dysuria, No frequency, No hematuria Musculoskeletal: No bone or joint pain, No back pain, No muscle pain Psychiatric: Other (minimally delayed) Hematopoietic: No bruising Allergic/Immuno: No urticaria Neurological: No syncope ED Past Medical History - Past Medical History Past Medical History: Thyroid disorder (hypothyroidism), Other (medullary retarded or delayed) Family History: Other (not available) Social History: Care Facility Surgical History: other (not available) Psychiatricy History: Other (mentally retarded or delayed) Medication: Reviewed Family Medical History - Family Member Mother History Unknown: Yes Ethnicity: Unknown Living Status: Unknown Hx Family Cancer: (ANUSHKA) Hx Family Coronary Artery Disease: (ANUSHKA) Hx Family Congestive Heart Failure: (ANUSHKA) Hx Family Hypertension: (ANUSHKA) Hx Family Stroke: (ANUSHKA) Hx Family Diabetes: (ANUSHKA) Hx Family Seizures: (ANUSHKA) Hx Family Dementia: (ANUSHKA) Hx Family AIDS: (ANUSHKA) Hx Family COPD: (ANUSHKA) Hx Family Hepatitis: (ANUSHKA) Hx Family Psychiatric Problems: (ANUSHKA) Hx Family Tuberculosis: (ANUSHKA) ED Physical Exam - Physical Examination General/Constitutional: Well-developed, well-nourished, No distress Other Gen/Cons comments:: Nonverbal Head: Atraumatic Eyes: Lids, conjuctiva normal, PERRL Skin: Nl inspection, No rash, No skin lesions ENMT: External ears, nose nl, Nasal exam nl Other ENMT comments:: Edentulous Neck: No nuchal rigidity Respiratory: Nl effort/Exclusion Other Respiratory comments:: Diffuse expiratory wheezing Cardio Vascular: RRR, No murmur, gallop, rubs, NL S1 S2 GI: No tenderness/rebounding/guarding, No organomegaly, No hernia, Normal BS's : No CVA tenderness Extremities: Normal digits & nails Neuro/Psych: No focal deficits Misc: Normal back ED Labs/Radiology/EKG Results - Lab Results Results: Laboratory Results - last 24 hr 02/09/18 02/09/18 02/09/18 15:05 15:05 15:05 WBC 23.9 H* D RBC 4.35 Hgb 11.9 L Hct 36.7 L MCV 84.4 MCH 27.4 MCHC Differential 32.4 RDW 17.9 Plt Count 318 MPV 6.6 Add Manual Diff YES Sodium 136 Potassium 4.3 Chloride 99 Carbon Dioxide 30.5 Anion Gap 10.8 BUN 21 Creatinine 1.2 Est GFR ( Amer) > 60.0 Est GFR (Non-Af Amer) > 60.0 BUN/Creatinine Ratio 17.5 Glucose 90 Whole Bld Lactic Acid 0.90 Calcium 9.5 - Radiology Results Results: Chest x-ray shows retrocardiac infiltrate ED Assessment - Assessment General Assessment: Patient's pulse ox was 85-88 initially on room air and increased to 90-91% on 3 L by nasal cannula. Dr. Nina texted at 1600. ED Septic Shock - . Is Septic Shock (SBP<90, OR Lactate>4 mmol\L) present?: No ED Reassessment (Disposition) - Reassessment Reassessment Condition:: Unchanged - Diagnosis Diagnosis:: Pneumonia; mental retardation; hypoxemia; leukocytosis - Patient Disposition Admitted to:: Telemetry Admitting Medical Physician:: Melissa Nina Condition at Disposition:: Stable, Unchanged
[2018-02-09] MEDS ORDERED: Sodium Chloride 0.9% 1,000 ML IV ONE (14:59)
[2018-02-09] MEDS ORDERED: cefTRIAXone 1 GM in Sodium Chloride 0.9% 50 ML IV ONE (15:00)
[2018-02-09 15:19] LABS: BASOPHILE ABSOLUTE 0.2 Th/cumm (0-0.2); EOSINOPHILE ABSOLUTE 0.5 Th/cmm (0.1-0.4); HEMATOCRIT 36.7 % (41.0-60); HEMOGLOBIN 11.9 gm/dL (12-16); LYMPHOCYTE ABSOLUTE 1.7 Th/cmm (1.5-3.0); MEAN CELL VOLUME 84.4 fl (80-99); MEAN CORPUSCULAR HEMOGLOBIN 27.4 pg (26.0-30.0); MEAN CORPUSCULAR HGB CONC 32.4 pg (28.0-36.0); MEAN PLATELET VOLUME 6.6 fl; MONOCYTE ABSOLUTE 2.9 Th/cmm (0.3-1.0); NEUTROPHILE ABSOLUTE 18.6 Th/cmm (1.8-8.0); PLATELET COUNT 318 Th/cmm (150-400); RED BLOOD COUNT 4.35 Mil/cmm (4.30-5.70); RED CELL DISTRIBUTION WIDTH 17.9 % (11.5-20.0)
[2018-02-09 15:30] LABS: WHITE BLOOD COUNT 23.9 Th/cmm (4.8-10.8)
[2018-02-09 15:33] LABS: ANION GAP 10.8 (7.0-16.0); BUN - UREA NITROGEN 21 mg/dL (7-25); CALCIUM SERUM 9.5 mg/dL (8.6-10.3); CARBON DIOXIDE 30.5 mEq/L (21.0-31.0); CHLORIDE 99 mEq/L (98-107); CREATININE - SERUM 1.2 mg/dL (0.7-1.3); GFR AFRICAN-AMERICAN > 60.0 ml/min (>90); GFR NON AFRICAN-AMERICAN > 60.0 ml/min; GLUCOSE 90 mg/dL (70-105); POTASSIUM SERUM 4.3 mEq/L (3.5-5.1); SODIUM SERUM 136 mEq/L (136-145)
[2018-02-09 16:24] LABS: BAND NEUTROPHILE 4 % (0-10); BASOPHIL 0 % (0-3); EOSINOPHIL 4 % (0-5); LYMPHOCYTE 12 % (20-50); MONOCYTE 3 % (2-10); NEUTROPHILS 77 % (40-80); PLATELET ESTIMATE ADEQUATE (NORMAL); PLATELET MORPHOLOGY NORMAL (NORMAL)
[2018-02-09 17:51] VITALS: BP 101/55
[2018-02-09] MEDS ORDERED: Albuterol Nebulizer 2.5mg/3mL HHN PRN (17:58)
[2018-02-09] MEDS: Azithromycin 500 MG in Sodium Chloride 0.9% 250 ML IV SCH (19:00)
[2018-02-10 06:48] LABS: HEMATOCRIT 34.8 % (41.0-60); HEMOGLOBIN 11.6 gm/dL (12-16); MEAN CELL VOLUME 84.1 fl (80-99); MEAN CORPUSCULAR HEMOGLOBIN 27.9 pg (26.0-30.0); MEAN CORPUSCULAR HGB CONC 33.2 pg (28.0-36.0); MEAN PLATELET VOLUME 7.1 fl; PLATELET COUNT 289 Th/cmm (150-400); RED BLOOD COUNT 4.14 Mil/cmm (4.30-5.70); RED CELL DISTRIBUTION WIDTH 17.3 % (11.5-20.0)
[2018-02-10 06:50] LABS: ANION GAP 9.9 (7.0-16.0); BUN - UREA NITROGEN 17 mg/dL (7-25); CALCIUM SERUM 9.3 mg/dL (8.6-10.3); CARBON DIOXIDE 32.3 mEq/L (21.0-31.0); CHLORIDE 100 mEq/L (98-107); GFR AFRICAN-AMERICAN > 60.0 ml/min (>90); GFR NON AFRICAN-AMERICAN > 60.0 ml/min; GLUCOSE 80 mg/dL (70-105); POTASSIUM SERUM 4.2 mEq/L (3.5-5.1); SODIUM SERUM 138 mEq/L (136-145)
[2018-02-10 06:55] LABS: WHITE BLOOD COUNT 15.8 Th/cmm (4.8-10.8)
[2018-02-10 07:47] LABS: % BASOPHILS 0.4 % (0.0-2.0); % EOSINOPHILS 3.1 % (0.0-5.0); % LYMPHOCYTES 13.6 % (20.0-50.0); % MONOCYTES 9.1 % (2.0-10.0); % NEUTROPHILS 73.8 % (40.0-80.0); BASOPHILE ABSOLUTE 0.1 Th/cumm (0-0.2); EOSINOPHILE ABSOLUTE 0.5 Th/cmm (0.1-0.4); LYMPHOCYTE ABSOLUTE 2.1 Th/cmm (1.5-3.0); MONOCYTE ABSOLUTE 1.4 Th/cmm (0.3-1.0); NEUTROPHILE ABSOLUTE 11.7 Th/cmm (1.8-8.0)
--- NOTE | 2018-02-10 08:33 | Diagnostic Imaging Report ---
CHEST X-RAY: AP view INDICATION: Cough COMPARISON: 10/27/2017 FINDINGS: There is accentuation of the interstitial lung markings. No focal consolidation or effusions. Borderline cardiomegaly is noted. Degenerative changes of the spine are noted. IMPRESSION: Accentuation of the interstitial lung markings which may be chronic. Note, a marginal degree of congestion cannot be excluded. Please correlate clinically. Borderline cardiomegaly.
[2018-02-10] MEDS: Ferrous Sulfate 325 MG TAB PO SCH ×2 (10:55→17:47)
[2018-02-10] MEDS: Albuterol/Ipratropium Neb 3 ML AERS HHN SCH ×5 (10:59→22:28)
[2018-02-10] MEDS: Triamcinolone Acetonide 0.1% Cream 15 gm TP SCH ×2 (11:00→18:35)
[2018-02-10] MEDS: Levetiracetam 500 mg/5mL 5mL UDSyr *for ORAL USE ONLY PO SCH ×2 (12:53→17:47)
[2018-02-10] MEDS: Pantoprazole 40 mg EC Tab PO SCH (12:54)
[2018-02-10] MEDS: Levothyroxine 0.05 Mg Tab PO SCH (12:54)
[2018-02-10] MEDS: cefTRIAXone 1 GM in Sodium Chloride 0.9% 50 ML IV SCH (15:58)
[2018-02-10] MEDS: Lactulose 10 Gm/15 mL 30mL UDC PO SCH ×2 (16:00→20:16)
[2018-02-10] MEDS: Azithromycin 500 MG in Sodium Chloride 0.9% 250 ML IV SCH (18:33)
[2018-02-10] MEDS: Budesonide 0.5 Mg/2 mL Ud HHN SCH (18:46)
--- NOTE | 2018-02-10 19:43 | History and Physical ---
History of Present Illness - HPI Chief Complaint: cough, congestion HPI: This is a 47-year old male admitted to the medsurg unit due to 1 week history of cough and congestion. Patient is a poor historian unable to give any meaningful history. Vital Signs: Last Vital Signs Temp 98.5 F 02/10/18 16:23 Pulse 81 02/10/18 18:52 Resp 20 02/10/18 18:52 BP 122/68 02/10/18 16:23 Pulse Ox 96 02/10/18 18:52 Past Medical History Other History: hypothyroidism Family Medical History - Family Member Mother History Unknown: Yes Ethnicity: Unknown Living Status: Unknown Hx Family Cancer: (ANUSHKA) Hx Family Coronary Artery Disease: (ANUSHKA) Hx Family Congestive Heart Failure: (ANUSHKA) Hx Family Hypertension: (ANUSHKA) Hx Family Stroke: (ANUSHKA) Hx Family Diabetes: (ANUSHKA) Hx Family Seizures: (ANUSHKA) Hx Family Dementia: (ANUSHKA) Hx Family AIDS: (ANUSHKA) Hx Family COPD: (ANUSHKA) Hx Family Hepatitis: (ANUSHKA) Hx Family Psychiatric Problems: (ANUSHKA) Hx Family Tuberculosis: (ANUSHKA) Social History Smoke: No Alcohol: None Drugs: None Lives: Long-Term - Medications Home Medications: Home Medication Medication Instructions Recorded Type Divalproex Sodium [Depakote 500 mg PO TID 05/18/17 History Sprinkle] FLUoxetine HCL [Prozac*] 20 mg PO DAILY 05/18/17 History Ferrous Sulfate [Iron] 1 tab PO BID 05/18/17 History Levetiracetam 15 ml PO BID 05/18/17 History Metoclopramide HCl 5 mg PO BID 05/18/17 History Trazodone HCl 100 mg PO HS 05/18/17 History Desmopressin [Ddavp] 0.1 mg PO DAILY 05/19/17 History Levothyroxine [Synthroid] 0.05 mg PO QDAC 05/19/17 History buPROPion SR [Wellbutrin Sr] [address] 05/22/17 Rx QUEtiapine Fumarate [SEROquel] 25 mg PO TID 07/28/17 History Loratadine [Claritin] 10 mg PO TID PRN tab 10/29/17 Rx clonazePAM [klonoPIN*] 1 mg PO TID tab 10/29/17 Rx traZODone HCl [Desyrel*] 100 mg PO HS tab 10/29/17 Rx Clotrimazole 1% Cream [Lotrimin 1% 1 % TP BID 02/09/18 History Cream] Dexlansoprazole [Dexilant] 60 mg PO DAILY 02/09/18 History Fluticasone Propionate [Flovent 50 mcg IH DAILY 02/09/18 History Diskus] Lacosamide [Vimpat] 50 mg PO BID 02/09/18 History Lactulose [Constulose] 15 ml PO TID 02/09/18 History Triamcinolone Acet 0.1% Cream 1 appl TP BID 02/09/18 History [Kenalog 0.1%] - Allergies Allergies/Adverse Reactions: Allergies Allergy/AdvReac Type Severity Reaction Status Date / Time chocolate Allergy Uncoded 02/09/18 19:06 Review of Systems - Review of Systems Constitutional: Report: No Significant Eyes: Report: No Significant Respiratory: Report: Cough Cardiovascular: Report: No Significant Neurological: Report: Weakness Physical Exam - Physical Exam HEENT: Report: Ears Nose Throat within normal limits Neck: Report: Within normal limits Cardiovascular Systems: Report: +s1/s2 noted, Regular, Rate and Rhythm Respiratory: Report: Rhonchi Extremities: Report: Non-tender to palpation. Skin: Report: Color of skin is within normal limits, Warm, Dry Neuro/Psych: Report: Weakness or sensory loss noted. - Lab Results All Lab Results last 24 hours: Laboratory Results - last 24 hr 02/10/18 02/10/18 06:00 06:00 WBC 15.8 H D RBC 4.14 L Hgb 11.6 L Hct 34.8 L MCV 84.1 MCH 27.9 MCHC Differential 33.2 RDW 17.3 Plt Count 289 MPV 7.1 Add Manual Diff Not Reportable Neutrophils % 73.8 Lymphocytes % 13.6 L Monocytes % 9.1 Eosinophils % 3.1 Basophils % 0.4 Sodium 138 Potassium 4.2 Chloride 100 Carbon Dioxide 32.3 H Anion Gap 9.9 BUN 17 Creatinine 1.0 Est GFR ( Amer) > 60.0 Est GFR (Non-Af Amer) > 60.0 BUN/Creatinine Ratio 17.0 Glucose 80 Calcium 9.3 Microbiology 02/09/18 15:20 - Preliminary Blood NO GROWTH AFTER 24 HOURS 02/09/18 15:05 - Preliminary Blood NO GROWTH AFTER 24 HOURS 02/09/18 14:48 - Final Nares - Assessment Assessment: pneumonia leukocytosis hypothyroidism mr - Plan Plan: iv rocephin/zithromax id consultation follow up labs in am respiratory treatments and supplemental o2 as needed continue the rest of the orders
[2018-02-10] MEDS ORDERED: Non-Formulary Item 1 EA (Trazodone Hcl [Trazodone Hcl] 100 MG) PO SCH (21:00)
--- NOTE | 2018-02-10 23:35 | Consultation ---
Consult Note - Consult Note Service Date: 02/10/18 Referring Physician: Melissa Nina Consult Note: PHYSICIAN Consultation Note: Date of Admission: 02/09/18 Purpose of Consultation: Leukocytosis and pneumonia. Chief Complaint: Patient XANDER JOSUE was admitted to [facility] with PNEUMONIA, LEUKOCYTOSIS. 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 On initial evaluation, his temperature was 99 F and WBC Count was 24k. He was diagnosed to have aspiration pneumonia and Ceftriaxone was started. ID consult was called for antibiotic management Past Medical History: Anglemen's syndrome, mental retardation, H/o Chest wall abscess. Allergies Allergy/AdvReac Type Severity Reaction Status Date / Time chocolate Allergy Uncoded 02/09/18 19:06 Vital Signs Temp 98.8 F 02/10/18 20:00 Pulse 84 02/10/18 22:28 Resp 20 02/10/18 22:28 BP 111/57 02/10/18 20:00 Pulse Ox 92 02/10/18 22:28 Intake & Output 02/10/18 02/10/18 02/11/18 06:59 18:59 06:59 Intake Total 250 620 Output Total 3 Balance 250 617 Weight (lbs) 67.631 kg 67.631 kg Intake: Intake, IV Amount 250 Azithromycin 500 mg In 250 Sodium Chloride 0.9% 250 ml @ 250 mls/hr IV Q24HR [facility] Rx#:[id number] Oral 620 Output: Stool 3 Other: # Voids 2 4 Stool Characteristics Soft Brown Weight Source Bedscale Bedscale Laboratory Results - last 24 hr 02/10/18 02/10/18 06:00 06:00 WBC 15.8 H D RBC 4.14 L Hgb 11.6 L Hct 34.8 L MCV 84.1 MCH 27.9 MCHC Differential 33.2 RDW 17.3 Plt Count 289 MPV 7.1 Add Manual Diff Not Reportable Neutrophils % 73.8 Lymphocytes % 13.6 L Monocytes % 9.1 Eosinophils % 3.1 Basophils % 0.4 Sodium 138 Potassium 4.2 Chloride 100 Carbon Dioxide 32.3 H Anion Gap 9.9 BUN 17 Creatinine 1.0 Est GFR ( Amer) > 60.0 Est GFR (Non-Af Amer) > 60.0 BUN/Creatinine Ratio 17.0 Glucose 80 Calcium 9.3 Home Medication Medication Instructions Recorded Type Divalproex Sodium [Depakote 500 mg PO TID 05/18/17 History Sprinkle] FLUoxetine HCL [Prozac*] 20 mg PO DAILY 05/18/17 History Ferrous Sulfate [Iron] 1 tab PO BID 05/18/17 History Levetiracetam 15 ml PO BID 05/18/17 History Metoclopramide HCl 5 mg PO BID 05/18/17 History Trazodone HCl 100 mg PO HS 05/18/17 History Desmopressin [Ddavp] 0.1 mg PO DAILY 05/19/17 History Levothyroxine [Synthroid] 0.05 mg PO QDAC 05/19/17 History buPROPion SR [Wellbutrin Sr] [address] 05/22/17 Rx QUEtiapine Fumarate [SEROquel] 25 mg PO TID 07/28/17 History Loratadine [Claritin] 10 mg PO TID PRN tab 10/29/17 Rx clonazePAM [klonoPIN*] 1 mg PO TID tab 10/29/17 Rx traZODone HCl [Desyrel*] 100 mg PO HS tab 10/29/17 Rx Clotrimazole 1% Cream [Lotrimin 1% 1 % TP BID 02/09/18 History Cream] Dexlansoprazole [Dexilant] 60 mg PO DAILY 02/09/18 History Fluticasone Propionate [Flovent 50 mcg IH DAILY 02/09/18 History Diskus] Lacosamide [Vimpat] 50 mg PO BID 02/09/18 History Lactulose [Constulose] 15 ml PO TID 02/09/18 History Triamcinolone Acet 0.1% Cream 1 appl TP BID 02/09/18 History [Kenalog 0.1%] Current Medications Generic Name Dose Route Start Last Admin Trade Name Freq PRN Reason Stop Dose Admin Albuterol Sulfate 2.5 mg 02/09/18 17:58 02/10/18 00:15 Albuterol 2.5mg/3ml Neb Ud HHN 04/10/18 17:57 2.5 mg Q4H PRN Administration Congestion Albuterol/Ipratropium 3 ml 02/10/18 08:00 02/10/18 22:28 Duoneb Neb N 04/11/18 07:59 3 ml Q4HRT [facility] Administration Budesonide 0.5 mg 02/10/18 19:00 02/10/18 18:46 Pulmicort N 04/11/18 18:59 0.5 mg BIDRT [facility] Administration Bupropion HCl 75 mg 02/10/18 09:00 Wellbutrin Sr PO 04/11/18 08:59 DAILY [facility] Protocol Clonazepam 1 mg 02/10/18 09:00 Klonopin PO 04/11/18 08:59 TID [facility] Protocol Desmopressin Acetate 0.1 mg 02/10/18 12:00 02/10/18 12:54 Ddavp PO 04/11/18 11:59 0.1 mg DAILY [facility] Administration Divalproex Sodium 500 mg 02/10/18 09:00 Depakote Sprinkle PO 04/11/18 08:59 TID [facility] Protocol Ferrous Sulfate 325 mg 02/10/18 09:00 02/10/18 17:47 Iron PO 04/11/18 08:59 325 mg BID [facility] Administration Fluoxetine HCl 20 mg 02/10/18 09:00 Prozac PO 04/11/18 08:59 DAILY [facility] Protocol Ceftriaxone Sodium 1 gm/ 50 mls @ 100 mls/hr 02/10/18 15:00 02/10/18 15:58 Sodium Chloride IV 04/11/18 14:59 100 mls/hr Q24HR [facility] Administration Azithromycin 500 mg/ Sodium 250 mls @ 250 mls/hr 02/09/18 17:45 02/10/18 18: 33 Chloride IV 04/10/18 17:44 250 mls/hr Q24HR [facility] Administration Lacosamide 50 mg 02/10/18 12:00 02/10/18 17:59 Vimpat PO 04/11/18 11:59 50 mg BID [facility] Administration Lactulose 10 gm 02/10/18 14:00 02/10/18 20:16 Cephulac PO 04/11/18 13:59 10 gm TID [facility] Administration Levetiracetam 1,500 mg 02/10/18 12:00 02/10/18 17:47 Keppra PO 04/11/18 11:59 1,500 mg BID [facility] Administration Levothyroxine Sodium 0.05 mg 02/10/18 12:00 02/10/18 12:54 Synthroid PO 04/11/18 11:59 0.05 mg QDAC [facility] Administration Loratadine 10 mg 02/10/18 08:17 02/10/18 20:16 Claritin PO 04/11/18 08:16 10 mg DAILY PRN Administration ALLERGY Metoclopramide HCl 5 mg 02/10/18 12:00 02/10/18 17:47 Reglan PO 04/11/18 11:59 5 mg BID [facility] Administration Mupirocin 1 appl 02/10/18 17:00 02/10/18 18:35 Bactroban Oint NS 02/15/18 09:01 1 appl BID [facility] Administration Pantoprazole Sodium 40 mg 02/10/18 11:30 02/10/18 12:54 Protonix PO 04/11/18 11:29 40 mg QDAC [facility] Administration Quetiapine Fumarate 25 mg 02/10/18 09:00 Seroquel PO 04/11/18 08:59 TID [facility] Protocol Trazodone HCl 100 mg 02/10/18 21:00 Desyrel PO 04/11/18 20:59 HS [facility] Protocol Triamcinolone Acetonide 1 appl 02/10/18 09:00 02/10/18 18:35 Kenalog 0.1% TP 04/11/18 08:59 1 appl BID [facility] Administration Review of Systems: A 12 point ROS was reviewed with the pertinent positive and negatives noted in the HPI. Social History Smoking Status Never smoker Family Medical History Unknown Physical Exam: General: Comfortable,not in any distress. HEENT: Head: NCNT. Oral cavity Moist pink tongue, Eyes: no pallor no icterus. Pupil pERRLa Neck: supple, no JVD no use of accessory neck muscle,. Cardio: S1 and S2 WNL. Respiratory: Vesicular breath sounds, crackles present b/l Abdominal: Soft NT ND BS Genital/Urinary: deferred Extremities: NCCE Neurological: Alert and awake, and unable to communicate. Assessment: 1. Leukopcytosis: suspect aspiration pneumonia 2. Aspieration pneumonia. 3. Developemental delay. 4. Angleman's syndrome. Plan: Continue Rocephin, azithromycin and start flagyl. Signed, Jermaine Rivas M.D. [id number]
[2018-02-11] MEDS: Albuterol/Ipratropium Neb 3 ML AERS HHN SCH ×6 (03:42→23:52)
[2018-02-11] MEDS: metroNIDAZOLE 500mg/NS 100mL 500 MG/100 ML BAG IV SCH ×2 (04:59→16:45)
[2018-02-11 06:37] LABS: % BASOPHILS 0.8 % (0.0-2.0); % EOSINOPHILS 2.4 % (0.0-5.0); % MONOCYTES 13.6 % (2.0-10.0); % NEUTROPHILS 67.2 % (40.0-80.0); BASOPHILE ABSOLUTE 0.1 Th/cumm (0-0.2); EOSINOPHILE ABSOLUTE 0.3 Th/cmm (0.1-0.4); HEMOGLOBIN 11.9 gm/dL (12-16); MEAN CORPUSCULAR HEMOGLOBIN 27.4 pg (26.0-30.0); MEAN PLATELET VOLUME 7.1 fl; MONOCYTE ABSOLUTE 1.7 Th/cmm (0.3-1.0); NEUTROPHILE ABSOLUTE 8.2 Th/cmm (1.8-8.0); PLATELET COUNT 372 Th/cmm (150-400); RED BLOOD COUNT 4.34 Mil/cmm (4.30-5.70); RED CELL DISTRIBUTION WIDTH 17.9 % (11.5-20.0); WHITE BLOOD COUNT 12.3 Th/cmm (4.8-10.8)
[2018-02-11] MEDS: Levothyroxine 0.05 Mg Tab PO SCH (06:40)
[2018-02-11] MEDS: Pantoprazole 40 mg EC Tab PO SCH (06:40)
[2018-02-11 06:44] LABS: ANION GAP 9.6 (7.0-16.0); BUN - UREA NITROGEN 20 mg/dL (7-25); CALCIUM SERUM 9.8 mg/dL (8.6-10.3); CARBON DIOXIDE 32.5 mEq/L (21.0-31.0); CHLORIDE 103 mEq/L (98-107); GFR AFRICAN-AMERICAN > 60.0 ml/min (>90); GFR NON AFRICAN-AMERICAN > 60.0 ml/min; GLUCOSE 81 mg/dL (70-105); POTASSIUM SERUM 4.1 mEq/L (3.5-5.1); SODIUM SERUM 141 mEq/L (136-145)
[2018-02-11] MEDS: Budesonide 0.5 Mg/2 mL Ud HHN SCH ×2 (07:04→19:30)
[2018-02-11] MEDS: Ferrous Sulfate 325 MG TAB PO SCH ×3 (09:15→16:45)
[2018-02-11] MEDS: Levetiracetam 500 mg/5mL 5mL UDSyr *for ORAL USE ONLY PO SCH ×2 (09:15→16:44)
[2018-02-11] MEDS: Lactulose 10 Gm/15 mL 30mL UDC PO SCH ×4 (09:16→21:18)
[2018-02-11] MEDS: Triamcinolone Acetonide 0.1% Cream 15 gm TP SCH ×2 (09:17→16:44)
--- NOTE | 2018-02-11 11:06 | Progress Notes ---
DATE: 02/11/2018 SUBJECTIVE: The patient was seen in his room. The patient is a poor historian due to medical condition. Otherwise, the patient appears to be in no acute distress. OBJECTIVE: VITAL SIGNS: Temperature 97.8, heart rate 75, blood pressure 105/57, respiration 18, 97% on room air. HEENT: Head is atraumatic and normocephalic. Eyes: Bilateral conjunctivae are clear. Bilateral pupils are equally round and reactive. NECK: Supple. No JVD. CARDIOVASCULAR: S1 and S2 without murmur. PULMONARY: Clear to auscultation. GASTROINTESTINAL: Soft and nontender without guarding. Positive bowel sounds. MUSCULOSKELETAL: No clubbing. No cyanosis noted. ASSESSMENT: 1. Pneumonia. 2. Hypothyroidism. 3. Mental retardation. 4. Iron deficiency anemia. 5. Seizure. PLAN: We will keep the patient inpatient. We will follow up with ID doctor for antibiotic management. Treatment plans were discussed with the patient's nurse. Treatment plans were discussed with Dr. Nina. JOB# [id number]
[2018-02-11] MEDS: cefTRIAXone 1 GM in Sodium Chloride 0.9% 50 ML IV SCH (14:39)
[2018-02-11] MEDS: Azithromycin 500 MG in Sodium Chloride 0.9% 250 ML IV SCH (17:42)
[2018-02-12] MEDS: Albuterol/Ipratropium Neb 3 ML AERS HHN SCH ×6 (03:46→22:20)
[2018-02-12] MEDS: metroNIDAZOLE 500mg/NS 100mL 500 MG/100 ML BAG IV SCH ×2 (05:10→16:27)
[2018-02-12] MEDS: Pantoprazole 40 mg EC Tab PO SCH (06:48)
[2018-02-12] MEDS: Levothyroxine 0.05 Mg Tab PO SCH (06:48)
[2018-02-12] MEDS: Budesonide 0.5 Mg/2 mL Ud HHN SCH ×2 (06:58→18:38)
[2018-02-12 08:49] LABS: EOSINOPHILE ABSOLUTE 0.5 Th/cmm (0.1-0.4); NEUTROPHILE ABSOLUTE 5.8 Th/cmm (1.8-8.0); RED CELL DISTRIBUTION WIDTH 17.7 % (11.5-20.0)
[2018-02-12 08:51] LABS: % BASOPHILS 0.3 % (0.0-2.0); % EOSINOPHILS 4.9 % (0.0-5.0); % LYMPHOCYTES 22.6 % (20.0-50.0); % MONOCYTES 10.2 % (2.0-10.0); HEMATOCRIT 40.7 % (41.0-60); HEMOGLOBIN 13.2 gm/dL (12-16); LYMPHOCYTE ABSOLUTE 2.1 Th/cmm (1.5-3.0); MEAN CELL VOLUME 83.7 fl (80-99); MEAN CORPUSCULAR HEMOGLOBIN 27.1 pg (26.0-30.0); MEAN CORPUSCULAR HGB CONC 32.4 pg (28.0-36.0); MEAN PLATELET VOLUME 6.5 fl; PLATELET COUNT 458 Th/cmm (150-400); RED BLOOD COUNT 4.86 Mil/cmm (4.30-5.70); WHITE BLOOD COUNT 9.4 Th/cmm (4.8-10.8)
[2018-02-12 08:59] LABS: ANION GAP 12.8 (7.0-16.0); BUN - UREA NITROGEN 18 mg/dL (7-25); CARBON DIOXIDE 29.4 mEq/L (21.0-31.0); CHLORIDE 105 mEq/L (98-107); GFR AFRICAN-AMERICAN > 60.0 ml/min (>90); GFR NON AFRICAN-AMERICAN > 60.0 ml/min; GLUCOSE 96 mg/dL (70-105); POTASSIUM SERUM 4.2 mEq/L (3.5-5.1); SODIUM SERUM 143 mEq/L (136-145)
--- NOTE | 2018-02-12 09:08 | General Progress Note ---
Subjective - Review of Systems Events since last encounter: patient in no acute distress Objective - Results Result Diagrams: 02/12/18 08:39 02/12/18 08:39 Recent Labs: Laboratory Last Values WBC 9.4 Th/cmm (4.8-10.8) 02/12/18 08:39 RBC 4.86 Mil/cmm (4.30-5.70) 02/12/18 08:39 Hgb 13.2 gm/dL (12-16) 02/12/18 08:39 Hct 40.7 % (41.0-60) L 02/12/18 08:39 MCV 83.7 fl (80-99) 02/12/18 08:39 MCH 27.1 pg (26.0-30.0) 02/12/18 08:39 MCHC Differential 32.4 pg (28.0-36.0) 02/12/18 08:39 RDW 17.7 % (11.5-20.0) 02/12/18 08:39 Plt Count 458 Th/cmm (150-400) H 02/12/18 08:39 MPV 6.5 fl 02/12/18 08:39 Add Manual Diff Not Reportable 02/10/18 06:00 Neutrophils % 62.0 % (40.0-80.0) 02/12/18 08:39 Band Neutrophils % 4 % (0-10) 02/09/18 15:05 Lymphocytes % 22.6 % (20.0-50.0) 02/12/18 08:39 Monocytes % 10.2 % (2.0-10.0) H 02/12/18 08:39 Eosinophils % 4.9 % (0.0-5.0) 02/12/18 08:39 Basophils % 0.3 % (0.0-2.0) 02/12/18 08:39 Neutrophils (Manual) 77 % (40-80) 02/09/18 15:05 Lymphocytes 12 % (20-50) L 02/09/18 15:05 Monocytes 3 % (2-10) 02/09/18 15:05 Eosinophils 4 % (0-5) 02/09/18 15:05 Basophils 0 % (0-3) 02/09/18 15:05 Platelet Estimate ADEQUATE (NORMAL) 02/09/18 15:05 Platelet Morphology NORMAL (NORMAL) 02/09/18 15:05 RBC Morph Micro Appear NORMAL (NORMAL) 02/09/18 15:05 Sodium 143 mEq/L (136-145) 02/12/18 08:39 Potassium 4.2 mEq/L (3.5-5.1) 02/12/18 08:39 Chloride 105 mEq/L (98-107) 02/12/18 08:39 Carbon Dioxide 29.4 mEq/L (21.0-31.0) 02/12/18 08:39 Anion Gap 12.8 (7.0-16.0) 02/12/18 08:39 BUN 18 mg/dL (7-25) 02/12/18 08:39 Creatinine 1.0 mg/dL (0.7-1.3) 02/12/18 08:39 Est GFR ( Amer) > 60.0 ml/min (>90) 02/12/18 08:39 Est GFR (Non-Af Amer) > 60.0 ml/min 02/12/18 08:39 BUN/Creatinine Ratio 18.0 02/12/18 08:39 Glucose 96 mg/dL (70-105) 02/12/18 08:39 Whole Bld Lactic Acid 0.90 mmol/L (0.60-1.99) 02/09/18 15:05 Calcium 10.0 mg/dL (8.6-10.3) 02/12/18 08:39 - Physical Exam Vitals and I&O: Vital Signs Temp 98.0 F 02/12/18 08:05 Pulse 72 02/12/18 08:05 Resp 18 02/12/18 08:05 BP 127/73 02/12/18 08:05 Pulse Ox 98 02/12/18 08:05 Intake & Output 02/11/18 02/12/18 02/12/18 18:59 06:59 18:59 Intake Total 400 100 Balance 400 100 Weight (lbs) 63.957 kg Intake: Intake, IV Amount 400 Azithromycin 500 mg In 250 Sodium Chloride 0.9% 250 ml @ 250 mls/hr IV Q24HR [facility] Rx#:[id number] cefTRIAXone 1 gm In 50 Sodium Chloride 0.9% 50 ml @ 100 mls/hr IV Q24HR [facility] Rx#:[id number] metroNIDAZOLE 500mg/NS 100 100mL 500 mg In 100 ml @ 100 mls/hr IV Q12H [facility] Rx #:[id number] Oral 100 Other: # Voids 2 # Bowel Movements 1 Weight Source Bedscale Active Medications: Current Medications Albuterol Sulfate (Albuterol 2.5mg/3ml Neb Ud) 2.5 mg HHN Q4H PRN PRN Reason: Congestion Stop: 04/10/18 17:57 Last Admin: 02/10/18 00:15 Dose: 2.5 mg Albuterol/Ipratropium (Duoneb Neb) 3 ml HHN Q4HRT [facility] Stop: 04/11/18 07:59 Last Admin: 02/12/18 06:58 Dose: 3 ml Budesonide (Pulmicort) 0.5 mg HHN BIDRT [facility] Stop: 04/11/18 18:59 Last Admin: 02/12/18 06:58 Dose: 0.5 mg Bupropion HCl (Wellbutrin Sr) 75 mg PO DAILY [facility]; Protocol Stop: 04/11/18 08:59 Last Admin: 02/11/18 15:37 Dose: Not Given Clonazepam (Klonopin) 1 mg PO TID [facility]; Protocol Stop: 04/11/18 08:59 Last Admin: 02/11/18 21:18 Dose: 1 mg Desmopressin Acetate (Ddavp) 0.1 mg PO DAILY [facility] Stop: 04/11/18 11:59 Last Admin: 02/11/18 09:51 Dose: Not Given Divalproex Sodium (Depakote Sprinkle) 500 mg PO TID [facility]; Protocol Stop: 04/11/18 08:59 Last Admin: 02/11/18 21:18 Dose: 500 mg Ferrous Sulfate (Iron) 325 mg PO BID [facility] Stop: 04/11/18 08:59 Last Admin: 02/11/18 16:45 Dose: 325 mg Fluoxetine HCl (Prozac) 20 mg PO DAILY [facility]; Protocol Stop: 04/11/18 08:59 Last Admin: 02/11/18 15:38 Dose: Not Given Ceftriaxone Sodium 1 gm/ (Sodium Chloride) 50 mls @ 100 mls/hr IV Q24HR [facility] Stop: 04/11/18 14:59 Last Infusion: 02/11/18 17:47 Dose: Infused Azithromycin 500 mg/ Sodium (Chloride) 250 mls @ 250 mls/hr IV Q24HR [facility] Stop: 04/10/18 17:44 Last Infusion: 02/11/18 18:37 Dose: Infused Metronidazole (Flagyl) 500 mg in 100 mls @ 100 mls/hr IV Q12H [facility] Stop: 04/12/18 04:29 Last Admin: 02/12/18 05:10 Dose: 100 mls/hr Lacosamide (Vimpat) 50 mg PO BID [facility] Stop: 04/11/18 11:59 Last Admin: 02/11/18 16:44 Dose: 50 mg Lactulose (Cephulac) 10 gm PO TID [facility] Stop: 04/11/18 13:59 Last Admin: 02/11/18 21:18 Dose: 10 gm Levetiracetam (Keppra) 1,500 mg PO BID [facility] Stop: 04/11/18 11:59 Last Admin: 02/11/18 16:44 Dose: 1,500 mg Levothyroxine Sodium (Synthroid) 0.05 mg PO QDAC [facility] Stop: 04/11/18 11:59 Last Admin: 02/12/18 06:48 Dose: 0.05 mg Loratadine (Claritin) 10 mg PO DAILY PRN PRN Reason: ALLERGY Stop: 04/11/18 08:16 Last Admin: 02/10/18 20:16 Dose: 10 mg Metoclopramide HCl (Reglan) 5 mg PO BID [facility] Stop: 04/11/18 11:59 Last Admin: 02/11/18 16:44 Dose: 5 mg Mupirocin (Bactroban Oint) 1 appl NS BID [facility] Stop: 02/15/18 09:01 Last Admin: 02/11/18 16:44 Dose: 1 appl Pantoprazole Sodium (Protonix) 40 mg PO QDAC [facility] Stop: 04/11/18 11:29 Last Admin: 02/12/18 06:48 Dose: 40 mg Quetiapine Fumarate (Seroquel) 25 mg PO TID [facility]; Protocol Stop: 04/11/18 08:59 Last Admin: 02/11/18 21:17 Dose: 25 mg Trazodone HCl (Desyrel) 100 mg PO HS [facility]; Protocol Stop: 04/11/18 20:59 Last Admin: 02/11/18 21:18 Dose: 100 mg Triamcinolone Acetonide (Kenalog 0.1%) 1 appl TP BID [facility] Stop: 04/11/18 08:59 Last Admin: 02/11/18 16:44 Dose: 1 appl General: No acute distress HEENT: Atraumatic Neck: Supple Cardiovascular: Regular rate, Normal S1, Normal S2 - Procedures Procedures: Procedures Procedure Code Date COLONOSCOPY 45.23 07/22/10 DIAGNOSTIC COLONOSCOPY [id number] 07/22/10 EGD DIAGNOSTIC BRUSH WASH 42328 04/17/09 ESOPHAGOGASTRODUODENOSCOPY [EGD] W/CLOSED BIOPSY 45.16 03/05/09 EXC TR-EXT B9+CHILANGO 0.5 CM< [id number] 06/26/16 EXCISION OF CHEST WALL, OPEN APPROACH [id number] 06/26/16 OTHER ENDOSCOPY OF SM INTEST 45.13 04/17/09 Assessment/Plan - Problem List Patient Problems: All Active Problems Anemia (Acute) D64.9 Hypothyroid (Acute) E03.9 Mental retardation (Acute) F79 Pneumonia (Acute) J18.9 - Plan Plan: as per order sheet
[2018-02-12] MEDS: Levetiracetam 500 mg/5mL 5mL UDSyr *for ORAL USE ONLY PO SCH ×2 (09:55→16:36)
[2018-02-12] MEDS: Ferrous Sulfate 325 MG TAB PO SCH ×2 (09:59→16:31)
[2018-02-12] MEDS: Lactulose 10 Gm/15 mL 30mL UDC PO SCH ×3 (09:59→21:52)
[2018-02-12] MEDS: Triamcinolone Acetonide 0.1% Cream 15 gm TP SCH ×2 (10:30→16:35)
[2018-02-12] MEDS: cefTRIAXone 1 GM in Sodium Chloride 0.9% 50 ML IV SCH (14:31)
[2018-02-12] MEDS ORDERED: Probiotic Screen MC PRN (14:54)
[2018-02-12] MEDS: Azithromycin 500 MG in Sodium Chloride 0.9% 250 ML IV SCH (18:00)
[2018-02-12] MEDS: Lactobacillus Rhamnosus GG 15 Billion CFU CAP.SPRINK PO SCH (18:11)
[2018-02-13] MEDS: Albuterol/Ipratropium Neb 3 ML AERS HHN SCH ×4 (02:31→14:45)
[2018-02-13] MEDS: metroNIDAZOLE 500mg/NS 100mL 500 MG/100 ML BAG IV SCH ×2 (04:47→16:01)
[2018-02-13] MEDS: Pantoprazole 40 mg EC Tab PO SCH (06:36)
[2018-02-13] MEDS: Levothyroxine 0.05 Mg Tab PO SCH (06:36)
[2018-02-13] MEDS: Budesonide 0.5 Mg/2 mL Ud HHN SCH (06:43)
[2018-02-13] MEDS: Ferrous Sulfate 325 MG TAB PO SCH (09:50)
[2018-02-13] MEDS: Lactobacillus Rhamnosus GG 15 Billion CFU CAP.SPRINK PO SCH (09:50)
[2018-02-13] MEDS: Lactulose 10 Gm/15 mL 30mL UDC PO SCH ×2 (09:50→14:00)
[2018-02-13] MEDS: Levetiracetam 500 mg/5mL 5mL UDSyr *for ORAL USE ONLY PO SCH (09:52)
--- NOTE | 2018-02-13 11:37 | General Progress Note ---
Subjective - Review of Systems Service Date: 02/13/18 Events since last encounter: awake in no distress Objective - Results Result Diagrams: 02/12/18 08:39 02/12/18 08:39 Recent Labs: Laboratory Last Values WBC 9.4 Th/cmm (4.8-10.8) 02/12/18 08:39 RBC 4.86 Mil/cmm (4.30-5.70) 02/12/18 08:39 Hgb 13.2 gm/dL (12-16) 02/12/18 08:39 Hct 40.7 % (41.0-60) L 02/12/18 08:39 MCV 83.7 fl (80-99) 02/12/18 08:39 MCH 27.1 pg (26.0-30.0) 02/12/18 08:39 MCHC Differential 32.4 pg (28.0-36.0) 02/12/18 08:39 RDW 17.7 % (11.5-20.0) 02/12/18 08:39 Plt Count 458 Th/cmm (150-400) H 02/12/18 08:39 MPV 6.5 fl 02/12/18 08:39 Add Manual Diff Not Reportable 02/10/18 06:00 Neutrophils % 62.0 % (40.0-80.0) 02/12/18 08:39 Band Neutrophils % 4 % (0-10) 02/09/18 15:05 Lymphocytes % 22.6 % (20.0-50.0) 02/12/18 08:39 Monocytes % 10.2 % (2.0-10.0) H 02/12/18 08:39 Eosinophils % 4.9 % (0.0-5.0) 02/12/18 08:39 Basophils % 0.3 % (0.0-2.0) 02/12/18 08:39 Neutrophils (Manual) 77 % (40-80) 02/09/18 15:05 Lymphocytes 12 % (20-50) L 02/09/18 15:05 Monocytes 3 % (2-10) 02/09/18 15:05 Eosinophils 4 % (0-5) 02/09/18 15:05 Basophils 0 % (0-3) 02/09/18 15:05 Platelet Estimate ADEQUATE (NORMAL) 02/09/18 15:05 Platelet Morphology NORMAL (NORMAL) 02/09/18 15:05 RBC Morph Micro Appear NORMAL (NORMAL) 02/09/18 15:05 Sodium 143 mEq/L (136-145) 02/12/18 08:39 Potassium 4.2 mEq/L (3.5-5.1) 02/12/18 08:39 Chloride 105 mEq/L (98-107) 02/12/18 08:39 Carbon Dioxide 29.4 mEq/L (21.0-31.0) 02/12/18 08:39 Anion Gap 12.8 (7.0-16.0) 02/12/18 08:39 BUN 18 mg/dL (7-25) 02/12/18 08:39 Creatinine 1.0 mg/dL (0.7-1.3) 02/12/18 08:39 Est GFR ( Amer) > 60.0 ml/min (>90) 02/12/18 08:39 Est GFR (Non-Af Amer) > 60.0 ml/min 02/12/18 08:39 BUN/Creatinine Ratio 18.0 02/12/18 08:39 Glucose 96 mg/dL (70-105) 02/12/18 08:39 Whole Bld Lactic Acid 0.90 mmol/L (0.60-1.99) 02/09/18 15:05 Calcium 10.0 mg/dL (8.6-10.3) 02/12/18 08:39 - Physical Exam Vitals and I&O: Vital Signs Temp 97.2 F 02/13/18 08:00 Pulse 85 02/13/18 10:25 Resp 18 02/13/18 10:25 BP 118/61 02/13/18 08:00 Pulse Ox 83 02/13/18 10:25 Intake & Output 02/12/18 02/13/18 02/13/18 18:59 06:59 18:59 Intake Total 670 200 Balance 670 200 Weight (lbs) 63.957 kg 63.684 kg 63.503 kg Intake: Intake, IV Amount 150 cefTRIAXone 1 gm In 50 Sodium Chloride 0.9% 50 ml @ 100 mls/hr IV Q24HR [facility] Rx#:[id number] metroNIDAZOLE 500mg/NS 100 100mL 500 mg In 100 ml @ 100 mls/hr IV Q12H [facility] Rx #:[id number] Oral 520 200 Other: # Voids 4 3 # Bowel Movements 3 0 Stool Characteristics Soft Soft Brown Brown Weight Source Bedscale Bedscale Bedscale Active Medications: Current Medications Albuterol Sulfate (Albuterol 2.5mg/3ml Neb Ud) 2.5 mg HHN Q4H PRN PRN Reason: Congestion Stop: 04/10/18 17:57 Last Admin: 02/10/18 00:15 Dose: 2.5 mg Albuterol/Ipratropium (Duoneb Neb) 3 ml HHN Q4HRT [facility] Stop: 04/11/18 07:59 Last Admin: 02/13/18 10:21 Dose: 3 ml Budesonide (Pulmicort) 0.5 mg HHN BIDRT [facility] Stop: 04/11/18 18:59 Last Admin: 02/13/18 06:43 Dose: 0.5 mg Bupropion HCl (Wellbutrin Sr) 75 mg PO DAILY [facility]; Protocol Stop: 04/11/18 08:59 Last Admin: 02/12/18 10:00 Dose: 75 mg Clonazepam (Klonopin) 1 mg PO TID [facility]; Protocol Stop: 04/11/18 08:59 Last Admin: 02/13/18 09:51 Dose: 1 mg Desmopressin Acetate (Ddavp) 0.1 mg PO DAILY [facility] Stop: 04/11/18 11:59 Last Admin: 02/13/18 09:51 Dose: 0.1 mg Divalproex Sodium (Depakote Sprinkle) 500 mg PO TID [facility]; Protocol Stop: 04/11/18 08:59 Last Admin: 02/13/18 09:51 Dose: 500 mg Ferrous Sulfate (Iron) 325 mg PO BID [facility] Stop: 04/11/18 08:59 Last Admin: 02/13/18 09:50 Dose: 325 mg Fluoxetine HCl (Prozac) 20 mg PO DAILY [facility]; Protocol Stop: 04/11/18 08:59 Last Admin: 02/13/18 09:52 Dose: 20 mg Ceftriaxone Sodium 1 gm/ (Sodium Chloride) 50 mls @ 100 mls/hr IV Q24HR [facility] Stop: 04/11/18 14:59 Last Infusion: 02/12/18 18:00 Dose: Infused Azithromycin 500 mg/ Sodium (Chloride) 250 mls @ 250 mls/hr IV Q24HR [facility] Stop: 04/10/18 17:44 Last Admin: 02/12/18 18:00 Dose: 250 mls/hr Metronidazole (Flagyl) 500 mg in 100 mls @ 100 mls/hr IV Q12H [facility] Stop: 04/12/18 04:29 Last Admin: 02/13/18 04:47 Dose: 100 mls/hr Lacosamide (Vimpat) 50 mg PO BID [facility] Stop: 04/11/18 11:59 Last Admin: 02/13/18 09:52 Dose: 50 mg Lactobacillus Rhamnosus (Culturelle 15b) 1 each PO DAILY [facility] Stop: 04/13/18 14:59 Last Admin: 02/13/18 09:50 Dose: 1 each Lactulose (Cephulac) 10 gm PO TID [facility] Stop: 04/11/18 13:59 Last Admin: 02/13/18 09:50 Dose: 10 gm Levetiracetam (Keppra) 1,500 mg PO BID [facility] Stop: 04/11/18 11:59 Last Admin: 02/13/18 09:52 Dose: 1,500 mg Levothyroxine Sodium (Synthroid) 0.05 mg PO QDAC [facility] Stop: 04/11/18 11:59 Last Admin: 02/13/18 06:36 Dose: 0.05 mg Loratadine (Claritin) 10 mg PO DAILY PRN PRN Reason: ALLERGY Stop: 04/11/18 08:16 Last Admin: 02/12/18 21:52 Dose: 10 mg Metoclopramide HCl (Reglan) 5 mg PO BID [facility] Stop: 04/11/18 11:59 Last Admin: 02/13/18 09:50 Dose: 5 mg Miscellaneous (Probiotic Screen) 1 ea MC PRN PRN PRN Reason: PROTOCOL Stop: 04/13/18 14:53 Mupirocin (Bactroban Oint) 1 appl NS BID [facility] Stop: 02/15/18 09:01 Last Admin: 02/12/18 16:35 Dose: 1 appl Pantoprazole Sodium (Protonix) 40 mg PO QDAC [facility] Stop: 04/11/18 11:29 Last Admin: 02/13/18 06:36 Dose: 40 mg Quetiapine Fumarate (Seroquel) 25 mg PO TID [facility]; Protocol Stop: 04/11/18 08:59 Last Admin: 02/13/18 09:50 Dose: 25 mg Trazodone HCl (Desyrel) 100 mg PO HS [facility]; Protocol Stop: 04/11/18 20:59 Last Admin: 02/12/18 21:52 Dose: 100 mg Triamcinolone Acetonide (Kenalog 0.1%) 1 appl TP BID [facility] Stop: 04/11/18 08:59 Last Admin: 02/12/18 16:35 Dose: 1 appl General: Alert, No acute distress HEENT: Atraumatic Neck: Supple Cardiovascular: Regular rate, Normal S1, Normal S2 Abdomen: Soft Other physical findings: PT WAS SEEN BY ASTRID OK TO DISCHARGE - Procedures Procedures: Procedures Procedure Code Date COLONOSCOPY 45.23 07/22/10 DIAGNOSTIC COLONOSCOPY 39002 07/22/10 EGD DIAGNOSTIC BRUSH WASH 34796 04/17/09 ESOPHAGOGASTRODUODENOSCOPY [EGD] W/CLOSED BIOPSY 45.16 03/05/09 EXC TR-EXT B9+CHILANGO 0.5 CM< 06961 06/26/16 EXCISION OF CHEST WALL, OPEN APPROACH [id number] 06/26/16 OTHER ENDOSCOPY OF SM INTEST 45.13 04/17/09 Assessment/Plan - Problem List Patient Problems: All Active Problems Anemia (Acute) D64.9 Hypothyroid (Acute) E03.9 Mental retardation (Acute) F79 Pneumonia (Acute) J18.9 - Assessment Assessment: PT IS STABLE FOR DISCHARGE WILL SEE PT AT BOARD AND CARE - Plan Plan: DISCHARGE TODAY F/U I WILL F/U AT BOARD AND CARE
--- NOTE | 2018-02-13 12:47 | Infectious Disease Prog Note ---
Infectious Disease Subjective - Review of Systems Service Date: 02/13/18 Subjective: No fever. Infectious Disease Objective - Results Result Diagrams: 02/12/18 08:39 02/12/18 08:39 Recent Labs: Laboratory Last Values WBC 9.4 Th/cmm (4.8-10.8) 02/12/18 08:39 RBC 4.86 Mil/cmm (4.30-5.70) 02/12/18 08:39 Hgb 13.2 gm/dL (12-16) 02/12/18 08:39 Hct 40.7 % (41.0-60) L 02/12/18 08:39 MCV 83.7 fl (80-99) 02/12/18 08:39 MCH 27.1 pg (26.0-30.0) 02/12/18 08:39 MCHC Differential 32.4 pg (28.0-36.0) 02/12/18 08:39 RDW 17.7 % (11.5-20.0) 02/12/18 08:39 Plt Count 458 Th/cmm (150-400) H 02/12/18 08:39 MPV 6.5 fl 02/12/18 08:39 Add Manual Diff Not Reportable 02/10/18 06:00 Neutrophils % 62.0 % (40.0-80.0) 02/12/18 08:39 Band Neutrophils % 4 % (0-10) 02/09/18 15:05 Lymphocytes % 22.6 % (20.0-50.0) 02/12/18 08:39 Monocytes % 10.2 % (2.0-10.0) H 02/12/18 08:39 Eosinophils % 4.9 % (0.0-5.0) 02/12/18 08:39 Basophils % 0.3 % (0.0-2.0) 02/12/18 08:39 Neutrophils (Manual) 77 % (40-80) 02/09/18 15:05 Lymphocytes 12 % (20-50) L 02/09/18 15:05 Monocytes 3 % (2-10) 02/09/18 15:05 Eosinophils 4 % (0-5) 02/09/18 15:05 Basophils 0 % (0-3) 02/09/18 15:05 Platelet Estimate ADEQUATE (NORMAL) 02/09/18 15:05 Platelet Morphology NORMAL (NORMAL) 02/09/18 15:05 RBC Morph Micro Appear NORMAL (NORMAL) 02/09/18 15:05 Sodium 143 mEq/L (136-145) 02/12/18 08:39 Potassium 4.2 mEq/L (3.5-5.1) 02/12/18 08:39 Chloride 105 mEq/L (98-107) 02/12/18 08:39 Carbon Dioxide 29.4 mEq/L (21.0-31.0) 02/12/18 08:39 Anion Gap 12.8 (7.0-16.0) 02/12/18 08:39 BUN 18 mg/dL (7-25) 02/12/18 08:39 Creatinine 1.0 mg/dL (0.7-1.3) 02/12/18 08:39 Est GFR ( Amer) > 60.0 ml/min (>90) 02/12/18 08:39 Est GFR (Non-Af Amer) > 60.0 ml/min 02/12/18 08:39 BUN/Creatinine Ratio 18.0 02/12/18 08:39 Glucose 96 mg/dL (70-105) 02/12/18 08:39 Whole Bld Lactic Acid 0.90 mmol/L (0.60-1.99) 02/09/18 15:05 Calcium 10.0 mg/dL (8.6-10.3) 02/12/18 08:39 - Physical Exam Vitals and I&O: Vital Signs Temp 98.2 F 02/13/18 12:00 Pulse 76 02/13/18 12:00 Resp 18 02/13/18 12:00 BP 125/70 02/13/18 12:00 Pulse Ox 89 02/13/18 12:00 Intake & Output 02/12/18 02/13/18 02/13/18 18:59 06:59 18:59 Intake Total 670 200 Balance 670 200 Weight (lbs) 63.957 kg 63.684 kg 63.503 kg Intake: Intake, IV Amount 150 cefTRIAXone 1 gm In 50 Sodium Chloride 0.9% 50 ml @ 100 mls/hr IV Q24HR [facility] Rx#:[id number] metroNIDAZOLE 500mg/NS 100 100mL 500 mg In 100 ml @ 100 mls/hr IV Q12H [facility] Rx #:[id number] Oral 520 200 Other: # Voids 4 3 # Bowel Movements 3 0 Stool Characteristics Soft Soft Brown Brown Weight Source Bedscale Bedscale Bedscale Active Medications: Current Medications Albuterol Sulfate (Albuterol 2.5mg/3ml Neb Ud) 2.5 mg HHN Q4H PRN PRN Reason: Congestion Stop: 04/10/18 17:57 Last Admin: 02/10/18 00:15 Dose: 2.5 mg Albuterol/Ipratropium (Duoneb Neb) 3 ml HHN Q4HRT [facility] Stop: 04/11/18 07:59 Last Admin: 02/13/18 10:21 Dose: 3 ml Budesonide (Pulmicort) 0.5 mg HHN BIDRT [facility] Stop: 04/11/18 18:59 Last Admin: 02/13/18 06:43 Dose: 0.5 mg Bupropion HCl (Wellbutrin Sr) 75 mg PO DAILY [facility]; Protocol Stop: 04/11/18 08:59 Last Admin: 02/12/18 10:00 Dose: 75 mg Clonazepam (Klonopin) 1 mg PO TID [facility]; Protocol Stop: 04/11/18 08:59 Last Admin: 02/13/18 09:51 Dose: 1 mg Desmopressin Acetate (Ddavp) 0.1 mg PO DAILY [facility] Stop: 04/11/18 11:59 Last Admin: 02/13/18 09:51 Dose: 0.1 mg Divalproex Sodium (Depakote Sprinkle) 500 mg PO TID [facility]; Protocol Stop: 04/11/18 08:59 Last Admin: 02/13/18 09:51 Dose: 500 mg Ferrous Sulfate (Iron) 325 mg PO BID [facility] Stop: 04/11/18 08:59 Last Admin: 02/13/18 09:50 Dose: 325 mg Fluoxetine HCl (Prozac) 20 mg PO DAILY [facility]; Protocol Stop: 04/11/18 08:59 Last Admin: 02/13/18 09:52 Dose: 20 mg Ceftriaxone Sodium 1 gm/ (Sodium Chloride) 50 mls @ 100 mls/hr IV Q24HR [facility] Stop: 04/11/18 14:59 Last Infusion: 02/12/18 18:00 Dose: Infused Azithromycin 500 mg/ Sodium (Chloride) 250 mls @ 250 mls/hr IV Q24HR [facility] Stop: 04/10/18 17:44 Last Admin: 02/12/18 18:00 Dose: 250 mls/hr Metronidazole (Flagyl) 500 mg in 100 mls @ 100 mls/hr IV Q12H [facility] Stop: 04/12/18 04:29 Last Admin: 02/13/18 04:47 Dose: 100 mls/hr Lacosamide (Vimpat) 50 mg PO BID [facility] Stop: 04/11/18 11:59 Last Admin: 02/13/18 09:52 Dose: 50 mg Lactobacillus Rhamnosus (Culturelle 15b) 1 each PO DAILY [facility] Stop: 04/13/18 14:59 Last Admin: 02/13/18 09:50 Dose: 1 each Lactulose (Cephulac) 10 gm PO TID [facility] Stop: 04/11/18 13:59 Last Admin: 02/13/18 09:50 Dose: 10 gm Levetiracetam (Keppra) 1,500 mg PO BID [facility] Stop: 04/11/18 11:59 Last Admin: 02/13/18 09:52 Dose: 1,500 mg Levothyroxine Sodium (Synthroid) 0.05 mg PO QDAC [facility] Stop: 04/11/18 11:59 Last Admin: 02/13/18 06:36 Dose: 0.05 mg Loratadine (Claritin) 10 mg PO DAILY PRN PRN Reason: ALLERGY Stop: 04/11/18 08:16 Last Admin: 02/12/18 21:52 Dose: 10 mg Metoclopramide HCl (Reglan) 5 mg PO BID [facility] Stop: 04/11/18 11:59 Last Admin: 02/13/18 09:50 Dose: 5 mg Miscellaneous (Probiotic Screen) 1 ea MC PRN PRN PRN Reason: PROTOCOL Stop: 04/13/18 14:53 Mupirocin (Bactroban Oint) 1 appl NS BID [facility] Stop: 02/15/18 09:01 Last Admin: 02/12/18 16:35 Dose: 1 appl Pantoprazole Sodium (Protonix) 40 mg PO QDAC [facility] Stop: 04/11/18 11:29 Last Admin: 02/13/18 06:36 Dose: 40 mg Quetiapine Fumarate (Seroquel) 25 mg PO TID [facility]; Protocol Stop: 04/11/18 08:59 Last Admin: 02/13/18 09:50 Dose: 25 mg Trazodone HCl (Desyrel) 100 mg PO HS [facility]; Protocol Stop: 04/11/18 20:59 Last Admin: 02/12/18 21:52 Dose: 100 mg Triamcinolone Acetonide (Kenalog 0.1%) 1 appl TP BID [facility] Stop: 04/11/18 08:59 Last Admin: 02/12/18 16:35 Dose: 1 appl General: no acute distress, well developed, well nourished HEENT: atraumatic, normocephalic, PERRLA, EOMI Neck: supple, no thyromegaly Cardiovascular: S1S2, regular Lungs: clear to auscultation bilaterally, clear to percussion Abdomen: soft, no tender, no distended Extremities: no cyanosis, no clubbing, no edema Neurological: awake, alert Skin: intact - Procedures Procedures: Procedures Procedure Code Date COLONOSCOPY 45.23 07/22/10 DIAGNOSTIC COLONOSCOPY 65468 07/22/10 EGD DIAGNOSTIC BRUSH WASH 81447 04/17/09 ESOPHAGOGASTRODUODENOSCOPY [EGD] W/CLOSED BIOPSY 45.16 03/05/09 EXC TR-EXT B9+CHILANGO 0.5 CM< 03529 06/26/16 EXCISION OF CHEST WALL, OPEN APPROACH [id number] 06/26/16 OTHER ENDOSCOPY OF SM INTEST 45.13 04/17/09 Infectious Disease Assmt/Plan - Problem List Patient Problems: All Active Problems Anemia (Acute) D64.9 Hypothyroid (Acute) E03.9 Mental retardation (Acute) F79 Pneumonia (Acute) J18.9 - Assessment Assessment: 1. Leukopcytosis: suspect aspiration pneumonia 2. Aspieration pneumonia. 3. Developemental delay. 4. Angleman's syndrome. - Plan Plan: Change antibiotics to levaquin po to complete 10 days of therapy. ( 7 more days) .
[2018-02-13] MEDS: cefTRIAXone 1 GM in Sodium Chloride 0.9% 50 ML IV SCH (15:21)
== END 2018-02-13 18:04 | disposition home or self-care (01) | DRG 871 ==
LOC: ER 14:34 → TELE 16:00 → MSI 02-10 17:14
PROVIDERS: ADMIT Internal Medicine; ATTEND Internal Medicine
DX: A41.9 Sepsis, unspecified organism (principal); J69.0 Pneumonitis due to inhalation of food and vomit; Q93.51 Angelman syndrome; E03.9 Hypothyroidism, unspecified; F79 Unspecified intellectual disabilities; R56.9 Unspecified convulsions; D50.9 Iron deficiency anemia, unspecified; R09.02 Hypoxemia; Z79.899 Other long term (current) drug therapy; Z91.018 Allergy to other foods
CPT/HCPCS: 36415-UA; 71045-TC; 80048-TC; 83605; 85007-TC; 85025-TC; 90799; 94640; 94760; J0456; J0696; J7040; J7613; Z7610

== ENCOUNTER 2018-04-22 10:22 | Inpatient (IN) | payer MEDICARE, MEDICAID ==
--- NOTE | 2018-04-22 11:00 | ED Physician Chart ---
ED Chief Complaint/HPI - Patient Information Date Seen:: 04/22/18 Time Seen:: 10:59 Chief Complaint:: fever History of Present Illness:: THIS IS A 47 YR OLD MALE PHYSICAL AND MENTALLY CHALLENGED PATIENT SENT FROM THE DETENTION FOR EVALUATION OF HIS FEVER. THE PATIENT WAS TREATED IN THIS HOSPITAL FOR SEPSIS WITH PNUEMONIA IN THE PAST. Allergies:: Allergies Allergy/AdvReac Type Severity Reaction Status Date / Time chocolate Allergy Uncoded 02/09/18 19:06 Vitals:: Vital Signs - 8 hr 04/22/18 10:26 Temp 100.5 F HR 87 RR 16 BP 102/43 O2 Sat % 92 Historian:: Patient, Medical Records Review:: Transfer documents Reviewed, Patient unable to respond ED Review of Systems - Review of Systems General/Constitutional: Fever, No chills, No weight loss, No weakness, No diaphoresis, No edema, No loss of appetite, Other (PATIENT UNABLE TO GIVE A REVIEW OF SYSTEMS) Skin: No skin lesions, No rash, No bruising Head: No headache, No light-headedness Eyes: No loss of vision, No pain, No diplopia ENT: No earache, No nasal drainage, No sore throat, No tinnitus Neck: No neck pain, No swelling, No thyromegaly, No stiffness, No mass noted Cardio Vascular: No chest pain, No palpitations, No PND, No orthopnea, No edema Pulmonary: No SOB, No cough, No sputum, No wheezing GI: No nausea, No vomiting, No diarrhea, No pain, No melena, No hematochezia, No constipation, No hematemesis G/U: No dysuria, No frequency, No hematuria Musculoskeletal: No bone or joint pain, No back pain, No muscle pain Endocrine: No polyuria, No polydipsia Psychiatric: No prior psych history, No depression, No anxiety, No suicidal ideation Hematopoietic: No bruising, No lymphadenopathy Allergic/Immuno: No urticaria, No angioedema Neurological: No syncope, No focal symptoms, No weakness, No paresthesia, No headache, No seizure, No dizziness, No confusion, No vertigo ED Past Medical History - Past Medical History Obtainable: Yes Past Medical History: Dementia, Other (ANGELMEN'S SYNDROME, CHEST WALL ABSCESS) Family History: None Social History: Non Smoker, No Alcohol, No Drug Use, Single, Care Facility Surgical History: None Psychiatricy History: Dementia Medication: Reviewed Family Medical History - Family Member Mother History Unknown: Yes Ethnicity: Unknown Living Status: Unknown Hx Family Cancer: (ANUSHKA) Hx Family Coronary Artery Disease: (ANUSHKA) Hx Family Congestive Heart Failure: (ANUSHKA) Hx Family Hypertension: (ANUSHKA) Hx Family Stroke: (ANUSHKA) Hx Family Diabetes: (ANUSHKA) Hx Family Seizures: (ANUSHKA) Hx Family Dementia: (ANUSHKA) Hx Family AIDS: (ANUSHKA) Hx Family COPD: (ANUSHKA) Hx Family Hepatitis: (ANUSHKA) Hx Family Psychiatric Problems: (ANUSHKA) Hx Family Tuberculosis: (ANUSHKA) ED Physical Exam - Physical Examination General/Constitutional: Awake, Well-developed, well-nourished, Alert, No distress, GCS 15, Non-toxic appearing, Ambulatory Other Gen/Cons comments:: DISORIENTED TIMES FOUR Head: Atraumatic Eyes: Lids, conjuctiva normal, PERRL, EOMI Skin: Nl inspection, No rash, No skin lesions, No ecchymosis, Well hydrated ( SKIN DEHYDRATED), No lymphadenopathy ENMT: External ears, nose nl, Nasal exam nl, Lips, teeth, gums nl Neck: Nontender, Full ROM w/o pain, No JVD, No nuchal rigidity, No bruit, No mass, No stridor Respiratory: Nl effort/Exclusion, Clear to Auscultation (THERE ARE DECREASED BREATH SOUND IN THE RIGHT MIDDLE LOBE.), No Wheeze/Rhonchi/Rales Cardio Vascular: RRR, No murmur, gallop, rubs, NL S1 S2 GI: No tenderness/rebounding/guarding, No organomegaly, No hernia, Normal BS's, Nondistended, No mass/bruits, No McBurney tenderness : No CVA tenderness Extremities: No tenderness or effusion, Full ROM, normal strength in all extremities, No edema, Normal digits & nails Other Extremities comments:: THERE IS SIGNIFICANT MUSCLE WASTING OF ALL FOUR EXTREMITIES. Neuro/Psych: Alert/oriented, DTR's symmetric, Normal sensory exam, Normal motor strength, Judgement/insight normal, Mood normal, Normal gait, No focal deficits Misc: Normal back, No paraspinal tenderness ED Labs/Radiology/EKG Results - Lab Results Results: Laboratory Results - last 24 hr 04/22/18 04/22/18 04/22/18 11:10 11:10 11:10 WBC 24.0 H* D RBC 4.85 Hgb 12.9 Hct 39.6 L MCV 81.6 MCH 26.5 MCHC Differential 32.5 RDW 17.9 Plt Count 381 MPV 6.7 Add Manual Diff YES Band Neutrophils % 18 H Neutrophils (Manual) 63 Lymphocytes 6 L Monocytes 12 H Eosinophils 1 Basophils 0 PT 10.7 INR 1.03 Sodium 144 Potassium 3.2 L Chloride 102 Carbon Dioxide 32.9 H Anion Gap 12.3 BUN 22 Creatinine 1.4 H Est GFR ( Amer) > 60.0 Est GFR (Non-Af Amer) 57.5 BUN/Creatinine Ratio 15.7 Glucose 87 Whole Bld Lactic Acid Calcium 9.4 Total Bilirubin 0.2 L AST 12 L ALT 7 Alkaline Phosphatase 50 Troponin I Total Protein 6.9 Albumin 3.2 L Globulin 3.7 Albumin/Globulin Ratio 0.9 L 04/22/18 04/22/18 11:10 11:10 WBC RBC Hgb Hct MCV MCH MCHC Differential RDW Plt Count MPV Add Manual Diff Band Neutrophils % Neutrophils (Manual) Lymphocytes Monocytes Eosinophils Basophils PT INR Sodium Potassium Chloride Carbon Dioxide Anion Gap BUN Creatinine Est GFR ( Amer) Est GFR (Non-Af Amer) BUN/Creatinine Ratio Glucose Whole Bld Lactic Acid 1.33 Calcium Total Bilirubin AST ALT Alkaline Phosphatase Troponin I 0.04 Total Protein Albumin Globulin Albumin/Globulin Ratio - Radiology Results Results: chest x-ray = right lung infiltrates - EKG Interpretations EKG Time:: 11:18 Rate & Rhythm: RATE =113 SINUS TACH [place]: RIGHT ED Assessment - Assessment General Assessment: RIGHT MIDDLE LOBE PNEUMONIA ED Septic Shock - . Is Septic Shock (SBP<90, OR Lactate>4 mmol\L) present?: No - <6hrs of presentation: Vital Signs: Vital Signs - 8 hr 04/22/18 10:26 Temp 100.5 F HR 87 RR 16 BP 102/43 O2 Sat % 92 ED Reassessment (Disposition) - Reassessment Reassessment Condition:: Improved - Diagnosis Diagnosis:: PNEUMONIA - Patient Disposition Discharge/Transfer:: Acute Care w/in this hosp Admitted to:: Telemetry Admitting Medical Physician:: Jermaine Rivas Condition at Disposition:: Improved
[2018-04-22 11:36] LABS: HEMATOCRIT 39.6 % (41.0-60); HEMOGLOBIN 12.9 gm/dL (12-16); MEAN CELL VOLUME 81.6 fl (80-99); MEAN CORPUSCULAR HEMOGLOBIN 26.5 pg (26.0-30.0); MEAN CORPUSCULAR HGB CONC 32.5 pg (28.0-36.0); MEAN PLATELET VOLUME 6.7 fl; PLATELET COUNT 381 Th/cmm (150-400); RED BLOOD COUNT 4.85 Mil/cmm (4.30-5.70); RED CELL DISTRIBUTION WIDTH 17.9 % (11.5-20.0)
[2018-04-22 11:40] LABS: INR 1.03 (0.5-1.4); PROTHROMBIN TIME (TEST) 10.7 SECONDS (9.5-11.5)
[2018-04-22 11:48] LABS: ALB/GLOB RATIO 0.9 (1.0-1.8); ALBUMIN 3.2 gm/dL (4.2-5.5); ALKALINE PHOSPHATASE 50 U/L (34-104); ANION GAP 12.3 (7.0-16.0); BAND NEUTROPHILE 18 % (0-10); BASOPHIL 0 % (0-3); BILIRUBIN,TOTAL 0.2 mg/dL (0.3-1.0); BUN - UREA NITROGEN 22 mg/dL (7-25); CALCIUM SERUM 9.4 mg/dL (8.6-10.3); CARBON DIOXIDE 32.9 mEq/L (21.0-31.0); CHLORIDE 102 mEq/L (98-107); CREATININE - SERUM 1.4 mg/dL (0.7-1.3); EOSINOPHIL 1 % (0-5); GFR AFRICAN-AMERICAN > 60.0 ml/min (>90); GFR NON AFRICAN-AMERICAN 57.5 ml/min; GLUCOSE 87 mg/dL (70-105); LYMPHOCYTE 6 % (20-50); MONOCYTE 12 % (2-10); NEUTROPHILS 63 % (40-80); POTASSIUM SERUM 3.2 mEq/L (3.5-5.1); SGOT 12 U/L (13-39); SGPT/ALT 7 U/L (7-52); SODIUM SERUM 144 mEq/L (136-145); TOTAL PROTEIN,SERUM 6.9 gm/dL (6.0-8.3)
[2018-04-22] MEDS ORDERED: KCL 20mEq/100mL Premix 20 MEQ/100 ML PIGGYBACK IV ONE ×2 (12:02→12:18)
[2018-04-22] MEDS ORDERED: Sodium Chloride 0.9% 1,000 ML IV ONE (12:02)
[2018-04-22 12:33] VITALS: BP 102/43
[2018-04-22] MEDS ORDERED: GUAIFEN PO PRN (16:06)
[2018-04-22] MEDS ORDERED: DEXTROMETHORPHAN PO PRN (16:06)
[2018-04-22] MEDS ORDERED: [UNRECOGNIZED DRUG - OTHER] PO PRN (16:06)
--- NOTE | 2018-04-22 16:43 | History & Physical ---
ADMIT DATE: 04/22/2018 CHIEF COMPLAINT: Fever. HISTORY OF PRESENT ILLNESS: The patient is a 47-year-old male with a past medical history of Angelman syndrome, ____, history of chest wall abscess, MRSA infection, brought in from the nursing facility for fever. On initial evaluation, the patient's temperature was 100.5 degree Fahrenheit and WBC count was 24,000 with bands of 18%. Creatinine was also elevated from normal at 1.4. Lactic acid was 1.33. The patient was dropping his blood pressure. The patient received few boluses in the ER. The patient was admitted to [facility]. However, his systolic blood pressure dropped to 70s. The patient was transferred to the ICU. A chest x-ray in the ER revealed a right middle lobe pneumonia. The patient was already started on vancomycin and Zosyn. PAST MEDICAL HISTORY: Angelman syndrome, MRSA infection, C. diff colitis, chest wall abscess treated by [facility] few years ago. ALLERGIES: CHOCOLATE. REVIEW OF SYSTEMS: GENERAL: No fever. No chills. No weight loss, no weakness. HEAD, EYES, EARS, NOSE, AND THROAT: No diplopia, no photophobia, no sore throat. RESPIRATORY: No cough, no shortness of breath. CARDIOVASCULAR: No chest pain, palpitation. GASTROINTESTINAL: No nausea, no vomiting, no diarrhea. The patient has some diarrhea with foul smelling stool. GENITOURINARY: No dysuria. MUSCULOSKELETAL: No muscle pain, no joint pain. NEUROLOGIC: Alert and awake. No headache, no dizziness. PHYSICAL EXAMINATION: VITAL SIGNS: Shows temperature 99 degrees Fahrenheit, pulse 65, respiration is 18, blood pressure 76/42. GENERAL: The patient is comfortable, lying in the bed, not in acute distress. HEAD, EYES, EARS, NOSE, AND THROAT: Head is normocephalic, atraumatic. Oral cavity moist, pink tongue. Eyes: Pallor is present, no icterus. Pupils PERRLA, EOMI. NECK: Supple, no JVD, no bruit. Trachea in midline. LUNGS: Bilateral breath sounds. No crackles or wheezing. HEART: S1, S2 within normal limits. Regular rhythm. No murmur, no gallop. ABDOMEN: Soft, nontender, nondistended. Bowel sounds present. EXTREMITIES: No cyanosis, no clubbing, no edema. NEUROLOGICAL: Alert and awake, unable to communicate well. LABORATORY AND DIAGNOSTIC DATA: Current lab shows WBC count is 24,000, hemoglobin 12.9, hematocrit 39.6, platelets are 281,000, neutrophil is 63%, bands are 18%. INR 1.03. Sodium 144, potassium 3.2, chloride 102, bicarbonate is 32.9, BUN is 22, creatinine 1.4, glucose is 87. Sodium 144, potassium 3.2, chloride 102, bicarbonate is 33, BUN is 22, creatinine 1.4, glucose is 87. Chest x-ray is not available, but as per the ER records and physician, the patient has right middle lobe infiltrate consistent with pneumonia. Cultures are pending. IMPRESSION: 1. Septic shock. The patient was hypotensive. We will give 2 liter bolus followed by normal saline at 150 mL per hour. If the patient continues to be hypotensive, may start Levophed. Meanwhile, continue his home medication from nursing facility. 2. Pneumonia, right middle lobe pneumonia, aspiration pneumonia versus healthcare-associated related pneumonia. 3. Diarrhea may have C. diff colitis with recurrence. 4. Angelman syndrome. 5. An increase in creatinine, acute kidney injury. 6. Mental retardation. 7. Psychosis. RECOMMENDATIONS: Antibiotic hwang use of IV vancomycin p.o. and Zosyn. Pulmonary consultation with Dr. Syd Rivas and IV fluids 2 liter bolus followed by 150 mL per hour. If needed, we may start Levophed. Sepsis workup. Psych consultation with Dr. Petersen who followed the patient in the past for adjustment of the psych medication. JOB# [id number]
[2018-04-22] MEDS: Vancomycin HCl 500 MG in Sodium Chloride 0.9% 100 ML IV SCH (16:47)
[2018-04-22] MEDS ORDERED: LEVETIRACETAM PO SCH (17:00)
[2018-04-22] MEDS ORDERED: Non-Formulary Item 1 EA (Lacosamide [Vimpat] 50 MG) PO SCH (17:00)
[2018-04-23] MEDS: Vancomycin HCl 500 MG in Sodium Chloride 0.9% 100 ML IV SCH (02:45)
[2018-04-23 05:10] LABS: HEMATOCRIT 35.8 % (41.0-60); HEMOGLOBIN 11.8 gm/dL (12-16); MEAN CELL VOLUME 83.4 fl (80-99); MEAN CORPUSCULAR HEMOGLOBIN 27.4 pg (26.0-30.0); MEAN CORPUSCULAR HGB CONC 32.9 pg (28.0-36.0); MEAN PLATELET VOLUME 7.2 fl; PLATELET COUNT 314 Th/cmm (150-400); RED CELL DISTRIBUTION WIDTH 17.8 % (11.5-20.0)
[2018-04-23 05:35] LABS: WHITE BLOOD COUNT 21.3 Th/cmm (4.8-10.8)
[2018-04-23 05:46] LABS: ALB/GLOB RATIO 0.9 (1.0-1.8); ALBUMIN 2.9 gm/dL (4.2-5.5); ALKALINE PHOSPHATASE 49 U/L (34-104); ANION GAP 11.7 (7.0-16.0); BILIRUBIN,TOTAL 0.2 mg/dL (0.3-1.0); BUN - UREA NITROGEN 26 mg/dL (7-25); CARBON DIOXIDE 30.9 mEq/L (21.0-31.0); CHLORIDE 108 mEq/L (98-107); CREATININE - SERUM 1.2 mg/dL (0.7-1.3); GFR AFRICAN-AMERICAN > 60.0 ml/min (>90); GFR NON AFRICAN-AMERICAN > 60.0 ml/min; GLUCOSE 70 mg/dL (70-105); POTASSIUM SERUM 3.6 mEq/L (3.5-5.1); SGOT 19 U/L (13-39); SGPT/ALT 8 U/L (7-52); SODIUM SERUM 147 mEq/L (136-145); TOTAL PROTEIN,SERUM 6.3 gm/dL (6.0-8.3)
[2018-04-23 06:28] LABS: BAND NEUTROPHILE 6 % (0-10); BASOPHIL 0 % (0-3); EOSINOPHIL 0 % (0-5); LYMPHOCYTE 9 % (20-50); MONOCYTE 12 % (2-10); NEUTROPHILS 73 % (40-80)
[2018-04-23] MEDS: Vancomycin HCL 250 mg /10mL UDC PO SCH ×4 (08:32→23:20)
[2018-04-23] MEDS: Levetiracetam 500 mg/5mL 5mL UDSyr *for ORAL USE ONLY PO SCH ×2 (08:32→16:44)
[2018-04-23] MEDS ORDERED: BUPROPION HCL 75 MG PO SCH (09:00)
[2018-04-23] MEDS: Guaifenesin DM 10 ML UDC PO PRN ×2 (09:35→16:44)
--- NOTE | 2018-04-23 09:57 | Diagnostic Imaging Report ---
CHEST X-RAY: AP view INDICATION: Fever COMPARISON: 02/09/2018 FINDINGS: Multifocal right lung infiltrates are noted. No effusions. Heart size is normal. Osseous structures are intact. IMPRESSION: Multifocal right lung infiltrates/pneumonia, follow up recommended.
--- NOTE | 2018-04-23 10:31 | Diagnostic Imaging Report ---
CT Chest without IV contrast HISTORY: Mass COMPARISON: Chest x-ray performed the same day and previous chest x-rays dating back to 03/16/2017. Technique: Axial images were obtained from the base of the neck to the upper abdomen without IV contrast. Reconstructions were made. Total DLP to 31, CTDI 6.4 Findings: Evaluation of the mediastinum is limited due to lack of IV contrast. There is mild air distention of the proximal esophagus. No evidence of mediastinal lymphadenopathy. Heart size is normal. Small to moderate-sized hiatal hernia is noted. Evaluation of the lungs demonstrates diffuse multifocal right lung infiltrates. Few left lung small nodular infiltrates are also noted. No pleural effusions. The upper abdomen demonstrates no acute abnormalities. Mild degenerative changes spine are noted. IMPRESSION: Diffuse multifocal right lung infiltrates and few left lung nodular infiltrates. Findings suggest infectious process/multifocal pneumonia. Clinical correlation and follow-up is recommended to ensure resolution and rule out neoplastic process. Small to moderate size hiatal hernia.
[2018-04-23] MEDS: Sodium Chloride 0.9% 1,000 ML IV SCH (11:55)
--- NOTE | 2018-04-23 12:18 | Consultation ---
DATE OF CONSULTATION: 04/23/2018 REQUESTING PHYSICIAN: Jermaine Rivas MD REASON FOR CONSULTATION: Agitated behavior. HISTORY OF PRESENT ILLNESS: This patient is a 47-year-old male resident of a [place] [facility] facility. The patient has been admitted from the halfway because of fever. Initial evaluation in the ER was noted that the patient having possible septic shock and the patient has been admitted to the ICU. The patient is being closely monitored over there. Tried to interview the patient, the patient has been screaming and yelling and has not been able to contract for safety and would not calm down and the patient was not able to provide much of any information. PAST PSYCHIATRIC HISTORY: Details are not known. MEDICAL HISTORY: The patient is reported to have history of Angelman syndrome, methicillin-resistant staphylococcus aureus, clostridium difficile. SEXUAL ABUSE HISTORY: None. PHYSICAL OR SEXUAL ABUSE HISTORY: None. SOCIAL HISTORY: The patient is a resident of the [facility]. MENTAL STATUS EXAMINATION: The patient is a 47-year-old, looking older than his stated age, superficially cooperative. Eye contact is poor. Mood is noted to be irritable. Affect is constricted. The patient is getting easily agitated. The patient has no insight into his illness. Coping skills at this time are noted to be very poor. The patient has been having difficult time to cope with the stress at this time. The patient is being medically stabilized at this time. The patient also is noted to have below average intelligence and most of his responses are concrete. Staff are reporting that the patient has been getting easily agitated and could not be contained. DIAGNOSTIC IMPRESSION: AXIS I: Psychotic disorder, not otherwise specified. PLAN: To use the Ativan on a p.r.n. basis until the sepsis workup is done and then possibly the patient is going to be looked into continuation of the psychotropic medications that he has been receiving. Currently, the patient is on bupropion, which was discontinued and I would like to continue the patient with the Ativan on a p.r.n. basis and wait for medical stabilization prior to him being placed on the antipsychotic medications. Thank you, Dr. Rivas for allowing me to participate in the care of the patient. JOB# [id number]
--- NOTE | 2018-04-23 19:14 | Consultation ---
DATE OF CONSULTATION: 04/23/2018 PULMONARY AND CRITICAL CARE CONSULTATION REASON FOR CONSULTATION: Abnormal chest x-ray. HISTORY OF PRESENT ILLNESS: This is a 47-year-old male who basically lives in a [place] [facility] unit was brought in up here because of abnormal behavior. Subsequently, the patient in the Emergency Room noted to have possibly qualification for septic shock, was subsequently admitted and as the patient's chest x-ray was abnormal, I was asked to see this patient for further care and necessary treatment. Unfortunately, meaningful detailed history from the patient is not available. He is screaming and yelling for most of the time and is highly hard to get out the past medical history, et cetera. PAST MEDICAL HISTORY: Includes history of Engelmann syndrome, history of MRSA, history of C. diff colitis and smoking. Other history is not available to me at this particular time. PHYSICAL EXAMINATION: GENERAL: This is a middle-aged thinish-looking gentleman, awake, but screaming for most of the time and though mildly tachypneic, no respiratory distress. VITAL SIGNS: Temperature is 97.7, blood pressure 107/67, saturation is 95% on 6 liters per minute. HEENT: Head is essentially unremarkable. Pupils appear to be equal and reacting to light. Conjunctivae are slightly pallor. Oral cavity, limited exam though would not open his mouth to see for a thorough examination of the oral cavity. NECK: No nodes in the neck could be palpated. CHEST: Shows some transmitted noise with occasional rhonchi on the right base area. Left side appears to be clear. ABDOMEN: Shows quite tender with questionable rebound tenderness. EXTREMITIES: Shows multiple contracture fractures, otherwise unremarkable. PERTINENT LABORATORY STUDIES: White count is 21,000, hemoglobin 11.8. Sodium is 147, BUN is 26. The patient's CT of the chest shows extensive interstitial changes, but most of it appears to be radiographically old. Left lung appears to be reasonably clear and the patient's electrolytes shows sodium is 147, BUN is 26 and other laboratory studies are pending. IMPRESSION: The patient has: 1. Right-sided infiltrate, interstitial mostly peripheral indicative this is a chronic change, though this could be secondary to recurrent aspiration, a primary consideration. 2. Underlying history of psychiatric illness. PLANS AND SUGGESTIONS: We will go ahead and give aggressive respiratory care, inhalation treatment, bronchodilator treatment as well as consider Surgical evaluation with a CT of the chest and I will leave IV antibiotic per ID and go from there. JOB# [id number]
[2018-04-23] MEDS: Budesonide 0.5 Mg/2 mL Ud HHN SCH (19:28)
[2018-04-23] MEDS: Albuterol/Ipratropium Neb 3 ML AERS HHN SCH (19:28)
--- NOTE | 2018-04-24 03:33 | Progress Notes ---
DATE: 04/23/2018 SUBJECTIVE: The patient lying in the bed, not in acute distress. The patient is a poor historian. The patient is in bed, alert and awake. The patient's blood pressure is on lower side. The patient is still getting IV fluids 1150 mL per hour. So far, the patient has no fever. OBJECTIVE: CURRENT VITAL SIGNS: Shows temperature is 98.4 degrees Fahrenheit, pulse is 63, respirations 17, blood pressure 98/48. GENERAL: The patient is comfortable, lying in the bed, not in acute distress. HEENT: Head is normocephalic, atraumatic. Oral cavity moist, pink tongue. Eyes: Pallor is present, no icterus. Pupils PERRLA, EOMI. NECK: Supple, no JVD, no carotid bruit. Trachea in midline. CHEST: Bilateral breath sounds. No crackles or wheezing. HEART: S1, S2 within normal limits. Regular rhythm. No murmur, no gallop. ABDOMEN: Soft, nontender, nondistended. Bowel sounds present. EXTREMITIES: No cyanosis, no clubbing, no edema. NEUROLOGIC: Alert, awake. CURRENT LABORATORY DATA: Shows WBC count 21,300, hemoglobin 11.8, hematocrit 35.8, platelets are 314,000, neutrophils 73%. Sodium 147, potassium 3.6, chloride 108, bicarbonate is 30.9, BUN is 26, creatinine 1.2, glucose is 70. Stool for wbc is none. Stool for C. diff is negative. Blood culture 2 sets are negative. Nares positive MRSA. CT scan of the chest revealed diffuse multifocal right lung infiltrate and left lung nodular infiltrate. Multifocal pneumonia and infectious etiology. Hiatal hernia. IMPRESSION: 1. Septic shock, improving. He is still hypotensive, receiving normal saline at 150 mL per hour. 2. Multifocal pneumonia. 3. Diarrhea, C. diff colitis ruled out. 4. Angelman syndrome. 5. Acute kidney injury, azotemia, improved. 6. Mental retardation. 7. Psychosis. RECOMMENDATION: Continue IV antibiotic including vancomycin IV and Zosyn. Follow up as per the consultations. JOB# [id number]
[2018-04-24] MEDS: Guaifenesin DM 10 ML UDC PO PRN (04:22)
[2018-04-24 04:56] LABS: % EOSINOPHILS 3.1 % (0.0-5.0); EOSINOPHILE ABSOLUTE 0.4 Th/cmm (0.1-0.4); LYMPHOCYTE ABSOLUTE 1.7 Th/cmm (1.5-3.0); MEAN CELL VOLUME 83.3 fl (80-99); MEAN CORPUSCULAR HEMOGLOBIN 27.2 pg (26.0-30.0); MEAN CORPUSCULAR HGB CONC 32.7 pg (28.0-36.0)
[2018-04-24 05:14] LABS: % BASOPHILS 0.4 % (0.0-2.0); % LYMPHOCYTES 12.9 % (20.0-50.0); % MONOCYTES 10.5 % (2.0-10.0); % NEUTROPHILS 73.1 % (40.0-80.0); BASOPHILE ABSOLUTE 0.1 Th/cumm (0-0.2); HEMATOCRIT 34.3 % (41.0-60); HEMOGLOBIN 11.2 gm/dL (12-16); MONOCYTE ABSOLUTE 1.4 Th/cmm (0.3-1.0); NEUTROPHILE ABSOLUTE 9.9 Th/cmm (1.8-8.0); PLATELET COUNT 348 Th/cmm (150-400); RED BLOOD COUNT 4.12 Mil/cmm (4.30-5.70); RED CELL DISTRIBUTION WIDTH 17.6 % (11.5-20.0)
[2018-04-24 05:29] LABS: WHITE BLOOD COUNT 13.5 Th/cmm (4.8-10.8)
[2018-04-24 05:34] LABS: ALB/GLOB RATIO 0.8 (1.0-1.8); ALBUMIN 2.7 gm/dL (4.2-5.5); ALKALINE PHOSPHATASE 47 U/L (34-104); ANION GAP 8.1 (7.0-16.0); BILIRUBIN,TOTAL 0.2 mg/dL (0.3-1.0); BUN - UREA NITROGEN 25 mg/dL (7-25); CALCIUM SERUM 8.8 mg/dL (8.6-10.3); CARBON DIOXIDE 32.8 mEq/L (21.0-31.0); CHLORIDE 108 mEq/L (98-107); CREATININE - SERUM 0.9 mg/dL (0.7-1.3); GFR AFRICAN-AMERICAN > 60.0 ml/min (>90); GFR NON AFRICAN-AMERICAN > 60.0 ml/min; GLUCOSE 72 mg/dL (70-105); POTASSIUM SERUM 3.9 mEq/L (3.5-5.1); SGOT 15 U/L (13-39); SGPT/ALT 7 U/L (7-52); SODIUM SERUM 145 mEq/L (136-145)
[2018-04-24] MEDS: Vancomycin HCL 250 mg /10mL UDC PO SCH ×4 (06:21→23:20)
[2018-04-24] MEDS: Albuterol/Ipratropium Neb 3 ML AERS HHN SCH ×4 (07:37→18:36)
[2018-04-24] MEDS: Budesonide 0.5 Mg/2 mL Ud HHN SCH ×2 (07:37→18:36)
[2018-04-24] MEDS: Levetiracetam 500 mg/5mL 5mL UDSyr *for ORAL USE ONLY PO SCH ×2 (08:37→17:58)
--- NOTE | 2018-04-24 08:52 | Diagnostic Imaging Report ---
Portable chest x-ray HISTORY: Pneumonia Compared with the prior exam of 04/22/2018, there are persistent hazy bilateral infiltrates (right greater than left). Pneumonia cannot be excluded. Clinical correlation is needed. The heart size is normal. IMPRESSION: 1. Persistent hazy bilateral infiltrates. Pneumonia cannot be excluded. Clinical correlation is needed.
[2018-04-24] MEDS ORDERED: Probiotic Screen MC PRN (09:30)
[2018-04-24 09:59] LABS: pH 7.38 (7.35-7.45)
[2018-04-24] MEDS: Sodium Chloride 0.9% 1,000 ML IV SCH ×3 (13:23→19:24)
--- NOTE | 2018-04-24 13:52 | Diagnostic Imaging Report ---
CT scan abdomen and pelvis without intravenous contrast HISTORY: Pain Total DLP equals 483 CTDI equals 9.2 Axial sections were obtained from the xiphoid process down to the pubic symphysis. The exam is compromised and limited due to patient motion artifact. Limited sections through the lower chest demonstrate small bilateral pleural effusions. Nonspecific faint interstitial changes noted within the lower lobes of the lungs (right greater than left). Pneumonia cannot be excluded. No focal lesions seen within the liver. The spleen appears normal. No definite focal abnormality seen within the pancreas. No focal renal lesions. Evaluation of the bowel is limited due to the absence of oral/bowel contrast. There appears to be relatively focal thickening along the wall of the lower sigmoid colon and about the rectum. Mucosal pathology is suspect. Haziness of the perirectal fat planes. Correlation with patient history needed. IMPRESSION: 1. Limited exam due to patient motion artifact 2. Thickening along the lower sigmoid colon and rectum along with abnormal haziness of the perirectal fat. Etiology uncertain. Inflammatory or neoplastic mucosal pathology cannot be excluded. Clinical correlation needed. 3. Small bilateral pleural effusions (right greater than left along with parenchymal changes within the lower lobes of the lungs (right greater than left). Pneumonia cannot be excluded. Clinical correlation is needed.
--- NOTE | 2018-04-24 17:35 | Progress Notes ---
DATE: 04/24/2018 PULMONARY PROGRESS NOTE PROBLEM LIST: 1. Chronic coughing. 2. ____ extensive infiltrate on the right side. PHYSICAL EXAMINATION: GENERAL: The patient is awake, less noisy, restless, still periodic coughing, no respiratory distress. VITAL SIGNS: Temperature is 98.1, blood pressure 109/61, saturation is in mid 90s on 4 liters. NECK: Veins not visualized. CHEST: Shows occasional rhonchi with diminished air entry. HEART: Regular. EXTREMITIES: Show flexion contraction. LABORATORY DATA: White count is trending down to 13.5, hemoglobin 12.2. ABG shows compensated respiratory acidemia on 53% of oxygen. ASSESSMENT: The patient is clinically stable, ____ extensive infiltrate on the right side, possibly aspiration. Underlying significant mental and physical development delay. PLANS AND SUGGESTIONS: Continue current treatment, okay to get the step-down unit and go from there. JOB# [id number]
[2018-04-25] MEDS: Sodium Chloride 0.9% 1,000 ML IV SCH ×3 (01:20→20:19)
[2018-04-25 02:10] LABS: % BASOPHILS 0.8 % (0.0-2.0); % EOSINOPHILS 1.9 % (0.0-5.0); % LYMPHOCYTES 10.9 % (20.0-50.0); % NEUTROPHILS 75.4 % (40.0-80.0); BASOPHILE ABSOLUTE 0.1 Th/cumm (0-0.2); EOSINOPHILE ABSOLUTE 0.3 Th/cmm (0.1-0.4); HEMATOCRIT 33.9 % (41.0-60); HEMOGLOBIN 10.9 gm/dL (12-16); LYMPHOCYTE ABSOLUTE 1.8 Th/cmm (1.5-3.0); MEAN CELL VOLUME 83.5 fl (80-99); MEAN CORPUSCULAR HEMOGLOBIN 26.9 pg (26.0-30.0); MEAN CORPUSCULAR HGB CONC 32.2 pg (28.0-36.0); MEAN PLATELET VOLUME 6.8 fl; MONOCYTE ABSOLUTE 1.9 Th/cmm (0.3-1.0); NEUTROPHILE ABSOLUTE 12.8 Th/cmm (1.8-8.0); PLATELET COUNT 357 Th/cmm (150-400); RED BLOOD COUNT 4.06 Mil/cmm (4.30-5.70); RED CELL DISTRIBUTION WIDTH 17.8 % (11.5-20.0)
[2018-04-25 02:14] LABS: WHITE BLOOD COUNT 16.9 Th/cmm (4.8-10.8)
[2018-04-25 02:29] LABS: ANION GAP 11.4 (7.0-16.0); BUN - UREA NITROGEN 16 mg/dL (7-25); CALCIUM SERUM 8.6 mg/dL (8.6-10.3); CARBON DIOXIDE 29.6 mEq/L (21.0-31.0); CHLORIDE 104 mEq/L (98-107); CREATININE - SERUM 0.9 mg/dL (0.7-1.3); GFR AFRICAN-AMERICAN > 60.0 ml/min (>90); GFR NON AFRICAN-AMERICAN > 60.0 ml/min; GLUCOSE 82 mg/dL (70-105); SODIUM SERUM 141 mEq/L (136-145)
[2018-04-25] MEDS: Albuterol/Ipratropium Neb 3 ML AERS HHN SCH ×4 (06:34→18:05)
[2018-04-25] MEDS: Budesonide 0.5 Mg/2 mL Ud HHN SCH ×2 (06:43→18:19)
[2018-04-25] MEDS: Levetiracetam 500 mg/5mL 5mL UDSyr *for ORAL USE ONLY PO SCH (08:47)
--- NOTE | 2018-04-25 09:06 | Diagnostic Imaging Report ---
CHEST X-RAY: AP view INDICATION: Pneumonia COMPARISON: 04/24/2018 FINDINGS: Diffuse infiltrates are seen primarily within the right lung with mildly increasing right lung infiltrate. No significant effusion. Heart size is normal. IMPRESSION Persistent diffuse infiltrates right greater than left with overall mild increase in right lung infiltrates. Follow-up recommended.
[2018-04-25] MEDS: Guaifenesin DM 10 ML UDC PO PRN ×2 (09:23→20:20)
--- NOTE | 2018-04-25 09:59 | Progress Notes ---
DATE: 04/24/2018 SUBJECTIVE: The patient lying in the bed, not in acute distress, no fever, no chills. OBJECTIVE: VITAL SIGNS: Shows temperature is 98.5 degrees Fahrenheit, pulse is 63, respirations 19, blood pressure 117/64. GENERAL: The patient is comfortable lying in the bed, not in acute distress, no fever, no chills. HEENT: Head is normocephalic, atraumatic. Oral cavity moist, pink tongue. Eyes: No pallor, no icterus. PERRLA, EOMI. NECK: Supple, no JVD, no carotid bruit. Trachea in midline. CHEST: ____ Crackles are present. HEART: S1, S2 within normal limits. Regular rhythm. No murmur, no gallop. ABDOMEN: Soft, nontender, nondistended. Bowel sounds present. EXTREMITIES: No cyanosis, no clubbing, no edema. NEUROLOGIC: Alert and awake. CURRENT LABORATORY DATA: Shows WBC count is 13,500, hemoglobin 11.2, hematocrit 34.2, platelets are 348,000, neutrophil is 73.1%. Sodium 145, potassium 3.9, chloride 108, bicarbonate is 33, BUN is 25, creatinine 0.9, glucose is 72. IMPRESSION: 1. Sepsis, improving. 2. Multifocal pneumonia. 3. Diarrhea, Clostridium difficile colitis ruled out. 4. Angelman syndrome. 5. Acute kidney injury, improved. 6. Mental retardation. 7. Psychosis. RECOMMENDATIONS: Recommend to continue IV antibiotics including vancomycin and Zosyn. We will downgrade the patient to telemetry. JOB# [id number]
--- NOTE | 2018-04-25 16:37 | History & Physical ---
ADMIT DATE: 04/22/2018 PROBLEM LIST: 1. Extensive right-sided pneumonia. 2. History of mentally and physically challenge issue. SYMPTOMS: Nil. The patient was moved to the floor with telemetry. He is smiling, not moaning as much, no respiratory distress, etc. PHYSICAL EXAMINATION: VITAL SIGNS: The patient's T-max 98, pulse is 80, saturation is 96% on 4-5 liters per minute. NECK: Neck veins not visualized. CHEST: Shows diminished air entry with occasional rhonchi. HEART: Regular. ABDOMEN: Soft, nontender. LABORATORY DATA: White count is 16.9, hemoglobin 10.9. IMPRESSION: The patient is clinically stable, slightly better improved. PLAN: Continue current treatment. Consideration of long-term should be considered and go from there. JOB# [id number]
[2018-04-26] MEDS ORDERED: Albuterol Nebulizer 2.5mg/3mL HHN PRN (02:48)
--- NOTE | 2018-04-26 03:30 | Progress Notes ---
DATE: 04/25/2018 SUBJECTIVE: The patient lying in the bed, not in acute distress, no fever, no chills. OBJECTIVE: VITAL SIGNS: Current vital signs shows temperature is 98.4 degrees Fahrenheit, pulse 93, respirations 20, and blood pressure 121/56. GENERAL: The patient is comfortable lying in the bed, not in acute distress. HEENT: Head is normocephalic, atraumatic. Oral cavity moist, pink tongue. Eyes: Pallor is present, no icterus. Pupils PERRLA, EOMI. NECK: Supple, no JVD, no carotid bruit. Trachea in midline. CHEST: Bilateral breath sounds. Crackles present. HEART: S1, S2 within normal limits. Regular rhythm. No murmur, no gallop. ABDOMEN: Soft, nontender, nondistended. Bowel sounds present. EXTREMITIES: No cyanosis, no clubbing, no edema. NEUROLOGIC: Alert, awake. LABORATORY DATA: Lab hwang, current lab shows WBC count is 16,900, hemoglobin 10.9, hematocrit 33.9, platelets at 357,000, neutrophils 75.4%. Creatinine is 0.9. Sputum cultures pending. Chest x-ray showed persistent diffuse infiltrate, right greater than left. CT scan of the abdomen and pelvis, thickening along the lower sigmoid colon and rectum along with abdominal haziness ____ perirectal fat. IMPRESSION: 1. Worsening of leukocytosis, sepsis. 2. Multifocal pneumonia. 3. Diarrhea, ____ Clostridium difficile colitis ruled out. 4. Angelman syndrome. 5. Acute kidney injury, improved. 6. Mental retardation. 7. Psychosis. RECOMMENDATION: Continue IV antibiotics including vancomycin and Zosyn. JOB# [id number]
[2018-04-26] MEDS: Sodium Chloride 0.9% 1,000 ML IV SCH ×2 (05:52→15:21)
[2018-04-26] MEDS: Budesonide 0.5 Mg/2 mL Ud HHN SCH ×2 (07:41→19:25)
[2018-04-26] MEDS: Albuterol/Ipratropium Neb 3 ML AERS HHN SCH ×4 (07:41→19:10)
[2018-04-26 08:46] LABS: MEAN CORPUSCULAR HEMOGLOBIN 27.4 pg (26.0-30.0)
[2018-04-26 08:58] LABS: HEMATOCRIT 32.8 % (41.0-60); HEMOGLOBIN 10.8 gm/dL (12-16); MEAN CELL VOLUME 82.7 fl (80-99); MEAN CORPUSCULAR HGB CONC 33.1 pg (28.0-36.0); MEAN PLATELET VOLUME 7.4 fl; PLATELET COUNT 338 Th/cmm (150-400); RED BLOOD COUNT 3.96 Mil/cmm (4.30-5.70); RED CELL DISTRIBUTION WIDTH 17.7 % (11.5-20.0)
[2018-04-26 09:01] LABS: ANION GAP 14.9 (7.0-16.0); BUN - UREA NITROGEN 12 mg/dL (7-25); CALCIUM SERUM 8.9 mg/dL (8.6-10.3); CARBON DIOXIDE 27.6 mEq/L (21.0-31.0); CHLORIDE 103 mEq/L (98-107); GFR AFRICAN-AMERICAN > 60.0 ml/min (>90); GFR NON AFRICAN-AMERICAN > 60.0 ml/min; GLUCOSE 78 mg/dL (70-105); POTASSIUM SERUM 3.5 mEq/L (3.5-5.1); SODIUM SERUM 142 mEq/L (136-145)
[2018-04-26 09:03] LABS: WHITE BLOOD COUNT 15.4 Th/cmm (4.8-10.8)
[2018-04-26 09:49] LABS: BAND NEUTROPHILE 2 % (0-10); BASOPHIL 0 % (0-3); EOSINOPHIL 0 % (0-5); LYMPHOCYTE 12 % (20-50); MONOCYTE 10 % (2-10); NEUTROPHILS 76 % (40-80)
--- NOTE | 2018-04-26 14:46 | Progress Notes ---
DATE: 04/26/2018 PULMONARY PROGRESS NOTE PROBLEM LIST: 1. Extensive right-sided pneumonia. 2. Underlying congenital syndrome with neuromuscular weakness. SYMPTOMS: Nil, laughing, trying to say he is feeling okay. No respiratory distress. OBJECTIVE: VITAL SIGNS: Temperature is 98.3, blood pressure 123/54, saturations 93%. NECK: Veins are not visualized. CHEST: Shows diminished air entry with occasional secretory noise. ABDOMEN: Soft, nontender. LABORATORY DATA: The patient's lab shows white count of 15,000, hemoglobin 10.8. ASSESSMENT: The patient is clinically slowly slightly improving. PLAN AND SUGGESTIONS: Continue current respiratory care, inhalation treatment, etc. Possibly transfer to [place]. We will discuss with Dr. Jermaine Rivas. JOB# [id number]
--- NOTE | 2018-04-26 14:51 | Infectious Disease Prog Note ---
Infectious Disease Subjective - Review of Systems Service Date: 04/26/18 Subjective: T Infectious Disease Objective - Results Result Diagrams: 04/26/18 08:00 04/26/18 08:00 Recent Labs: Laboratory Last Values WBC 15.4 Th/cmm (4.8-10.8) H 04/26/18 08:00 RBC 3.96 Mil/cmm (4.30-5.70) L 04/26/18 08:00 Hgb 10.8 gm/dL (12-16) L 04/26/18 08:00 Hct 32.8 % (41.0-60) L 04/26/18 08:00 MCV 82.7 fl (80-99) 04/26/18 08:00 MCH 27.4 pg (26.0-30.0) 04/26/18 08:00 MCHC Differential 33.1 pg (28.0-36.0) 04/26/18 08:00 RDW 17.7 % (11.5-20.0) 04/26/18 08:00 Plt Count 338 Th/cmm (150-400) 04/26/18 08:00 MPV 7.4 fl 04/26/18 08:00 Add Manual Diff YES 04/26/18 08:00 Neutrophils % 75.4 % (40.0-80.0) 04/25/18 02:00 Band Neutrophils % 2 % (0-10) 04/26/18 08:00 Lymphocytes % 10.9 % (20.0-50.0) L 04/25/18 02:00 Monocytes % 11.0 % (2.0-10.0) H 04/25/18 02:00 Eosinophils % 1.9 % (0.0-5.0) 04/25/18 02:00 Basophils % 0.8 % (0.0-2.0) 04/25/18 02:00 Neutrophils (Manual) 76 % (40-80) 04/26/18 08:00 Lymphocytes 12 % (20-50) L 04/26/18 08:00 Monocytes 10 % (2-10) 04/26/18 08:00 Eosinophils 0 % (0-5) 04/26/18 08:00 Basophils 0 % (0-3) 04/26/18 08:00 PT 10.7 SECONDS (9.5-11.5) 04/22/18 11:10 INR 1.03 (0.5-1.4) 04/22/18 11:10 Specimen Source Arterial 04/24/18 09:00 Sample Site RB 04/24/18 09:00 pH 7.38 (7.35-7.45) 04/24/18 09:00 pCO2 52.0 mmHg (35.0-45.0) H 04/24/18 09:00 pO2 68.0 mmHg (80.0-100.0) L 04/24/18 09:00 HCO3 28.3 mEq/L (20.0-26.0) H 04/24/18 09:00 Base Excess 4.5 mEq/L (-3.0-3.0) H 04/24/18 09:00 O2 Saturation 93.0 % (92.0-100.0) 04/24/18 09:00 Blayne Test NA 04/24/18 09:00 Vent Rate NA 04/24/18 09:00 Inspired O2 53 04/24/18 09:00 Tidal Volume NA 04/24/18 09:00 PEEP NA 04/24/18 09:00 Pressure (ins/psv/peep) NA 04/24/18 09:00 Critical Value SH 04/24/18 09:00 Sodium 142 mEq/L (136-145) 04/26/18 08:00 Potassium 3.5 mEq/L (3.5-5.1) 04/26/18 08:00 Chloride 103 mEq/L (98-107) 04/26/18 08:00 Carbon Dioxide 27.6 mEq/L (21.0-31.0) 04/26/18 08:00 Anion Gap 14.9 (7.0-16.0) 04/26/18 08:00 BUN 12 mg/dL (7-25) 04/26/18 08:00 Creatinine 1.0 mg/dL (0.7-1.3) 04/26/18 08:00 Est GFR ( Amer) > 60.0 ml/min (>90) 04/26/18 08:00 Est GFR (Non-Af Amer) > 60.0 ml/min 04/26/18 08:00 BUN/Creatinine Ratio 12.0 04/26/18 08:00 Glucose 78 mg/dL (70-105) 04/26/18 08:00 POC Glucose 71 MG/DL (70 - 105) 04/22/18 14:23 Whole Bld Lactic Acid 1.33 mmol/L (0.60-1.99) 04/22/18 11:10 Calcium 8.9 mg/dL (8.6-10.3) 04/26/18 08:00 Total Bilirubin 0.2 mg/dL (0.3-1.0) L 04/24/18 04:15 AST 15 U/L (13-39) 04/24/18 04:15 ALT 7 U/L (7-52) 04/24/18 04:15 Alkaline Phosphatase 47 U/L (34-104) 04/24/18 04:15 Troponin I 0.04 ng/mL (0.01-0.05) 04/22/18 11:10 Total Protein 6.0 gm/dL (6.0-8.3) 04/24/18 04:15 Albumin 2.7 gm/dL (4.2-5.5) L 04/24/18 04:15 Globulin 3.3 gm/dL 04/24/18 04:15 Albumin/Globulin Ratio 0.8 (1.0-1.8) L 04/24/18 04:15 Stool Leukocyte NO WBC SEEN 04/22/18 17:00 Vancomycin Trough 17.4 ug/mL (5-10) H 04/26/18 08:00 - Physical Exam Vitals and I&O: Vital Signs Temp 98.3 F 04/26/18 12:02 Pulse 91 04/26/18 12:02 Resp 20 04/26/18 14:00 BP 123/54 04/26/18 12:02 Pulse Ox 93 04/26/18 12:02 Intake & Output 04/25/18 04/26/18 04/26/18 18:59 06:59 18:59 Intake Total 900 1875 Balance 900 1875 Weight (lbs) 68.492 kg 77.337 kg Intake: Intake, IV Amount 650 1325 Piperacillin Sodium/ 100 100 Tazobact 3.375 gm In Sodium Chloride 0.9% 50 ml @ 100 mls/hr IV Q6HR [facility] Rx#:[id number] Sodium Chloride 0.9% 1, 300 975 000 ml @ 150 mls/hr IV . Q6H40M [facility] Rx#:[id number] Vancomycin HCl 1.25 gm In 250 250 Sodium Chloride 0.9% 250 ml @ 165 mls/hr IV Q12H [facility] Rx#:[id number] Oral 250 550 Other: # Voids 2 3 # Bowel Movements 2 2 Stool Characteristics Soft Soft Formed Formed Liquid Liquid Brown Brown Black Weight Source Bedscale Bedscale Active Medications: Current Medications Albuterol Sulfate (Albuterol 2.5mg/3ml Neb Ud) 2.5 mg HHN Q2H PRN PRN Reason: FOR WHEEZING AND SOB Stop: 06/25/18 02:47 Albuterol/Ipratropium (Duoneb Neb) 3 ml HHN [id number] [facility] Stop: 06/22/18 18:59 Last Admin: 04/26/18 11:52 Dose: 3 ml Budesonide (Pulmicort) 0.5 mg HHN BIDRT [facility] Stop: 06/22/18 18:59 Last Admin: 04/26/18 07:41 Dose: 0.5 mg Bupropion HCl (Wellbutrin) 75 mg PO DAILY [facility]; Protocol Stop: 06/23/18 08:59 Divalproex Sodium (Depakote Sprinkle) 125 mg PO Q8HR [facility]; Protocol Stop: 06/25/18 20:59 Guaifenesin/Dextromethorphan (Robitussin Dm) 10 ml PO QID PRN PRN Reason: Cough Stop: 06/22/18 07:35 Last Admin: 04/25/18 20:20 Dose: 10 ml Piperacillin Sod/Tazobactam (Sod 3.375 gm/ Sodium Chloride) 50 mls @ 100 mls/ hr IV Q6HR [facility] Stop: 06/21/18 17:59 Last Admin: 04/26/18 11:07 Dose: 100 mls/hr Vancomycin HCl 1.25 gm/ Sodium (Chloride) 250 mls @ 165 mls/hr IV Q12H [facility] Stop: 06/24/18 08:59 Last Admin: 04/26/18 09:00 Dose: 165 mls/hr Sodium Chloride (Nacl 0.9%) 1,000 mls @ 100 mls/hr IV .Q10H [facility] Stop: 06/25/18 02:59 Last Admin: 04/26/18 05:52 Dose: 100 mls/hr Lacosamide (Vimpat) 50 mg PO BID [facility] Stop: 06/22/18 16:59 Last Admin: 04/26/18 08:19 Dose: 50 mg Levetiracetam (Keppra) 1,500 mg PO BID [facility] Stop: 06/24/18 17:29 Last Admin: 04/26/18 08:20 Dose: 1,500 mg Lorazepam (Ativan) 1 mg IVP Q6HR PRN; Protocol PRN Reason: Agitation Stop: 06/22/18 11:12 Last Admin: 04/25/18 21:50 Dose: 1 mg Metronidazole (Flagyl) 500 mg PO BID [facility] Stop: 06/21/18 16:59 Last Admin: 04/26/18 08:19 Dose: 500 mg Miscellaneous (Vancomycin Iv Per Pharmacy) 1 ea PRN PRN PRN Reason: PROTOCOL Stop: 06/21/18 15:01 Miscellaneous (Probiotic Screen) 1 [facility] PRN PRN PRN Reason: PROTOCOL Stop: 06/23/18 09:29 Mupirocin (Bactroban Oint) 1 appl NS BID [facility] Stop: 04/28/18 17:01 Last Admin: 04/26/18 09:01 Dose: 1 appl General: no acute distress, well developed, well nourished HEENT: atraumatic, normocephalic, PERRLA Neck: supple, no thyromegaly, no lymphadenopathy Cardiovascular: S1S2, regular Lungs: clear to auscultation bilaterally, crackles, rhonchi Abdomen: soft, no tender, no distended, no mass, no hepatomegaly, no splenomegaly Extremities: no cyanosis, no clubbing, no edema Neurological: awake, alert Skin: intact - Procedures Procedures: Procedures Procedure Code Date COLONOSCOPY 45.23 07/22/10 DIAGNOSTIC COLONOSCOPY 38724 07/22/10 EGD DIAGNOSTIC BRUSH WASH 72642 04/17/09 ESOPHAGOGASTRODUODENOSCOPY [EGD] W/CLOSED BIOPSY 45.16 03/05/09 EXC TR-EXT B9+CHILANGO 0.5 CM< [id number] 06/26/16 EXCISION OF CHEST WALL, OPEN APPROACH [id number] 06/26/16 OTHER ENDOSCOPY OF SM INTEST 45.13 04/17/09 Infectious Disease Assmt/Plan - Assessment Assessment: 1. Worsening of leukocytosis, sepsis. 2. Multifocal pneumonia. 3. Diarrhea,Clostridium difficile colitis ruled out. 4. Angelman syndrome. 5. Acute kidney injury, improved. 6. Mental retardation. 7. Psychosis. - Plan Plan: Continue the same treatment. plan to get Benji maldonado. Continue the same treatment. Nutritional Asmnt/Malnutr-PDOC - Dietary Evaluation Malnutrition Findings (Please click <Entered> for more info): Nutritional Asmnt/Malnutrition Start: 04/24/18 16: 11 Text: Status: Complete Freq: Protocol: Document 04/24/18 16:11 LCHENG (Rec: 04/24/18 16:16 [email or web address] [id number]) Nutritional Asmnt/Malnutrition Patient General Information Nutritional Screening High Risk Diagnosis sepsis, PNA Pertinent Medical Hx/Surgical Hx dementia, angelmen's syndrome, chest wall abscess Subjective Information pt seen rest in bed at time of visit. Per EMR, PO intake 75- 100% with assist. Pt has good appetite noted in nurse note. Current Diet Order/ Nutrition Support pureed Pertinent Medications piperacilin, nacl 0.9%, vancomycin Pertinent Labs 04/24 Cl 108, glucose 72, alb 2.7 04/23 Na 147, Cl 108, BUN 26, alb 2.9 Nutritional Hx/Data Height 1.73 m Height (Calculated Centimeters) 172.7 Current Weight (lbs) 68.492 kg Weight (Calculated Kilograms) 68.5 Weight (Calculated Grams) 93217.4 [place] Body Weight 154 Body Mass Index (BMI) 22.9 Weight Status Approriate GI Symptoms GI Symptoms None Last BM 04/24 x 3 Difficult in: None Skin Integrity/Comment: dry scab to left lateral foot Current %PO Good (75-100%) Estimated Nutritional Goals BEE in Kcals: Using Current wt Calories/Kcals/Kg 27-32 Kcals Calculated 3063-5554 Protein: Using Current wt Protein g/k.2 Protein Calculated 83 Fluid: ml 1863-2208ml (1ml/kcal) Nutritional Problem 1. Problem Problem altered nutrition related labs Etiology electrolytes imbalance Signs/Symptoms: cl 108 Malnutrition Alert Is there a minimum of two criteria No selected? Query Text:Check all the applicable criteria. A minimum of two criteria are recommended for diagnosis of either severe or non-severe malnutrition. Malnutrition Related to Morbid Obesity Malnutrition related to morbid obesity No Intervention/Recommendation Comments 1. Continue with pureed diet as ordered. Nurse to assist pt with all meals. 2. Monitor PO intake, wt, labs and skin integrity 3. F/U as moderate risk in 3-5 days, 04/27-04/29 Expected Outcomes/Goals Expected Outcomes/Goals 1. PO intake to meet at least 75% of nutritional needs. 2. Wt stability, skin to remain intact, labs to approach WNL.
[2018-04-26] MEDS: Guaifenesin DM 10 ML UDC PO PRN (21:14)
[2018-04-27] MEDS: Albuterol/Ipratropium Neb 3 ML AERS HHN SCH ×2 (06:31→11:17)
[2018-04-27] MEDS: Budesonide 0.5 Mg/2 mL Ud HHN SCH (06:31)
[2018-04-27 07:13] LABS: % BASOPHILS 0.5 % (0.0-2.0); % MONOCYTES 12.8 % (2.0-10.0); % NEUTROPHILS 71.7 % (40.0-80.0); BASOPHILE ABSOLUTE 0.1 Th/cumm (0-0.2); EOSINOPHILE ABSOLUTE 0.3 Th/cmm (0.1-0.4); HEMATOCRIT 31.7 % (41.0-60); HEMOGLOBIN 10.4 gm/dL (12-16); MEAN CELL VOLUME 81.7 fl (80-99); MEAN CORPUSCULAR HEMOGLOBIN 26.8 pg (26.0-30.0); MEAN CORPUSCULAR HGB CONC 32.8 pg (28.0-36.0); MEAN PLATELET VOLUME 7.2 fl; NEUTROPHILE ABSOLUTE 11.2 Th/cmm (1.8-8.0); PLATELET COUNT 360 Th/cmm (150-400); RED BLOOD COUNT 3.88 Mil/cmm (4.30-5.70); RED CELL DISTRIBUTION WIDTH 17.5 % (11.5-20.0)
[2018-04-27 07:16] LABS: WHITE BLOOD COUNT 15.6 Th/cmm (4.8-10.8)
[2018-04-27 08:16] LABS: ANION GAP 14.9 (7.0-16.0); BUN - UREA NITROGEN 10 mg/dL (7-25); CALCIUM SERUM 8.7 mg/dL (8.6-10.3); CARBON DIOXIDE 29.4 mEq/L (21.0-31.0); CHLORIDE 100 mEq/L (98-107); CREATININE - SERUM 0.8 mg/dL (0.7-1.3); GFR AFRICAN-AMERICAN > 60.0 ml/min (>90); GFR NON AFRICAN-AMERICAN > 60.0 ml/min; GLUCOSE 73 mg/dL (70-105); POTASSIUM SERUM 3.3 mEq/L (3.5-5.1); SODIUM SERUM 141 mEq/L (136-145)
[2018-04-27] MEDS: Sodium Chloride 0.9% 1,000 ML IV SCH (09:31)
--- NOTE | 2018-04-27 17:46 | Discharge Summary ---
DATE OF DISCHARGE: 04/27/2018 CHIEF COMPLAINT: Fever. HISTORY OF PRESENT ILLNESS: The patient is a 47-year-old male with past medical history of Angelman syndrome. MRSA infection, chest wall abscess treated by ____ and it did well. No evidence of any wound infection. Clostridium difficile colitis and psychosis, brought in from nursing facility for fever. On initial evaluation, the patient's temperature 100.5 degree Fahrenheit and WBC count was 24,000 with bands of 18%. Creatinine was also elevated and lactic acid was 1.33. The patient was dropping his blood pressures, so the patient was admitted to the ICU. Pulmonary consultation with Dr. Syd Rivas and Cardiology consultation with Dr. Aleksandr Rivas was called. The patient was diagnosed to have sepsis, right middle lobe pneumonia. As the patient had extensive pneumonia. The patient was started on broad-spectrum antibiotic and include vancomycin, IV Zosyn. As the patient has a history of Clostridium difficile colitis and diarrhea. Vancomycin p.o. was started. Stool for C. diff toxin came negative. The patient was stabilized and vitals were stable. As the patient required IV antibiotics and further treatment. The patient was transferred to long-term acute care facility, [facility] today on 04/27/2018. DISCHARGE CONDITION: Stable. DISCHARGE DIAGNOSES: 1. Septic shock, sepsis. 2. Pneumonia, right lower lobe pneumonia, aspiration pneumonia versus healthcare-associated pneumonia. These or diarrhea with C. diff toxin is Angelman syndrome. 3. Acute kidney injury, improved. 4. Mental retardation. 5. Psychosis. DISPOSITION: [facility]. JOB# [id number]
== END 2018-04-27 11:40 | DRG 871 ==
LOC: ER 10:22 → TELE 13:12 → UNDODISIN 14:50 → ICU 17:20 → TELE 04-25 11:56
PROVIDERS: ADMIT Internal Medicine Infectious Disease; ATTEND Internal Medicine Infectious Disease
DX: A41.9 Sepsis, unspecified organism (principal); R65.21 Severe sepsis with septic shock; J69.0 Pneumonitis due to inhalation of food and vomit; Q93.51 Angelman syndrome; N17.9 Acute kidney failure, unspecified; F29 Unspecified psychosis not due to a substance or known physiological condition; F03.90 Unspecified dementia, unspecified severity, without behavioral disturbance, psychotic disturbance, mood disturbance, and anxiety; F79 Unspecified intellectual disabilities; Z91.018 Allergy to other foods
CPT/HCPCS: 36415-UA; 36600-90; 71045-TC; 71250-TC; 80048-TC; 80053-TC; 80202-TC; 82803-TC; 82948-90; 83605; 84484-TC; 85007-TC; 85025-TC; 85610-TC; 87046-90; 87070; 87230-TC; 89055-TC; 93005; 94760; 96374; J0696; J2060; J2543; J3370; J3480; J7030; X3401; Z7610

== ENCOUNTER 2018-09-02 16:24 | Emergency (ER) | payer MEDICARE, MEDICAID ==
--- NOTE | 2018-09-02 16:50 | ED Physician Chart ---
ED Chief Complaint/HPI - Patient Information Date Seen:: 09/02/18 Time Seen:: 16:46 Chief Complaint:: black stools History of Present Illness:: this is a 48 yo chronically ill male sent from the correction for an evaluation of watery black stools. he is known at this hospital with a medical history of having the Angelman syndrome. Allergies:: Allergies Allergy/AdvReac Type Severity Reaction Status Date / Time chocolate Allergy Uncoded 09/02/18 16:34 Vitals:: Vital Signs - 8 hr 09/02/18 16:34 Temp 95.6 F HR 70 RR 18 BP 105/62 O2 Sat % 96 Historian:: Medical Records Review:: Nurse's Note Reviewed, Old Chart Reviewed, Transfer documents Reviewed , Patient unable to respond ED Review of Systems - Review of Systems General/Constitutional: No fever, No chills, No weight loss, No weakness, No diaphoresis, No edema, No loss of appetite, Other (this patient cannot give a review of systems.) Skin: No skin lesions, No rash, No bruising Head: No headache, No light-headedness Eyes: No loss of vision, No pain, No diplopia ENT: No earache, No nasal drainage, No sore throat, No tinnitus Neck: No neck pain, No swelling, No thyromegaly, No stiffness, No mass noted Cardio Vascular: No chest pain, No palpitations, No PND, No orthopnea, No edema Pulmonary: No SOB, No cough, No sputum, No wheezing GI: No nausea, No vomiting, No diarrhea, No pain, No melena, No hematochezia, No constipation, No hematemesis G/U: No dysuria, No frequency, No hematuria Musculoskeletal: No bone or joint pain, No back pain, No muscle pain Endocrine: No polyuria, No polydipsia Psychiatric: No prior psych history, No depression, No anxiety, No suicidal ideation Hematopoietic: No bruising, No lymphadenopathy Allergic/Immuno: No urticaria, No angioedema Neurological: No syncope, No focal symptoms, No weakness, No paresthesia, No headache, No seizure, No dizziness, No confusion, No vertigo ED Past Medical History - Past Medical History Obtainable: Yes Past Medical History: Dementia, Other (mrsa infection in the past, c diff infection in the past, sepsis on the last hospitalization here.) Family History: None Social History: Non Smoker, No Alcohol, No Drug Use Surgical History: None Psychiatricy History: Depression, Dementia Medication: Reviewed Family Medical History - Family Member Mother History Unknown: Yes Ethnicity: Unknown Living Status: Unknown Hx Family Cancer: (ANUSHKA) Hx Family Coronary Artery Disease: (ANUSHKA) Hx Family Congestive Heart Failure: (ANUSHKA) Hx Family Hypertension: (ANUSHKA) Hx Family Stroke: (ANUSHKA) Hx Family Diabetes: (ANUSHKA) Hx Family Seizures: (ANUSHKA) Hx Family Dementia: (ANUSHKA) Hx Family AIDS: (ANUSHKA) Hx Family COPD: (ANUSHKA) Hx Family Hepatitis: (ANUSHKA) Hx Family Psychiatric Problems: (ANUSHKA) Hx Family Tuberculosis: (ANUSHKA) ED Physical Exam - Physical Examination General/Constitutional: Awake, Well-developed, well-nourished, Alert, No distress, GCS 15, Non-toxic appearing, Ambulatory Other Gen/Cons comments:: this patient is constantly moving without communicating. Head: Atraumatic Eyes: Lids, conjuctiva normal, PERRL, EOMI Skin: Nl inspection, No rash, No skin lesions, No ecchymosis, Well hydrated, No lymphadenopathy ENMT: External ears, nose nl, Nasal exam nl, Lips, teeth, gums nl Neck: Nontender, Full ROM w/o pain, No JVD, No nuchal rigidity, No bruit, No mass, No stridor Respiratory: Nl effort/Exclusion, Clear to Auscultation, No Wheeze/Rhonchi/Rales Cardio Vascular: RRR, No murmur, gallop, rubs, NL S1 S2 GI: No tenderness/rebounding/guarding, No organomegaly, No hernia, Normal BS's, Nondistended, No mass/bruits, No McBurney tenderness : No CVA tenderness Extremities: No tenderness or effusion, Full ROM, normal strength in all extremities, No edema, Normal digits & nails Neuro/Psych: Alert/oriented, DTR's symmetric, Normal sensory exam, Normal motor strength, Judgement/insight normal, Mood normal, Normal gait, No focal deficits Misc: Normal back, No paraspinal tenderness ED Labs/Radiology/EKG Results - Lab Results Results: Laboratory Results - last 24 hr 09/02/18 09/02/18 09/02/18 17:32 17:32 17:32 WBC 9.2 RBC 4.68 Hgb 12.2 Hct 38.7 L MCV 82.7 MCH 25.9 L MCHC Differential 31.4 RDW 16.7 Plt Count 335 MPV 6.4 Neutrophils % 73.3 Lymphocytes % 12.0 L Monocytes % 11.4 H Eosinophils % 3.3 Basophils % 0.0 PT 9.5 INR 0.91 PTT (Actin FS) 28.3 Sodium 144 Potassium 3.6 Chloride 101 Carbon Dioxide 34.5 H Anion Gap 12.1 BUN 19 Creatinine 0.8 Est GFR ( Amer) > 60.0 Est GFR (Non-Af Amer) > 60.0 BUN/Creatinine Ratio 23.8 Glucose 99 Whole Bld Lactic Acid Calcium 9.3 Total Bilirubin 0.1 L AST 20 ALT 20 Alkaline Phosphatase 57 Ammonia Troponin I Total Protein 7.1 Albumin 3.5 L Globulin 3.6 Albumin/Globulin Ratio 1.0 09/02/18 09/02/18 09/02/18 17:32 17:32 17:32 WBC RBC Hgb Hct MCV MCH MCHC Differential RDW Plt Count MPV Neutrophils % Lymphocytes % Monocytes % Eosinophils % Basophils % PT INR PTT (Actin FS) Sodium Potassium Chloride Carbon Dioxide Anion Gap BUN Creatinine Est GFR ( Amer) Est GFR (Non-Af Amer) BUN/Creatinine Ratio Glucose Whole Bld Lactic Acid 1.01 Calcium Total Bilirubin AST ALT Alkaline Phosphatase Ammonia 40 Troponin I 0.01 Total Protein Albumin Globulin Albumin/Globulin Ratio - Radiology Results Results: chest x-ray = nad seen only old scaring noted - EKG Interpretations EKG Time:: 16:45 Rate & Rhythm: rate = 67, sinus [place]: right axis ED Assessment - Assessment General Assessment: the patient is on iron and the H AND H are both normal ED Septic Shock - . Is Septic Shock (SBP<90, OR Lactate>4 mmol\L) present?: No - <6hrs of presentation: Vital Signs: Vital Signs - 8 hr 09/02/18 16:34 Temp 95.6 F HR 70 RR 18 BP 105/62 O2 Sat % 96 ED Reassessment (Disposition) - Reassessment Reassessment Condition:: Unchanged - Diagnosis Diagnosis:: dementia angleman syndrome
[2018-09-02 17:39] LABS: EOSINOPHILE ABSOLUTE 0.3 Th/cmm (0.1-0.4); HEMOGLOBIN 12.2 gm/dL (12-16); NEUTROPHILE ABSOLUTE 6.8 Th/cmm (1.8-8.0); RED BLOOD COUNT 4.68 Mil/cmm (4.30-5.70)
[2018-09-02 17:44] LABS: % EOSINOPHILS 3.3 % (0.0-5.0); % MONOCYTES 11.4 % (2.0-10.0); % NEUTROPHILS 73.3 % (40.0-80.0); HEMATOCRIT 38.7 % (41.0-60); LYMPHOCYTE ABSOLUTE 1.1 Th/cmm (1.5-3.0); MEAN CELL VOLUME 82.7 fl (80-99); MEAN CORPUSCULAR HEMOGLOBIN 25.9 pg (26.0-30.0); MEAN CORPUSCULAR HGB CONC 31.4 pg (28.0-36.0); MEAN PLATELET VOLUME 6.4 fl; PLATELET COUNT 335 Th/cmm (150-400); RED CELL DISTRIBUTION WIDTH 16.7 % (11.5-20.0); WHITE BLOOD COUNT 9.2 Th/cmm (4.8-10.8)
[2018-09-02 17:51] LABS: INR 0.91 (0.5-1.4); PROTHROMBIN TIME (TEST) 9.5 SECONDS (9.5-11.5)
[2018-09-02 17:53] LABS: ALBUMIN 3.5 gm/dL (4.2-5.5); ALKALINE PHOSPHATASE 57 U/L (34-104); ANION GAP 12.1 (7.0-16.0); BILIRUBIN,TOTAL 0.1 mg/dL (0.3-1.0); BUN - UREA NITROGEN 19 mg/dL (7-25); CALCIUM SERUM 9.3 mg/dL (8.6-10.3); CARBON DIOXIDE 34.5 mEq/L (21.0-31.0); CHLORIDE 101 mEq/L (98-107); CREATININE - SERUM 0.8 mg/dL (0.7-1.3); GFR AFRICAN-AMERICAN > 60.0 ml/min (>90); GFR NON AFRICAN-AMERICAN > 60.0 ml/min; GLUCOSE 99 mg/dL (70-105); POTASSIUM SERUM 3.6 mEq/L (3.5-5.1); SGOT 20 U/L (13-39); SGPT/ALT 20 U/L (7-52); SODIUM SERUM 144 mEq/L (136-145); TOTAL PROTEIN,SERUM 7.1 gm/dL (6.0-8.3)
[2018-09-02 18:46] LABS: URINE SOURCE CATH
[2018-09-02 18:49] LABS: URINE BILIRUBIN NEGATIVE (NEGATIVE); URINE BLOOD NEGATIVE (NEGATIVE); URINE GLUCOSE (UA) NEGATIVE (NEGATIVE); URINE KETONE NEGATIVE (NEGATIVE); URINE LEUKOCYTE ESTERASE NEGATIVE (NEGATIVE); URINE MICROSCOPIC INDICATED? YES; URINE NITRATE NEGATIVE (NEGATIVE); URINE PH 5.5 (4.6 - 8.0); URINE PROTEIN TRACE mg/dL (NEGATIVE); URINE UROBILINOGEN 0.2 E.U./dL (0.2 - 1.0)
[2018-09-02 19:33] LABS: URINE CLARITY CLEAR (CLEAR); URINE COLOR YELLOW
[2018-09-02 19:36] LABS: URINE BACTERIA FEW /hpf (NONE SEEN); URINE EPITHELIAL CELLS FEW /lpf (FEW); URINE FINE GRANULAR CAST 0-2 /lpf (NONE SEEN); URINE RBC 0-2 /hpf (0-5)
[2018-09-03 09:10] LABS: IRON LC 65 ug/dL (38-169); TIBC (LC) 351 ug/dL (250-450); UIBC 286 ug/dL (111-343)
--- NOTE | 2018-09-03 09:59 | Diagnostic Imaging Report ---
Portable chest x-ray HISTORY: Cough The heart is enlarged. No definite focal point processes. No hilar or mediastinal abnormalities. IMPRESSION: 1. No definite acute focal pulmonary processes 2. Suggestion of a generous heart size
== END 2018-09-02 20:30 | disposition short-term general hospital (02) ==
LOC: ER 16:24
DX: F03.90 Unspecified dementia, unspecified severity, without behavioral disturbance, psychotic disturbance, mood disturbance, and anxiety (principal); I10 Essential (primary) hypertension; Q93.51 Angelman syndrome; R19.5 Other fecal abnormalities; F32.9 Major depressive disorder, single episode, unspecified; Z91.018 Allergy to other foods
CPT/HCPCS: 36415-UA; 71045-TC; 80053-TC; 81001-TC; 82140-TC; 82270-TC; 82746-90; 83540-90; 83550-90; 83605; 84443-TC; 84484-TC; 85025-TC; 85610-TC; 85730-TC; 93005